=== PATIENT | female | born 1940 | race Caucasian/White ===

== ENCOUNTER 2017-07-10 22:35 | Observation (INO) | payer MEDICARE, OTHER, SELFPAY ==
[2017-07-10 22:36] VITALS: BP 135/59; PULSE 64; RESP 20; TEMP 36.6; O2SAT 95; BMI 23.3
--- NOTE | 2017-07-10 22:46 | CT_ITS ---
CT head/brain wo con HISTORY: Altered mental status, altered level of consciousness, memory loss ITS.REASON: altered mental status ORDERING PHYSICIAN: Michel Montgomery MD PATIENT AGE: 76 years COMPARISON: None TECHNIQUE: Axial images obtained without contrast. Brain and bone windows reviewed. FINDINGS: No midline shift, mass effect, intracranial hemorrhage, hydrocephalus, or extra-axial fluid collection is evident. Decreased density noted in the right parietal lobe consistent with encephalomalacia change from old infarction The calvarium has an unremarkable appearance. Mild opacification left mastoid air cells. No sinus air-fluid levels.. IMPRESSION: 1. 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 2. No acute intracranial findings. 3. Left mastoid effusion.
[2017-07-10 23:02] LABS: Basophils # 0.1 K/mm3 (0-0.2); Basophils % 0.9 % (0.1-2.0); Eosinophils # 0.6 K/mm3 (0.0-0.4); Eosinophils % 7.3 % (0.1-12.0); Hematocrit 37.9 % (37.0-47.0); Hemoglobin 12.3 g/dL (12.2-16.2); Lymphocytes # 3.3 K/mm3 (0.7-4.5); Lymphocytes % 39.5 K/mm3 (10-50); Mean Corpuscular HGB Conc 32.4 g/dL (31.8-35.4); Mean Corpuscular Volume 89.5 fl (81-99); Mean Platelet Volume 7.6 fl (7.4-10.4); Monocytes # 0.6 K/mm3 (0.1-1.0); Monocytes % 7.2 % (1.7-9.3); Neutrophils # 3.8 K/mm3 (1.8-7.8); Neutrophils % 45.1 % (37.0-80.0); Platelet Count 319 K/mm3 (142-424); Red Blood Count 4.23 M/mm3 (4.20-5.40); Red Cell Distribution Width 12.7 % (11.5-17.5); White Blood Count 8.4 K/mm3 (4.8-10.8)
[2017-07-10 23:03] LABS: Appearance,Urine CLEAR (Clear); Bilirubin,Urine Negative (Negative); Blood, Urine Negative (Negative); Color,Urine YELLOW (Yellow); Glucose,Urine (UA) Negative (Negative); Ketones,Urine TRACE (Negative); Leukocyte Esterase,Urine Negative (Negative); Microscopic, Urine URINE MICROSCOPIC (MICROSCOPIC); Nitrate,Urine Negative (Negative); PH,Urine 5.5 (5.0-8.5); Protein,Urine Negative (Negative); Specific Gravity, Urine >= 1.030 (1.005-1.030); Urobilinogen,Urine 0.2 EU/dl (0.2)
[2017-07-10 23:13] LABS: Bacteria,Urine 1+ /lpf; Mucus,Urine 1+ /lpf
[2017-07-10 23:26] LABS: Alanine Aminotransferase 26 U/L (12-78); Albumin Level 3.6 gm/dL (3.4-5.0); Albumin/Globulin Ratio 0.9 (1.1-1.8); Alkaline Phosphatase 117 U/L (46-116); Anion Gap 6.9 mEq/L (5-15); Aspartate Amino Transferase 22 U/L (15-37); Bilirubin,Total 0.2 mg/dL (0.2-1.0); Blood Urea Nitrogen 28 mg/dL (7-18); CKMB Relative Index 0.1 U/L (0-4.0); Calcium 8.9 mg/dL (8.5-10.1); Carbon Dioxide 30 mmol/L (21.0-32.0); Chloride 103 mmol/L (98-107); Creatine Kinase 498 U/L (26-192); Creatine Kinase MB 0.5 mg/ml (0.0-3.6); Creatinine Clearance Estimated 41 mL/min (0-300); Estimated Glomerular Filt Rate 44 ml/min (>60); GFR (African American) 53 ML/MIN (>60); Globulin 3.9 gm/dl (1.3-3.2); Glucose 112 mg/dL (74-106); Potassium 3.9 mmoL/L (3.5-5.1); Sodium 136 mmol/L (136-145); Total Protein,Serum 7.5 gm/dL (6.4-8.2); Troponin I < 0.02 ng/ml (0.00-0.06)
[2017-07-11 00:06] VITALS: BP 133/84; PULSE 74; RESP 17; O2SAT 96
--- NOTE | 2017-07-11 01:03 | HMH.EDNEU ---
ED Disposition Clinical Impression: History of CVA (cerebrovascular accident), Renal insufficiency TIA (transient ischemic attack) Qualifiers: Transient cerebral ischemia type: unspecified Qualified Code(s): G45.9 - Transient cerebral ischemic attack, unspecified Disposition: Admitted as Observation Condition on Discharge: Good Instructions: DI for Altered Mental Status Referrals: Michel Montgomery MD [Primary Care Provider] - - Critical Care Critical Care Time: No Attestation: On 07/10/17, the high probability of a clinically significant, sudden or life threatening deterioration of the following system(s) required my full and direct attention, intervention and personal management. The time I documented below is in addition to time spent performing reported procedures but includes the following listed in this critical care notation. Medical Decision Making - Medical Records Medical records reviewed: Yes: I reviewed the patient's medical records. - [place] Inquiry Pt receiving controlled substance: No Vital Signs: 07/10/17 22:36 07/11/17 00:06 Temperature 97.9 F Temperature Source Oral Pulse Rate [Right Brachial] 64 74 Respiratory Rate 20 17 Blood Pressure [Right Arm] 135/59 133/84 Blood Pressure Mean [Right Arm] 84 100 Blood Pressure Source [Right Arm] Automatic Cuff Manual Cuff/ Palpation Blood Pressure Position [Right Arm] Sitting 02 Sat by Pulse Oximetry 95 96 Oxygen Delivery Method Room Air Room Air - Lab Data Lab results reviewed: Yes: I reviewed the patient's lab results. Lab Results 07/10/17 22:58: WBC 8.4, RBC 4.23, Hgb 12.3, Hct 37.9, MCV 89.5, MCH 29.0, MCHC 32.4, RDW 12.7, Plt Count 319, MPV 7.6, Neut % (Auto) 45.1, Lymph % (Auto) 39.5, [place] % (Auto) 7.2, Eos % (Auto) 7.3, Baso % (Auto) 0.9, Neut # (Auto) 3.8, Lymph # (Auto) 3.3, [place] # (Auto) 0.6, Eos # (Auto) 0.6 H, Baso # (Auto) 0.1 07/10/17 22:58: Sodium 136, Potassium 3.9, Chloride 103, Carbon Dioxide 30, Anion Gap 6.9, BUN 28 H, Creatinine 1.20 H, Estimated Creat Clear 41, Estimated GFR 44 L, Est GFR ( Amer) 53 L, Glucose 112 H, Calcium 8.9, Total Bilirubin 0.2, AST 22, ALT 26, Alkaline Phosphatase 117 H, Total Creatine Kinase 498 H, CK-MB (CK-2) 0.5, CK-MB (CK-2) Rel Index 0.1, Troponin I < 0.02, Total Protein 7.5, Albumin 3.6, Globulin 3.9 H, Albumin/Globulin Ratio 0.9 L 07/10/17 23:00: Urine Color Yellow, Urine Appearance Clear, Urine pH 5.5, Ur Specific [place] >= 1.030, Urine Protein Negative, Urine Glucose (UA) Negative, Urine Ketones Trace, Urine Blood Negative, Urine Nitrate Negative, Urine Bilirubin Negative, Urine Urobilinogen 0.2, Ur Leukocyte Esterase Negative, Urine RBC 3-5, Urine WBC 3-5, Ur Squamous Epith Cells 3-5, Urine Bacteria 1+, Hyaline Casts 3-5, Urine Mucus 1+ Result diagrams: 07/10/17 22:58 07/10/17 22:58 Orders (Tests/Meds): ORDERS Category Date Time Status CT head/brain wo con Stat Cat Scan 07/10/17 22:46 Taken - CT Data CT Scan: Head Time Received: 22:[address] Reviewed: Yes: I have viewed the radiologist's interpretation Preliminary Findings: Abnormal (old cva ) - ECG Data Tracing #1 I reviewed this ECG and interpreted as documented below: Normal Sinus Rhythm: Yes Ischemic changes: non-specific ST-T wave changes - Physician Consults Physician Consulted: kanika Reason -: Admission Neuro HPI - General Chief Complaint: Altered Mental Status Stated Complaint: mental status changes Time Seen by Provider: 07/10/17 22:40 Mode of Arrival: Ambulatory Limitations: No Limitations Description of Symptoms (Recalled from ER Triage Doc. by RN): reports mental status changes, and numbness earlier. she reports right now, she just feels funny in her chest - History of Present Illness HPI Narrative: this wf who had cva about 1 yr ago and cardiac stent about 2 months ago - had not been feeling well over the last few days with rt sided noble and feeling fatigued- she saw pcp
--- NOTE | 2017-07-11 01:12 | PC.NURSE ---
dr boudreaux paged per dr bruno request
--- NOTE | 2017-07-11 01:14 | PC.NURSE ---
dr bruno speaking to dr boudreaux at this time regarding possible admission. dr boudreaux agreeable to admission
[2017-07-11 02:09] VITALS: BP 173/64; PULSE 52; RESP 16; TEMP 37; O2SAT 96
[2017-07-11 02:30] VITALS: BP 156/61; PULSE 51; RESP 18; TEMP 36.8; O2SAT 96; BMI 23.4
[2017-07-11 04:00] VITALS: BP 152/56; PULSE 57; PULSE 90; RESP 18; TEMP 36.6; O2SAT 95
--- NOTE | 2017-07-11 05:43 | PC.NURSE ---
CHARTED TELEMETRY STRIP ON THIS PATIENT BY MISTAKE. ASKED Ambrosio LERMA RN TO UN DOCUMENT THE ENTRY SINCE I DO NOT HAVE THE ACCESS TO THAT OPTION.
--- NOTE | 2017-07-11 07:15 | HMH.PHAVTE ---
[facility] Pharmacy VTE Monitoring - Patient Demographics Admission date: 07/10/17 Report Date: 07/11/17 Time: 07:15 Allergies/Adverse Reactions: Patient Allergies No Known Allergies Allergy (Verified 07/10/17 22:42) Height: 1.63 m Weight: 61.915 kg Patient Problems: Current Active Problems TIA (transient ischemic attack) (Acute) Renal insufficiency (Acute) History of CVA (cerebrovascular accident) (Acute) - VTE Risk Labs: VTE Related Lab Results Hgb 12.3 g/dL (12.2-16.2) 07/10/17 22:58 Hct 37.9 % (37.0-47.0) 07/10/17 22:58 Plt Count 319 K/mm3 (142-424) 07/10/17 22:58 BUN 28 mg/dL (7-18) H 07/10/17 22:58 Creatinine 1.20 mg/dL (0.55-1.02) H 07/10/17 22:58 Estimated Creat Clear 41 mL/min (0-300) 07/10/17 22:58 Was VTE Risk Assessment Performed: Yes VTE Risk Level: Very Low Risk Clinical Trial Participant: No - Prophylaxis VTE Prophylaxis Ordered?: Yes Types of VTE Prophylaxis: TEDS Knee High
[2017-07-11 07:45] VITALS: BP 144/49; PULSE 59; RESP 18; TEMP 36.8; O2SAT 97
[2017-07-11 08:10] LABS: Anion Gap 12.9 mEq/L (5-15); Blood Urea Nitrogen 27 mg/dL (7-18); Carbon Dioxide 27 mmol/L (21.0-32.0); Chloride 107 mmol/L (98-107); Creatinine Clearance Estimated 48 mL/min (0-300); Creatinine,Serum 0.98 mg/dL (0.55-1.02); Estimated Glomerular Filt Rate 55 ml/min (>60); GFR (African American) 67 ML/MIN (>60); Glucose 88 mg/dL (74-106); Potassium 3.9 mmoL/L (3.5-5.1); Sodium 143 mmol/L (136-145)
--- NOTE | 2017-07-11 08:17 | HMH.HP ---
*Admission Date: 07/10/17 <Shereen Randall 07/11/17 08:34> *Chief complaint: AMS <Shereen Randall 07/11/17 08:34> *History of present illness: Ms. Verdugo is a 76yo female who had a CVA in 2016 and cardiac stent placed about 2 months ago. She states she had not been feeling well over the last few days with a right sided headache. She also felt fatigued. She saw Dr. Montgomery on Sunday and was given fioricet and tizanidine. She had an episode of not feeling well with possible slurred speech last night and then took a tizanidine and felt more confused. There were no visual sx and no sensory or motor loss. She did feel like she could pass out but denies any dizziness. <Shereen Randall 07/11/17 08:34> [facility] History Medical History: Reports:: Anxiety, Carotid Stenosis, Cerebrovascular Accident, Depression, Hyperlipidemia, Hypertension Denies:: Cancer, Diabetes Mellitus Type 1, Diabetes Mellitus Type 2, MRSA <Shereen Randall 07/11/17 08:34> Other Medical History: Reports: Arthritis, Fibromyalgia <Shereen Randall 07/11/17 08:34> Other Surgeries: Yes: Coronary Stent, Hysterectomy-Total <Shereen Randall 07/11/17 08:34> Amputation: No <Shereen Randall 07/11/17 08:34> Fractures: No <Shereen Randall 07/11/17 08:34> Comment: Bladder tuck, lithotripsy <Shereen Randall 07/11/17 08:34> - *Social History Educational Level: Completed High School <Shereen Randall 07/11/17 08:34> Smoking Status: Never smoker <Shereen Randall 07/11/17 08:34> Alcohol Intake: never <Shereen Randall 07/11/17 08:34> Alcohol Intake Frequency:: other <Shereen Randall 07/11/17 08:34> Occupational Status: disabled <Shereen Randall 07/11/17 08:34> Housing: house <Shereen Randall 07/11/17 08:34> Household Members: spouse <Shereen Randall 07/11/17 08:34> - Psychiatric History Expresses thoughts of harming self/others: None <JamesShereen choe 07/11/17 08:34> Suicide Plan Description: No Plan <JamesShereen choe 07/11/17 08:34> *Family Hx:: Coronary Artery Disease, Diabetes, Stroke <ToniaShereen 07/11/17 08:34> Review of Systems - Constitutional Reports headache(s), Reports weakness, Denies chills, Denies fever(s) <Shereen Randall 07/11/17 08:34> - Eyes Denies blurry vision, Denies double vision <Shereen Randall 07/11/17 08:34> - ENT Denies nasal congestion, Denies sore throat <Shereen Randall 07/11/17 08:34> - *Cardiovascular Denies chest pain, Denies shortness of breath, Denies rapid, pounding, or irregular heartbeat <Shereen Randall 07/11/17 08:34> - *Respiratory Denies cough, Denies shortness of breath <ToniaShereen 07/11/17 08:34> - *Gastrointestinal Denies abdominal pain, Denies nausea, Denies vomiting <Shereen Randall 07/11/17 08:34> - *Genitourinary Denies difficulty urinating, Denies painful urination <ToniaShereen 07/11/17 08:34> - *Musculoskeletal Denies joint pain, Denies muscle weakness, Denies body aches <Shereen Randall 07/11/17 08:34> - *Neurologic Reports abnormal speech, Reports unsteadiness, Reports headache(s), Denies abnormal walking, Denies seizure-like activity, Denies other visual disturbances, Denies fainting, Denies dizziness <Shereen Randall 07/11/17 08:34> Meds Home Medications Medication Instructions Recorded Confirmed Type aspirin 81 mg tablet,delayed 81 mg PO DAILY 05/04/17 07/11/17 History release duloxetine 30 mg capsule,delayed 30 mg PO DAILY 05/04/17 07/11/17 History release Clopidogrel Bisulfate [Plavix 75mg 75 mg PO DAILY 07/10/17 07/11/17 History Tab] Bisoprolol Fumarate 10 mg PO DAILY 07/11/17 07/11/17 History Lisinopril/Hydrochlorothiazide 1 tab PO DAILY 07/11/17 07/11/17 History [Lisinopril-Hctz 10-12.5 mg Tab] dilTIAZem HCl [Cartia Xt] 120 mg PO DAILY 07/11/17 07/11/17 History <Michel Montgomery - 07/16/17 21:58> Allergies Allergy/AdvReac Type Severity Reaction Status Date / Time No Known Allergies Allergy Verified 07/10/17 22:42
--- NOTE | 2017-07-11 08:21 | P.HP_ITS ---
*Admission Date: 07/10/17 <Shereen Randall 07/11/17 08:34> *Chief complaint: AMS <Shereen Randall 07/11/17 08:34> *History of present illness: Ms. Verdugo is a 76yo female who had a CVA in 2016 and cardiac stent placed about 2 months ago. She states she had not been feeling well over the last few days with a right sided headache. She also felt fatigued. She saw Dr. Montgomery on Sunday and was given fioricet and tizanidine. She had an episode of not feeling well with possible slurred speech last night and then took a tizanidine and felt more confused. There were no visual sx and no sensory or motor loss. She did feel like she could pass out but denies any dizziness. <Shereen Randall 07/11/17 08:34> [facility] History Medical History: Reports:: Anxiety, Carotid Stenosis, Cerebrovascular Accident, Depression, Hyperlipidemia, Hypertension Denies:: Cancer, Diabetes Mellitus Type 1, Diabetes Mellitus Type 2, MRSA < Shereen Randall 07/11/17 08:34> Other Medical History: Reports: Arthritis, Fibromyalgia <Shereen Randall 07/11 08:34> Other Surgeries: Yes: Coronary Stent, Hysterectomy-Total <Shereen Randall 08:34> Amputation: No <Shereen Randall 07/11/17 08:34> Fractures: No <Shereen Randall 07/11/17 08:34> Comment: Bladder tuck, lithotripsy <Shereen Randall 07/11/17 08:34> - *Social History Educational Level: Completed High School <Shereen Randall 07/11/17 08:34> Smoking Status: Never smoker <Shereen Randall 07/11/17 08:34> Alcohol Intake: never <Shereen Randall 07/11/17 08:34> Alcohol Intake Frequency:: other <Shereen Randall 07/11/17 08:34> Occupational Status: disabled <Shereen Randall 07/11/17 08:34> Housing: house <Shereen Randall 07/11/17 08:34> Household Members: spouse <Shereen Randall 07/11/17 08:34> - Psychiatric History Expresses thoughts of harming self/others: None <JamesShereen choe 07/11/17 08: 34> Suicide Plan Description: No Plan <JamesShereen choe 07/11/17 08:34> *Family Hx:: Coronary Artery Disease, Diabetes, Stroke <ToniaShereen 08:34> Review of Systems - Constitutional Reports headache(s), Reports weakness, Denies chills, Denies fever(s) <Shereen Randall 07/11/17 08:34> - Eyes Denies blurry vision, Denies double vision <Shereen Randall 07/11/17 08:34> - ENT Denies nasal congestion, Denies sore throat <Shereen Randall 07/11/17 08:34> - *Cardiovascular Denies chest pain, Denies shortness of breath, Denies rapid, pounding, or irregular heartbeat <Shereen Randall 07/11/17 08:34> - *Respiratory Denies cough, Denies shortness of breath <ToniaShereen 07/11/17 08:34> - *Gastrointestinal Denies abdominal pain, Denies nausea, Denies vomiting <Shereen Randall 08:34> - *Genitourinary Denies difficulty urinating, Denies painful urination <ToniaShereen 08:34> - *Musculoskeletal Denies joint pain, Denies muscle weakness, Denies body aches <Shereen Randall 07/11/17 08:34> - *Neurologic Reports abnormal speech, Reports unsteadiness, Reports headache(s), Denies abnormal walking, Denies seizure-like activity, Denies other visual disturbances , Denies fainting, Denies dizziness <Shereen Randall 07/11/17 08:34> Meds Home Medications Medication Instructions Recorded Confirmed Type aspirin 81 mg tablet,delayed 81 mg PO DAILY 05/04/17 07/11/17 History release duloxetine 30 mg capsule,delayed 30 mg PO DAILY 05/04/17 07/11/17 History release Clopidogrel Bisulfate [Plavix 75mg 75 mg PO DAILY 07/10/17 07/11/17 History Tab] Bisoprolol Fu
[2017-07-11 08:23] LABS: Basophils # 0.1 K/mm3 (0-0.2); Basophils % 0.6 % (0.1-2.0); Eosinophils # 0.6 K/mm3 (0.0-0.4); Eosinophils % 7.7 % (0.1-12.0); Hematocrit 34.3 % (37.0-47.0); Hemoglobin 11.4 g/dL (12.2-16.2); Lymphocytes # 3.2 K/mm3 (0.7-4.5); Lymphocytes % 40.3 K/mm3 (10-50); Mean Corpuscular HGB Conc 33.3 g/dL (31.8-35.4); Mean Corpuscular Hemoglobin 28.9 pg (27.0-31.2); Mean Corpuscular Volume 86.9 fl (81-99); Mean Platelet Volume 7.7 fl (7.4-10.4); Monocytes # 0.5 K/mm3 (0.1-1.0); Monocytes % 6.7 % (1.7-9.3); Neutrophils # 3.5 K/mm3 (1.8-7.8); Neutrophils % 44.6 % (37.0-80.0); Platelet Count 277 K/mm3 (142-424); Red Blood Count 3.95 M/mm3 (4.20-5.40); Red Cell Distribution Width 12.6 % (11.5-17.5); White Blood Count 7.9 K/mm3 (4.8-10.8)
--- NOTE | 2017-07-11 08:31 | CI_ITS ---
Cerebrovascular Exam Indications: 433.10 Occlusion/stenosis of carotid artery without cerebral infarction. IMPRESSIONS 1. The bilateral vertebral arteries are patent with normal antegrade flow. 2. Study suggests less than 20% stenosis involving the right internal carotid artery. No change from the study of October 2015. 3. Study suggests 50-69% stenosis involving the left internal carotid artery. No change from the study of October 2015. History: Transient ischemic attack. Risk factors: Hypertension. Hyperlipidemia. Carotid duplex study. Complete study and Doppler flow study including spectral analysis, color and otero scale imaging. Height: Height: 162.6cm. Height: 64in. Weight: Weight: 63.1kg. Weight: 138.7lb. Body mass index: BMI: 23.9kg/m^2. Body surface area: BSA: 1.7m^2. Location: Bedside. Patient status: Inpatient. Tables: Arterial flow: + +--------+--------+ Location V sys V ed + +--------+--------+ Right CCA - proximal 133cm/s 19.6cm/s + +--------+--------+ Right CCA - distal 108cm/s 18.1cm/s + +--------+--------+ Right ECA 95.1cm/s -------- + +--------+--------+ Right ICA - proximal 91.1cm/s 20.4cm/s + +--------+--------+ Right ICA - mid 107cm/s 19.6cm/s + +--------+--------+ Right ICA - distal 122cm/s 27.5cm/s + +--------+--------+ Right vertebral 53.4cm/s -------- + +--------+--------+ Left CCA - proximal 105cm/s 18.9cm/s + +--------+--------+ Left CCA - distal 135cm/s 20.4cm/s + +--------+--------+ Left ECA 105cm/s -------- + +--------+--------+ Left ICA - proximal 121cm/s 31.4cm/s + +--------+--------+ Left ICA - mid 148cm/s 26.7cm/s + +--------+--------+ Left ICA - distal 242cm/s 44cm/s + +--------+--------+ Left vertebral 68.7cm/s -------- + +--------+--------+ Velocity ratios: + + + + + + Right, V sys Right, V ed Left, V sys Left, V ed + + + + + + Max ICA/dist CCA 1.13 1.52 1.79 2.16 + + + + + + (Report amended ) Electronically signed by: Arjun Barnes [id number]
--- NOTE | 2017-07-11 11:45 | HMH.DCSUM ---
General - General Admission date: 07/10/17 <Shereen Randall - 07/11/17 11:46> Discharge date: 07/11/17 <Shereen Randall - 07/11/17 11:46> HPI HPI: Ms. Verdugo is a 76yo female who had a CVA in 2016 and cardiac stent placed about 2 months ago. She states she had not been feeling well over the last few days with a right sided headache. She also felt fatigued. She saw Dr. Montgomery on Sunday and was given fioricet and tizanidine. She had an episode of not feeling well with possible slurred speech last night and then took a tizanidine and felt more confused. There were no visual sx and no sensory or motor loss. She did feel like she could pass out but denies any dizziness. <Shereen Randall - 07/11/17 11:46> Hospital Course Hospital Course: The patient had a head CT showing nothing acute and her carotid U/S was essentially the same as her previous U/S. Her symptoms resolved and she was stable to be discharged home. Will f/u with Dr. Montgomery in 1 week and keep her neurology appt. <Shereen Randall - 07/11/17 11:46> Objective Vital signs: Temp Pulse Resp BP Pulse Ox 98.2 F 59 L 18 144/49 97 07/11/17 07:45 07/11/17 07:45 07/11/17 07:45 07/11/17 07:45 07/11/17 07:45 <Michel Montgomery - 07/16/17 21:50> Temp Pulse Resp BP Pulse Ox 98.2 F 59 L 18 144/49 97 07/11/17 07:45 07/11/17 07:45 07/11/17 07:45 07/11/17 07:45 07/11/17 07:45 <Shereen Randall - 07/11/17 11:46> Narrative: - Constitutional no acute distress - *Routine HEENT Exam Head: Present: normocephalic, atraumatic Eye: Present: EOMI, PERRL ENT: Present: mucous membranes moist - *Routine Neck Exam Present: supple, full ROM - *Routine Respiratory Exam Present: CTA bilaterally - *Routine Cardiovascular Exam Present: RRR - *Routine Abdominal Exam Present: soft, normoactive bowel sounds. Absent: tenderness - *Routine Extremities Exam Absent: edema - *Routine Skin Exam Present: intact - *Routine Neurological Exam Present: alert, oriented X3, CN II-XII intact, normal speech. Absent: sensory deficit, motor deficit <Shereen Randall - 07/11/17 11:46> Results Labs on day of discharge: Labs from last 24 hours 07/11/17 07/11/17 06:35 06:35 WBC 7.9 RBC 3.95 L Hgb 11.4 L Hct 34.3 L MCV 86.9 MCH 28.9 MCHC 33.3 RDW 12.6 Plt Count 277 MPV 7.7 Neut % (Auto) 44.6 Lymph % (Auto) 40.3 [place] % (Auto) 6.7 Eos % (Auto) 7.7 Baso % (Auto) 0.6 Neut # (Auto) 3.5 Lymph # (Auto) 3.2 [place] # (Auto) 0.5 Eos # (Auto) 0.6 H Baso # (Auto) 0.1 Sodium 143 Potassium 3.9 Chloride 107 Carbon Dioxide 27 Anion Gap 12.9 BUN 27 H Creatinine 0.98 Estimated Creat Clear 48 Estimated GFR 55 L Est GFR ( Amer) 67 D Glucose 88 D <Shereen Randall - 07/11/17 11:46> DS: Diagnosis - Discharge Diagnosis (1) TIA (transient ischemic attack) Status: Acute (2) Headache Status: Acute (3) Renal insufficiency Status: Acute (4) History of CVA (cerebrovascular accident) Status: Chronic (5) CAD (coronary artery disease) Status: Chronic (6) HHD (hypertensive heart disease) Status: Chronic <Shereen Randall - 07/11/17 11:45> Discharge Plan - Patient Discharge Instructions ACTIVITY: Continue current activity <Shereen Randall - 07/11/17 11:46> DIET: continue same diet <Shereen Randall - 07/11/17 11:46> Patient Instructions: DI for Transient Ischemic Attack <Michel Montgomery - 07/16/17 21:50> Forms: <Michel Montgomery - 07/16/17 21:50> - Follow up Plan Follow up with: Michel oMntgomery MD [Primary Care Provider] - 1 week <Michel Montgomery - 07/16/17 21:50> Disposition: Home, Self-Care <Michel Montgomery - 07/16/17 21:50> Home Medications: Home Medications Medication Instructions Recorded Confirmed Type aspirin 81 mg tablet,delayed 81 mg PO DAILY 05/04/17 07/11/17 History
== END 2017-07-11 12:42 | disposition home or self-care (01) ==
LOC: ER 23:25 → 2ND 07-11 01:29
PROVIDERS: Admitting Provider Family Medicine; Emergency Provider Emergency Medicine; PCP Family Medicine; Visit Provider Family Medicine
DX: G45.9 Transient cerebral ischemic attack, unspecified (principal); N28.9 Disorder of kidney and ureter, unspecified; R51 Headache; M79.7 Fibromyalgia; I11.9 Hypertensive heart disease without heart failure; I25.10 Atherosclerotic heart disease of native coronary artery without angina pectoris; Z95.5 Presence of coronary angioplasty implant and graft; Z86.73 Personal history of transient ischemic attack (TIA), and cerebral infarction without residual deficits; Z90.710 Acquired absence of both cervix and uterus; Z79.02 Long term (current) use of antithrombotics/antiplatelets; Z79.899 Other long term (current) drug therapy
CPT/HCPCS: 36415; 70450; 80048; 80053; 81001; 82550; 82553; 84484; 85025; 93005; 93880; 99284; G0378

== ENCOUNTER → 2017-07-31 09:16 | Outpatient (CLI) | payer MEDICARE, OTHER, SELFPAY ==
[2017-07-31 10:26] LABS: Basophils # 0.1 K/mm3 (0-0.2); Basophils % 1.1 % (0.1-2.0); Eosinophils # 0.7 K/mm3 (0.0-0.4); Hematocrit 42.1 % (37.0-47.0); Hemoglobin 13.6 g/dL (12.2-16.2); Lymphocytes # 2.5 K/mm3 (0.7-4.5); Mean Corpuscular HGB Conc 32.2 g/dL (31.8-35.4); Mean Corpuscular Hemoglobin 29.4 pg (27.0-31.2); Mean Corpuscular Volume 91.2 fl (81-99); Mean Platelet Volume 7.5 fl (7.4-10.4); Monocytes # 0.5 K/mm3 (0.1-1.0); Monocytes % 6.4 % (1.7-9.3); Neutrophils # 3.2 K/mm3 (1.8-7.8); Neutrophils % 46.4 % (37.0-80.0); Platelet Count 318 K/mm3 (142-424); Red Blood Count 4.62 M/mm3 (4.20-5.40); Red Cell Distribution Width 12.7 % (11.5-17.5); White Blood Count 6.9 K/mm3 (4.8-10.8)
[2017-07-31 10:47] LABS: Alanine Aminotransferase 18 U/L (12-78); Albumin Level 3.7 gm/dL (3.4-5.0); Albumin/Globulin Ratio 0.9 (1.1-1.8); Alkaline Phosphatase 107 U/L (46-116); Anion Gap 9.6 mEq/L (5-15); Aspartate Amino Transferase 21 U/L (15-37); Bilirubin,Total 0.2 mg/dL (0.2-1.0); Blood Urea Nitrogen 28 mg/dL (7-18); Calcium 9.7 mg/dL (8.5-10.1); Carbon Dioxide 29 mmol/L (21.0-32.0); Chloride 107 mmol/L (98-107); Chol/HDL Ratio 3.3 (1-3.5); Cholesterol 225 mg/dL (140-200); Creatinine,Serum 1.13 mg/dL (0.55-1.02); Estimated Glomerular Filt Rate 47 ml/min (>60); GFR (African American) 57 ML/MIN (>60); Glucose 108 mg/dL (74-106); HDL Cholesterol 69 mg/dL (29-89); LDL Cholesterol 137 mg/dL (0-130); Potassium 4.6 mmoL/L (3.5-5.1); Sodium 141 mmol/L (136-145); Thyroid Stimulating Hormone 3.26 uIU/ml (0.358-3.740); Total Protein,Serum 7.7 gm/dL (6.4-8.2); Triglycerides 95 mg/dL (30-200); VLDL Cholesterol 19 mg/dL (0-40)
[2017-08-02 15:53] LABS: Vitamin D 25 Hydroxy 13.3 ng/mL (30.0-100.0)
== END ==
PROVIDERS: Visit Provider Family Medicine
DX: I25.10 Atherosclerotic heart disease of native coronary artery without angina pectoris (principal); I10 Essential (primary) hypertension; R53.83 Other fatigue
CPT/HCPCS: 36415; 80053; 80061; 82652; 84436; 84443; 85025

== ENCOUNTER → 2017-10-17 10:32 | Outpatient (CLI) | payer MEDICARE, OTHER, SELFPAY ==
--- NOTE | 2017-10-17 10:35 | XR_ITS ---
XR shoulder LT min 2V HISTORY: ITS.REASON: left shoulder pain ORDERING PHYSICIAN: Alonzo Mar MD PATIENT AGE: 76 years Comparison: 01/30/2011 FINDINGS: No fracture or dislocation. No lytic or blastic change. There is normal mineralization. There are minimal hypertrophic changes of the acromioclavicular joint but no significant subacromial stenosis and no significant change from the previous exam. IMPRESSION: Minimal acromioclavicular arthropathy otherwise negative
== END ==
PROVIDERS: PCP Family Medicine; Visit Provider Orthopaedic Surgery
DX: M25.512 Pain in left shoulder (principal)
CPT/HCPCS: 73030

== ENCOUNTER 2017-10-17 11:22 | Outpatient (RCR) | payer MEDICARE, OTHER, SELFPAY | END 2017-10-17 11:23 | disposition home or self-care (01) | LOC: OT 11:22 | PROVIDERS: Visit Provider Orthopaedic Surgery | DX: G56.02 Carpal tunnel syndrome, left upper limb (principal) | CPT/HCPCS: 97760 ==

== ENCOUNTER → 2017-12-17 09:58 | Outpatient (POV) | payer MEDICARE, OTHER, SELFPAY ==
[2017-12-17 10:10] VITALS: BP 148/40; PULSE 57; RESP 18; O2SAT 97
--- NOTE | 2017-12-17 13:17 | HMH.PMCON ---
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 Patient and I discussed the diagnostic nature of these. We will potentially move forward to her RFA at some point. Patient's tried and failed physical therapy, anti-inflammatory therapy for over 3 months. I will follow-up with her after her injection. This note was dictated using voice recognition software and may contain errors or omissions HPI - Data of Consult Consult date: 12/17/17 Requesting Physician: Alayna Guerrero APRN Primary Care Provider: Michel Montgomery MD Family Provider: Referral Provider, - Consult Narrative Reason for consult: Back pain History of present illness: Ms. Verdugo is a 77 year old female who presents today for consultation for back pain. Patient states the back pain stays in her back not radiating where patient states the pain is rotational movement. Patient does have a neuropathy according to her MRI. Patient at rest and Tylenol make it better while sleeping mopping places her pain. Has tried and failed chiropractic therapy along with physical therapy and anti-inflammatory therapy. She rates her pain today of 4/10. Patient is interested in injective therapy. CC: Alayna Guerrero APRN [facility] History I have reviewed the patient's past medical history: Yes Medical History: Reports:: Anxiety, Carotid Stenosis, Cerebrovascular Accident, Depression, Hyperlipidemia, Hypertension Denies:: Cancer, Diabetes Mellitus Type 1, Diabetes Mellitus Type 2, MRSA Other Medical History: Reports: Arthritis, Fibromyalgia Other Surgeries: Yes: Coronary Stent, Hysterectomy-Total Amputation: No Fractures: No - *Social History Smoking Status: Never smoker Alcohol Intake: never Alcohol Intake Frequency:: other Occupational Status: disabled Housing: house Household Members: spouse - Psychiatric History Expresses thoughts of harming self/others: None Suicide Plan Description: No Plan Pschychiatric History:: Reports:: Anxiety, Depression *Family Hx:: Coronary Artery Disease, Diabetes, Stroke Review of Systems - Review of Systems ROS General: no recent weight change, no fever, no sleep disturbances Respiratory: no cough, no shortness of air, no recurring pulmonary infections Cardiovascular/Peripheral Vascular: No chest pain, No palpitations, no edema, no shortness of breath. Gastrointestinal: no incontinence, normal bowel movements reported Genitourinary: no incontinence Musculoskeletal: Back pain Psychiatric: normal mood/ affect Neurological: [denies weakness in extremities], [denies balance issues] Meds Home Medications Medication Instructions Recorded Confirmed Type aspirin 81 mg tablet,delayed 81 mg PO DAILY 05/04/17 07/11/17 History release atorvastatin 40 mg tablet 40 mg PO DAILY tab 10/09/17 History Allergies Allergy/AdvReac Type Severity Reaction Status Date / Time No Known Allergies Allergy Verified 11/13/17 08:55 Objective Vital signs: Pulse Resp BP Pulse Ox 57 L 18 148/40 97 12/17/17 10:10 12/17/17 10:10 12/17/17 10:10 12/17/17 10:10 Narrative: Physical Exam General: Alert and oriented x3, no acute distress, pleasant and cooperative, [on room air] Lungs: Resps E/U, Symmetrical chest expansion, Eyes: PERRL Musculoskeletal: Flexion and extension of lumbar spine somewhat guarded secondary to pain, deep tendon reflexes normal, strength in upper and lower extremities [5/5], normal gait noted, positive facet loading lumbar spine bilaterally Neurological: speech clear, python architect equal, no gross sensory deficits Opioid Risk Tool - Opioid Risk Tool-Fema
--- NOTE | 2017-12-17 13:20 | P.CONS_ITS ---
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 Patient and I discussed the diagnostic nature of these. We will potentially move forward to her RFA at some point. Patient's tried and failed physical therapy, anti-inflammatory therapy for over 3 months. I will follow-up with her after her injection. This note was dictated using voice recognition software and may contain errors or omissions HPI - Data of Consult Consult date: 12/17/17 Requesting Physician: Alayna Guerrero APRN Primary Care Provider: Michel Montgomery MD Family Provider: Referral Provider, - Consult Narrative Reason for consult: Back pain History of present illness: Ms. Verdugo is a 77 year old female who presents today for consultation for back pain. Patient states the back pain stays in her back not radiating where patient states the pain is rotational movement. Patient does have a neuropathy according to her MRI. Patient at rest and Tylenol make it better while sleeping mopping places her pain. Has tried and failed chiropractic therapy along with physical therapy and anti-inflammatory therapy. She rates her pain today of 4/10. Patient is interested in injective therapy. CC: Alayna Guerrero APRN [facility] History I have reviewed the patient's past medical history: Yes Medical History: Reports:: Anxiety, Carotid Stenosis, Cerebrovascular Accident, Depression, Hyperlipidemia, Hypertension Denies:: Cancer, Diabetes Mellitus Type 1, Diabetes Mellitus Type 2, MRSA Other Medical History: Reports: Arthritis, Fibromyalgia Other Surgeries: Yes: Coronary Stent, Hysterectomy-Total Amputation: No Fractures: No - *Social History Smoking Status: Never smoker Alcohol Intake: never Alcohol Intake Frequency:: other Occupational Status: disabled Housing: house Household Members: spouse - Psychiatric History Expresses thoughts of harming self/others: None Suicide Plan Description: No Plan Pschychiatric History:: Reports:: Anxiety, Depression *Family Hx:: Coronary Artery Disease, Diabetes, Stroke Review of Systems - Review of Systems ROS General: no recent weight change, no fever, no sleep disturbances Respiratory: no cough, no shortness of air, no recurring pulmonary infections Cardiovascular/Peripheral Vascular: No chest pain, No palpitations, no edema, no shortness of breath. Gastrointestinal: no incontinence, normal bowel movements reported Genitourinary: no incontinence Musculoskeletal: Back pain Psychiatric: normal mood/ affect Neurological: [denies weakness in extremities], [denies balance issues] Meds Home Medications Medication Instructions Recorded Confirmed Type aspirin 81 mg tablet,delayed 81 mg PO DAILY 05/04/17 07/11/17 History release atorvastatin 40 mg tablet 40 mg PO DAILY tab 10/09/17 History Allergies Allergy/AdvReac Type Severity Reaction Status Date / Time No Known Allergies Allergy Verified 11/13/17 08:55 Objective Vital signs: Pulse Resp BP Pulse Ox
== END ==
PROVIDERS: PCP Family Medicine; Visit Provider Clinical Nurse Specialist Family Health
DX: M47.819 Spondylosis without myelopathy or radiculopathy, site unspecified (principal)
CPT/HCPCS: 99202

== ENCOUNTER → 2018-02-20 07:11 | Outpatient (CLI) | payer MEDICARE, OTHER, SELFPAY ==
--- NOTE | 2018-02-20 07:14 | NM_ITS ---
History and Indications: Coronary artery disease, hypertension, family history, chest pain, fatigue Procedure: Patient received a 0.4 mg of intravenous Lexiscan, resting heart rate was extreme 61 bpm resting blood pressure 162/71, with Lexiscan maximum heart rate achieved was 107 beats per minute, which is less than 85% of the maximum predicted heart rate and a blood pressure was 133/68. With Lexiscan patient complained of shortness of breath Electrocardiogram: Resting echocardiogram showed sinus rhythm, with Lexiscan there is less than 1.[address] segment depression noted from the baseline EKG. The EKG portion of the Lexiscan Myoview is nondiagnostic. Cardiac stress and resting SPECT images: Stress and rest SPECT images were obtained using technetium 99 Myoview 30.6 mCi stress and 10.3 mCi at rest. Gated SPECT further analysis of segmental wall motion and calculation of the ejection fraction also done. Cardiac stress and rest images show uniform myocardial activity without segmental perfusion abnormality, computer derived ejection fraction is over 65% with no regional wall motion abnormality, right ventricle is normal size and contractility. Conclusion: 1. The EKG portion of the Lexiscan Myoview is nondiagnostic. 2. No scintigraphic evidence of reversible ischemia seen, either derived ejection fraction is over 65% with no regional wall motion abnormality, right ventricle is normal size and contractility. 3. Normal Lexiscan Myoview study.
--- NOTE | 2018-02-20 08:08 | HMH.ITSHM ---
Current Home Medications as stated by this patient Macrela Verdugo or collections representative. []CARTIA DULOXETINE BISOPROLOL CLOPIDOGREL ASA ATORVASTATIN LISINOPRIL
[2018-02-20 16:06] LABS: Anion Gap 10.9 mEq/L (5-15); Blood Urea Nitrogen 24 mg/dL (7-18); Calcium 8.7 mg/dL (8.5-10.1); Carbon Dioxide 27 mmol/L (21.0-32.0); Chloride 104 mmol/L (98-107); Creatinine,Serum 1.32 mg/dL (0.55-1.02); Estimated Glomerular Filt Rate 39 ml/min (>60); GFR (African American) 47 ML/MIN (>60); Glucose 148 mg/dL (74-106); Potassium 3.9 mmoL/L (3.5-5.1); Sodium 138 mmol/L (136-145)
== END ==
PROVIDERS: Ophthalmology; PCP Family Medicine; Visit Provider Internal Medicine
DX: E78.2 Mixed hyperlipidemia (principal); I11.9 Hypertensive heart disease without heart failure; I20.9 Angina pectoris, unspecified; I25.10 Atherosclerotic heart disease of native coronary artery without angina pectoris; I48.0 Paroxysmal atrial fibrillation; I65.23 Occlusion and stenosis of bilateral carotid arteries; R00.1 Bradycardia, unspecified; R06.09 Other forms of dyspnea; Z01.818 Encounter for other preprocedural examination; Z86.73 Personal history of transient ischemic attack (TIA), and cerebral infarction without residual deficits
CPT/HCPCS: 36415; 78452; 80048; 93017; A9502; J2785

== ENCOUNTER → 2018-06-04 08:53 | Outpatient (CLI) | payer MEDICARE, OTHER, SELFPAY ==
--- NOTE | 2018-06-04 08:54 | CA_ITS ---
PROCEDURE: 2-D M-mode and color Doppler study INDICATIONS FOR THE TEST: Chest pain COPD Heart Murmur Tobacco Smoking Palpitations Fatigue+ Syncope Edema Hypertension+Diabetes Mellitus Rheumatic Fever SOB RATLIFF+Obesity Hyperlipidemia+ Family History HD Additional History cad, tachycardia, CVA, TARYN, stent, AFIB, loop recorder PATIENT INFORMATION HEIGHT: 65 WEIGHT: 138 GENDER: Female B/P: 123/74 2-D/M-MODE INTERPRETATION: 2-D MEASUREMENTS OBSERVED VALUES IN CMS Right Ventricular Dimension (RVDd) 2.8 Interventricular Septum (Thickness)(IVsd) 1.0 Left Ventricular Internal Dimensions(LVIDd) 3.3 Left Ventricular Posterior Wall (Thickness)(LVPWd) 1.0 Aortic Root 3.5 Aortic Cusp Separation 2.1 Left Atrial Dimensions (LAD) 3.0 2D 1. Left atrium is mildly enlarged, left ventricle is normal size, mild concentric left ventricular hypertrophy, visually estimated ejection fraction 55% with no regional wall motion abnormality. 2. The right atrium and right ventricle are mildly enlarged with normal contractility. 3. The aortic valve is minimally thickened and fibrosed. 4. The mitral and tricuspid valve leaflets are minimally thickened. 5. The pulmonic valve is poorly visualized. 6. No significant pericardial effusion noted. DOPPLER INTERROGATION: Doppler interrogation of the aortic, mitral and tricuspid valvular presence of mild aortic, mild mitral and tricuspid regurgitation, calculated right ventricular systolic pressure is 47 mm, consistent with moderate pulmonary hypertension, grade 1 diastolic dysfunction seen with tissue Doppler evidence of raised left atrial pressure. CONCLUSION: 1. Mild biatrial enlargement, normal left ventricular size, mild concentric left ventricular hypertrophy, visually estimated ejection fraction of 55% with no regional wall motion abnormality, grade 1 diastolic dysfunction seen with tissue Doppler evidence of raised left atrial pressure. 2. Mild aortic, mild mitral and tricuspid regurgitation. Calculated right ventricular systolic pressure is 47 mmHg consistent with moderate pulmonary hypertension. 3. No significant pericardial effusion noted.
--- NOTE | 2018-06-04 08:55 | CI_ITS ---
Cerebrovascular Exam Indications: 433.10 Occlusion/stenosis of carotid artery without cerebral infarction. IMPRESSIONS 1. The bilateral vertebral arteries are patent with normal antegrade flow. 2. Study suggests less than 20% stenosis involving the right internal carotid artery. No change from the study of 11-Jul-2017. 3. Study suggests 50-69% stenosis involving the left internal carotid artery. No change from the study of 11-Jul-2017. History: Coronary artery disease. Risk factors: Hyperlipidemia. Carotid duplex study. Complete study and Doppler flow study including spectral analysis, color and otero scale imaging. Height: Height: 162.6cm. Height: 64in. Weight: Weight: 63.5kg. Weight: 139.7lb. Body mass index: BMI: 24kg/m^2. Body surface area: BSA: 1.7m^2. Location: Vascular laboratory. Patient status: Outpatient. Tables: Arterial flow: + +--------+--------+ Location V sys V ed + +--------+--------+ Right CCA - proximal 126cm/s 33.8cm/s + +--------+--------+ Right CCA - distal 97.4cm/s 23.6cm/s + +--------+--------+ Right ECA 95.9cm/s -------- + +--------+--------+ Right ICA - proximal 83.8cm/s 23.7cm/s + +--------+--------+ Right ICA - mid 133cm/s 36.9cm/s + +--------+--------+ Right ICA - distal 106cm/s 29.9cm/s + +--------+--------+ Right vertebral 46.9cm/s -------- + +--------+--------+ Left CCA - proximal 114cm/s 23.9cm/s + +--------+--------+ Left CCA - distal 126cm/s 31.4cm/s + +--------+--------+ Left ECA 110cm/s -------- + +--------+--------+ Left ICA - proximal 120cm/s 35.4cm/s + +--------+--------+ Left ICA - mid 132cm/s 39.3cm/s + +--------+--------+ Left ICA - distal 172cm/s 46.2cm/s + +--------+--------+ Left vertebral 73.3cm/s -------- + +--------+--------+ Velocity ratios: + + + + + + Right, V sys Right, V ed Left, V sys Left, V ed + + + + + + Max ICA/dist CCA 1.37 1.56 1.37 1.47 + + + + + + (Report amended ) Electronically signed by: Hernandez Ruelas [id number]
--- NOTE | 2018-06-04 10:02 | NM_ITS ---
CARDIOLITE SPECT MYOCARDIAL PERFUSION SCAN, REST AND STRESS: EXERCISE STRESS [facility] [place] REVIEW QGS EF AND WALL MOTION EVALUATION: QPS - PERFUSION EVALUATION HISTORY: sob..fatique DOSE: 10.64 mCi technetium 99m mibi intravenously at rest followed by 32.0 mCi technetium 99m mibi following the intravenous ministration of 0.4 mg of Lexiscan. Resting blood pressure is 154/70. Stress blood pressure 152/73. FINDINGS: Ejection fraction is calculated to be 83%. Uniform myocardial activity with both stress and rest gated images calculated ejection fraction of 83% with hyperdynamic wall motion IMPRESSION: No scintigraphic evidence of Lexiscan-induced myocardial ischemia. Hyperdynamic wall motion hyperdynamic ejection fraction
--- NOTE | 2018-06-04 14:44 | HMH.ITSHM ---
Current Home Medications as stated by this patient Marcela Verdugo or patient intake representative. []lisinopril asa atorvastatin
== END ==
PROVIDERS: PCP Family Medicine; Visit Provider Nurse Practitioner Family
DX: E78.5 Hyperlipidemia, unspecified (principal); I11.9 Hypertensive heart disease without heart failure; I25.10 Atherosclerotic heart disease of native coronary artery without angina pectoris; R00.0 Tachycardia, unspecified; R06.00 Dyspnea, unspecified; R53.83 Other fatigue; Z86.73 Personal history of transient ischemic attack (TIA), and cerebral infarction without residual deficits
CPT/HCPCS: 78452; 93017; 93306; 93880; A9502; J2785

== ENCOUNTER → 2018-10-23 14:52 | Outpatient (CLI) | payer MEDICARE, OTHER, SELFPAY ==
--- NOTE | 2018-10-23 14:56 | XR_ITS ---
XR foot RT min 3V HISTORY: ITS.REASON: ANTERIOR TALOFIBULAR LIGAMENT SPRAIN ORDERING PHYSICIAN: Marisol Reardon MD PATIENT AGE: 78 years COMPARISON: None FINDINGS: No fracture or dislocation. No lytic or blastic change. There is normal mineralization.. The joint spaces are well-preserved. No significant degenerative/arthritic changes. No erosive changes evident. There is mild generalized vascular calcification IMPRESSION: No acute finding
== END ==
PROVIDERS: PCP Emergency Medicine; Visit Provider Emergency Medicine
DX: S93.491A Sprain of other ligament of right ankle, initial encounter (principal)
CPT/HCPCS: 73630

== ENCOUNTER → 2019-02-05 09:47 | Outpatient (CLI) | payer MEDICARE, OTHER, SELFPAY ==
--- NOTE | 2019-02-05 09:52 | MM_ITS ---
PROCEDURE: MM DIG SCREENING MAMM BI W/CAD Patient Age:78Y CLINICAL INDICATION: SCREENING Routine screening with no hormones. No new complaints. No family history of. The Loop recorder on left side. Patient was very tense and difficult position limiting our MLO views today the COMPARISON: DIGMAMMS MAMMOGRAM SCREEN-TRANSMISSION TESTER N/C from 09/28/2009 DIGMAMMDX MAMMOGRAM DX-TRANSMISSION TESTER N/C from 10/07/2009 DMSB DIGITAL MAMM-SCREEN BILATERAL from 11/01/2010 DMSB DIGITAL MAMM-SCREEN BILATERAL from 11/30/2011 DMSB DIG MAMM-SCREEN GRABIEL from 11/28/2012 DMSB DIG MAMM-SCREEN GRABIEL from 04/01/2014 DMSB DIG MAMM-SCREEN GRABEIL from 05/11/2015 TECHNIQUE: Standard CC and MLO images were obtained. R2 CAD reviewed. Additional bilateral axillary CC views performed all along with additional MLO views in attempt to image deeper portion of left breast FINDINGS: Moderate breast density tissue most evident retroareolar region towards anterior breast.. Stable architecture with no new mass lesion. Right breast: Scattered tiny faint loosely grouped scattered punctate tape calcifications seen at the retroareolar region, and extending medial, and inferior. These are best seen with enlargement of today's images. Of most likely these punctate calcifications Most likely reflect benign adenosis, but have becomes slightly more apparent than previous studies There are small similar calcifications seen elsewhere right breast which are stable. The cc and and a degree spot views recommended. Left breast: Stable with no new areas of concern but stable mild asymmetry. IMPRESSION: No new mass or nodule either breast. However at RIGHT breast, node additional tiny punctate calcifications retro region.; Subtle but have since prior study. Become slightly more evident since prior study.. These calcifications loosely grouped, slightly scattered. Overall appearance suggests most likely Benign Adenosis; however these would benefit from and warrant magnification spot views to further evaluate LEFT breast. Stable.. Follow-up 1 year on left BI-RAD Category: 0 Need Additional Imaging Evaluation FOLLOW-UP: IMM Immediate Follow-up Recommended (A letter has been sent to the patient regarding results of the study.) Dictated by: Hernandez Ruelas MD 02/05/2019 18:40 Electronically signed by Hernandez Ruelas MD in [place] 02/05/2019 18:40
== END ==
PROVIDERS: PCP Family Medicine; Visit Provider Family Medicine
DX: Z12.31 Encounter for screening mammogram for malignant neoplasm of breast (principal)
CPT/HCPCS: 77067

== ENCOUNTER → 2019-02-26 14:33 | Outpatient (CLI) | payer MEDICARE, OTHER, SELFPAY ==
--- NOTE | 2019-02-26 14:37 | MM_ITS ---
PROCEDURE: MM DIG MAMM DX UNILAT RT CAD CLINICAL INDICATION: ABNORMAL MAMM Follow-up abnormal mammogram COMPARISON: DMSB DIG MAMM-SCREEN GRABIEL from 04/01/2014 DMSB DIG MAMM-SCREEN GRABIEL from 05/11/2015 MM DIG SCREENING MAMM BI W/CAD from 02/05/2019 TECHNIQUE: Mag views of the right breast FINDINGS: There is a cluster of pleomorphic calcifications in the inferior aspect of the right breast in the subareolar region. These are suspicious and biopsy is suggested. Stereotactic biopsy may be attempted however, these calcifications may be too close to the skin surface but 1 would not know until positioning the patient. There are also faint calcifications in the upper aspect of the right breast.. A small focal density is present in this area and may be due to a michel like area of calcification. IMPRESSION: Suspicious calcifications in the 6 o'clock region of the right breast near the nipple. Stereotactic biopsy suggested BI-RAD Category: 4 Suspicious Abnormality - Biopsy Considered FOLLOW-UP: BIO Biopsy Recommended (A letter has been sent to the patient regarding results of the study.) The Dictated by: Arjun Barnes MD 03/03/2019 10:36 Electronically signed by Arjun Barnes MD in [place] 03/03/2019 10:36
== END ==
PROVIDERS: PCP Family Medicine; Visit Provider Nurse Practitioner Family
DX: R92.8 Other abnormal and inconclusive findings on diagnostic imaging of breast (principal)
CPT/HCPCS: 77065

== ENCOUNTER → 2019-03-26 12:23 | Outpatient (CLI) | payer MEDICARE, OTHER, SELFPAY ==
--- NOTE | 2019-03-26 12:27 | MM_ITS ---
PROCEDURE: MM STEREOTACTIC LOC RT CLINICAL INDICATION: RT BREAST NODULE Calcifications right breast, abnormal mammogram COMPARISON: MM DIG SCREENING MAMM BI W/CAD from 02/05/2019 MM DIG MAMM DX UNILAT RT CAD from 03/26/2019 TECHNIQUE: Following obtaining informed consent and time-out procedure after localizing the calcifications of interest with stereotactic technique under aseptic conditions and local anesthesia with 1 percent buffered lidocaine and deeper anesthesia with lidocaine mixed with epinephrine, a dermotomy was performed and mammotome needle was inserted. Multiple mammotome biopsies were obtained. Specimen radiograph did demonstrate calcifications of interest. A CLIP WAS NOT PLACED DUE TO THE SUPERFICIAL LOCATION OF THE CALCIFICATIONS.. The patient tolerated the procedure well without evidence of immediate complication and left the stereotactic suite in stable condition.. Post biopsy mammogram was then performed. FINDINGS: Surgical specimen: Microcalcifications of interest too demonstrated. Post biopsy mammogram: Microcalcifications in the inferior aspect of the right breast are less numerous with biopsy defect at this area. PATHOLOGY: Negative for malignancy. Rare microcalcifications identified. Dense stromal fibrosis. IMPRESSION: Stereotactic directed biopsy of the right breast shows benign findings. BI-RAD Category: 2 Benign Finding(s) FOLLOW-UP: 6M 6Month Follow-up per routine protocol post biopsy (A letter has been sent to the patient regarding results of the study.) Dictated by: Arjun Barnes MD 04/01/2019 11:40 Electronically signed by Arjun Barnes MD in [place] 04/01/2019 11:40
== END ==
PROVIDERS: PCP Family Medicine; Visit Provider Nurse Practitioner Family
DX: R92.8 Other abnormal and inconclusive findings on diagnostic imaging of breast (principal)
CPT/HCPCS: 19081; 76098; 77065; 88305

== ENCOUNTER → 2019-06-04 09:29 | Outpatient (CLI) | payer MEDICARE, OTHER, SELFPAY | PROVIDERS: PCP Family Medicine; Visit Provider Physician Assistant | DX: R00.0 Tachycardia, unspecified (principal) | CPT/HCPCS: 93225 ==

== ENCOUNTER → 2019-06-05 08:45 | Outpatient (CLI) | payer MEDICARE, OTHER, SELFPAY ==
[2019-06-05 09:07] LABS: Basophils # 0.1 K/mm3 (0-0.2); Basophils % 1.1 % (0.1-2.0); Eosinophils # 0.7 K/mm3 (0.0-0.4); Eosinophils % 9.9 % (0.1-12.0); Hematocrit 34.4 % (37.0-47.0); Hemoglobin 11.1 g/dL (12.2-16.2); Lymphocytes % 28.2 % (10-50); Mean Corpuscular HGB Conc 32.3 g/dL (31.8-35.4); Mean Corpuscular Hemoglobin 29.7 pg (27.0-31.2); Monocytes # 0.4 K/mm3 (0.1-1.0); Monocytes % 6.2 % (1.7-9.3); Neutrophils # 3.8 K/mm3 (1.8-7.8); Neutrophils % 54.6 % (37.0-80.0); Platelet Count 305 K/mm3 (142-424); Red Blood Count 3.74 M/mm3 (4.20-5.40); Red Cell Distribution Width 12.6 % (11.5-17.5)
[2019-06-05 10:38] LABS: Alanine Aminotransferase 41 U/L (9-52); Albumin Level 3.4 g/dL (3.4-5.0); Alkaline Phosphatase 131 U/L (46-116); Anion Gap 15.5 mEq/L (5-15); Aspartate Amino Transferase 34 U/L (15-37); Bilirubin,Total 0.4 mg/dL (0.2-1.0); Blood Urea Nitrogen 28 mg/dL (7-18); Calcium 8.7 mg/dL (8.5-10.1); Carbon Dioxide 25 mmol/L (21.0-32.0); Chloride 108 mmol/L (98-107); Chol/HDL Ratio 2.1 (1-3.5); Cholesterol 145 mg/dL (140-200); Creatinine,Serum 1.54 mg/dL (0.55-1.02); Estimated Glomerular Filt Rate 33 ml/min (>60); GFR (African American) 40 ML/MIN (>60); Globulin 3.3 gm/dl (1.3-3.2); Glucose 106 mg/dL (74-106); HDL Cholesterol 68 mg/dL (29-89); LDL Cholesterol 59 mg/dL (0-130); Potassium 4.5 mmoL/L (3.5-5.1); Sodium 144 mmol/L (137-145); Thyroid Stimulating Hormone 2.81 uIU/ml (0.358-3.740); Total Protein,Serum 6.7 g/dL (6.4-8.2); Triglycerides 89 mg/dL (30-200); VLDL Cholesterol 18 mg/dL (0-40)
[2019-06-06 10:51] LABS: Folate 6.7 ng/mL (>3.0); Vitamin B12 >2000 pg/mL (232-1245)
[2019-06-10 11:06] LABS: Iron 111 ug/dL (37-170)
== END ==
PROVIDERS: Visit Provider Family Medicine
DX: I10 Essential (primary) hypertension (principal); E78.5 Hyperlipidemia, unspecified; R53.83 Other fatigue; F32.9 Major depressive disorder, single episode, unspecified; E55.9 Vitamin D deficiency, unspecified; D64.9 Anemia, unspecified
CPT/HCPCS: 36415; 80053; 80061; 82607; 82652; 82746; 83540; 84443; 85025

== ENCOUNTER → 2019-06-23 13:20 | Outpatient (CLI) | payer MEDICARE, OTHER, SELFPAY | PROVIDERS: PCP Family Medicine; Visit Provider Nurse Practitioner Family | DX: G47.33 Obstructive sleep apnea (adult) (pediatric) (principal); R40.0 Somnolence; R00.2 Palpitations; R53.83 Other fatigue; I25.10 Atherosclerotic heart disease of native coronary artery without angina pectoris; I11.9 Hypertensive heart disease without heart failure | CPT/HCPCS: G0399 ==

== ENCOUNTER → 2019-12-02 07:51 | Outpatient (CLI) | payer MEDICARE, OTHER, SELFPAY ==
--- NOTE | 2019-12-02 07:52 | CA_ITS ---
APPROVED REPORT Chemic Mangler: CT Laterality: Bilateral Study Quality: Good Indications: jose, Afib, HTN, CAD, CVA Risk Factors Hypertension: Doppler Spectral Velocity Analysis ECA (R) 82.80/5.80 cm/s ECA (L) 93.70/3.20 cm/s dICA (R) 80.20/20.40 cm/s dICA (L) 179.40/47.40 cm/s Irvin (R) 93.70/23.10 cm/s Irvin (L) 166.80/24.60 cm/s pICA (R) 81.50/20.50 cm/s pICA (L) 143.30/31.00 cm/s dCCA (R) 93.00/13.90 cm/s dCCA (L) 140.50/23.10 cm/s pCCA (R) 127.00/13.30 cm/s pCCA (L) 125.10/19.70 cm/s Vert (R) 66.80/8.30 cm/s Vert (L) 72.00/14.60 cm/s ICA/CCA 1.00 ICA/CCA 1.30 Findings Duplex evaluation demonstrates stenosis of the right proximal internal carotid artery <20%. Duplex evaluation demonstrates stenosis of the left proximal internal carotid artery in the range of 50-69% . Duplex evaluation demonstrates antegrade flow of the bilateral Vertebral Arteries. Conclusion Duplex evaluation demonstrates stenosis of the right proximal internal carotid artery <20%. Duplex evaluation demonstrates stenosis of the left proximal internal carotid artery in the range of 50-69% . Duplex evaluation demonstrates antegrade flow of the bilateral Vertebral Arteries. Electronically signed by : Arjun Barnes MD 12/02/2019 15:38:20
== END ==
PROVIDERS: PCP Family Medicine; Visit Provider Urology
DX: E78.5 Hyperlipidemia, unspecified (principal); I11.9 Hypertensive heart disease without heart failure; I25.10 Atherosclerotic heart disease of native coronary artery without angina pectoris; Z86.73 Personal history of transient ischemic attack (TIA), and cerebral infarction without residual deficits; I65.23 Occlusion and stenosis of bilateral carotid arteries
CPT/HCPCS: 93880

== ENCOUNTER → 2019-12-31 13:42 | Outpatient (CLI) | payer MEDICARE, OTHER, SELFPAY ==
--- NOTE | 2019-12-31 13:51 | CT_ITS ---
PROCEDURE: CT ABDOMEN PELVIS WO CON CLINICAL INDICATION: right flank pain right flank pain x 6 months COMPARISON: CT ABDPELW/O CT ABD PELVIS W/O CONTRAST from 02/25/2015 TECHNIQUE: Axial images obtained with sagittal and coronal reformats. All CT scans at the facility use one or more dose reduction, viz: automated exposure control, ma/kV adjustment per patient size (including targeted exams where dose is matched to indication, i.e. head), or iterative reconstruction technique. FINDINGS: LOWER THORAX: MILD ATELECTATIC CHANGES IN THE LEFT LUNG BASE. CORONARY ARTERY CALCIFICATIONS ARE PRESENT. ABDOMEN & PELVIS: THE LIVER, SPLEEN, ADRENAL GLANDS, PANCREAS, AND GALLBLADDER HAVE AN UNREMARKABLE APPEARANCE. THERE IS SOME ATROPHY OF THE LOWER POLE OF THE RIGHT KIDNEY WITH RENAL SINUS LIPOMATOSIS. THERE ARE PARAPELVIC RENAL CYSTS ON THE LEFT WITH VASCULAR CALCIFICATIONS PRESENT. NONOBSTRUCTING 3 MM STONE IS PRESENT IN THE MID POLAR REGION OF THE RIGHT KIDNEY. A 2 MM CALCIFIC DENSITY IS PRESENT IN THE RIGHT PELVIC REGION IMAGE NUMBER 92 SERIES 3 AND IS IN THE PLANE OF THE RIGHT URETER. THIS COULD REPRESENT A SMALL STONE OF THE URETER OR A PHLEBOLITHS. THIS IS NOT READILY APPARENT ON 02/25/2015. NO INTESTINAL OBSTRUCTION OR FREE AIR. NO EVIDENCE OF APPENDICITIS. THERE IS A MODERATE AMOUNT OF RETAINED COLONIC FECES. THERE IS COLONIC DIVERTICULOSIS INVOLVING THE SIGMOID COLON. THERE IS A SMALL UMBILICAL HERNIA CONTAINING FAT. DEGENERATIVE CHANGES ARE PRESENT IN THE LUMBAR SPINE. THERE HAS BEEN A PRIOR HYSTERECTOMY. IMPRESSION: 1. RIGHT NEPHROLITHIASIS WITH POSSIBLE SMALL RIGHT DISTAL URETERAL STONE. NO HYDRONEPHROSIS.. 2. COLONIC DIVERTICULOSIS. NO EVIDENCE OF DIVERTICULITIS. Dictated by: Arjun Barnes MD 01/01/2020 11:03 Arjun Barnes MD in [place] 01/01/2020 11:03
== END ==
PROVIDERS: PCP Family Medicine; Visit Provider Urology
DX: R10.9 Unspecified abdominal pain (principal)
CPT/HCPCS: 74176

== ENCOUNTER 2020-07-20 07:52 | Day surgery (SDC) | payer MEDICARE, OTHER, SELFPAY ==
[2020-07-20 08:01] VITALS: BMI 22.8
[2020-07-20 08:23] VITALS: BP 183/82; PULSE 73; RESP 18; O2SAT 96
[2020-07-20 08:27] VITALS: PULSE 56
--- NOTE | 2020-07-20 08:51 | P.PCN_ITS ---
[facility] Procedure Note Procedure Note:: Patient was brought to the cardiac Multiskill Operator as an outpatient. After consent obtained, 1% lidocaine was used to anesthetize the area over the loop recorder. Scalpel was used to dissect down to the device and hemostats was used to remove the device without complications. Edges were approximated and Steri-Strips placed. Gauze was placed over the steri-strips with Tegaderm was used as a covering to hold it in place and protect the incision while it heals. Patient tolerated the procedure without complications. She will return to the office in 1 week for follow-up. Device was removed due to end-of-life and patient request.
[2020-07-20 08:55] VITALS: BP 141/60; PULSE 74; PULSE 79; RESP 20; TEMP 36.6; O2SAT 95
== END 2020-07-20 08:59 | disposition home or self-care (01) ==
LOC: RAD 07:53
PROVIDERS: Internal Medicine; PCP Family Medicine; Visit Provider Physician Assistant
DX: Z45.09 Encounter for adjustment and management of other cardiac device (principal); I48.0 Paroxysmal atrial fibrillation; I25.10 Atherosclerotic heart disease of native coronary artery without angina pectoris; E11.9 Type 2 diabetes mellitus without complications; Z86.73 Personal history of transient ischemic attack (TIA), and cerebral infarction without residual deficits
CPT/HCPCS: 33286

== ENCOUNTER → 2020-07-27 06:49 | Outpatient (CLI) | payer MEDICARE, OTHER, SELFPAY ==
--- NOTE | 2020-07-27 06:51 | CA_ITS ---
APPROVED REPORT Exam: Pharmacologic Technologist: Nemo Sevilla, Ht: 5 ft 4 in Wt: 133 lbs BSA: 1.64 m2 HR: 79 bpm BP: 173/58 mmHg Rhythm: NSR,NORMAL Indications: Shortness of Breath, Fatigue Medical History Medical History: HTN, Hyperlipidemia Medications: Metoprolol,,,,, Atorvastatin,,,,, Lisinopril/HCTZ,,,,, Buspirone,,,,, VoRtioxetine,,,,, Allergies: No known drug allergies Stress Test Details Test: LEXISCAN HR Resting HR: 85 bpm Max Heart Rate (APMHR): 142.512158 bpm Max HR Achieved: 128 bpm Target HR (85% APMHR): 120.214420 bpm % of APMHR: 90.14 Recovery HR: 109 bpm BP Resting BP: 173.0/58.0 mmHg Max BP: 173.0/58.0 mmHg Recovery BP: 130.0/61.0 mmHg ECG Resting ECG: NSR,NORMAL Clinical Exercise duration: 04:00 min Highest Stage Achieved: Stress ECG Conclusion DURING INFUSION PATIENT HAD SOA,MALAISE AND WEAKNESS. NO CHEST PAIN. RARE PAC. 1-1.5MM HORIZONTAL AND SLIGHTLY DOWNSLOPING ST DEPRESSION INFERIORLY. 1MM HORIZONTAL ST DEPRESSION LATERALLY. EKG CHANGES SUGGESTIVE OF ISCHEMIA. FreeAgentVIEW IMAGES REPORTED SEPARATELY, Electronically signed by : Blaise Mclaughlin, 07/30/2020 08:35:35
--- NOTE | 2020-07-27 06:51 | NM_ITS ---
APPROVED REPORT Exam: Nuclear Stress Test Indication: SOB, Palpitations, Fatigue, High cholesterol Patient Location: Outpatient Stress Tech: Nemorosibel Sevilla [place] Tech:Maday Maria, ARRT, RT (R)(N) Ht: 5 ft 5 in Wt: 135 lbs Bra Size: 36B HR: 79 bpm BP: 173/58 mmHg BSA: 1.67 m2 BMI: 22.4 History: SOB, Palpitations, Fatigue, High cholesterol Procedure: Patient received a 0.4 mg of intravenous Lexiscan, resting heart rate 79 bpm, resting blood pressure 173/58 mmHg, with Lexiscan maximum heart rate achived was 122 bpm which is % of the maximum predicted heart rate and blood pressure was 153/70 mmHg. With Lexiscan, patient denied any complaint of chest pain. Cardiac Stress and Resting SPECT Images: Cardiac Stress and Resting SPECT images were obtained using technetium 99m Myoview 31.6 mCi stress and 9.89 mCi at rest. Ejection Fraction normal at 73%. No wall motion abnormality. No Reversible or fixed defects. Conclusion: Normal Electronically signed by : Arjun Barnes MD 07/28/2020 14:54:29
--- NOTE | 2020-07-27 06:51 | CA_ITS ---
APPROVED REPORT Door Repairer Bus: blanco Jim Laterality: Bilateral Study Quality: Good Indications: TARYN, history of CVA Doppler Spectral Velocity Analysis ECA (R) 82.50/3.93 cm/s ECA (L) 89.30/7.17 cm/s dICA (R) 92.60/25.40 cm/s dICA (L) 114.00/29.30 cm/s Irvin (R) 78.30/21.00 cm/s Irvin (L) 126.00/30.00 cm/s pICA (R) 62.30/18.20 cm/s pICA (L) 112.00/34.20 cm/s dCCA (R) 75.40/16.50 cm/s dCCA (L) 87.70/17.60 cm/s pCCA (R) 141.00/19.60 cm/s pCCA (L) 98.70/16.00 cm/s Vert (R) 39.20/8.82 cm/s Vert (L) 53.10/15.40 cm/s ICA/CCA 1.24 ICA/CCA 1.44 Findings Duplex evaluation demonstrates antegrade flow of the bilateral Vertebral Arteries.Duplex evaluation demonstrates stenosis of the right proximal internal carotid artery in the range of 20-49% with PSV <140 cm/sec, EDV <100 cm/sec, and IC/CC Ratio <4.0.Duplex evaluation demonstrates stenosis of the left proximal internal carotid artery in the range of 20-49% with PSV =140 cm/sec, EDV <100 cm/sec, and IC/CC Ratio <4.0. Conclusion Duplex evaluation demonstrates antegrade flow of the bilateral Vertebral Arteries.Duplex evaluation demonstrates stenosis of the right proximal internal carotid artery in the range of 20-49% with PSV <140 cm/sec, EDV <100 cm/sec, and IC/CC Ratio <4.0.Duplex evaluation demonstrates stenosis of the left proximal internal carotid artery in the range of 20-49% with PSV =140 cm/sec, EDV <100 cm/sec, and IC/CC Ratio <4.0. Electronically signed by : Arjun Barnes MD 07/27/2020 16:37:37
--- NOTE | 2020-07-27 08:36 | HMH.ITSHM ---
Current Home Medications as stated by this patient Marcela Verdugo or admissions representative. []VORTIOXETINE METOPROLOL LISINOPRIL BUSPIRONE ATORVASTATIN
== END ==
PROVIDERS: PCP Family Medicine; Visit Provider Physician Assistant
DX: Z86.73 Personal history of transient ischemic attack (TIA), and cerebral infarction without residual deficits (principal); E78.5 Hyperlipidemia, unspecified; I11.9 Hypertensive heart disease without heart failure; I25.10 Atherosclerotic heart disease of native coronary artery without angina pectoris; I48.91 Unspecified atrial fibrillation; R00.2 Palpitations; R53.83 Other fatigue; G47.33 Obstructive sleep apnea (adult) (pediatric)
CPT/HCPCS: 78452; 93017; 93880; A9502; J0280; J2785

== ENCOUNTER → 2020-08-31 13:43 | Outpatient (CLI) | payer MEDICARE, OTHER, SELFPAY ==
--- NOTE | 2020-08-31 13:46 | MM_ITS ---
PROCEDURE: MM DIG SCREENING MAMM BI W/CAD Digital Breast Tomosynthesis Included CLINICAL INDICATION: SCREENING COMPARISON: MG MM DIG SCREENING MAMM BI W/CAD from 02/05/2019 MG MM DIG MAMM DX UNILAT RT CAD from 02/26/2019 MG MM SURGICAL SPECIMEN RT from 03/26/2019 MG MM STEREOTACTIC LOC RT from 03/26/2019 MG MM DIG MAMM DX UNILAT RT CAD from 03/26/2019 TECHNIQUE: Standard CC and MLO images and 3D Tomosynthesis was obtained. R2 CAD reviewed. FINDINGS: The breasts are composed of heterogeneously dense fibroglandular tissue. Benign-appearing calcifications are noted bilaterally. No dominant mass lesion, suspicious calcification or, architectural distortion is noted. IMPRESSION: No suspicious findings. BI-RAD Category: 2 Benign Finding(s) FOLLOW-UP: 1YR 1 Year Follow-up (A letter has been sent to the patient regarding results of the study.) Dictated by: Luana Mar 09/01/2020 09:45 Luana Mar in [place] 09/01/2020 09:45
== END ==
PROVIDERS: PCP Family Medicine; Visit Provider Family Medicine
DX: Z12.31 Encounter for screening mammogram for malignant neoplasm of breast (principal)
CPT/HCPCS: 77063; 77067

== ENCOUNTER → 2020-09-13 08:52 | Outpatient (CLI) | payer MEDICARE, OTHER, SELFPAY ==
[2020-09-13 09:17] LABS: Basophils # 0.1 K/mm3 (0-0.2); Basophils % 1.3 % (0.1-2.0); Eosinophils # 0.7 K/mm3 (0.0-0.4); Eosinophils % 9.5 % (0.1-12.0); Hematocrit 32.4 % (37.0-47.0); Hemoglobin 10.9 g/dL (12.2-16.2); Lymphocytes # 2.1 K/mm3 (0.7-4.5); Lymphocytes % 30.4 % (10-50); Mean Corpuscular HGB Conc 33.6 g/dL (31.8-35.4); Mean Corpuscular Hemoglobin 30.8 pg (27.0-31.2); Mean Corpuscular Volume 91.7 fl (81-99); Mean Platelet Volume 8.8 fl (7.4-10.4); Monocytes # 0.5 K/mm3 (0.1-1.0); Monocytes % 6.7 % (1.7-9.3); Neutrophils # 3.6 K/mm3 (1.8-7.8); Neutrophils % 52.1 % (37.0-80.0); Platelet Count 229 K/mm3 (142-424); Red Blood Count 3.53 M/mm3 (4.20-5.40); Red Cell Distribution Width 13.2 % (11.5-17.5); White Blood Count 6.9 K/mm3 (4.8-10.8)
[2020-09-13 09:38] LABS: Alanine Aminotransferase 55 U/L (12-78); Albumin Level 3.8 g/dl (3.5-5.0); Albumin/Globulin Ratio 1.3 (1.1-1.8); Alkaline Phosphatase 131 U/L (38-126); Aspartate Amino Transferase 64 U/L (14-36); Bilirubin,Total 0.6 mg/dl (0.2-1.3); Blood Urea Nitrogen 31 mg/dl (7-17); Carbon Dioxide 24 mmol/L (22.0-30.0); Chloride 111 mmol/L (98-107); Estimated Glomerular Filt Rate 24 ml/min (>60); GFR (African American) 29 ML/MIN (>60); Sodium 140 mmol/L (136-145); Total Protein,Serum 6.8 g/dl (6.3-8.2)
[2020-09-13 10:08] LABS: Thyroid Stimulating Hormone 1.72 uIU/mL (0.465-4.68)
[2020-09-13 18:11] LABS: Anion Gap 9.8 mEq/L (5-15); Potassium 4.8 mmoL/L (3.5-5.1)
[2020-09-13 18:14] LABS: Calcium 8.5 mg/dl (8.4-10.2); Glucose 95 mg/dl (74-100)
== END ==
PROVIDERS: Visit Provider Family Medicine
DX: I10 Essential (primary) hypertension (principal); R63.4 Abnormal weight loss; F41.9 Anxiety disorder, unspecified; E55.9 Vitamin D deficiency, unspecified
CPT/HCPCS: 36415; 80053; 82306; 84443; 85025

== ENCOUNTER → 2020-09-17 15:30 | Outpatient (CLI) | payer MEDICARE, OTHER, SELFPAY | PROVIDERS: PCP Family Medicine; Visit Provider Nurse Practitioner | DX: Z20.822 Contact with and (suspected) exposure to COVID-19 (principal) | CPT/HCPCS: U0003 ==

== ENCOUNTER → 2020-10-13 09:30 | Outpatient (CLI) | payer MEDICARE, OTHER, SELFPAY ==
--- NOTE | 2020-10-13 09:35 | MR_ITS ---
PROCEDURE INFORMATION: Exam: MR Lumbar Spine Without Contrast. Exam date and time: 10/13/2020 9:35 AM Age: 79 years old Clinical indication: Low back pain; Additional info: Lbp. PT C/O lbp with no known injury. PT has no HX of surgery to the lumbar spine. Prior MR l-spine done 01/17/2017 TECHNIQUE: Imaging protocol: Multiplanar magnetic resonance images of the lumbar spine without contrast. COMPARISON: SURVEILLANCE SUPERVISOR/O MRI-L-SPINE W/O 01/17/2017 2:23 PM FINDINGS: There is straightening of the normal lumbar lordosis. No spondylolisthesis or compression fractures. Degenerative disc disease with mixed, partially type 1, reactive endplate signal changes are present at L3-L4. Marrow signal is otherwise normal. The distal spinal cord appears normal. At L1-L2, there is minimal spinal canal narrowing and no significant neural foraminal narrowing. At L2-L3, there is mild circumferential disc bulge. Minimal spinal canal narrowing. No significant neural foraminal narrowing. Mild bilateral facet arthrosis. At L3-L4, circumferential disc bulge and discogenic osteophytes are present, eccentric in the left foraminal and extraforaminal zones. Mild spinal canal narrowing. Mild left neural foraminal narrowing. There is partial narrowing of the left lateral recess with mild posterior displacement of the traversing L4 nerve roots. At L4-L5, mild circumferential disc bulge and ligamentum flavum hypertrophy. Mild spinal canal narrowing. Minimal right neural foraminal narrowing. Mild bilateral facet arthrosis. At L5-S1, there is mild circumferential disc bulge and discogenic osteophytes, eccentric in the right foraminal zone. Minimal spinal canal narrowing. Mild right neural foraminal narrowing. There is mild displacement of the exiting right L5 nerve root in the extraforaminal zone secondary to discogenic marginal osteophytes. IMPRESSION: No moderate or severe lumbar spinal canal stenosis or neural foraminal narrowing. Overall mild multilevel degenerative findings as discussed.
== END ==
PROVIDERS: PCP Family Medicine; Visit Provider Orthopaedic Surgery
DX: M54.5 Low back pain (principal)
CPT/HCPCS: 72148; 76376

== ENCOUNTER → 2020-12-31 12:38 | Outpatient (CLI) | payer MEDICARE, OTHER, SELFPAY ==
--- NOTE | 2020-12-31 12:44 | CT_ITS ---
PROCEDURE INFORMATION: Exam: CT Chest Without Contrast; Diagnostic Exam date and time: 12/31/2020 12:44 PM Age: 80 years old Clinical indication: Other: Weight loss; Additional info: Weight loss, ckd stage 4 TECHNIQUE: Imaging protocol: Diagnostic computed tomography of the chest without contrast. Radiation optimization: All CT scans at this facility use at least one of these dose optimization techniques: automated exposure control; mA and/or kV adjustment per patient size (includes targeted exams where dose is matched to clinical indication); or iterative reconstruction. COMPARISON: DX CXR CHEST(2 VIEWS-NOT PORTABLE) 03/12/2017 12:20 PM FINDINGS: Lungs: Moderate interstitial scarring at both lung apices. Question 5 mm ovoid posterior left lower lobe nodule series 4, image 43 versus prominent vascular shadows. Calcified left lower lobe pulmonary granuloma. Subsegmental atelectasis or scarring at the left lung base with elevated left diaphragm and left lower pulmonary volume loss. Peribronchial thickening with slight left basilar bronchiectasis, coronal series 601, images 41-52. No focal consolidation. Pleural spaces: Bilateral apical pleural thickening/scarring. No layering pleural effusion. No pneumothorax. Heart: The heart is not enlarged. Multiple coronary artery calcifications. No significant pericardial effusion. Mediastinal space: A very small hiatal hernia. Aorta: There is no aortic aneurysm. Multiple calcified atherosclerotic plaques. Lymph nodes: Calcified hilar and mediastinal lymph nodes. No significantly enlarged lymph nodes by short axis criteria, in the chest. Liver: Calcified hepatic granulomas Spleen: Calcified splenic granulomas. Bones/joints: There are spinal degenerative changes, with multilevel disc narrrowing and spondylosis. Minimal anterior subluxations T1-T2 and T2-T3. No high-grade listhesis.There is no evidence of acute fracture. Soft tissues: There are no soft tissue masses or fluid collections. IMPRESSION: 1. Chronic granulomatous changes, interstitial scarring, slight bronchiectasis and peribronchial thickening greatest at the left lung base, and also moderate pulmonary-pleural scarring at the lung apices as detailed above. 2. Equivocal 5 mm posterior left lower lobe nodule as detailed above. For patients at low risk (minimal or absent history of smoking and of other known risk factors), no routine follow-up is indicated. For patients at high risk (history of smoking or of other known risk factors), consider optional CT Chest at 12 months. (Reference: Isaiah) 3. Coronary artery disease. 4. Additional nonemergency and chronic findings as above. REFERENCES: Isaiah Mota, et al. Guidelines for Management of Incidental Pulmonary Nodules Detected on CT Images: From the Fleischner Society 2017. Radiology. 2017;284(1):228-243.
--- NOTE | 2020-12-31 12:44 | CT_ITS ---
PROCEDURE INFORMATION: Exam: CT Abdomen And Pelvis Without Contrast Exam date and time: 12/31/2020 12:44 PM Age: 80 years old Clinical indication: Other: Weight loss, HX of kidney disease; Prior surgery; Surgery date: 6+ months; Surgery type: Hysterectomy; Additional info: Weight loss, ckd stage 4 TECHNIQUE: Imaging protocol: Computed tomography of the abdomen and pelvis without contrast. Radiation optimization: All CT scans at this facility use at least one of these dose optimization techniques: automated exposure control; mA and/or kV adjustment per patient size (includes targeted exams where dose is matched to clinical indication); or iterative reconstruction. COMPARISON: CT ABDOMEN PELVIS WO CON 12/31/2019 2:09 PM FINDINGS: Liver: A few tiny calcified hepatic granulomas. No hepatomegaly. Gallbladder and bile ducts: Calcified gallstone versus mural calcification at the gallbladder fundus series 5, image 32. No acute findings. No biliary dilatation. Pancreas: The pancreas is normal. Spleen: No splenomegaly. Multiple calcified granulomas. Adrenal glands: The adrenal glands are normal. Kidneys and ureters: Right renal cortical atrophy. Small non-obstructing left renal calculi. Likely simple left peripelvic renal cortical cystic lesions, not well evaluated without IV contrast, largest approximately 2 cm with HU density of 6, series 5, image 28. No hydronephrosis, hydroureter, or obstructing calcified ureteral stones. Stomach and bowel: Diverticulosis coli, greatest in the lower sigmoid colon. No CT findings of acute diverticulitis. No colon dilatation/obstruction or significant mucosal thickening. Very small hiatal hernia. No acute findings in the stomach.There is no evidence of intestinal perforation or obstruction. There are also some small intestinal diverticula in the distal small bowel, e.g. coronal series 604, images 39-40. Appendix: No findings of appendicitis. Intraperitoneal space: There is no significant free intraperitoneal fluid. There is no free intraperitoneal air. Vasculature: The vasculature demonstrates scattered mild atherosclerotic calcification. There is no aortic aneurysm. Lymph nodes: No significantly enlarged lymph nodes by short axis criteria. Urinary bladder: The urinary bladder is empty, not well evaluated. No calcified stones seen. Reproductive: Post hysterectomy. Unremarkable, as visualized. Bones/joints: There are spinal degenerative changes, with multilevel disc narrrowing and spondylosis. Sacroiliitis. Soft tissues: There is a tiny fatty umbilical hernia; no herniated bowel loops. There are no soft tissue masses or fluid collections. Calcified granulomas in the buttocks. Other findings: For chest findings, please see the chest CT report. IMPRESSION: 1. No acute findings or evidence of malignancy. 2. There is diverticulosis coli, and there are small intestinal diverticula, without evidence of acute diverticulitis. 3. Very small hiatal hernia. 4. Mild mural calcification versus curvilinear calcified gallstone at the gallbladder fundus. 5. Nonobstructing left renal calculi. Left renal peripelvic cystic lesions with simple appearance on this limited nonenhanced scan. No suspicious mass. 6. Atherosclerotic disease. 7. Additional nonemergency and chronic findings as above.
== END ==
PROVIDERS: PCP Family Medicine; Visit Provider Family Medicine
DX: R63.4 Abnormal weight loss (principal); N18.4 Chronic kidney disease, stage 4 (severe)
CPT/HCPCS: 71250; 74176

== ENCOUNTER 2021-08-10 20:52 | Emergency (ER) | payer MEDICARE, OTHER, SELFPAY ==
[2021-08-10 21:08] VITALS: BP 128/68; PULSE 87; RESP 18; TEMP 36.8; O2SAT 99; BMI 21.6
--- NOTE | 2021-08-10 21:24 | HMH.EDUTC ---
[facility] [place] Disposition Clinical Impression: Bronchitis Sinusitis Qualifiers: Sinusitis location: unspecified location Chronicity: unspecified Qualified Code(s): J32.9 - Chronic sinusitis, unspecified Disposition: Home, Self-Care Condition on Discharge: Good Instructions: Sinusitis, Acute Bronchitis, DI for Sinusitis Additional Instructions: ? Start antibiotic today. Be sure to complete entire prescription even if feeling better ? Monitor temp. Tylenol every 4 hours as needed and / or ibuprofen every 6 hours as needed ( As long as your primary care physician has told you that it ok to take both. For fever/aches/pains ER if no less than 101 despite Tylenol or Motrin ? Humidifier/vaporizer or hot steamy shower *Tessalon Perles will not cause drowsiness but use at bedtime to help stop cough so that you may get some rest. Follow up IMMEDIATELY for new or worsening of symptoms OR no noticeable improvement over the next 48-72 hours. 911 immediately for any life threatening symptoms such as chest pain or difficulty breathing Prescriptions: Benzonatate [Benzonatate 100mg cap] 100 mg PO Q8HP PRN #15 cap PRN Reason: Cough Transmission Status: Received by [email or web address] Azithromycin [Z-Shane 250mg Tab] 250 mg PO DIRECTED #6 tab Transmission Status: Received by [email or web address] Referrals: Michel Montgomery MD [Primary Care Provider] - As needed Time of Disposition: 21:35 Medical Decision Making - Mekhi Inquiry Pt receiving controlled substance: No Mekhi was queried for this patient: No Vital Signs: 08/10/21 21:08 Temperature 98.3 F Temperature Source Oral Pulse Rate [Right Brachial] 87 Respiratory Rate 18 Blood Pressure [Right Arm] 128/68 Blood Pressure Mean [Right Arm] 88 Blood Pressure Source [Right Arm] Automatic Cuff Blood Pressure Position [Right Arm] Sitting 02 Sat by Pulse Oximetry 99 - Lab Data Lab results reviewed: Yes: I reviewed the patient's lab results. Orders (Tests/Meds): ED MEDICATIONS Discontinued Medications Generic Name Dose Route Start Last Admin Trade Name Freq PRN Reason Stop Dose Admin Ceftriaxone Sodium 1 gm 08/10/21 21:30 08/10/21 21:43 Ceftriaxone 1gm Vial IM 08/10/21 21:31 1 gm ONCE ONE Administration Lidocaine HCl 0 ml 08/10/21 21:30 08/10/21 21:43 Lidocaine 1% 5ml Pf Vial IM 08/10/21 21:31 2 ml ONCE ONE Administration Methylprednisolone Sodium Succinate 125 mg 08/10/21 21:30 08/10/21 21:43 Methylprednisolone Sod Succ 125mg Vial IM 08/10/21 21:31 125 mg ONCE ONE Administration Medical Decision Narrative: Discussed with patient and recommended CXR patient states that she isnt coughing anything up and declined at this time states that it is late and she didnt want to wait, Due to patient age medication discussed with pharmacy [facility] HPI - General Stated complaint: congestion and sore throat Time Seen by Provider: 08/10/21 21:24 Source of Information: Patient Description of Symptoms (Recalled from Triage Doc. by RN): pt states she has had a barking cough with chest congestion and productive cough x's 2 days HEENT Symptoms (Recalled from RN notes): No Resp Symptoms (Recalled from RN notes): Yes Skin Symptoms (Recalled from RN notes): No MS Symptoms (Recalled from RN notes): No Functional Status (Recalled from RN notes): wnl - History of Present Illness Provider Complaint: Patient states that for the last couple of days she has been having sinus congestion and pressure along with sore scratchy throat and cough States that she feels like she has a sinus infection that is trying to move into her chest and lead to bronchitis States that she feels like she is loosing her voice and sometimes she will cough up mucous and sometimes not States that this evening she was still having a little barky cough so family wanted her to come in and get checked - Related Data Home Medications Medication
[2021-08-10 21:45] VITALS: BP 128/68; PULSE 87; RESP 18; TEMP 36.8; O2SAT 99
== END 2021-08-10 21:47 | disposition home or self-care (01) ==
PROVIDERS: Emergency Provider Emergency Medicine; PCP Family Medicine
DX: J20.9 Acute bronchitis, unspecified (principal); J32.9 Chronic sinusitis, unspecified; I48.91 Unspecified atrial fibrillation; I10 Essential (primary) hypertension; E78.5 Hyperlipidemia, unspecified; I25.10 Atherosclerotic heart disease of native coronary artery without angina pectoris; Z79.899 Other long term (current) drug therapy
CPT/HCPCS: 96372; 99212; G0463; J0696

== ENCOUNTER → 2021-09-05 09:41 | Outpatient (CLI) | payer MEDICARE, OTHER, SELFPAY ==
--- NOTE | 2021-09-05 09:46 | MM_ITS ---
PROCEDURE INFORMATION: Exam: MG Bilateral Screening 3D Mammography Exam date and time: 09/05/2021 9:50 AM Age: 80 years old Clinical indication: Screening mammogram TECHNIQUE: Imaging protocol: Bilateral Screening tomosynthesis and 2D mammography including computer-aided detection (CAD) when performed. COMPARISON: 1. MG MM DIG SCREENING MAMM BI W/CAD 08/31/2020 1:46 PM 2. MG MM DIG MAMM DX UNILAT RT CAD 03/26/2019 3:15 PM FINDINGS: MAMMOGRAPHY: Breast composition: The breast is heterogeneously dense, which may obscure small masses. Mass: None. Architectural distortion: No new or suspicious architectural distortion. Calcifications: No new or suspicious calcifications are present Asymmetric density: No new or suspicious asymmetric density is present Skin thickening: None. Axillary adenopathy: None. IMPRESSION: No mammographic evidence of malignancy. Recommend annual screening mammography unless otherwise clinically indicated. ASSESSMENT: BI-RADS category 1: Negative
== END ==
PROVIDERS: PCP Family Medicine; Visit Provider Family Medicine
DX: Z12.31 Encounter for screening mammogram for malignant neoplasm of breast (principal)
CPT/HCPCS: 77063; 77067

== ENCOUNTER 2022-01-05 14:57 | Emergency (ER) | payer MEDICARE, OTHER, SELFPAY ==
[2022-01-05 14:58] VITALS: BP 134/64; PULSE 74; RESP 18; TEMP 36.5; O2SAT 98
--- NOTE | 2022-01-05 15:06 | EXP.UTC ---
Discharge Plan Disposition Patient Disposition: Home, Self-Care Condition: Good Prescriptions Prescriptions: No Action celecoxib 200 mg capsule 200 mg PO DAILY PRN Label Comments: TAKE 1 CAPSULE BY MOUTH ONCE DAILY FOR 30 DAYS aspirin [Adult Low Dose Aspirin] 81 mg tablet,delayed release (DR/EC) 81 mg PO DAILY atorvastatin 40 mg tablet See Rx Instructions .ROUTE .COMPLEX Qty: 90 3RF Dose Instruction: TAKE 1 TABLET DAILY FOR CHOLESTEROL *KREMERS URBAN* Rx Instructions: TAKE 1 TABLET DAILY FOR CHOLESTEROL *KREMERS URBAN* metoprolol succinate 25 mg tablet extended release 24 hr See Rx Instructions .ROUTE .COMPLEX Qty: 45 3RF Dose Instruction: TAKE 1/2 TABLET(12.5MG) DAILY Rx Instructions: TAKE 1/2 TABLET(12.5MG) DAILY lisinopril-hydrochlorothiazide 10-12.5 mg tablet See Rx Instructions .ROUTE .COMPLEX Qty: 90 3RF Dose Instruction: TAKE 1 TABLET DAILY FOR HYPERTENSION Rx Instructions: TAKE 1 TABLET DAILY FOR HYPERTENSION fluoxetine [Prozac] 20 mg capsule 20 mg PO DAILY Qty: 90 0RF azithromycin 250 MG tablet 250 mg PO DIRECTED Qty: 6 0RF Rx Instructions: Take two (2) tablets on day #1, then one (1) tablet day #2 thru #5 benzonatate 100 MG capsule 100 mg PO Q8HP PRN (Reason: Cough) Qty: 15 0RF Referrals Follow up/Referrals: Michel Montgomery MD [Primary Care Provider] - See instructions Activity Restrictions/Add. Instructions Additional Instructions/Restrictions: Drink plenty of fluids. Take tylenol for pain or fever. Return if you begin to have difficulty breathing. Follow up with your regular doctor. GO TO THE ER FOR ANY WORSENING SYMPTOMS Quarantine until you know the results of your covid-19 test. Notify your school or workplace of your results and follow their instructions regarding return to work/school. Clinical Impressions Clinical Impression: COVID-19 Instructions Patient Instructions: Preventing the Spread of Coronavirus Discharge Instructions Discharge ED Provider: Bo Rodriguez [facility] [place] HPI General Stated complaint: Cough, Covid test Time Seen by Provider: 01/05/22 15:20 History of Present Illness Provider Complaint: She is here with c/o a cough for the past 2 days. She has tested positive for covid-19 on a home test. Related Data Home Medications Medication Instructions Recorded Confirmed celecoxib 200 mg capsule 200 mg PO DAILY PRN 08/03/20 03/08/21 aspirin 81 mg tablet,delayed 81 mg PO DAILY 09/21/20 03/08/21 release (Adult Low Dose Aspirin) Previous Rx's Medication Instructions Recorded atorvastatin 40 mg tablet See Rx Instructions .Route 02/07/21 .COMPLEX #90 tabs metoprolol succinate 25 mg See Rx Instructions .Route 07/04/21 tablet,extended release 24 hr .COMPLEX #45 tabs azithromycin 250 mg tablet 250 mg PO DIRECTED #6 tabs 08/10/21 benzonatate 100 mg capsule 100 mg PO Q8HP PRN Cough #15 caps 08/10/21 lisinopril 10 See Rx Instructions .Route 11/14/21 mg-hydrochlorothiazide 12.5 mg .COMPLEX #90 tabs tablet fluoxetine 20 mg capsule (Prozac) 20 mg PO DAILY #90 caps 12/02/21 Allergies Allergy/AdvReac Type Severity Reaction Status Date / Time No Known Allergies Allergy Verified 03/08/21 11:29 [facility] Medical History (Updated 01/05/22 @ 15:23 by Bo Rodriguez APRN) A-fib CAD (coronary artery disease) HHD (hypertensive heart disease) History of CVA (cerebrovascular accident) HLD (hyperlipidemia) Social History Smoking Status: Never smoker second hand exposure: No alcohol intake: never substance use type: denies use current occupational status: retired Travel in the last 8 weeks: None household members: family housing: house current occupational exposures/hazards: No caffeine: Yes ROS Obtained: Yes All systems reviewed & no additional complaints except as documented Constituti
[2022-01-05 15:26] VITALS: BP 134/64; PULSE 74; RESP 18; TEMP 36.5; O2SAT 98
== END 2022-01-05 15:27 | disposition home or self-care (01) ==
PROVIDERS: Emergency Provider Nurse Practitioner Family; PCP Family Medicine
DX: U07.1 COVID-19 (principal)
CPT/HCPCS: 99212; C9803; G0463; U0003; U0005

== ENCOUNTER 2022-01-22 10:36 | Emergency (ER) | payer MEDICARE, OTHER, SELFPAY ==
[2022-01-22 10:55] VITALS: BP 115/59; PULSE 59; RESP 20; TEMP 36.6; O2SAT 98
[2022-01-22 11:10] LABS: Apearance,Urine Clear (Clear); Bilirubin,Urine Negative (Negative); Blood, Urine Negative (Negative); Color,Urine Yellow (Yellow); Glucose,Urine (UA) Negative (Negative); Ketones,Urine Negative (Negative); Protein,Urine Negative (Negative); Specific Gravity, Urine 1.025 (1.005-1.030); UTC Leukocyte Esterase,Urine Trace (Negative); UTC Nitrate,Urine Negative (Negative); Urobilinogen,Urine 0.2 EU/dl (0.2)
--- NOTE | 2022-01-22 11:12 | EXP.UTC ---
Discharge Plan Disposition Patient Disposition: Home, Self-Care Condition: Good Prescriptions Prescriptions: New cephalexin 500 mg capsule 500 mg PO BID 5 Days Qty: 10 0RF No Action celecoxib 200 mg capsule 200 mg PO DAILY PRN Label Comments: TAKE 1 CAPSULE BY MOUTH ONCE DAILY FOR 30 DAYS aspirin [Adult Low Dose Aspirin] 81 mg tablet,delayed release (DR/EC) 81 mg PO DAILY atorvastatin 40 mg tablet See Rx Instructions .ROUTE .COMPLEX Qty: 90 3RF Dose Instruction: TAKE 1 TABLET DAILY FOR CHOLESTEROL *KREMERS [employer]RBAN* Rx Instructions: TAKE 1 TABLET DAILY FOR CHOLESTEROL *KREMERS [employer]* metoprolol succinate 25 mg tablet extended release 24 hr See Rx Instructions .ROUTE .COMPLEX Qty: 45 3RF Dose Instruction: TAKE 1/2 TABLET(12.5MG) DAILY Rx Instructions: TAKE 1/2 TABLET(12.5MG) DAILY lisinopril-hydrochlorothiazide 10-12.5 mg tablet See Rx Instructions .ROUTE .COMPLEX Qty: 90 3RF Dose Instruction: TAKE 1 TABLET DAILY FOR HYPERTENSION Rx Instructions: TAKE 1 TABLET DAILY FOR HYPERTENSION fluoxetine [Prozac] 20 mg capsule 20 mg PO DAILY Qty: 90 0RF azithromycin 250 MG tablet 250 mg PO DIRECTED Qty: 6 0RF Rx Instructions: Take two (2) tablets on day #1, then one (1) tablet day #2 thru #5 benzonatate 100 MG capsule 100 mg PO Q8HP PRN (Reason: Cough) Qty: 15 0RF Referrals Follow up/Referrals: Michel Montgomery MD [Primary Care Provider] - See instructions Activity Restrictions/Add. Instructions Additional Instructions/Restrictions: *Increase fluids. Water not Soda or Tea *Start antibiotic immediately and be sure to take as ordered for the FULL length of time although you should start to see improvement over the next 48 hours *Be SURE to follow up anytime for new or worsening symptoms with your family doctor. AND in 48 hours for urine culture results with your family doctor, if you do not have a doctor then you may call back to the [facility] for urine culture results and further treatment. We do recommend that you choose and establish care with a Primary Care Physician. ?AND follow up with them ?in 10-14 days to repeat UA to ensure infection is resolved and blood no longer present *Be sure to let your PCP know that we sent urine cultures from the [facility] so they can follow up to ensure that you area the on the correct antibiotic Call your doctor office and make appointment for 48 hours (2 days from today) ?to follow up and get the results of your urine culture and further treatment Clinical Impressions Clinical Impression: UTI (urinary tract infection) Qualifiers: Urinary tract infection type: site unspecified Discharge ED Provider: Theresa Villasenor [facility] [place] HPI General Stated complaint: back pain Time Seen by Provider: 01/22/22 11:12 History of Present Illness Provider Complaint: Patient states that she has been having pain in her right lower back area around her kidney area States that she denies she has done anything to hurt her back States that she was treated for UTI about a month ago and only took a couple of pills and she felt better so she didnt take anymore States that she is having some burning at times when she urinates again so today when she was still feeling achy on and off in her back she came in Denies loss of control of bowel or bladder Related Data Home Medications Medication Instructions Recorded Confirmed celecoxib 200 mg capsule 200 mg PO DAILY PRN 08/03/20 03/08/21 aspirin 81 mg tablet,delayed 81 mg PO DAILY 09/21/20 03/08/21 release (Adult Low Dose Aspirin) Previous Rx's Medication Instructions Recorded atorvastatin 40 mg tablet See Rx Instructions .Route 02/07/21 .COMPLEX #90 tabs metoprolol succinate 25 mg See Rx Instructions .Route 07/04/21 tablet,extended release 24 hr .COMPLEX #45 tabs azithromycin 250 mg tablet 250 mg PO DIRECTED #6 tabs 08/10/21 benzona
[2022-01-22 11:25] VITALS: BP 155/59; PULSE 59; RESP 20; TEMP 36.6; O2SAT 98
== END 2022-01-22 11:33 | disposition home or self-care (01) ==
PROVIDERS: Emergency Provider Nurse Practitioner; PCP Family Medicine
DX: N39.0 Urinary tract infection, site not specified (principal)
CPT/HCPCS: 81003; 87086; 99212; G0463

== ENCOUNTER → 2022-03-27 16:02 | Outpatient (CLI) | payer MEDICARE, OTHER, SELFPAY ==
[2022-03-27 16:43] LABS: Basophils # 0.1 K/mm3 (0-0.2); Eosinophils # 0.9 K/mm3 (0.0-0.4); Eosinophils % 8.7 % (0.1-12.0); Hematocrit 35.3 % (37.0-47.0); Hemoglobin 11.2 g/dL (12.2-16.2); Lymphocytes # 2.7 K/mm3 (0.7-4.5); Lymphocytes % 26.4 % (10-50); Mean Corpuscular HGB Conc 31.8 g/dL (31.8-35.4); Mean Corpuscular Hemoglobin 30.4 pg (27.0-31.2); Mean Corpuscular Volume 95.6 fl (81-99); Mean Platelet Volume 8.3 fl (7.4-10.4); Monocytes # 0.6 K/mm3 (0.1-1.0); Monocytes % 5.4 % (1.7-9.3); Neutrophils % 58.5 % (37.0-80.0); Platelet Count 328 K/mm3 (142-424); Red Blood Count 3.69 M/mm3 (4.20-5.40); Red Cell Distribution Width 12.9 % (11.5-17.5); White Blood Count 10.3 K/mm3 (4.8-10.8)
[2022-03-27 17:18] LABS: Chloride 106 mmol/L (98-107); Potassium 4.4 mmoL/L (3.5-5.1); Sodium 138 mmol/L (136-145)
[2022-03-27 17:21] LABS: Alanine Aminotransferase 32 U/L (12-78); Albumin/Globulin Ratio 1.4 (1.1-1.8); Alkaline Phosphatase 131 U/L (38-126); Anion Gap 8.4 mEq/L (5-15); Aspartate Amino Transferase 49 U/L (14-36); Bilirubin,Total 0.2 mg/dl (0.2-1.3); Blood Urea Nitrogen 37 mg/dl (7-17); Calcium 9.3 mg/dl (8.4-10.2); Carbon Dioxide 28 mmol/L (22.0-30.0); Cholesterol 148 mg/dl (140-200); Estimated Glomerular Filt Rate 20 ml/min (>60); GFR (African American) 25 ML/MIN (>60); Globulin 2.8 g/dL (1.3-3.2); Glucose 82 mg/dl (74-100); Iron 84 ug/dL (37-170); Total Protein,Serum 6.8 g/dl (6.3-8.2); Triglycerides 126 mg/dl (30-150); VLDL Cholesterol 25 mg/dL (0-40)
[2022-03-27 17:22] LABS: Chol/HDL Ratio 2.7 (1-3.5); HDL Cholesterol 54 mg/dl (40-60); Magnesium 1.6 mg/dl (1.6-2.3)
[2022-03-27 17:40] LABS: 25-OH Vitamin D, Total 42.1 ng/mL (30-100); Direct LDL Cholesterol 46.55 mg/dL (100-129)
[2022-03-27 17:59] LABS: Thyroid Stimulating Hormone 2.08 uIU/mL (0.465-4.68)
== END ==
PROVIDERS: PCP Family Medicine; Visit Provider Family Medicine
DX: I10 Essential (primary) hypertension (principal); R63.4 Abnormal weight loss; R53.83 Other fatigue; E55.9 Vitamin D deficiency, unspecified; N28.9 Disorder of kidney and ureter, unspecified
CPT/HCPCS: 36415; 80053; 80061; 82306; 83540; 83735; 84443; 85025

== ENCOUNTER → 2022-06-30 15:35 | Outpatient (CLI) | payer MEDICARE, OTHER, SELFPAY ==
--- NOTE | 2022-06-30 16:12 | XR_ITS ---
PROCEDURE INFORMATION: Exam: XR Left Knee Exam date and time: 06/30/2022 4:15 PM Age: 81 years old Clinical indication: Pain; Knee; Left; Additional info: Acute pain from fall TECHNIQUE: Imaging protocol: Radiologic exam of the left knee. Views: 3 views. COMPARISON: CR (FOOT AP, FOOT, FOOT AP) 10/23/2018 3:12 PM FINDINGS: Bones/joints: Osteopenia. Soft tissues: Soft tissue swelling superficial to the medial knee compartment. IMPRESSION: 1. No evidence of acute osseous injury. 2. Soft tissue swelling superficial to the medial knee compartment. Clinically correlate regarding ligamentous injury.
[2022-06-30 17:33] LABS: Basophils # 0.1 K/mm3 (0-0.2); Eosinophils # 0.5 K/mm3 (0.0-0.4); Eosinophils % 5.2 % (0.1-12.0); Hematocrit 33.9 % (37.0-47.0); Hemoglobin 11.2 g/dL (12.2-16.2); Lymphocytes % 32.1 % (10-50); Mean Corpuscular Hemoglobin 30.7 pg (27.0-31.2); Mean Corpuscular Volume 93.1 fl (81-99); Mean Platelet Volume 8.1 fl (7.4-10.4); Monocytes # 0.6 K/mm3 (0.1-1.0); Monocytes % 6.9 % (1.7-9.3); Neutrophils # 5.1 K/mm3 (1.8-7.8); Neutrophils % 54.9 % (37.0-80.0); Platelet Count 292 K/mm3 (142-424); Red Blood Count 3.64 M/mm3 (4.20-5.40); White Blood Count 9.2 K/mm3 (4.8-10.8)
[2022-06-30 17:57] LABS: Chloride 105 mmol/L (98-107); Potassium 4.6 mmoL/L (3.5-5.1); Sodium 140 mmol/L (136-145)
[2022-06-30 17:59] LABS: Blood Urea Nitrogen 35 mg/dl (7-17); Estimated Glomerular Filt Rate 25 ml/min (>60); GFR (African American) 31 ML/MIN (>60)
[2022-06-30 18:00] LABS: Alanine Aminotransferase 22 U/L (12-78); Albumin Level 4.1 g/dl (3.5-5.0); Albumin/Globulin Ratio 1.4 (1.1-1.8); Alkaline Phosphatase 95 U/L (38-126); Anion Gap 13.6 mEq/L (5-15); Aspartate Amino Transferase 34 U/L (14-36); Bilirubin,Total 0.5 mg/dl (0.2-1.3); Calcium 8.6 mg/dl (8.4-10.2); Carbon Dioxide 26 mmol/L (22.0-30.0); Glucose 92 mg/dl (74-100); Iron 115 ug/dL (37-170); Total Protein,Serum 7.1 g/dl (6.3-8.2)
[2022-06-30 18:30] LABS: Thyroid Stimulating Hormone 2.07 uIU/mL (0.465-4.68)
[2022-06-30 18:49] LABS: Vitamin B12 409 pg/mL (239-931)
[2022-06-30 19:18] LABS: 25-OH Vitamin D, Total 39.4 ng/mL (30-100)
[2022-06-30 20:52] LABS: Folate 8.71 ng/mL
== END ==
PROVIDERS: PCP Family Medicine; Visit Provider Physician Assistant
DX: R53.83 Other fatigue (principal); D64.9 Anemia, unspecified; M25.562 Pain in left knee
CPT/HCPCS: 36415; 73562; 80053; 82306; 82607; 82746; 83540; 84443; 85025

== ENCOUNTER → 2022-07-10 14:06 | Outpatient (CLI) | payer MEDICARE, OTHER, SELFPAY ==
--- NOTE | 2022-07-10 14:12 | US_ITS ---
FINAL REPORT CLINICAL HISTORY: CKD STAGE 4 FINDINGS: The right kidney measures 7.5 cm in length. It is normal in echogenicity. There is no hydronephrosis. The left kidney measures 9.6 cm in length. It is normal in echogenicity. There is mild left hydronephrosis. There are small echogenic foci in both kidneys, probably related to bilateral stones. The spleen is unremarkable. IMPRESSION: Mild left hydronephrosis. Probable bilateral renal stones but CT could better evaluate. Reviewed, Interpreted and Dictated by Jefry Collado MD Transcribed by Tasha Weber Authenticated and [facility]
== END ==
PROVIDERS: PCP Family Medicine; Visit Provider Physician Assistant
DX: N18.4 Chronic kidney disease, stage 4 (severe) (principal)
CPT/HCPCS: 76770

== ENCOUNTER → 2022-07-13 10:05 | Outpatient (CLI) | payer MEDICARE, OTHER, SELFPAY ==
--- NOTE | 2022-07-13 10:12 | XR_ITS ---
FINAL REPORT CLINICAL HISTORY: ANKLE PAIN FINDINGS: RIGHT ANKLE 3 views of the right ankle were obtained. Bones are osteopenic. There is no acute fracture or dislocation. The mortise is intact. Visualized joint spaces are normally aligned. There is a small plantar spur. Soft tissues are unremarkable. IMPRESSION: No acute bony abnormality. Reviewed, Interpreted and Dictated by Jefry Collado MD Transcribed by Adeola Bell Authenticated and [facility]
== END ==
PROVIDERS: PCP Family Medicine; Visit Provider Physician Assistant
DX: M25.571 Pain in right ankle and joints of right foot (principal)
CPT/HCPCS: 73610

== ENCOUNTER → 2022-08-01 14:01 | Outpatient (POV) | payer MEDICARE, OTHER, SELFPAY | PROVIDERS: Visit Provider Dermatology | DX: Z00.00 Encounter for general adult medical examination without abnormal findings (principal) ==

== ENCOUNTER → 2022-08-17 10:35 | Outpatient (CLI) | payer MEDICARE, OTHER, SELFPAY ==
--- NOTE | 2022-08-17 10:38 | CA_ITS ---
FINAL REPORT TECHNIQUE: Multiple transverse and longitudinal images were performed of right the femoral-popliteal deep venous system with augmentation and compression maneuvers. CLINICAL HISTORY: right lower ext edema COMPARISON: none FINDINGS: Right lower extremity duplex ultrasound demonstrates normal flow in the deep venous system. There is no abnormal echogenicity to suggest thrombus. There is normal compression and augmentation. IMPRESSION: No evidence of right DVT. Reviewed, Interpreted and Dictated by Ciaran Shearer III, MD Transcribed by Maci Mendoza Authenticated and [facility]
[2022-08-17 11:39] LABS: Basophils # 0.1 K/mm3 (0-0.2); Basophils % 0.7 % (0.1-2.0); Eosinophils # 0.4 K/mm3 (0.0-0.4); Eosinophils % 4.4 % (0.1-12.0); Hematocrit 31.2 % (37.0-47.0); Hemoglobin 10.4 g/dL (12.2-16.2); Lymphocytes # 2.4 K/mm3 (0.7-4.5); Lymphocytes % 24.6 % (10-50); Mean Corpuscular HGB Conc 33.4 g/dL (31.8-35.4); Mean Corpuscular Hemoglobin 30.6 pg (27.0-31.2); Mean Corpuscular Volume 91.6 fl (81-99); Mean Platelet Volume 7.9 fl (7.4-10.4); Monocytes # 0.7 K/mm3 (0.1-1.0); Monocytes % 7.1 % (1.7-9.3); Neutrophils # 6.1 K/mm3 (1.8-7.8); Neutrophils % 63.3 % (37.0-80.0); Platelet Count 296 K/mm3 (142-424); Red Cell Distribution Width 13.9 % (11.5-17.5); White Blood Count 9.6 K/mm3 (4.8-10.8)
[2022-08-17 12:43] LABS: Alanine Aminotransferase 18 U/L (12-78); Albumin Level 3.4 g/dl (3.5-5.0); Alkaline Phosphatase 96 U/L (38-126); Anion Gap 8.9 mEq/L (5-15); Aspartate Amino Transferase 32 U/L (14-36); Bilirubin,Indirect 0.5 mg/dL (0.0-0.9); Bilirubin,Total 0.5 mg/dl (0.2-1.3); Bilirubin,Unconjugated 0.6 mg/dL (0.0-1.1); Blood Urea Nitrogen 17 mg/dl (7-17); Calcium 8.4 mg/dl (8.4-10.2); Carbon Dioxide 30 mmol/L (22.0-30.0); Chloride 107 mmol/L (98-107); Chol/HDL Ratio 1.9 (1-3.5); Cholesterol 124 mg/dl (140-200); Estimated Glomerular Filt Rate 43 ml/min (>60); GFR (African American) 52 ML/MIN (>60); Glucose 83 mg/dl (74-100); HDL Cholesterol 65 mg/dl (40-60); Magnesium 1.7 mg/dl (1.6-2.3); Potassium 3.9 mmoL/L (3.5-5.1); Sodium 142 mmol/L (136-145); Total Protein,Serum 6.1 g/dl (6.3-8.2); Triglycerides 90 mg/dl (30-150); VLDL Cholesterol 18 mg/dL (0-40)
[2022-08-17 12:58] LABS: Free T4 (Free Thyroxine) 1.31 ng/dl (0.78-2.19)
[2022-08-17 13:13] LABS: Thyroid Stimulating Hormone 1.68 uIU/mL (0.465-4.68)
[2022-08-17 13:14] LABS: Direct LDL Cholesterol 38.31 mg/dL (100-129)
== END ==
PROVIDERS: PCP Family Medicine; Visit Provider Nurse Practitioner
DX: E78.2 Mixed hyperlipidemia (principal); I11.9 Hypertensive heart disease without heart failure; I25.10 Atherosclerotic heart disease of native coronary artery without angina pectoris; I48.0 Paroxysmal atrial fibrillation; R00.1 Bradycardia, unspecified; R00.2 Palpitations; R06.09 Other forms of dyspnea; R07.9 Chest pain, unspecified; R60.0 Localized edema; Z86.73 Personal history of transient ischemic attack (TIA), and cerebral infarction without residual deficits; I65.23 Occlusion and stenosis of bilateral carotid arteries
CPT/HCPCS: 36415; 80048; 80061; 80076; 83735; 84439; 84443; 85025; 93971

== ENCOUNTER 2022-08-18 21:52 | Emergency (ER) | payer MEDICARE, SELFPAY ==
[2022-08-18 21:53] VITALS: BP 176/72; PULSE 83; RESP 19; TEMP 36.7; O2SAT 97; BMI 21.1
--- NOTE | 2022-08-18 22:01 | PC.NURSE ---
Dr. Cobian at [facility]
--- NOTE | 2022-08-18 22:12 | XR_ITS ---
PROCEDURE INFORMATION: Exam: XR Chest Exam date and time: 08/18/2022 10:12 PM Age: 81 years old Clinical indication: Shortness of breath; Additional info: SOB TECHNIQUE: Imaging protocol: Radiologic exam of the chest. Views: 2 views. COMPARISON: CT CHEST WO CON 12/31/2020 1:26 PM FINDINGS: Lungs: There has been interval development of mild diffuse pulmonary vascular prominence. Pleural spaces: Unremarkable. No pleural effusion. No pneumothorax. Heart/Mediastinum: Unremarkable. No cardiomegaly. Bones/joints: Mild degenerative changes noted in the thoracic spine. IMPRESSION: Mild pulmonary vascular congestion
--- NOTE | 2022-08-18 22:22 | HMH.EDGENADL ---
Discharge Plan Disposition Patient Disposition: Home, Self-Care Condition: Good Prescriptions Prescriptions: New furosemide [Lasix] 20 mg tablet 20 mg PO DAILY Qty: 7 0RF No Action atorvastatin 40 mg tablet 40 mg PO DAILY Rx Instructions: TAKE 1 TABLET DAILY FOR CHOLESTEROL *MYLAN* metoprolol succinate 25 mg tablet extended release 24 hr 12.5 mg PO DAILY Rx Instructions: TAKE 1/2 TABLET(12.5MG) DAILY trazodone 50 mg tablet 50 mg PO HSP PRN (Reason: Insomnia) Label Comments: TAKE 1 TABLET BY MOUTH AT BEDTIME fluoxetine 10 mg capsule 10 mg PO DAILY Label Comments: TAKE 1 CAPSULE BY MOUTH ONCE DAILY hydroxyzine pamoate 25 mg capsule 25 mg PO QIDP PRN (Reason: Anxiety) Label Comments: TAKE 1 CAPSULE BY MOUTH 4 TIMES DAILY NEEDED Referrals Follow up/Referrals: Michel Montgomery MD [Primary Care Provider] - See instructions Activity Restrictions/Add. Instructions Additional Instructions/Restrictions: Lasix once daily. Follow-up PCP on Sunday. Return to ER for shortness of breath, worsening swelling, chest pain Clinical Impressions Clinical Impression: CHF (congestive heart failure) Discharge ED Provider: Michael Cobian General Adult HPI General Chief complaint: Extremity Problem,Nontraumatic Stated complaint: legs swollen, rash on feet Time Seen by Provider: 08/18/22 21:55 Mode of Arrival: Ambulatory Source of Information: Patient Limitations: No Limitations Description of Symptoms (Recalled from ER Triage Doc. by RN): 81 F presents from home with multiple chronic complaint issues. This evening she is mostly concerned with the swelling to her bilateral feet and ankles. She denies chest pain, shortness of breath, cough, fever. She has not had any changes to her diet or medications that she can think of that could cause this issue. History of Present Illness HPI narrative: 81yo F presents to the ER secondary to bilateral lower extremity swelling with erythema and scabbing. Reports this is a new symptom that started after she was started on a new medication. Patient also notes she has gained 7 pounds in the last week. She reports her blood pressure has been elevated, but typically has very low blood pressures. Denies any chest pain. Denies shortness of breath at rest. Related Data Home Medications Medication Instructions Recorded Confirmed atorvastatin 40 mg tablet 40 mg PO DAILY Cholesterol 07/26/22 08/18/22 metoprolol succinate 25 mg 12.5 mg PO DAILY High blood 07/26/22 08/18/22 tablet,extended release 24 hr pressure fluoxetine 10 mg capsule 10 mg PO DAILY Mood 08/18/22 08/18/22 hydroxyzine pamoate 25 mg capsule 25 mg PO QIDP PRN Anxiety 08/18/22 08/18/22 trazodone 50 mg tablet 50 mg PO HSP PRN Insomnia 08/18/22 08/18/22 Previous Rx's Medication Instructions Recorded furosemide 20 mg tablet (Lasix) 20 mg PO DAILY #7 tabs 08/18/22 Allergies Allergy/AdvReac Type Severity Reaction Status Date / Time No Known Allergies Allergy Verified 07/13/22 10:06 [facility] Disclaimer: The information contained in this section may have been updated after the patient was seen, as this information can be updated by other users. Medical History A-fib CAD (coronary artery disease) Chest pain Edema of both lower extremities HHD (hypertensive heart disease) History of CVA (cerebrovascular accident) HLD (hyperlipidemia) Major depressive disorder Surgical History History of hysterectomy Family History Other Family history of diabetes mellitus type II Social History Smoking Status: Never smoker second hand exposure: No alcohol intake: never substance use type: denies use current occupational status: retired
--- NOTE | 2022-08-18 22:34 | ECG_ITS ---
APPROVED REPORT Exam: Resting ECG HR:68 bpm ECG Measurements Heart Rate 68 AXES NV 145 P 64 QRSd 76 QRS 41 QT 429 T 50 QTc 446 Conclusion SINUS RHYTHM NORMAL ECG UNCONFIRMED REPORT Electronically signed by : Lee Delgado MD 08/19/2022 15:30:11
[2022-08-18 22:38] LABS: NT Pro Brain Natriuretic Pep. 3700 pg/mL (0-450)
[2022-08-18 23:01] VITALS: BP 146/53; PULSE 80; RESP 20; TEMP 36.8; O2SAT 98
== END 2022-08-18 23:08 | disposition home or self-care (01) ==
PROVIDERS: Emergency Provider Family Medicine; PCP Family Medicine
DX: I50.9 Heart failure, unspecified (principal); R22.41 Localized swelling, mass and lump, right lower limb; R22.42 Localized swelling, mass and lump, left lower limb; I11.0 Hypertensive heart disease with heart failure; I48.91 Unspecified atrial fibrillation; I25.10 Atherosclerotic heart disease of native coronary artery without angina pectoris; E78.5 Hyperlipidemia, unspecified
CPT/HCPCS: 71046; 83880; 93005; 99284

== ENCOUNTER → 2022-08-22 07:53 | Outpatient (CLI) | payer MEDICARE, OTHER, SELFPAY | PROVIDERS: PCP Family Medicine; Visit Provider Nurse Practitioner | DX: R06.00 Dyspnea, unspecified (principal); R07.9 Chest pain, unspecified; R60.0 Localized edema ==

== ENCOUNTER → 2022-08-25 12:16 | Outpatient (CLI) | payer MEDICARE, OTHER, SELFPAY ==
--- NOTE | 2022-08-25 | CA_ITS ---
APPROVED REPORT Exam: Pharmacologic Technologist: Pam Sheppard, Ht: 5 ft 5 in Wt: 127 lbs BSA: 1.63 m2 HR: 69 bpm BP: 131/68 mmHg Rhythm: NSR Medical History Medications: Atorvastatin,,,,, Metoprolol Succinate,,,,, DiOVAN,,,,, Prozac,,,,, Cardiac Risk Factors: HTN Stress Test Details Test: LEXISCAN HR Resting HR: 75 bpm Max Heart Rate (APMHR): 140.690430 bpm Max HR Achieved: 106 bpm Target HR (85% APMHR): 119.288455 bpm % of APMHR: 75.71 Recovery HR: 96 bpm BP Resting BP: 131/68 mmHg Max BP: 166/72 mmHg Recovery BP: 163.0/64.0 mmHg ECG Resting ECG: NSR Clinical Exercise duration: 04:01 min Highest Stage Achieved: Stress ECG Conclusion During lexiscan pt experinced leg and arm weakness. No arrhythmias noted. <1mm ST depression. No ischemic changes. Test Summary REST . . . . . . . Resting REST 01:48 . . 75 . 131/ 68 . . Stage 1 01:00 . . 98 . . . . Stage 2 01:00 . . 103 . 166/ 72 . . Stage 3 01:00 . . 101 . 165/ 66 . . Stage 4 01:00 . . 99 . 154/ 66 . . Stage 4 01:01 . . 99 . 154/ 66 . Stop exercise at 04:01 RECOVERY 01:00 . . 93 . . . . RECOVERY 02:00 . . 93 . 163/ 64 . . RECOVERY 03:00 . . 92 . 148/ 70 . . RECOVERY 03:50 . . 92 . 146/ 62 . . Electronically signed by : Blaise Mclaughlin MD 08/30/2022 08:15:36
--- NOTE | 2022-08-25 12:16 | NM_ITS ---
APPROVED REPORT Exam: Nuclear Stress Test Indication: C.P., DYSPNEA, FATIGUE, CAD, A-FIB, HTN, HYPERLIPIDEMIA, EDEMA Patient Location: Outpatient Stress Tech: Judit Mendosa AR Tech:Pratibha SolanoLISS RT(R)(N) Ht: 5 ft 6 in Wt: 114 lbs Bra Size: B HR: 75 bpm BP: 131/68 mmHg BSA: 1.57 m2 TID: 1.02 BMI: 18.3 History: C.P., DYSPNEA, FATIGUE, CAD, A-FIB, HTN, HYPERLIPIDEMIA, EDEMA Procedure: Patient received 0.4 mg of intravenous Lexiscan, resting heart rate 75 bpm, resting blood pressure 131/68 mmHg, with Lexiscan maximum heart rate achieved was 106 bpm which is % of the maximum predicted heart rate and blood pressure was 166/72 mmHg. With Lexiscan, patient denied any complaint of chest pain. Cardiac Stress and Resting SPECT Images: Cardiac Stress and Resting SPECT images were obtained using technetium 99m Myoview 32.8 mCi stress and 10.76 mCi at rest. Stress images reveal severely decreased myocardial activity in anterior wall while rest images revealed improved anterior wall myocardial activity. Gated images calculated ejection fraction 59% with normal wall motion Conclusion: Reversible ischemia anterior wall comfortably normal ejection fraction normal wall motion Electronically signed by : Blaise Mclaughlin MD 08/29/2022 14:05:16
== END ==
PROVIDERS: PCP Family Medicine; Visit Provider Nurse Practitioner
DX: E78.2 Mixed hyperlipidemia (principal); I11.9 Hypertensive heart disease without heart failure; I25.10 Atherosclerotic heart disease of native coronary artery without angina pectoris; I48.0 Paroxysmal atrial fibrillation; R00.1 Bradycardia, unspecified; R00.2 Palpitations; R06.09 Other forms of dyspnea; R07.9 Chest pain, unspecified; R60.0 Localized edema; Z86.73 Personal history of transient ischemic attack (TIA), and cerebral infarction without residual deficits
CPT/HCPCS: 78452; 93017; A9502; J2785

== ENCOUNTER → 2022-08-28 14:42 | Outpatient (POV) | payer MEDICARE, OTHER, SELFPAY | PROVIDERS: Visit Provider Internal Medicine Nephrology | DX: Z00.00 Encounter for general adult medical examination without abnormal findings (principal) ==

== ENCOUNTER → 2022-08-28 15:54 | Outpatient (CLI) | payer MEDICARE, OTHER, SELFPAY ==
[2022-08-28 16:02] LABS: Microscopic, Urine URINE MICROSCOPIC (MICROSCOPIC)
[2022-08-28 16:50] LABS: Appearance,Urine CLEAR (Clear); Bilirubin,Urine Negative (Negative); Blood, Urine TRACE-I (Negative); Color,Urine YELLOW (Yellow); Glucose,Urine (UA) Negative (Negative); Hematocrit 31.6 % (37.0-47.0); Ketones,Urine Negative (Negative); Leukocyte Esterase,Urine Negative (Negative); Mean Corpuscular HGB Conc 31.7 g/dL (31.8-35.4); Mean Corpuscular Hemoglobin 30.3 pg (27.0-31.2); Mean Corpuscular Volume 95.5 fl (81-99); Nitrate,Urine Negative (Negative); Platelet Count 279 K/mm3 (142-424); Protein,Urine 1+ (Negative); Red Blood Count 3.31 M/mm3 (4.20-5.40); Red Cell Distribution Width 13.9 % (11.5-17.5); Specific Gravity, Urine >= 1.030 (1.005-1.030); Urobilinogen,Urine 0.2 EU/dl (0.2); White Blood Count 8.1 K/mm3 (4.8-10.8)
[2022-08-28 17:05] LABS: Creatinine,Urine Random 193 mg/dL (Not Estab.)
[2022-08-28 17:18] LABS: Albumin Level 3.8 g/dl (3.5-5.0); Anion Gap 15.7 mEq/L (5-15); Blood Urea Nitrogen 23 mg/dl (7-17); Calcium 8.6 mg/dl (8.4-10.2); Carbon Dioxide 32 mmol/L (22.0-30.0); Chloride 98 mmol/L (98-107); Estimated Glomerular Filt Rate 36 ml/min (>60); GFR (African American) 44 ML/MIN (>60); Glucose 89 mg/dl (74-100); Phosphorous 3.1 mg/dl (2.5-4.5); Potassium 3.7 mmoL/L (3.5-5.1); Sodium 142 mmol/L (136-145)
[2022-08-28 17:30] LABS: Intact Parathyroid Hormone 208.2 pg/mL (7.5-53.5)
[2022-08-28 17:36] LABS: 25-OH Vitamin D, Total 36.7 ng/mL (30-100)
[2022-08-28 17:52] LABS: RBC,Urine Occasional #/hpf (0-3); Squamous Epithelial Cell,Urine Occasional #/hpf (0-5); WBC,Urine Occasional #/hpf (0-3)
== END ==
PROVIDERS: PCP Family Medicine; Visit Provider Internal Medicine Nephrology
DX: N18.32 Chronic kidney disease, stage 3b (principal)
CPT/HCPCS: 36415; 80069; 81001; 82306; 82570; 83970; 84155; 85014; 85018; 85048; 85049

== ENCOUNTER → 2022-09-05 12:02 | Outpatient (CLI) | payer MEDICARE, OTHER, SELFPAY ==
[2022-09-05 12:13] LABS: Microscopic, Urine URINE MICROSCOPIC (MICROSCOPIC)
[2022-09-05 12:39] LABS: Hematocrit 30.8 % (37.0-47.0); Mean Corpuscular HGB Conc 32.6 g/dL (31.8-35.4); Mean Corpuscular Hemoglobin 30.7 pg (27.0-31.2); Mean Corpuscular Volume 94.4 fl (81-99); Platelet Count 271 K/mm3 (142-424); Red Blood Count 3.26 M/mm3 (4.20-5.40); Red Cell Distribution Width 13.9 % (11.5-17.5); White Blood Count 7.7 K/mm3 (4.8-10.8)
[2022-09-05 12:53] LABS: Appearance,Urine CLEAR (Clear); Bilirubin,Urine Negative (Negative); Blood, Urine Negative (Negative); Color,Urine YELLOW (Yellow); Glucose,Urine (UA) Negative (Negative); Ketones,Urine Negative (Negative); Leukocyte Esterase,Urine 1+ (Negative); Nitrate,Urine Negative (Negative); Protein,Urine Negative (Negative); Specific Gravity, Urine 1.015 (1.005-1.030); Urobilinogen,Urine 0.2 EU/dl (0.2)
[2022-09-05 13:26] LABS: Bacteria,Urine 3+ /lpf; Renal Epithelial Cells,Urine Occasional #/lpf (0)
[2022-09-05 13:40] LABS: Albumin Level 3.4 g/dl (3.5-5.0); Anion Gap 15.6 mEq/L (5-15); Blood Urea Nitrogen 30 mg/dl (7-17); Calcium 8.4 mg/dl (8.4-10.2); Carbon Dioxide 29 mmol/L (22.0-30.0); Chloride 98 mmol/L (98-107); Estimated Glomerular Filt Rate 36 ml/min (>60); GFR (African American) 44 ML/MIN (>60); Glucose 107 mg/dl (74-100); Phosphorous 3.4 mg/dl (2.5-4.5); Potassium 4.6 mmoL/L (3.5-5.1); Sodium 138 mmol/L (136-145)
[2022-09-05 14:06] LABS: Creatinine,Urine Random 110 mg/dL (Not Estab.)
== END ==
PROVIDERS: PCP Internal Medicine Nephrology; Visit Provider Nurse Practitioner
DX: N18.32 Chronic kidney disease, stage 3b (principal); R82.90 Unspecified abnormal findings in urine
CPT/HCPCS: 36415; 80048; 80069; 81001; 82570; 84155; 85014; 85018; 85048; 85049; 87086

== ENCOUNTER 2022-09-07 07:52 | Day surgery (SDC) | payer MEDICARE, OTHER, SELFPAY ==
[2022-09-07] VITALS (15 sets, daily range): BP systolic 117–183; BP diastolic 53–81; PULSE 58–73; RESP 16–19; TEMP 36.3–36.6; O2SAT 92–97; BMI 21.4
--- NOTE | 2022-09-07 07:16 | IR_ITS ---
APPROVED REPORT Patient Location: Outpatient Information Technology Teacher: LISS Cerna RT (R) PROCEDURES Left heart catheterization Left ventriculogram Selective coronary angiogram Drug-eluting stent deployment to the proximal LAD INDICATION Coronary artery disease, Anterior ischemia on Myoview, Abnormal stress test, Angina pectoris, Informed consent was obtained prior to the procedure. COMPLICATIONS None Estimated Blood Loss: Less than 10 mls TECHNIQUE One percent lidocaine used to anesthetize the right anterior aspect of the wrist. The right radial artery was accessed via the Seldinger technique. A 6 Kiswahili sheath was placed in the right radial artery. 150 mg magnesium sulfate, 800 mcg of nitroglycerin, 1mg Lidocaine and 5000 U Heparin were given through the arterial sheath. The papa catheter was also used to perform selective coronary angiography. At the end the diagnostic angiogram therapeutic heparin was administered giving a therapeutic ACT and the guide catheter was left in the mid left main artery followed by a Choice PT extra-support wire being placed on the LAD. A 3 mm x 12 mm resolute frontier stent was deployed at 22 niya reducing the proximal critical stenosis to 0%. FARTUN-3 flow was present before and after the procedure at the end the procedure the apparatus was removed the sheath was removed and hemostasis was achieved using TR banding patient was transferred to the postop putting in stable condition ANGIOGRAPHIC RESULTS The left main artery Normal The left anterior descending artery Has a proximal 90% complex stenosis immediately proximal to a widely patent stent which has excellent distal transitioning The circumflex artery Is nondominant and has a 60 to 70% stenosis in the terminal 2.75 mm obtuse marginal artery The right coronary artery Is a dominant vessel and has diffuse 10 to 20% stenoses with 1 focal 30% stenosis The SWANSON ventriculogram reveals Not performed The left ventricular end-diastolic pressure Not measured IMPRESSION Critical proximal LAD disease which correlated to the high risk anterior defect on Myoview Successful stent to the proximal LAD critical disease reduced to 0% with 1 drug-eluting stent Moderate to severe stenosis in a terminal obtuse marginal artery which is large enough to be revascularized however best managed medically at this time PLAN 1. Dual antiplatelet therapy 2. Risk factor modification 3. Cardiac rehabilitation 4. Medical management for the obtuse marginal artery disease providing patient remains angina free on guideline mediated drug therapy 5. LDL less than 55 to be achieved with high intensity statin 6. Avoidance of tobacco Electronically signed by : Blaise Mclaughlin MD 09/07/2022 10:30:14
--- NOTE | 2022-09-07 11:00 | SUR.PHASEII ---
pt going to post op for remainder of stay, report called to Elizabeth Moore RN
--- NOTE | 2022-09-07 11:07 | SUR.PHASEII ---
family updated on POC.
[2022-09-07 12:38] LABS: CATHL Activated Clotting Time 292 SEC (74-125)
--- NOTE | 2022-09-07 12:48 | SUR.PHASEII ---
1220- 2mls air removed- ordered meal 1235- removed 2mls air no bleeding noted
--- NOTE | 2022-09-07 12:59 | SUR.PHASEII ---
1250- pt eating with sister at [facility]
--- NOTE | 2022-09-07 13:21 | P.CONPHA_ITS ---
[facility] Senior Cost Analyst Discharge Med Etcher Photoengraving: Marcela Verdugo has received discharge medication counseling on the following medications: ASPIRIN 81 MG DAILY ATORVASTATIN 40 MG DAILY METOPROLOL SUCCINATE 12.5 MG DAILY BRILINTA 90 MG BID VALSARTAN/HCTZ 80 MG/12.5 MG DAILY FILLED 08/17/22
--- NOTE | 2022-09-07 13:34 | PC.NURSE ---
[facility] spoke with Jeanette in Cardiology and pt is to cont. her valsartan-hydrochlorothiazide.
--- NOTE | 2022-09-07 15:55 | PC.NURSE ---
2mls of air taken out at 1220 1250 1305 1320 1335 1350 1400=0ml left no bleeding noted. no issues noted.
== END 2022-09-07 15:20 | disposition home or self-care (01) ==
PROVIDERS: PCP Family Medicine; Visit Provider Internal Medicine
DX: I70.213 Atherosclerosis of native arteries of extremities with intermittent claudication, bilateral legs (principal); I25.118 Atherosclerotic heart disease of native coronary artery with other forms of angina pectoris; Z79.899 Other long term (current) drug therapy; I11.0 Hypertensive heart disease with heart failure; E78.5 Hyperlipidemia, unspecified; I50.9 Heart failure, unspecified; I48.20 Chronic atrial fibrillation, unspecified; I65.23 Occlusion and stenosis of bilateral carotid arteries
CPT/HCPCS: 85347; 92928; 93458; 99152; C1725; C1769; C1876; C9600; J1644; Q9967

== ENCOUNTER → 2022-09-12 10:44 | Outpatient (POV) | payer MEDICARE, OTHER, SELFPAY | PROVIDERS: Visit Provider Dermatology | DX: Z00.00 Encounter for general adult medical examination without abnormal findings (principal) ==

== ENCOUNTER → 2022-09-13 09:24 | Outpatient (CLI) | payer MEDICARE, OTHER, SELFPAY ==
--- NOTE | 2022-09-13 09:31 | US_ITS ---
FINAL REPORT CLINICAL HISTORY: claudication, CAD, hyperlipidemia. Patient had a skin cancer removed from right distal calf 09/12/22. Bandage in place so no ankle cuff was placed. DP pressure/ratio on RT leg was obtained at the calf level. FINDINGS: COMPLETE ANKLE/BRACHIAL INDICES BILATERAL Complete ankle brachial indices were obtained. The right GUERDA is 1.2. The left GUERDA is 1.3. IMPRESSION: ABIs are within normal limits bilaterally. Reviewed, Interpreted and Dictated by Ciaran Shearer III, MD Transcribed by Tasha Weber Authenticated and [facility]
--- NOTE | 2022-09-13 10:45 | MM_ITS ---
PROCEDURE INFORMATION: Exam: MG Bilateral Screening 3D Mammography Exam date and time: 09/13/2022 10:51 AM Age: 81 years old Clinical indication: Screening examination TECHNIQUE: Imaging protocol: Bilateral Screening tomosynthesis and 2D mammography including computer-aided detection (CAD) when performed. COMPARISON: 1. MG MM DIG SCREENING MAMM BI W/CAD 09/05/2021 9:50 AM 2. MG MM DIG SCREENING MAMM BI W/CAD 08/31/2020 1:46 PM 3. MG MM DIG MAMM DX UNILAT RT CAD 03/26/2019 3:15 PM FINDINGS: MAMMOGRAPHY: Breast composition: The breasts are heterogeneously dense, which may obscure small masses. Mass: No suspicious masses. Architectural distortion: No suspicious distortion. Calcifications: No suspicious calcifications. Asymmetric density: None. Skin thickening: None. Axillary adenopathy: None. IMPRESSION: No mammographic evidence of malignancy. Annual screening is recommended unless otherwise clinically indicated. ASSESSMENT: BI-RADS Category 1: Negative
== END ==
PROVIDERS: PCP Internal Medicine Nephrology; Visit Provider Nurse Practitioner
DX: I50.9 Heart failure, unspecified (principal); N28.9 Disorder of kidney and ureter, unspecified; R06.09 Other forms of dyspnea; R07.9 Chest pain, unspecified; R60.0 Localized edema; R94.30 Abnormal result of cardiovascular function study, unspecified; I73.9 Peripheral vascular disease, unspecified; R00.1 Bradycardia, unspecified; R93.89 Abnormal findings on diagnostic imaging of other specified body structures; Z12.31 Encounter for screening mammogram for malignant neoplasm of breast
CPT/HCPCS: 77063; 77067; 93306; 93923

== ENCOUNTER → 2022-09-23 09:55 | Outpatient (CLI) | payer MEDICARE, OTHER, SELFPAY ==
[2022-09-23 10:00] LABS: Microscopic, Urine URINE MICROSCOPIC (MICROSCOPIC)
[2022-09-23 10:13] LABS: Appearance,Urine CLEAR (Clear); Bilirubin,Urine Negative (Negative); Blood, Urine Negative (Negative); Color,Urine YELLOW (Yellow); Glucose,Urine (UA) Negative (Negative); Ketones,Urine Negative (Negative); Leukocyte Esterase,Urine Negative (Negative); Nitrate,Urine Negative (Negative); Protein,Urine Negative (Negative); Urobilinogen,Urine 0.2 EU/dl (0.2)
[2022-09-23 10:38] LABS: Bacteria,Urine Trace /lpf; Squamous Epithelial Cell,Urine Occasional #/hpf (0-5); WBC,Urine Occasional #/hpf (0-3)
[2022-09-23 11:14] LABS: Anion Gap 14.9 mEq/L (5-15); Blood Urea Nitrogen 32 mg/dl (7-17); Calcium 8.8 mg/dl (8.4-10.2); Carbon Dioxide 26 mmol/L (22.0-30.0); Chloride 104 mmol/L (98-107); Estimated Glomerular Filt Rate 36 ml/min (>60); GFR (African American) 44 ML/MIN (>60); Glucose 89 mg/dl (74-100); Potassium 4.9 mmoL/L (3.5-5.1); Sodium 140 mmol/L (136-145)
== END ==
PROVIDERS: PCP Family Medicine; Visit Provider Nurse Practitioner Family
DX: I50.9 Heart failure, unspecified (principal); R30.0 Dysuria; R60.0 Localized edema; E78.2 Mixed hyperlipidemia; I25.10 Atherosclerotic heart disease of native coronary artery without angina pectoris; I48.0 Paroxysmal atrial fibrillation; I65.23 Occlusion and stenosis of bilateral carotid arteries; N28.9 Disorder of kidney and ureter, unspecified; R00.1 Bradycardia, unspecified; R06.09 Other forms of dyspnea; R07.9 Chest pain, unspecified; Z86.73 Personal history of transient ischemic attack (TIA), and cerebral infarction without residual deficits
CPT/HCPCS: 36415; 80048; 81001

== ENCOUNTER → 2022-10-11 08:37 | Outpatient (CLI) | payer MEDICARE, OTHER, SELFPAY ==
--- NOTE | 2022-10-11 08:46 | XR_ITS ---
FINAL REPORT TECHNIQUE: Bone densitometry calculations of the lumbar spine and left hip were obtained. CLINICAL HISTORY: POST MENOPAUSAL FINDINGS: Using L1-4, the bone mineral density of the spine is 1.057 g/cm2, corresponding to T-score of 0.1 but this may be falsely elevated secondary to hypertrophic change. Using the left hip, the bone mineral density of the femoral neck is 0.636 g/cm2, corresponding to a T-score of -1.9. Using the right hip, the bone mineral density of the femoral neck is 0.589 g/cm2, corresponding to a T-score of -2.3. NOTE: T-score: Standard deviation compared with peak bone mass of young adult mean. *Following the recommendations of the International Society of Bone densitometry, classification of hip BMD is based on the lower of two T-scores; total hip or femoral neck. IMPRESSION: Diminished bone mineral density of the hips consistent with osteopenia. Normal bone mineral density of the lumbar spine but this may be falsely elevated secondary to hypertrophic changes. FRAX data reports 14% major osteoporotic fracture and 4.9% hip fracture. Reviewed, Interpreted and Dictated by Jefry Collado MD Transcribed by Tasha Weber Authenticated and [facility] [place] [place]
== END ==
PROVIDERS: PCP Family Medicine; Visit Provider Family Medicine
DX: M85.89 Other specified disorders of bone density and structure, multiple sites (principal)
CPT/HCPCS: 77080

== ENCOUNTER → 2022-10-31 13:23 | Outpatient (CLI) | payer MEDICARE, OTHER, SELFPAY ==
--- NOTE | 2022-10-31 13:26 | MR_ITS ---
FINAL REPORT CLINICAL HISTORY: LEFT KNEE PAIN. patient fell 3 months ago and feels grinding in knee. FINDINGS: Multiplanar MR imaging of the right knee was performed without contrast. The medial and lateral menisci are intact without evidence of meniscal tear. The anterior and posterior cruciate ligaments are intact. There is fluid adjacent to the medial collateral ligament that may represent a sprain. The lateral collateral ligament is intact The patellar and quadriceps tendons are intact. There is no evidence of fracture. 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 A small joint effusion is seen. The musculature is intact. There is a large popliteal cyst. IMPRESSION: Possible MCL sprain. Severe patellar chondromalacia. Small joint effusion with a large popliteal cyst. Reviewed, Interpreted and Dictated by Ciaran Shearer III, MD Transcribed by Orion Davies Authenticated and [facility]
== END ==
PROVIDERS: PCP Family Medicine; Visit Provider Physician Assistant
DX: M25.562 Pain in left knee (principal)
CPT/HCPCS: 73721

== ENCOUNTER → 2022-11-28 12:27 | Outpatient (CLI) | payer MEDICARE, OTHER, SELFPAY ==
[2022-11-28 13:19] LABS: Anion Gap 11.9 mEq/L (5-15); Blood Urea Nitrogen 28 mg/dl (7-17); Calcium 9.3 mg/dl (8.4-10.2); Carbon Dioxide 31 mmol/L (22.0-30.0); Chloride 105 mmol/L (98-107); Estimated Glomerular Filt Rate 33 ml/min (>60); GFR (African American) 40 ML/MIN (>60); Glucose 123 mg/dl (74-100); Potassium 3.9 mmoL/L (3.5-5.1); Sodium 144 mmol/L (136-145)
== END ==
PROVIDERS: PCP Family Medicine; Visit Provider Nurse Practitioner Family
DX: I25.10 Atherosclerotic heart disease of native coronary artery without angina pectoris (principal); I11.9 Hypertensive heart disease without heart failure; E78.5 Hyperlipidemia, unspecified; F32.9 Major depressive disorder, single episode, unspecified; I48.91 Unspecified atrial fibrillation; I50.9 Heart failure, unspecified; I65.29 Occlusion and stenosis of unspecified carotid artery; R60.0 Localized edema; Z86.73 Personal history of transient ischemic attack (TIA), and cerebral infarction without residual deficits
CPT/HCPCS: 36415; 80048

== ENCOUNTER 2023-02-05 20:55 | Emergency (ER) | payer MEDICARE, OTHER, SELFPAY ==
[2023-02-05 20:55] VITALS: BP 174/85; PULSE 94; RESP 16; TEMP 37; O2SAT 99; BMI 25.8
--- NOTE | 2023-02-05 21:49 | ECG_ITS ---
APPROVED REPORT Exam: Resting ECG HR:78 bpm ECG Measurements Heart Rate 78 AXES DC 141 P 17 QRSd 71 QRS 39 QT 391 T 45 QTc 424 Conclusion SINUS RHYTHM NORMAL ECG UNCONFIRMED REPORT Electronically signed by : Lee Delgado MD 02/06/2023 19:24:31
--- NOTE | 2023-02-05 21:54 | HMH.EDGENADL ---
Discharge Plan Disposition Patient Disposition: Home, Self-Care Chief Complaint: Weakness Prescriptions Prescriptions: No Action diltiazem HCl [Cardizem LA] 120 mg tablet extended release 24 hr 120 mg PO DAILY Qty: 30 2RF clopidogrel [Plavix] 75 mg tablet 75 mg PO DAILY Qty: 30 11RF fluoxetine [Prozac] 20 mg capsule 20 mg PO DAILY Qty: 90 0RF atorvastatin 40 mg tablet See Rx Instructions .ROUTE .COMPLEX Qty: 90 3RF Dose Instruction: TAKE 1 TABLET DAILY FOR CHOLESTEROL (MYLAN MFR) Rx Instructions: TAKE 1 TABLET DAILY FOR CHOLESTEROL (MYLAN MFR) aspirin 81 mg Capsule 81 mg PO DAILY Qty: 30 6RF Referrals Follow up/Referrals: Michel Montgomery MD [Primary Care Provider] - See instructions Activity Restrictions/Add. Instructions Additional Instructions/Restrictions: Discussed possibility of medication such as Coreg (carvedilol) for hypertension and heart rate management. Start low-dose, increase slowly, per his direction. He will be the expert at blood pressure control and be able to manage and monitor you. Take your blood pressure as often as you are able in the morning and at night, knowing it will be higher in the morning and generally lower prior to bed. When taking blood pressure, be sure to take it without stimulant use while sitting quietly with arms and legs uncrossed. Call your family doctor to establish care for this visit to the emergency department and schedule follow-up within 48 hours to ensure improvement. If you have any worsening of your condition or any other concerning signs or symptoms, return to the emergency department or your primary care doctor for further evaluation. Clinical Impressions Clinical Impression: Asymptomatic hypertension Discharge ED Provider: Richar Garcia General Adult HPI General Chief complaint: Weakness Stated complaint: elevated bp Time Seen by Provider: 02/05/23 21:09 Mode of Arrival: Ambulatory Source of Information: Patient Limitations: No Limitations Description of Symptoms (Recalled from ER Triage Doc. by RN): pt c/o high blood pressure , hx of stroke History of Present Illness HPI narrative: 82-year-old female presenting with hypertension. She is asymptomatic at this time. States that she has had chest discomfort a couple of times over the past couple of weeks. Took her blood pressure today, was concerned because she had a stroke in the past with similar blood pressure, so wanted to make sure she was okay. Related Data Previous Rx's Medication Instructions Recorded aspirin 81 mg capsule 81 mg PO DAILY #30 caps 09/07/22 clopidogrel 75 mg tablet (Plavix) 75 mg PO DAILY #30 tabs 10/25/22 fluoxetine 20 mg capsule (Prozac) 20 mg PO DAILY Allergy symptoms 11/10/22 #90 caps atorvastatin 40 mg tablet See Rx Instructions .Route 01/09/23 .COMPLEX #90 tabs diltiazem HCl 120 mg 120 mg PO DAILY #30 tabs 01/29/23 tablet,extended release 24 hr (Cardizem LA) Allergies Allergy/AdvReac Type Severity Reaction Status Date / Time No Known Allergies Allergy Verified 01/29/23 08:50 [facility] Disclaimer: The information contained in this section may have been updated after the patient was seen, as this information can be updated by other users. Medical History A-fib Abnormal chest xray Abnormal result of cardiovascular function study CAD (coronary artery disease) Chest pain Claudication Edema of both lower extremities HHD (hypertensive heart disease) History of CVA (cerebrovascular accident) HLD (hyperlipidemia) Major depressive disorder Surgical History H/O heart artery stent History of hysterectomy Hx of cardiac cath Family History Other Family history of diabetes mellitus type II Social History (Reviewed 01/29/23 @ 08:50 by Sonia Reyes
[2023-02-05 22:03] VITALS: BP 145/65; PULSE 95; RESP 18; TEMP 36.8; O2SAT 98
== END 2023-02-05 22:05 | disposition home or self-care (01) ==
PROVIDERS: Emergency Provider Emergency Medicine; PCP Family Medicine
DX: I11.9 Hypertensive heart disease without heart failure (principal); I25.10 Atherosclerotic heart disease of native coronary artery without angina pectoris; E78.5 Hyperlipidemia, unspecified; F33.9 Major depressive disorder, recurrent, unspecified; Z86.73 Personal history of transient ischemic attack (TIA), and cerebral infarction without residual deficits
CPT/HCPCS: 93005; 99283

== ENCOUNTER → 2023-02-06 08:38 | Outpatient (CLI) | payer MEDICARE, OTHER, SELFPAY ==
--- NOTE | 2023-02-06 08:43 | XR_ITS ---
FINAL REPORT CLINICAL HISTORY: shoulder pain FINDINGS: Right shoulder Four views were obtained. There is no acute fracture or dislocation. There is mild AC joint degenerative change. No soft tissue abnormality is identified. IMPRESSION: Mild degenerative changes. Reviewed, Interpreted and Dictated by Ciaran Shearer III, MD Transcribed by Tasha Weber Authenticated and [facility]
--- NOTE | 2023-02-06 08:43 | XR_ITS ---
FINAL REPORT CLINICAL HISTORY: shoulder pain FINDINGS: Left shoulder Four views were obtained. There is no acute fracture or dislocation. There is mild AC joint degenerative change. No soft tissue abnormality is identified. IMPRESSION: Mild degenerative changes. Reviewed, Interpreted and Dictated by Ciaran Shearer III, MD Transcribed by Tasha Weber Authenticated and [facility]
== END ==
PROVIDERS: PCP Family Medicine; Visit Provider Orthopaedic Surgery
DX: M25.511 Pain in right shoulder (principal); M25.512 Pain in left shoulder
CPT/HCPCS: 73030

== ENCOUNTER 2023-02-09 11:01 | Emergency (ER) | payer MEDICARE, OTHER, SELFPAY ==
[2023-02-09 11:02] VITALS: BP 187/74; PULSE 71; RESP 19; TEMP 36.8; O2SAT 97; BMI 20.5
--- NOTE | 2023-02-09 11:23 | ECG_ITS ---
APPROVED REPORT Exam: Resting ECG HR:58 bpm ECG Measurements Heart Rate 58 AXES PA 129 P 62 QRSd 73 QRS 19 QT 422 T 56 QTc 418 Conclusion SINUS BRADYCARDIA POSSIBLE LEFT ATRIAL ENLARGEMENT Short PA Late R wave progression ABNORMAL ECG UNCONFIRMED REPORT Electronically signed by : Lee Delgado MD 02/10/2023 10:39:43
--- NOTE | 2023-02-09 11:29 | EXP.UTC ---
Discharge Plan Disposition Patient Disposition: Home, Self-Care Condition: Good Prescriptions Prescriptions: No Action diltiazem HCl [Cardizem LA] 120 mg tablet extended release 24 hr 120 mg PO DAILY Qty: 30 2RF clopidogrel [Plavix] 75 mg tablet 75 mg PO DAILY Qty: 30 11RF fluoxetine [Prozac] 20 mg capsule 20 mg PO DAILY Qty: 90 0RF atorvastatin 40 mg tablet See Rx Instructions .ROUTE .COMPLEX Qty: 90 3RF Dose Instruction: TAKE 1 TABLET DAILY FOR CHOLESTEROL (MYLAN MFR) Rx Instructions: TAKE 1 TABLET DAILY FOR CHOLESTEROL (MYLAN MFR) carvedilol [Coreg] 6.25 mg tablet 6.25 mg PO BID Qty: 60 2RF Rx Instructions: must administer with a meal/food aspirin 81 mg Capsule 81 mg PO DAILY Qty: 30 6RF Referrals Follow up/Referrals: Provider,Referral, MD [Primary Care Provider] - See instructions Activity Restrictions/Add. Instructions Additional Instructions/Restrictions: Take tylenol for pain or fever. Follow up with your regular doctor. GO TO THE ER FOR ANY WORSENING SYMPTOMS Clinical Impressions Clinical Impression: Fatigue, Weakness Instructions Patient Instructions: DI for Fatigue, DI for Muscle Weakness Discharge ED Provider: Bo Rodriguez [facility] General Stated complaint: weakness, high blood pressure Mode of Arrival: Ambulatory Source of Information: Patient Limitations: No Limitations Time Seen by Provider: 02/09/23 11:29 Description of Symptoms (Recalled from Triage Doc. by RN): Pt wanted to get bp checked she feels weak and doesn't know why. HEENT Symptoms (Recalled from RN notes): Yes Resp Symptoms (Recalled from RN notes): No Skin Symptoms (Recalled from RN notes): No MS Symptoms (Recalled from RN notes): No Functional Status (Recalled from RN notes): n/a History of Present Illness Provider Complaint: She states that for the past 3 days she has had worsening fatigue and generalized weakness. Related Data Previous Rx's Medication Instructions Recorded aspirin 81 mg capsule 81 mg PO DAILY #30 caps 09/07/22 clopidogrel 75 mg tablet (Plavix) 75 mg PO DAILY #30 tabs 10/25/22 fluoxetine 20 mg capsule (Prozac) 20 mg PO DAILY Allergy symptoms 11/10/22 #90 caps atorvastatin 40 mg tablet See Rx Instructions .Route 01/09/23 .COMPLEX #90 tabs diltiazem HCl 120 mg 120 mg PO DAILY #30 tabs 01/29/23 tablet,extended release 24 hr (Cardizem LA) carvedilol 6.25 mg tablet (Coreg) 6.25 mg PO BID #60 tabs 02/08/23 Allergies Allergy/AdvReac Type Severity Reaction Status Date / Time No Known Allergies Allergy Verified 02/06/23 09:17 Worker's Comp Is this a Worker's Comp case?: No PFS PFS Disclaimer: The information contained in this section may have been updated after the patient was seen, as this information can be updated by other users. Medical History A-fib Abnormal chest xray Abnormal result of cardiovascular function study CAD (coronary artery disease) Chest pain Claudication Edema of both lower extremities HHD (hypertensive heart disease) History of CVA (cerebrovascular accident) HLD (hyperlipidemia) Major depressive disorder Surgical History H/O heart artery stent History of hysterectomy Hx of cardiac cath Family History Other Family history of diabetes mellitus type II Social History Smoking Status: Never smoker second hand exposure: No alcohol intake: never substance use type: denies use current occupational status: retired Travel in the last 8 weeks: None household members: none housing: house lives independently: Yes marital status: education level: college current occupational exposures/hazards: No caffeine: Yes special lonnie needs: No agree to tra
[2023-02-09 12:02] LABS: Adenovirus,PCR Not Detected (NotDetected); Coronavirus 19, PCR Not Detected (NotDetected); Coronavirus 229E Not Detected (NotDetected); Coronavirus NL63 Not Detected (NotDetected); Coronavirus OC43 Not Detected (NotDetected); Coronovirus HKU1,PCR Not Detected (NotDetected); Human Metapneumovirus Not Detected (NotDetected); Influenza A, PCR Not Detected (NotDetected); Influenza AH1, 2009 Not Detected (NotDetected); Influenza AH1, PCR Not Detected (NotDetected); Influenza AH3,PCR Not Detected (NotDetected); Influenza B, PCR Not Detected (NotDetected); Parainfluenza 1, PCR Not Detected (NotDetected); Parainfluenza 2, PCR Not Detected (NotDetected); Parainfluenza 3, PCR Not Detected (NotDetected); Parainfluenza 4, PCR Not Detected (NotDetected); Respiratory Syncytial Virus Not Detected (NotDetected); Rhinovirus/Enterovirus Not Detected (NotDetected)
[2023-02-09 12:04] LABS: Apearance,Urine Clear (Clear); Color,Urine Dark Yellow (Yellow); Glucose,Urine (UA) Negative (Negative); Ketones,Urine Negative (Negative); Protein,Urine Trace (Negative); Specific Gravity, Urine 1.025 (1.005-1.030)
[2023-02-09 12:05] LABS: Bilirubin,Urine Negative (Negative); Blood, Urine Trace (Negative); UTC Leukocyte Esterase,Urine Negative (Negative); UTC Nitrate,Urine Negative (Negative); Urobilinogen,Urine 0.2 EU/dl (0.2)
[2023-02-09 12:09] LABS: Basophils # 0.1 K/mm3 (0-0.2); Basophils % 0.4 % (0.1-2.0); Eosinophils # 0.1 K/mm3 (0.0-0.4); Eosinophils % 1.2 % (0.1-12.0); Hematocrit 38.7 % (37.0-47.0); Hemoglobin 13.1 g/dL (12.2-16.2); Lymphocytes # 2.2 K/mm3 (0.7-4.5); Lymphocytes % 20.3 % (10-50); Mean Corpuscular HGB Conc 33.9 g/dL (31.8-35.4); Mean Corpuscular Volume 94.2 fl (81-99); Mean Platelet Volume 7.9 fl (7.4-10.4); Monocytes # 0.7 K/mm3 (0.1-1.0); Monocytes % 6.1 % (1.7-9.3); Neutrophils # 7.8 K/mm3 (1.8-7.8); Neutrophils % 72.1 % (37.0-80.0); Platelet Count 343 K/mm3 (142-424); Red Blood Count 4.11 M/mm3 (4.20-5.40); White Blood Count 10.8 K/mm3 (4.8-10.8)
[2023-02-09 12:13] LABS: Anion Gap 14.2 mEq/L (5-15); Blood Urea Nitrogen 26 mg/dl (7-17); Calcium 9.5 mg/dl (8.4-10.2); Carbon Dioxide 27 mmol/L (22.0-30.0); Chloride 103 mmol/L (98-107); Creatinine Clearance Estimated 30 mL/min (50-200); Estimated Glomerular Filt Rate 39 ml/min (>60); GFR (African American) 48 ML/MIN (>60); Glucose 106 mg/dl (74-100); Potassium 4.2 mmoL/L (3.5-5.1); Sodium 140 mmol/L (136-145)
[2023-02-09 12:44] LABS: Thyroid Stimulating Hormone 1.93 uIU/mL (0.465-4.68)
[2023-02-09 12:55] VITALS: BP 187/74; PULSE 71; RESP 18; TEMP 36.8; O2SAT 97
== END 2023-02-09 12:55 | disposition home or self-care (01) ==
PROVIDERS: Emergency Provider Nurse Practitioner Family
DX: R53.1 Weakness; R00.1 Bradycardia, unspecified; I25.10 Atherosclerotic heart disease of native coronary artery without angina pectoris; I11.9 Hypertensive heart disease without heart failure; E78.5 Hyperlipidemia, unspecified; F33.9 Major depressive disorder, recurrent, unspecified; Z86.73 Personal history of transient ischemic attack (TIA), and cerebral infarction without residual deficits
CPT/HCPCS: 36415; 80048; 81003; 84443; 85025; 87086; 87632; 87635; 93005; 99212; 99214; G0463

== ENCOUNTER → 2023-03-14 10:29 | Outpatient (CLI) | payer MEDICARE, OTHER, SELFPAY ==
--- NOTE | 2023-03-14 10:33 | CA_ITS ---
APPROVED REPORT EXAM: Limited 2D Echocardiogram Cycle Consultant: Maryjo Moise RVT Ht: 5 ft 5 in Wt: 120lbs BSA: 1.59 BP: 144/63 mmHg Indications: DYSPENA,EF CHECK,CAD,A-FIB,CHF 2D Dimensions LVOT 1.96 cm (M/F) 1.5-2.5 M-Mode Dimensions RVDd 2.60 cm (0.9-2.6) LA Diam 3.52 cm (1.9-4.0) LVDd 4.01 cm (3.5-5.7) Ao Diam 2.57 cm (2.0-3.7) LVDs 2.51 cm (3.5-5.7) IVSd 0.97 cm (0.6-1.1) PWd 0.47 cm (0.6-1.1) EF (Teich) 68.00% FS 37.40% EDV (Teich) 70.40 mL ESV (Teich) 22.50 mL Other Information Study Quality: Fair Conclusion This is a limited TTE to evaluate for LVEF. Limited windows were obtained. The left ventricle appears normal in size. There is normal LV systolic function. LVEF is 55%. The right ventricle appears mildly dilated. There is normal RV systolic function. Electronically signed by : Brandy Oliva MD 03/18/2023 21:03:40
--- NOTE | 2023-03-14 11:03 | XR_ITS ---
FINAL REPORT CLINICAL HISTORY: Shortness of breath COMPARISON: 08/18/2022 FINDINGS: Two views of the chest were obtained. The heart size and pulmonary vascularity are within normal limits. The mediastinum is normal. There is mild left base atelectasis or scarring. There is no pneumothorax. The bony thorax is intact. IMPRESSION: Mild left base atelectasis or scarring. Reviewed, Interpreted and Dictated by Ciaran Shearer III, MD Transcribed by Maci Mendoza Authenticated and [facility] [place]
== END ==
PROVIDERS: PCP Internal Medicine; Visit Provider Physician Assistant
DX: E78.5 Hyperlipidemia, unspecified (principal); I11.9 Hypertensive heart disease without heart failure; I25.10 Atherosclerotic heart disease of native coronary artery without angina pectoris; I48.91 Unspecified atrial fibrillation; I65.29 Occlusion and stenosis of unspecified carotid artery; R06.00 Dyspnea, unspecified; R53.1 Weakness; R53.83 Other fatigue; Z86.73 Personal history of transient ischemic attack (TIA), and cerebral infarction without residual deficits
CPT/HCPCS: 71046; 93308

== ENCOUNTER → 2023-04-02 10:44 | Outpatient (CLI) | payer MEDICARE, OTHER, SELFPAY ==
--- NOTE | 2023-04-02 10:44 | CT_ITS ---
FINAL REPORT TECHNIQUE: The patient was injected with IV contrast. Axial images were obtained through the chest in a PE protocol. 3-D reconstruction images were also performed. Individualized dose reduction techniques using automated exposure control or adjustment of the MA and/or KV according to patient's size were employed. CLINICAL HISTORY: Shortness of breath, right atrial enlargement, rule out PE COMPARISON: 12/31/2020 FINDINGS: Mediastinal vasculature is adequately opacified. No pulmonary artery filling defects are identified to suggest PE. There is no aortic dissection. There is no axillary adenopathy. There is no hilar or mediastinal adenopathy. The heart size is normal. There is no pericardial or pleural effusion. Peribronchial thickening and scarring at the left base may be due to sequela from prior pneumonia or aspiration. Asymmetric density in the inferior left breast measuring about 2.5 cm in diameter is best seen on image 61 of series 3. IMPRESSION: No pulmonary embolus or dissection. Asymmetric density left breast. Correlate with physical exam and mammography. Reviewed, Interpreted and Dictated by Jefry Collado MD Transcribed by Maci Mendoza Authenticated and . [facility]
[2023-04-02 11:30] LABS: Blood Urea Nitrogen 18 mg/dl (7-17); Estimated Glomerular Filt Rate 39 ml/min (>60); GFR (African American) 48 ML/MIN (>60)
== END ==
LOC: RAD 10:44
PROVIDERS: PCP Internal Medicine; Visit Provider Physician Assistant
DX: I51.7 Cardiomegaly (principal); R06.09 Other forms of dyspnea
CPT/HCPCS: 36415; 71275; 82565; 84520; Q9967

== ENCOUNTER → 2023-04-11 13:00 | Outpatient (CLI) | payer MEDICARE, OTHER, SELFPAY ==
--- NOTE | 2023-04-11 13:09 | MM_ITS ---
PROCEDURE INFORMATION: Exam: US Right Breast, Complete US Left Breast, Complete MG Bilateral Diagnostic Breast Tomosynthesis Exam date and time: 04/11/2023 1:56 PM Age: 82 years old Clinical indication: Bilateral breast pain TECHNIQUE: Imaging protocol: Complete ultrasound of all four quadrants of the right breast and the retroareolar regions, including ultrasound of the axilla when performed. Complete ultrasound of all four quadrants of the left breast and the retroareolar regions, including ultrasound of the axilla when performed. Bilateral Diagnostic tomosynthesis and 2D mammography including computer-aided detection (CAD) when performed. Unilateral or bilateral exam. COMPARISON: 1. MG MM DIG SCREENING MAMM BI W/CAD 09/13/2022 10:51 AM 2. MG MM DIG SCREENING MAMM BI W/CAD 09/05/2021 9:50 AM FINDINGS: MAMMOGRAPHY: The breasts are heterogeneously dense, which may obscure small masses. A skin marker was placed over an area of pain in the right upper outer quadrant. No focal suspicious findings are noted on routine or spot compression views. There is no stellate mass, architectural distortion or suspicious microcalcifications in either breast to suggest malignancy. No skin thickening or axillary adenopathy. ULTRASOUND: Sonographic images of both breasts including the retroareolar regions, all 4 quadrants and the axilla do not demonstrate any solid or cystic masses. No architectural distortion or acoustical shadowing. No skin thickening or axillary adenopathy. IMPRESSION: No mammographic or sonographic evidence of malignancy. Annual bilateral mammographic screening is recommended unless otherwise clinically indicated. ASSESSMENT: BI-RADS Category 1: Negative
== END ==
PROVIDERS: PCP Nurse Practitioner Family; Visit Provider Nurse Practitioner Family
DX: N63.23 Unspecified lump in the left breast, lower outer quadrant (principal); N64.4 Mastodynia
CPT/HCPCS: 76641; 77062; 77066; G0279

== ENCOUNTER 2023-05-09 07:43 | Outpatient (CLI) | payer MEDICARE, OTHER, SELFPAY ==
--- NOTE | 2023-05-09 07:55 | CA_ITS ---
FINAL REPORT TECHNIQUE: Grayscale, color Doppler and duplex Doppler ultrasound of the kidneys, aorta and renal arteries was performed. Multiple velocities were measured. CLINICAL HISTORY: hypertension COMPARISON: None FINDINGS: Aorta velocity: 75 cm/sec Right kidney: 9.1 cm. No evidence of hydronephrosis or mass. Right intrarenal RI: 0.78-0.84 Right renal artery velocity: 114 cm/sec. Right RAR (Renal artery-Aortic Ratio): 1.52 Left Kidney: 9.6 cm. No evidence of hydronephrosis or mass. Left intrarenal RI: 0.84-0.88 Left renal artery velocity: 167 cm/sec. Left RAR (Renal Artery-Aortic Ratio): 2.22 IMPRESSION: No evidence of significant renal artery stenosis. CT angiogram or postcontrast MR angiogram would be more sensitive for evaluation of possible renal artery stenosis. Reviewed, Interpreted and Dictated by Ciaran Shearer III, MD Transcribed by Maci Mendoza Authenticated and [facility]
--- NOTE | 2023-05-09 08:34 | US_ITS ---
FINAL REPORT CLINICAL HISTORY: R53.83 - Other fatigue COMPARISON: 07/10/2022 FINDINGS: RENAL ULTRASOUND: The right kidney measures 7.5 cm in length, and the left kidney measures 9 cm in length. There is bilateral thinning of the cortex consistent with the patient's history of chronic renal failure. There is a left renal parapelvic cyst measuring up to 1.9 cm in diameter. There may be a small left renal stone present. IMPRESSION: Bilateral thinning of the cortex consistent with the patient's history of chronic renal disease. Questionable small left renal stone. Reviewed, Interpreted and Dictated by Ciaran Shearer III, MD Transcribed by Deidre Dotson Authenticated and [facility]
== END 2023-05-09 23:59 ==
LOC: RT 07:44
PROVIDERS: PCP Internal Medicine Adolescent Medicine; Visit Provider Physician Assistant
DX: E78.5 Hyperlipidemia, unspecified (principal); F32.9 Major depressive disorder, single episode, unspecified; I10 Essential (primary) hypertension; I25.10 Atherosclerotic heart disease of native coronary artery without angina pectoris; I48.91 Unspecified atrial fibrillation; I65.29 Occlusion and stenosis of unspecified carotid artery; R06.00 Dyspnea, unspecified; R53.1 Weakness; R53.83 Other fatigue; Z86.73 Personal history of transient ischemic attack (TIA), and cerebral infarction without residual deficits
CPT/HCPCS: 76770; 93976

== ENCOUNTER 2023-08-30 13:31 | Outpatient (CLI) | payer MEDICARE, OTHER, SELFPAY ==
--- NOTE | 2023-08-30 13:37 | XR_ITS ---
FINAL REPORT CLINICAL HISTORY: left hip pain COMPARISON: None FINDINGS: 3 images of the left hip were obtained. There is no evidence of fracture or dislocation. There is mild degenerative change of the hips bilaterally. There is a chronic calcification anterior to the proximal femur. IMPRESSION: No acute bony abnormality. Reviewed, Interpreted and Dictated by Ciaran Shearer III, MD Transcribed by Deidre Dotson Authenticated and . [facility]
--- NOTE | 2023-08-30 13:37 | XR_ITS ---
FINAL REPORT CLINICAL HISTORY: right hip pain COMPARISON: None FINDINGS: Two images of the right hip were obtained. There is no evidence of fracture or dislocation. Mild degenerative change is present in the right hip. Mild vascular calcifications are present. IMPRESSION: No acute bony abnormality. Reviewed, Interpreted and Dictated by Ciaran Shearer III, MD Transcribed by Deidre Dotson Authenticated and [facility]
--- NOTE | 2023-08-30 13:43 | XR_ITS ---
FINAL REPORT CLINICAL HISTORY: right shoulder pain COMPARISON: None FINDINGS: RIGHT SHOULDER Two views demonstrate no acute fracture or dislocation. There is mild degenerative change of the acromioclavicular and glenohumeral joints. The visualized bony structures are well aligned. No soft tissue abnormality is seen. IMPRESSION: Mild acromioclavicular and glenohumeral degenerative change. Reviewed, Interpreted and Dictated by Ciaran Shearer III, MD Transcribed by Deidre Dotson Authenticated and [facility]
== END 2023-08-30 23:59 | disposition home or self-care (01) ==
LOC: RAD 13:34
PROVIDERS: PCP Internal Medicine Adolescent Medicine; Visit Provider Orthopaedic Surgery
DX: M25.552 Pain in left hip (principal); M25.551 Pain in right hip; M25.511 Pain in right shoulder
CPT/HCPCS: 73030; 73502

== ENCOUNTER 2023-09-11 12:23 | Outpatient (CLI) | payer MEDICARE, OTHER, SELFPAY ==
[2023-09-11 14:25] VITALS: PULSE 73; PULSE 78
[2023-09-11] MEDS: ALBUTEROL 0.083% 2.5 MG/3 ML NEB IH (14:35)
== END 2023-09-11 23:59 | disposition home or self-care (01) ==
LOC: RT 12:23
PROVIDERS: PCP Internal Medicine Adolescent Medicine; Visit Provider Internal Medicine Pulmonary Disease
DX: R06.09 Other forms of dyspnea (principal)
CPT/HCPCS: 94060; 94618; 94640; 94726; 94729

== ENCOUNTER → 2023-09-26 19:12 | Outpatient (CLI) | payer MEDICARE, OTHER, SELFPAY | LOC: SL 19:15 | PROVIDERS: PCP Nurse Practitioner Family; Visit Provider Internal Medicine Adolescent Medicine | DX: R06.83 Snoring (principal); R09.02 Hypoxemia; G47.61 Periodic limb movement disorder; I10 Essential (primary) hypertension; I48.91 Unspecified atrial fibrillation; Z86.73 Personal history of transient ischemic attack (TIA), and cerebral infarction without residual deficits | CPT/HCPCS: 95810 ==

== ENCOUNTER 2023-10-03 14:41 | Outpatient (CLI) | payer MEDICARE, OTHER, SELFPAY ==
--- NOTE | 2023-10-03 14:50 | XR_ITS ---
FINAL REPORT CLINICAL HISTORY: Left knee pain COMPARISON: None FINDINGS: Three views of the left knee reveal no evidence of fracture or dislocation. The bony alignment is normal. There is mild degenerative change. There is no evidence of joint effusion. No localized soft tissue abnormality is seen. IMPRESSION: Mild degenerative change without acute abnormality identified. Reviewed, Interpreted and Dictated by Ciaran Shearer III, MD Transcribed by Maci Mendoza Authenticated and [facility]
--- NOTE | 2023-10-03 14:50 | XR_ITS ---
FINAL REPORT CLINICAL HISTORY: Right Knee Pain COMPARISON: No FINDINGS: Three views of the right knee reveal no evidence of fracture or dislocation. The bony alignment is normal. There is mild degenerative change. There is no evidence of joint effusion. No localized soft tissue abnormality is identified. IMPRESSION: Mild degenerative change without acute abnormality identified. Reviewed, Interpreted and Dictated by Ciaran Shearer III, MD Transcribed by Maci Mendoza Authenticated and [facility]
== END 2023-10-03 23:59 | disposition home or self-care (01) ==
LOC: RAD 14:42
PROVIDERS: PCP Internal Medicine Adolescent Medicine; Visit Provider Physician Assistant
DX: M25.562 Pain in left knee (principal); M25.561 Pain in right knee
CPT/HCPCS: 73562

== ENCOUNTER 2023-10-23 16:11 | Outpatient (POV) | payer MEDICARE, OTHER, SELFPAY | END 2023-10-23 23:59 | disposition home or self-care (01) | LOC: SC 16:11 | PROVIDERS: PCP Internal Medicine Adolescent Medicine; Visit Provider Dermatology | DX: Z00.00 Encounter for general adult medical examination without abnormal findings (principal) ==

== ENCOUNTER 2023-12-05 09:38 | Outpatient (RCR) | payer MEDICARE, OTHER, SELFPAY ==
--- NOTE | 2023-12-05 18:03 | HMH.PTOPEV ---
PT Outpatient Evaluation Rehab PT Outpatient Evaluation Start: 12/05/23 15:47 Freq: Status: Active Protocol: Document 12/05/23 15:47 SERGIO (Rec: 12/05/23 17:58 SERGIO [id number]) E-signed By Negrito Car, PT Outpatient Therapy Subjective History Subjective History Patient is an 83 year old female presenting to outpatient PT with reports of chronic LBP with RLE radicular symptoms, as well as RUE/ shoulder pain. Symptoms of insidious onset starting approximately 1 year ago. Main concern at this time is LS/RLE pain. Other comorbidities include hx of HTN, HL and hx of CVA Chief Complaint Pain Symptom Type Ache,Dull Symptoms Relieved By Rest/Positioning,Prescription Meds Symptoms Aggravated By Supine,Sitting Lumbopelvic Eval Posture Thoracic Spine Posture Standing Position Increased Kyphosis Lumbar Spine Posture Standing Position Increased Lordosis Palapation tenderness right thoracic spinal tenderness Yes lumbar spinal tenderness Yes paraspinal tenderness Yes buttock tenderness Yes tenderness over symphysis pubis Yes Accessory Movement T10 bilateral T11 bilateral Range of Motion Lumbar Spine Active Flexion Range of 64 Motion (degrees) Lumbar Spine Active Extension Range of 14 Motion (degrees) Left Lumbar Spine Lateral Flexion Active 25 Range of Motion (degrees) Right Lumbar Spine Lateral Flexion 21 Active Range of Motion (degrees) Lumbar Spine ROM Limitations Soft Tissue Tightness, Contracture Manual Muscle Test Left Knee Extension Strength Grade 5 Normal Knee Flexion Strength Grade 5 Normal Hip Flexion Strength Grade 5 Normal Extensor Hallucis Longus Strength Grade 5 Normal Ankle Dorsiflexion Strength Grade 5 Normal Gastronemius/Soleus Strength Grade 5 Normal Special Tests Hip Piriformis Test Positive Left,Positive Right Hip Bowstring (Cram) Test Negative Left,Negative Right Daniel Test Positive Sacroiliac Joint Compression Test Negative Left,Negative Right Oswestry Index Section 1 Pain Intensity The pain is moderate and does not vary much Section 2 Personal Care (Washing,Dresing) increase the pain, but I manage not to change my way of doing it Section 3 Lifting lifting heavy weights off the floor, but I can manage if they are Section 4 Walking I cannot walk more than 1/2 mile without increasing pain Section 5 Sitting Pain prevents me from sitting for more than one hour Section 6 Standing I cannot stand more than 1 hour without increasing pain Section 7 Sleeping Because of my pain, my normal night's sleep is less than 6 hours sleep Section 8 Social Life Pain has no significant effect on my social life apart from limiting Section 9 Traveling I get extra pain while traveling which compels me to seek alternate fo Section 10 Changing Degreee of Pain My pain is neither getting better or worse Score and Risk Level Oswestry Sc 25 Oswestry Risk Level Severe Disability QuickDASH Activities Please rate your ability to do the following activities in the last week by selecting the number below the appropriate response. 1. Open a tight or new jar. Moderate difficulty 2. Do heavy custom ski maker (e.g., wash Moderate difficulty friedman, floors). 3. Carry a shopping bag or briefcase. Moderate difficulty 4. Wash your back. Moderate difficulty 5. Use a knife to cut food. Mild difficulty 6. Recreational activities in which you Moderate difficulty take some force or impact through your arm, shoulder, or hand (e.g., golf, hammering, tennis, etc.). 7. During the past week, to what extent Quite a bit has your arm, shoulder or hand problem interfered with your normal social activities with family, friends, neighbors or groups? 8. During the past week, were you Moderately limited limited in your work or other regular daily activites as a result of your arm, shoulder or hand problem? 9. Arm, shoulder or hand pain. Moderate 10. Tingling (pins and needles) in your Mild arm, shoulder or hand. 11. During the past week, how much Moderate difficulty difficulty have you had sleeping because of the pain in your arm, shoulder or hand? Quick DASH 32 Outpatient Therapy Assessment Impairments Problems/Impairmments Palpation Tenderness,Impaired Range of Motion,Impaired Strength,Impaired Walking, Impaired Standing,Impaired Lifting,Impaired Household Care,Impaired Stair Climbing, Impaired Incline Stepping, Impaired Recreational Activities,Subjective C/O Pain Prognosis Rehab Potential Good Clinical Impression Consistent with Diagnosis Yes Short Term Goals Number of Weeks 2 Decrease Subjective C/O Pain Yes: 5/10 at worst Patient to be Ind w/ HEP Yes Geospatial Developer Goals Number of Weeks 4-6 Decreased Palpation Tenderness Yes: 1/4 Increase Range of Motion Yes: WNL LS Increase Strength Yes: RUE/RLE 5/5 Increase Ability to Walk Yes: 30 min without difficulty Improve Ability For Household Care Yes Improve Oswestry Score Yes: mild disability Decrease Subjective C/O Pain Yes: 2/10 at worst Outpatient Therapy Plan of Care Treatment Plan May Include Therapeutic Exercise Including Home Yes Exercise Program Manual Therapy Techniques Yes Neuromuscular Re-education Yes Therapeutic Activities to Return to Yes Previous Functional/Work Level Gait Training Yes ADL/Self Care Education Yes Mechanical Traction Yes Dry Needling Yes Thermal Modalities Yes Electrical Stimulation Yes Ultrasound/Phonophoresis Yes Iontophoresis Yes Orthotics/Bracing/Splinting Yes Vasopneumatic Compression Pump Yes Massage Yes Eval/Re-Eval Yes Frequency Times per week 2 Duration Number of Weeks 4-6 Addendums This patient is a candidate for social No or vocational rehab? Patient/Guardian verbally acknowledges Yes understanding of treatment program and consents to further treatment? Patient/Guardian verbally acknowledges Yes understanding of diagnosis, prognosis and goals for treatment? Eval Complexity PT Charges 05921 - Moderate Complexity Shoulder/Elbow Eval Shoulder Objective Measurements Elbow Objective Measurements PHYSICIAN CERTIFICATION: I certify the specified therapy services for Marcela Verdugo are required, authorized, and reviewed every 30 days.
== END 2023-12-05 09:40 | disposition home or self-care (01) ==
LOC: PT 09:38
PROVIDERS: Visit Provider Physician Assistant
DX: M79.18 Myalgia, other site (principal); M54.31 Sciatica, right side
CPT/HCPCS: 97110; 97163

== ENCOUNTER 2023-12-17 09:41 | Emergency (ER) | payer MEDICARE, OTHER, SELFPAY ==
[2023-12-17 09:43] VITALS: BP 121/53; PULSE 66; RESP 18; TEMP 36.8; O2SAT 97; BMI 21.6
--- NOTE | 2023-12-17 10:54 | PC.NURSE ---
DR OLIVER AT BEDSIDE
--- NOTE | 2023-12-17 11:09 | HMH.EDGENADL ---
Discharge Plan Disposition Patient Disposition: Home, Self-Care Prescriptions Prescriptions: New lidocaine 5 % adhesive patch,medicated 1 patch topical DAILY Qty: 30 0RF Rx Instructions: leave on most painful area for up to 12 hrs methocarbamol 500 mg tablet 1,000 mg PO Q8H PRN (Reason: back spasm) Qty: 48 0RF No Action Dulera 100-5 mcg/actuation HFA aerosol inhaler 2 puff inhalation BID 90 Days Qty: 13 2RF escitalopram oxalate 20 mg tablet 20 mg PO DAILY Patient Comments: TAKE 1 TABLET BY MOUTH ONCE DAILY atorvastatin 40 mg tablet 40 mg PO DAILY triamterene-hydrochlorothiazid 37.5-25 mg tablet 0.5 tab PO DAILY PRN (Reason: swelling) Qty: 30 2RF propranolol 80 mg capsule,extended release 24 hr 80 mg PO DAILY Qty: 30 2RF clopidogrel [Plavix] 75 mg tablet 75 mg PO DAILY Qty: 30 11RF albuterol sulfate [Ventolin HFA] 90 mcg/actuation HFA aerosol inhaler 2 inh inhalation Q6H PRN (Reason: shortness of breath or wheezing) 90 Days Qty: 18 3RF trazodone 50 mg tablet 25 mg PO HS Qty: 45 0RF Referrals Follow up/Referrals: Reji Merchant MD [Staff Physician] - See instructions Lee Delgado MD [Primary Care Provider] - See instructions Activity Restrictions/Add. Instructions Additional Instructions/Restrictions: At this time it was felt you are safe to be discharged home. If new or worsening symptoms please do not hesitate to return the emergency department. Please take your medication as prescribed. As discussed it would likely benefit you to go to physical therapy for multiple days even if it is uncomfortable. Please keep moving as your back pain will get worse if you stay still all the time. If none of this works then I would call and schedule an appointment with Dr. Merchant for continued evaluation. Clinical Impressions Clinical Impression: Sciatica Instructions Patient Instructions: DI for Low Back Pain Print Language Print Language: Korean Discharge ED Provider: Sunny Jackson General Adult HPI General Chief complaint: Back Pain/Injury Stated complaint: pain from toes to back on both sides Time Seen by Provider: 12/17/23 10:00 Mode of Arrival: Ambulatory Limitations: No Limitations Description of Symptoms (Recalled from ER Triage Doc. by RN): PT REPORTS LOWER BACK PAIN, RADIATES INTO BILATERAL HIPS THAT IS WORSE WITH WALKING. REPORTS PAIN IN LEGS AND TO FEET. REPORTS PAIN X 1 WEEK. DENIES INJURY. NO LOSS OF BOWEL OR BLADDER. History of Present Illness HPI narrative: Patient is a 83-year-old female with past medical history of low back pain who presents emergency department for evaluation of back pain. She has pain that starts in her right paraspinal area radiating down to her foot that is sharp, intermittent. This has happened on the left side as well, no midline pain, no incontinence, she is still able to ambulate although with difficulty. No other acute complaints at this time, no trauma. Related Data Home Medications ?Medication ?Instructions ?Recorded ?Confirmed atorvastatin 40 mg tablet 40 mg PO DAILY 10/02/23 12/12/23 escitalopram oxalate 20 mg tablet 20 mg PO DAILY 10/02/23 12/12/23 Previous Rx's ?Medication ?Instructions ?Recorded clopidogrel 75 mg tablet (Plavix) 75 mg PO DAILY #30 tabs 06/04/23 albuterol sulfate 90 mcg/actuation 2 inh inhalation Q6H PRN shortness 06/18/23 aerosol inhaler (Ventolin HFA) of breath or wheezing 90 days #18 grams mometasone-formoterol HFA 100 2 puff inhalation BID 90 days #13 09/26/23 mcg-5 mcg/actuation aerosol grams inhaler (Dulera) triamterene 37.5 0.5 tab PO DAILY PRN swelling #30 10/02/23 mg-hydrochlorothiazide 25 mg tablet tabs trazodone 50 mg tablet 25 mg (1/2 x 50 mg) PO HS #45 tabs 11/02/23 propranolol 80 mg capsule,24 80 mg PO DAILY #30 caps 11/12/23 hr,extended release lidocaine 5 % topical patch 1 patch topical DAILY back pain 12/17/23 #30 ea methocarbamol 500 mg tablet 1,000 mg
[2023-12-17 11:13] VITALS: BP 120/55; PULSE 65; RESP 20; TEMP 36.8; O2SAT 96
== END 2023-12-17 11:15 | disposition home or self-care (01) ==
PROVIDERS: Emergency Provider Emergency Medicine; PCP Internal Medicine Adolescent Medicine
DX: M54.41 Lumbago with sciatica, right side (principal); M54.42 Lumbago with sciatica, left side; I48.91 Unspecified atrial fibrillation; I25.10 Atherosclerotic heart disease of native coronary artery without angina pectoris; I11.9 Hypertensive heart disease without heart failure; E78.5 Hyperlipidemia, unspecified; G47.33 Obstructive sleep apnea (adult) (pediatric); J45.909 Unspecified asthma, uncomplicated
CPT/HCPCS: 99283

== ENCOUNTER 2024-01-14 15:30 | Emergency (ER) | payer MEDICARE, OTHER, SELFPAY ==
--- NOTE | 2024-01-14 15:45 | XR_ITS ---
FINAL REPORT CLINICAL HISTORY: Shortness of breath COMPARISON: 03/14/2023 FINDINGS: No acute pulmonary density is evident. There is no evidence of effusion or other pleural disease. The mediastinum has a normal appearance. The cardiac silhouette is unremarkable. IMPRESSION: Unremarkable chest exam. Reviewed, Interpreted and Dictated by Meagan Hinkle MD Transcribed by Maci Mendoza Authenticated and [facility]
[2024-01-14 15:47] VITALS: BP 140/82; PULSE 106; RESP 18; O2SAT 96; BMI 22.6
--- NOTE | 2024-01-14 15:47 | CT_ITS ---
FINAL REPORT TECHNIQUE: Axial CT images of the brain were obtained without contrast. This study was performed with techniques to keep radiation doses as low as reasonably achievable, (ALARA). Individualized dose reduction techniques using automated exposure control or adjustment of mA and/or kV according to the patient''s size were employed. 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 There is no edema. A tiny chronic lacunar infarct is seen in the left basal ganglia. Ventricles are normal. There is no hemorrhage. No mass effect is seen. Bone windows show no evidence of fracture. IMPRESSION: No acute intracranial abnormality. Reviewed, Interpreted and Dictated by Meagan Hinkle MD Transcribed by Alma Delia Goodson Authenticated and [facility]
--- NOTE | 2024-01-14 15:48 | ED_ITS ---
<Statement entered by Diane Landon DO - 01/14/24 23:08> I was consulted by the HIREN, and we discussed the complexity of the problems being addressed. I approved the treatment and management plan for this patient's care in the emergency department, thus performing a substantive portion of the medical decision making. Diane Landon DO Discharge Plan Disposition Patient Disposition: Home, Self-Care Condition: Good Chief Complaint: Weakness Prescriptions Prescriptions: No Action Dulera 100-5 mcg/actuation HFA aerosol inhaler 2 puff inhalation BID 90 Days Qty: 13 2RF escitalopram oxalate 20 mg tablet 20 mg PO DAILY Patient Comments: TAKE 1 TABLET BY MOUTH ONCE DAILY atorvastatin 40 mg tablet 40 mg PO DAILY triamterene-hydrochlorothiazid 37.5-25 mg tablet 0.5 tab PO DAILY PRN (Reason: swelling) Qty: 30 2RF albuterol sulfate [Ventolin HFA] 90 mcg/actuation HFA aerosol inhaler 2 inh inhalation Q6H PRN (Reason: shortness of breath or wheezing) 90 Days Qty: 18 3RF trazodone 50 mg tablet 25 mg PO HS Qty: 45 0RF propranolol 80 mg capsule,extended release 24 hr 80 mg PO DAILY Qty: 30 2RF clopidogrel [Plavix] 75 mg tablet 75 mg PO DAILY Qty: 30 11RF lidocaine 5 % adhesive patch,medicated 1 patch topical DAILY Qty: 30 0RF Rx Instructions: leave on most painful area for up to 12 hrs methocarbamol 500 mg tablet 1,000 mg PO Q8H PRN (Reason: back spasm) Qty: 48 0RF Referrals Follow up/Referrals: Lee Delgado MD [Primary Care Provider] - See instructions Activity Restrictions/Add. Instructions Additional Instructions/Restrictions: Follow-up with your family physician, return to the emergency department with any worsening or new symptoms. Courage good hydration and symptomatic control with at home medications. Clinical Impressions Clinical Impression: Generalized weakness Instructions Patient Instructions: DI for Muscle Weakness Print Language Print Language: Albanian Discharge ED Provider: Diane Landon General Adult HPI <BETH Giordano - Last Filed: 01/14/24 19:23> General Chief complaint: Weakness Stated complaint: weak, nervous Time Seen by Provider: 01/14/24 15:35 Mode of Arrival: Ambulatory Source of Information: Patient and Relative Limitations: No Limitations History of Present Illness HPI narrative: 83-year-old female presents to the emergency department companied by her daughter, for a 1 week history of generalized fatigue, nervousness , weakness, recent illness with cough, congestion, subjective fever and chills, admits to shortness of air. She was tested for upper respiratory disease to include COVID, flu, all were negative at her PCPs office last week, she was seen again by her PCP, given what sounds like a steroid injection IM, with some relief of her symptomatology, was all started on doxycycline p.o. for prophylaxis, she has been taking the medicine as prescribed for approximately 3 days. She denies any chest pain, abdominal pain, nausea, vomiting, constipation, diarrhea, no urinary type symptomatology, no hematemesis, no hematochezia, no melena, denies any headache or dizziness. The past medical history consistent with prior data deficient TIA/CVA, lumbar spondylosis, osteoarthritis, TED, hypertension, CHF, CKD, carotid artery stenosis, MDD, hyperlipidemia, coronary artery disease, data deficient history of atrial fibrillation, not on any active anticoagulation therapy. Patient is a non-smoker, denies any alcohol or drug use, initial triage vitals notable for tachycardia, SpO2 at 96. On room air, otherwise they are grossly unremarkable, of note, patient tells me that this feels similar to when she had her prior stroke . Onset (ago): week(s) Related Data Home Medications ?Medication ?Instructions ?Recorded ?Confirmed atorvastatin 40 mg tablet 40 mg PO DAILY 10/02/23 12/12/23 escitalopram oxalate 20 mg tablet 20 mg PO DAILY 10/02/23 12/12/23 Previous Rx's ?Medication ?Instructions ?Recorded albuterol sulfate 90 mcg/actuation 2 inh inhalation Q6H PRN shortness 06/18/23 aerosol inhaler (Ventolin HFA) of breath or wheezing 90 days #18 grams mometasone-formoterol HFA 100 2 puff inhalation BID 90 days #13 09/26/23 mcg-5 mcg/actuation aerosol grams inhaler (Dulera) triamterene 37.5 0.5 tab PO DAILY PRN swelling #30 10/02/23 mg-hydrochlorothiazide 25 mg tablet tabs trazodone 50 mg tablet 25 mg (1/2 x 50 mg) PO HS #45 tabs 11/02/23 lidocaine 5 % topical patch 1 patch topical DAILY back pain 12/17/23 #30 ea methocarbamol 500 mg tablet 1,000 mg (2 x 500 mg) PO Q8H PRN 12/17/23 back spasm #48 tabs clopidogrel 75 mg tablet (Plavix) 75 mg PO DAILY #30 tabs 12/18/23 propranolol 80 mg capsule,24 80 mg PO DAILY #30 caps 12/18/23 hr,extended release Allergies Allergy/AdvReac Type Severity Reaction Status Date / Time No Known Allergies Allergy Verified 12/12/23 10:50 PFSH <BETH Giordano - Last Filed: 01/14/24 19:23> PFS Disclaimer: The information contained in this section may have been updated after the patient was seen, as this information can be updated by other users. Medical History Asthma Dyspnea on exertion TED (obstructive sleep apnea) Claudication Abnormal chest xray Abnormal result of cardiovascular function study Edema of both lower extremities Chest pain Major depressive disorder History of CVA (cerebrovascular accident) HLD (hyperlipidemia) HHD (hypertensive heart disease) CAD (coronary artery disease) A-fib Surgical History H/O heart artery stent Hx of cardiac cath History of hysterectomy Family History Other Family history of diabetes mellitus type II Social History Smoking Status: Never smoker second hand exposure: No alcohol intake: never substance use type: denies use current occupational status: retired Travel in the last 8 weeks: None household members: none housing: house lives independently: Yes marital status: education level: college current occupational exposures/hazards: No caffeine: Yes special lonnie needs: No agree to transfusion: No do you feel safe at home: Yes victim of physical abuse: No victim of emotional abuse: No victim of sexual abuse: No would you like helpful sources: No <BETH Giordano - Last Filed: 01/14/24 19:23> ROS Obtained: Yes All systems reviewed & no additional complaints except as documented Physical Exam <BETH Giordano - Last Filed: 01/14/24 19:23> General General appearance: alert, in no apparent distress and anxious Head Head exam: atraumatic and normocephalic Eye Eye exam: Present PERRL and EOMI ENT ENT exam: Present mucous membranes moist Neck Neck exam: Present normal inspection Chest Chest inspection: Present normal inspection and symmetric chest wall rise Respiratory Respiratory exam: Present normal lung sounds bilaterally; Absent respiratory distress Cardiovascular Cardiovascular exam: Present regular rate and normal rhythm Abdominal Exam Abdominal exam: Present soft; Absent tenderness, guarding, rebound or rigidity Extremities Exam Extremities exam: Present normal inspection Neurological Exam Neurological exam: Present alert and oriented X3 Psychiatric Psychiatric exam: Present normal affect Skin Skin exam: Present warm and dry Medical Decision Making <BETH Giordano - Last Filed: 01/14/24 19:23> Medical Records Medical records reviewed: Yes I reviewed the patient's medical records. Screening: Per USPSTF and CDC recommendations, given the prevalence of disease in our region, it is our hospital?s policy to screen for HIV and viral Hepatitis for all patients aged 18 and over and those with ongoing risk factors. [place] Inquiry Pt receiving controlled substance: No Vital Signs: 01/14/24 15:47 01/14/24 16:00 01/14/24 16:31 Pulse Rate 92 H 77 Pulse Rate [Right Brachial] 106 H Respiratory Rate 18 Blood Pressure 132/75 154/62 H Blood Pressure [Right Arm] 140/82 Blood Pressure Mean 94 92 Blood Pressure Mean [Right Arm] 101 02 Sat by Pulse Oximetry 96 97 96 Oxygen Delivery Method Room Air Room Air Room Air 01/14/24 17:54 01/14/24 18:30 Pulse Rate 87 83 Pulse Rate [Right Brachial] Respiratory Rate Blood Pressure 175/75 H 181/62 H Blood Pressure [Right Arm] Blood Pressure Mean 108 105 Blood Pressure Mean [Right Arm] 02 Sat by Pulse Oximetry 97 97 Oxygen Delivery Method Room Air Room Air Lab Data Lab Results 01/14/24 17:15: WBC 10.2, RBC 4.05 L, Hgb 12.5, Hct 39.8, MCV 98.3, MCH 30.9, M CHC 31.4 L, RDW 14.0, Plt Count 271, MPV 8.3, Neut % (Auto) 59.2, Lymph % (Auto) 30.3, [place] % (Auto) 5.8, Eos % (Auto) 3.8, Baso % (Auto) 0.9, Neut # (Auto) 6.0, Lymph # (Auto) 3.1, [place] # (Auto) 0.6, Eos # (Auto) 0.4, Baso # (Auto) 0.1, Sodium 137, Potassium 4.7, Chloride 109 H, Carbon Dioxide 24, Anion Gap 8.7, BUN 27 H, Creatinine 1.40 H, Estimated Creat Clear 30, Estimated GFR 36 L, Est GFR ( Amer) 44 L, Glucose 82, Calcium 9.0, Total Bilirubin 0.8, AST 37 H, ALT 19, Alkaline Phosphatase 87, Total Protein 7.5, Albumin 4.1, Globulin 3.4 H, Albumin/Globulin Ratio 1.2, SARS-CoV-2 (PCR) Not detected, Influenza A Untype (PCR) Not detected, Influenza Type B (PCR) Not detected 01/14/24 18:00: Urine Color Yellow, Urine Appearance Clear, Urine pH 6.0, Ur Specific [place] 1.020, Urine Protein Negative, Urine Glucose (UA) Negative, Urine Ketones Negative, Urine Blood Negative, Urine Nitrate Negative, Urine Bilirubin Negative, Urine Urobilinogen 0.2, Ur Leukocyte Esterase Negative, Urine RBC None, Urine WBC None 01/14/24 17:15 01/14/24 17:15 Orders (Tests/Meds): ED MEDICATIONS Discontinued Medications Generic Name Dose Route Start Last Admin Trade Name Freq PRN Reason Stop Dose Admin Lactated Ringer's 1,000 mls @ 999 mls/hr 01/14/24 15:48 01/14/24 16:55 Lactated Ringer's 1000 Ml Bag IV 01/14/24 16:48 999 mls/hr .Q1H1M ONE Administration ORDERS Category Date Time Status CT head/brain wo con Stat Cat Scan 01/14/24 15:47 Completed CXR 2 view (NOT portable) [XR chest 2V] Stat Exams 01/14/24 15:45 Completed Complete Blood Count Auto Diff Stat Lab 01/14/24 17:15 Completed Comprehensive Metabolic Panel Stat Lab 01/14/24 17:15 Completed HIV (1&2) Antibody Rapid Stat Lab 01/14/24 17:15 Received Hep C Ab with Reflex to RNA Stat Lab 01/14/24 15:59 Ordered Magnesium Stat Lab 01/14/24 17:15 Received NT Pro Brain Natriuretic Pep. Stat Lab 01/14/24 17:15 Received Rapid PCR Covid and Flu A/B Stat Lab 01/14/24 17:15 Completed Urinalysis and Microscopic Stat Lab 01/14/24 18:00 Completed Medical Decision Narrative: 83-year-old female presents emergency department by her daughter, for generalized weakness, recent illness, cough, congestion, fatigue and nervousness, differential diagnose include but not limited to URI, COVID-19, pneumonia, anxiety type reaction, panic attack, cardiac arrhythmia, electrolyte disturbance, SAUNDRA, acute dehydration, pneumonia, acute UTI. I discussed this patient case with attending physician Dr. Landon Will obtain CBC CMP magnesium level, proBNP, rapid PCR COVID and flu, urinalysis, CXR, CT head without contrast, and EKG will give 1 L LR IV Reviewed the patient's EKG along with the attending physician, 74 bpm, HI, within normals, QT interval within normal is, there is no STEMI. 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 CBC is unremarkable CMP is notable for hyperchloremia at 109, BUN is elevated 27, creatinine is elevated at 1.4 reflecting acute kidney injury, however I do think this is chronic in the setting of the patient's GFR which is 36 COVID-19 negative, influenza A, influenza B negative. Urinalysis grossly unremarkable. Discussed these findings with the patient and family the bedside, patient is feeling better, patient will be discharged home to self-care, patient is most likely recovering from viral illness, she has mild SAUNDRA, could be some acute dehydration, electrolytes and other laboratory studies grossly unremarkable, imaging studies grossly unremarkable. Recommend good hydration, follow-up with family physician as directed, strict ED return precaution given to the patient family the bedside patient famine agreement current treatment plan/discharge plan <Diane Landon, DO - Last Filed: 01/14/24 16:15> Vital Signs: 01/14/24 15:47 01/14/24 16:00 01/14/24 16:31 Pulse Rate 92 H 77 Pulse Rate [Right Brachial] 106 H Respiratory Rate 18 Blood Pressure 132/75 154/62 H Blood Pressure [Right Arm] 140/82 Blood Pressure Mean 94 92 Blood Pressure Mean [Right Arm] 101 02 Sat by Pulse Oximetry 96 97 96 Oxygen Delivery Method Room Air Room Air Room Air 01/14/24 17:54 01/14/24 18:30 Pulse Rate 87 83 Pulse Rate [Right Brachial] Respiratory Rate Blood Pressure 175/75 H 181/62 H Blood Pressure [Right Arm] Blood Pressure Mean 108 105 Blood Pressure Mean [Right Arm] 02 Sat by Pulse Oximetry 97 97 Oxygen Delivery Method Room Air Room Air Lab Data Lab Results 01/14/24 17:15: WBC 10.2, RBC 4.05 L, Hgb 12.5, Hct 39.8, MCV 98.3, MCH 30.9, M CHC 31.4 L, RDW 14.0, Plt Count 271, MPV 8.3, Neut % (Auto) 59.2, Lymph % (Auto) 30.3, [place] % (Auto) 5.8, Eos % (Auto) 3.8, Baso % (Auto) 0.9, Neut # (Auto) 6.0, Lymph # (Auto) 3.1, [place] # (Auto) 0.6, Eos # (Auto) 0.4, Baso # (Auto) 0.1, Sodium 137, Potassium 4.7, Chloride 109 H, Carbon Dioxide 24, Anion Gap 8.7, BUN 27 H, Creatinine 1.40 H, Estimated Creat Clear 30, Estimated GFR 36 L, Est GFR ( Amer) 44 L, Glucose 82, Calcium 9.0, Total Bilirubin 0.8, AST 37 H, ALT 19, Alkaline Phosphatase 87, Total Protein 7.5, Albumin 4.1, Globulin 3.4 H, Albumin/Globulin Ratio 1.2, SARS-CoV-2 (PCR) Not detected, Influenza A Untype (PCR) Not detected, Influenza Type B (PCR) Not detected 01/14/24 18:00: Urine Color Yellow, Urine Appearance Clear, Urine pH 6.0, Ur Specific [place] 1.020, Urine Protein Negative, Urine Glucose (UA) Negative, Urine Ketones Negative, Urine Blood Negative, Urine Nitrate Negative, Urine Bilirubin Negative, Urine Urobilinogen 0.2, Ur Leukocyte Esterase Negative, Urine RBC None, Urine WBC None Orders (Tests/Meds): ED MEDICATIONS Discontinued Medications Generic Name Dose Route Start Last Admin Trade Name Justo PRN Reason Stop Dose Admin Lactated Ringer's 1,000 mls @ 999 mls/hr 01/14/24 15:48 01/14/24 16:55 Lactated Ringer's 1000 Ml Bag IV 01/14/24 16:48 999 mls/hr .Q1H1M ONE Administration ORDERS Category Date Time Status CT head/brain wo con Stat Cat Scan 01/14/24 15:47 Completed CXR 2 view (NOT portable) [XR chest 2V] Stat Exams 01/14/24 15:45 Completed Complete Blood Count Auto Diff Stat Lab 01/14/24 17:15 Completed Comprehensive Metabolic Panel Stat Lab 01/14/24 17:15 Completed HIV (1&2) Antibody Rapid Stat Lab 01/14/24 17:15 Received Hep C Ab with Reflex to RNA Stat Lab 01/14/24 15:59 Ordered Magnesium Stat Lab 01/14/24 17:15 Received NT Pro Brain Natriuretic Pep. Stat Lab 01/14/24 17:15 Received Rapid PCR Covid and Flu A/B Stat Lab 01/14/24 17:15 Completed Urinalysis and Microscopic Stat Lab 01/14/24 18:00 Completed ECG Data Tracing #1: I reviewed this ECG and interpreted as documented below: Normal sinus rhythm with a ventricular rate of [address] changes concerning for ischemia. Normal axis and intervals. ECG initial impression date: 01/14/24 ECG initial impression time: 16:14 Critical Care <BETH Giordano - Last Filed: 01/14/24 19:23> Critical Care Time Critical Care Time: No
[2024-01-14 16:00] VITALS: BP 132/75; PULSE 92; O2SAT 97
--- NOTE | 2024-01-14 16:12 | ECG_ITS ---
APPROVED REPORT Exam: Resting ECG HR:74 bpm ECG Measurements Heart Rate 74 AXES [place] 293 P 16 QRSd 77 QRS 51 QT 416 T 64 QTc 444 Conclusion ELECTRONIC ATRIAL PACEMAKER ABNORMAL RHYTHM ECG Electronically signed by : JIM POPE, 01/14/2024 23:39:12
[2024-01-14 16:31] VITALS: BP 154/62; PULSE 77; O2SAT 96
[2024-01-14] MEDS: LACTATED RINGERS 1000ML 1,000 ML 999 ML IV (16:55)
[2024-01-14 17:22] LABS: Coronavirus 19, PCR Not Detected (NotDetected); Influenza A, PCR Not Detected (NotDetected); Influenza B, PCR Not Detected (NotDetected)
[2024-01-14 17:30] LABS: Basophils # 0.1 K/mm3 (0-0.2); Basophils % 0.9 % (0.1-2.0); Eosinophils # 0.4 K/mm3 (0.0-0.4); Eosinophils % 3.8 % (0.1-12.0); Hematocrit 39.8 % (37.0-47.0); Hemoglobin 12.5 g/dL (12.2-16.2); Lymphocytes # 3.1 K/mm3 (0.7-4.5); Lymphocytes % 30.3 % (10-50); Mean Corpuscular HGB Conc 31.4 g/dL (31.8-35.4); Mean Corpuscular Hemoglobin 30.9 pg (27.0-31.2); Mean Corpuscular Volume 98.3 fl (81-99); Mean Platelet Volume 8.3 fl (7.4-10.4); Monocytes # 0.6 K/mm3 (0.1-1.0); Monocytes % 5.8 % (1.7-9.3); Neutrophils % 59.2 % (37.0-80.0); Platelet Count 271 K/mm3 (142-424); Red Blood Count 4.05 M/mm3 (4.20-5.40); White Blood Count 10.2 K/mm3 (4.8-10.8)
[2024-01-14 17:38] LABS: Chloride 109 mmol/L (98-107)
[2024-01-14 17:39] LABS: Albumin Level 4.1 g/dl (3.5-5.0); Potassium 4.7 mmoL/L (3.5-5.1); Sodium 137 mmol/L (136-145)
[2024-01-14 17:41] LABS: Alanine Aminotransferase 19 U/L (12-78); Anion Gap 8.7 mEq/L (5-15); Aspartate Amino Transferase 37 U/L (14-36); Blood Urea Nitrogen 27 mg/dl (7-17); Carbon Dioxide 24 mmol/L (22.0-30.0); Creatinine Clearance Estimated 30 mL/min (50-200); Estimated Glomerular Filt Rate 36 ml/min (>60); GFR (African American) 44 ML/MIN (>60)
[2024-01-14 17:42] LABS: Albumin/Globulin Ratio 1.2 (1.1-1.8); Alkaline Phosphatase 87 U/L (38-126); Bilirubin,Total 0.8 mg/dl (0.2-1.3); Globulin 3.4 g/dL (1.3-3.2); Glucose 82 mg/dl (74-100); Total Protein,Serum 7.5 g/dl (6.3-8.2)
[2024-01-14 17:54] VITALS: BP 175/75; PULSE 87; O2SAT 97
[2024-01-14 18:08] LABS: Microscopic, Urine URINE MICROSCOPIC (MICROSCOPIC)
--- NOTE | 2024-01-14 18:28 | PC.NURSE ---
Dr. Landon spent 15 min s/w pt, her , and her father who have been at bedside for almost all of her visit. Pt does not want to seek care at an inpatient facility. She reports she wants and will follow up closely with support, therapy, and medication management. When father & stepped out staff spoke with them as well and they feel comfortable taking her home and assisting with close follow up. They are given contact information and support numbers for inpt & behavioral health.
[2024-01-14 18:30] VITALS: BP 181/62; PULSE 83; O2SAT 97
[2024-01-14 19:08] LABS: Appearance,Urine CLEAR (Clear); Bilirubin,Urine Negative (Negative); Blood, Urine Negative (Negative); Color,Urine YELLOW (Yellow); Glucose,Urine (UA) Negative (Negative); Ketones,Urine Negative (Negative); Leukocyte Esterase,Urine Negative (Negative); Nitrate,Urine Negative (Negative); Protein,Urine Negative (Negative); Urobilinogen,Urine 0.2 EU/dl (0.2)
[2024-01-14 19:36] VITALS: BP 109/72; PULSE 79; RESP 19; TEMP 35.5; O2SAT 98
[2024-01-14 20:05] LABS: HIV (1&2) Antibody Rapid NONREACTIVE (NONREACTIVE)
[2024-01-14 20:28] LABS: Magnesium 1.9 mg/dl (1.6-2.3)
[2024-01-14 20:37] LABS: NT Pro Brain Natriuretic Pep. 819 pg/mL (0-450)
== END 2024-01-14 19:37 | disposition home or self-care (01) ==
PROVIDERS: Physician Assistant; Emergency Provider Emergency Medicine; PCP Internal Medicine Adolescent Medicine
DX: R53.1 Weakness (principal); N17.8 Other acute kidney failure; I48.0 Paroxysmal atrial fibrillation; I10 Essential (primary) hypertension; E78.5 Hyperlipidemia, unspecified; Z86.79 Personal history of other diseases of the circulatory system; Z86.73 Personal history of transient ischemic attack (TIA), and cerebral infarction without residual deficits
CPT/HCPCS: 70450; 71046; 80053; 81001; 83735; 83880; 85025; 87389; 87636; 93005; 96360; 99285; J7120

== ENCOUNTER 2024-02-20 09:05 | Outpatient (POV) | payer MEDICARE, OTHER, SELFPAY ==
--- NOTE | 2024-02-20 09:40 | EXP.PAIN.OV ---
HPI Data of Consult Patient: new to practice Consult date: 02/20/24 Requesting Physician: Diane Meyer APRN Primary Care Provider: Lee Delgado MD Consult Narrative Reason for consult: Low back pain, left knee pain History of present illness: Ms. Verdugo is a 83 year old female who presents today as a new patient. She is a referral from Dr. Delgado's office. Today she rates her pain a 8 out of 10. She states she has chronic pain throughout her low back more so on the right side and denies any radiating symptoms into her legs. She also states she has pain in her left knee. Patient denies any prior knee replacement. She does state these pains are an aching sensation that make activities of daily living such as cooking and cleaning difficult and interfere with her ability to perform such activities. Patient does state that she has significant disability trying to get up from a seated position and certain movements such as bending and twisting she just cannot do because of the worsening pain. Patient has tried Tylenol and ibuprofen along with heat and ice and topicals with minimal relief. Patient has completed physical therapy with no improvements. Patient does state that she did also go to the chiropractor for about a month and that it did help but it was more so temporary and only while she was at those visits. Patient does state that she was a previous patient with our office several years ago. Patient is interested in any help we may be able to provide. Her Mekhi has been reviewed and is appropriate. CC: Daine Meyer APRN [facility] Disclaimer: The information contained in this section may have been updated after the patient was seen, as this information can be updated by other users. Medical History (Updated 02/20/24 @ 10:09 by Diane Meyer APRN) Frequent headaches Falls frequently Hallucinations Asthma Dyspnea on exertion TED (obstructive sleep apnea) Claudication Abnormal chest xray Abnormal result of cardiovascular function study Edema of both lower extremities Chest pain Major depressive disorder History of CVA (cerebrovascular accident) HLD (hyperlipidemia) HHD (hypertensive heart disease) CAD (coronary artery disease) A-fib Surgical History H/O heart artery stent Hx of cardiac cath History of hysterectomy Family History Other Family history of diabetes mellitus type II Social History Smoking Status: Never smoker second hand exposure: No alcohol intake: never substance use type: denies use current occupational status: retired Travel in the last 8 weeks: None household members: none housing: house lives independently: Yes marital status: education level: college current occupational exposures/hazards: No caffeine: Yes special lonnie needs: No agree to transfusion: No do you feel safe at home: Yes victim of physical abuse: No victim of emotional abuse: No victim of sexual abuse: No would you like helpful sources: No Review of Systems Review of Systems Review of systems:: pertinent systems reviewed and negative unless documented below Review of systems (narrative): Review of Systems: General: No recent weight changes, no fever, no sleep disturbances Respiratory: No cough, no shortness of air, no recurring pulmonary infections Cardiovascular/peripheral vascular: No chest pain, no palpitations, no edema, no shortness of breath Gastrointestinal: No new onset incontinence, normal bowel movements reported Genitourinary: No new onset incontinence Musculoskeletal: Low back pain, left knee pain Psychiatric: [Normal mood/affect] Neurological: [Denies weakness in extremities], [denies balance issues] Meds Home Medications and Allergies Home Medications ?Medication ?Instructions ?Recorded ?Confirmed ?Type albuterol sulfate 90 mcg/actuation 2 inh inhalation Q6H PRN shortness 06/18/23 02/20/24 Rx aerosol inhaler (Ventolin HFA) of breath or wheezing 90 days #18 grams mometasone-formoterol HFA 100 2 puff inhalation BID 90 days #13 09/26/23 02/20/24 Rx mcg-5 mcg/actuation aerosol grams inhaler (Dulera) atorvastatin 40 mg tablet 40 mg PO DAILY 10/02/23 02/20/24 History triamterene 37.5 0.5 tab PO DAILY PRN swelling #30 10/02/23 02/20/24 Rx mg-hydrochlorothiazide 25 mg tablet tabs lidocaine 5 % topical patch 1 patch topical DAILY back pain 12/17/23 02/20/24 Rx #30 ea methocarbamol 500 mg tablet 1,000 mg (2 x 500 mg) PO Q8H PRN 12/17/23 02/20/24 Rx back spasm #48 tabs clopidogrel 75 mg tablet (Plavix) 75 mg PO DAILY #30 tabs 12/18/23 02/20/24 Rx propranolol 80 mg capsule,24 80 mg PO DAILY #30 caps 12/18/23 02/20/24 Rx hr,extended release sodium sul 1.479 gram-potas ch See Rx Instructions PO PER PKG DIR 02/04/24 02/20/24 Rx 0.188 gram-magnes sul 0.225 gram colonscopy #12 tabs tablet (Sutab) trazodone 50 mg tablet 25 mg (1/2 x 50 mg) PO HS #45 tabs 02/04/24 02/20/24 Rx bupropion HCl 150 mg 24 hr tablet, 150 mg PO ONCE 02/19/24 02/20/24 History extended release carvedilol 6.25 mg tablet 6.25 mg PO BID 02/19/24 02/20/24 History escitalopram oxalate 10 mg tablet 10 mg PO DAILY 02/19/24 02/20/24 History pantoprazole 40 mg tablet,delayed 40 mg PO DAILY #30 tabs 02/19/24 02/20/24 Rx release New Prescriptions to Start Prescriptions: Allergies Allergy/AdvReac Type Severity Reaction Status Date / Time No Known Allergies Allergy Verified 02/19/24 11:07 Objective Narrative: Physical Exam: General: Alert and oriented x3, no acute distress, pleasant and cooperative Lungs: Respirations even and unlabored, symmetrical chest expansion Eyes: PERRL Musculoskeletal: Flexion and extension of left knee somewhat guarded secondary to pain, [antalgic gait noted] Neurological: Speech clear, no gross sensory deficit Additional findings Additional findings: FINDINGS: There is straightening of the normal lumbar lordosis. No spondylolisthesis or compression fractures. Degenerative disc disease with mixed, partially type 1, reactive endplate signal changes are present at L3-L4. Marrow signal is otherwise normal. The distal spinal cord appears normal. At L1-L2, there is minimal spinal canal narrowing and no significant neural foraminal narrowing. At L2-L3, there is mild circumferential disc bulge. Minimal spinal canal narrowing. No significant neural foraminal narrowing. Mild bilateral facet arthrosis. At L3-L4, circumferential disc bulge and discogenic osteophytes are present, eccentric in the left foraminal and extraforaminal zones. Mild spinal canal narrowing. Mild left neural foraminal narrowing. There is partial narrowing of the left lateral recess with mild posterior displacement of the traversing L4 nerve roots. At L4-L5, mild circumferential disc bulge and ligamentum flavum hypertrophy. Mild spinal canal narrowing. Minimal right neural foraminal narrowing. Mild bilateral facet arthrosis. At L5-S1, there is mild circumferential disc bulge and discogenic osteophytes, eccentric in the right foraminal zone. Minimal spinal canal narrowing. Mild right neural foraminal narrowing. There is mild displacement of the exiting right L5 nerve root in the extraforaminal zone secondary to discogenic marginal osteophytes. IMPRESSION: No moderate or severe lumbar spinal canal stenosis or neural foraminal narrowing. Overall mild multilevel degenerative findings as discussed. Assessment and Plan *Assessment and plan (1) Osteoarthritis of left knee: Status: Acute Category: Medical Code(s): M17.12 - Unilateral primary osteoarthritis, left knee (2) Degenerative disc disease, lumbar: Status: Acute Category: Medical Code(s): M51.369 - Other intervertebral disc degeneration, lumbar region without mention of lumbar back pain or lower extremity pain Plan Patient is experiencing significant pain in her left knee with limited range of motion. I did discuss with the patient that she may benefit from left knee intra-articular injection. Risk and benefits were discussed with the patient and she would like to proceed forward with this plan of care. Patient has tried and failed conservative therapy including physical therapy, chiropractor therapy and continued at home stretching exercise for longer than 12 weeks. Patient was also counseled in future I do believe she may benefit from lumbar medial branch block. We will follow-up with this at future visits. She will be submitted for a left knee intra-articular injection. Patient will be also ordered compounded cream. Patient has been instructed to contact the clinic with any concerns before the next appointment. Dr. Merchant has reviewed this note and agrees with this plan of care. This note was dictated using voice recognition software and make contain errors or omissions. All injections are used with Lidocaine or Bupivacaine and Depo Medrol.
[2024-02-20 09:49] VITALS: BP 149/61; PULSE 60; RESP 18; O2SAT 96; BMI 22.8
== END 2024-02-20 23:59 | disposition home or self-care (01) ==
PROVIDERS: PCP Internal Medicine Adolescent Medicine; Visit Provider Nurse Practitioner Family
DX: M17.12 Unilateral primary osteoarthritis, left knee (principal); M51.369 Other intervertebral disc degeneration, lumbar region without mention of lumbar back pain or lower extremity pain; Z73.89 Other problems related to life management difficulty; Z95.5 Presence of coronary angioplasty implant and graft; Z79.02 Long term (current) use of antithrombotics/antiplatelets
CPT/HCPCS: 99202; G0463

== ENCOUNTER 2024-02-28 08:46 | Day surgery (SDC) | payer MEDICARE, OTHER, SELFPAY ==
--- NOTE | 2024-02-28 09:11 | EXP.ANES.CKL ---
[facility] Disclaimer: The information contained in this section may have been updated after the patient was seen, as this information can be updated by other users. Medical History Frequent headaches Falls frequently Hallucinations Asthma Dyspnea on exertion TED (obstructive sleep apnea) Claudication Abnormal chest xray Abnormal result of cardiovascular function study Edema of both lower extremities Chest pain Major depressive disorder History of CVA (cerebrovascular accident) HLD (hyperlipidemia) HHD (hypertensive heart disease) CAD (coronary artery disease) A-fib Surgical History H/O heart artery stent Hx of cardiac cath History of hysterectomy Family History Other Family history of diabetes mellitus type II Social History Smoking Status: Never smoker second hand exposure: No alcohol intake: never substance use type: denies use current occupational status: retired Travel in the last 8 weeks: None household members: none housing: house lives independently: Yes marital status: education level: college current occupational exposures/hazards: No caffeine: Yes special lonnie needs: No agree to transfusion: No do you feel safe at home: Yes victim of physical abuse: No victim of emotional abuse: No victim of sexual abuse: No would you like helpful sources: No [facility] Anesthesia Checklist Patient Identification Patient Identification: Arm Band and Verbal (Name & ) Structural Data Admitted From: Home Planned Operative Procedure/s: EGD/Colonoscopy Consent for Planned Operative Procedure(s) Verified: Yes Verified Documents: Surgical Consent and History and Physical NPO Status Verified Time NPO: 00:00 Additional verifications Anesthesia Reactions: No Airway Assessment C-Spine Mobility Assessed: Yes TMJ Mobility Assessed: Yes Neurological Assessment Level of Consciousness: Awake Hx Seizures: No Numbness or tingling in extremities: No Anesthesia Plan Anesthesia Risk discussed: Yes Anesthesia Plan: Verified ASA Class: III Anesthesia Type: MAC
[2024-02-28 09:19] VITALS: BP 189/90; PULSE 87; RESP 18; O2SAT 95
[2024-02-28] MEDS: 0.9 % SODIUM CHLORIDE 1000ML 1,000 ML 25 ML IV (09:40)
--- NOTE | 2024-02-28 09:41 | SUR.PREOP ---
0930: Barrett Connor NETWORK INFRASTRUCTURE ARCHITECT in [place] assessing pt. Pt is continually hypertension at 236/82 automatic and 190/76 manual. ER contacted for possible pt transfer for evaluation. This RN will follow up.
[2024-02-28 09:55] VITALS: BP 198/72; PULSE 87; RESP 18; TEMP 36.6; O2SAT 98
--- NOTE | 2024-02-28 10:05 | SUR.PREOP ---
0955: Per Dr. Juarez cancel procedure for uncontrolled bp. Per Barrett Connor DAIRY SCIENTIST transport to ER for evaluation. 1000: Report given to Pratibha Arita RN.
--- NOTE | 2024-02-28 10:07 | P.PCN_ITS ---
[facility] Procedure Note Date: 02/28/24 Time: 10:07 Procedure Note:: Upon assessment patient appears severely hypertensive. Blood pressures as follows: 236/81 211/64 210/75 212/77 190/76 After discussion with Ash Thurman CRNA, Dr. Juarez, patient and patient's daughter, decision was made to send patient to the emergency room to be treated.
== END 2024-02-28 09:55 | disposition home or self-care (01) ==
LOC: OUTP 08:47
PROVIDERS: PCP Internal Medicine Adolescent Medicine; Visit Provider Internal Medicine Gastroenterology
PROC: 0DJ08ZZ Inspection of Upper Intestinal Tract, Via Natural or Artificial Opening Endoscopic (ICD-10-PCS; CPT 43235; principal; 2024-02-28 10:30)
DX: Z12.11 Encounter for screening for malignant neoplasm of colon (principal)
CPT/HCPCS: J7030

== ENCOUNTER 2024-02-28 10:04 | Emergency (ER) | payer MEDICARE, OTHER, SELFPAY ==
[2024-02-28 10:05] VITALS: BP 204/78; PULSE 68; RESP 18; TEMP 36.9; O2SAT 96; BMI 21.6
--- NOTE | 2024-02-28 10:06 | PC.NURSE ---
The manual blood pressure is 204/76 at this time.
[2024-02-28 10:12] VITALS: BP 168/73; PULSE 69; O2SAT 95
--- NOTE | 2024-02-28 10:16 | HMH.EDGENADL ---
Discharge Plan Disposition Patient Disposition: Home, Self-Care Condition: Good Prescriptions Prescriptions: No Action Dulera 100-5 mcg/actuation HFA aerosol inhaler 2 puff inhalation BID 90 Days Qty: 13 2RF atorvastatin 40 mg tablet 40 mg PO DAILY triamterene-hydrochlorothiazid 37.5-25 mg tablet 0.5 tab PO DAILY PRN (Reason: swelling) Qty: 30 2RF carvedilol 6.25 mg tablet 6.25 mg PO BID Patient Comments: TAKE 1 TABLET BY MOUTH TWICE DAILY WITH A MEAL/FOOD escitalopram oxalate 10 mg tablet 10 mg PO DAILY Patient Comments: TAKE 1 TABLET BY MOUTH ONCE DAILY bupropion HCl 150 mg tablet extended release 24 hr 150 mg PO ONCE Patient Comments: TAKE 1 TABLET BY MOUTH EVERY 24 HOURS FOR 30 DAYS pantoprazole 40 mg tablet,delayed release (DR/EC) 40 mg PO DAILY Qty: 30 2RF albuterol sulfate [Ventolin HFA] 90 mcg/actuation HFA aerosol inhaler 2 inh inhalation Q6H PRN (Reason: shortness of breath or wheezing) 90 Days Qty: 18 3RF propranolol 80 mg capsule,extended release 24 hr 80 mg PO DAILY Qty: 30 2RF clopidogrel [Plavix] 75 mg tablet 75 mg PO DAILY Qty: 30 11RF trazodone 50 mg tablet 25 mg PO HS Qty: 45 0RF methocarbamol 500 mg tablet 1,000 mg PO Q8H PRN (Reason: back spasm) Qty: 48 0RF Referrals Follow up/Referrals: Provider,Referral, MD [Referring] - See instructions Activity Restrictions/Add. Instructions Additional Instructions/Restrictions: You were evaluated in the emergency department today. Please make sure you stay hydrated at home, as your kidney function is slightly off from your baseline. Make sure you take your blood pressure medication as prescribed. Follow-up closely with your hr payroll coordinator as well as your primary care provider over the next 48 hours. Return to the emergency department for new or worsening symptoms. Clinical Impressions Clinical Impression: High blood pressure, SAUNDRA (acute kidney injury) Instructions Patient Instructions: DI for High Blood Pressure Print Language Print Language: [place] Discharge ED Provider: Diane Landon General Adult HPI General Chief complaint: Recheck/Abnormal Lab/Rx Stated complaint: high BP Time Seen by Provider: 02/28/24 10:07 Mode of Arrival: Wheelchair Source of Information: Patient Limitations: No Limitations Description of Symptoms (Recalled from ER Triage Doc. by RN): pt is here today for upper and lower scope with dr perez was in pre op with high bp and anesthesia sent her down here to be evaluated. pt is alox4 with no complaints at this time and manual bp is 204/76 upon triage. pt has not taken any meds in 2 days History of Present Illness HPI narrative: This patient is an 83-year-old female with a history of hypertension, hyperlipidemia, hypertensive heart disease, atrial fibrillation, CAD, and TED presenting to the emergency department for evaluation from preop with concern for high blood pressure. Anesthesia sent the patient down to be evaluated. She denies any concerns or complaints or symptoms. She notes that she has not taken her medication in 2 days because she has been prepping for this colonoscopy. Aside from the colonoscopy prep, she has been in her usual state of health. Related Data Home Medications ?Medication ?Instructions ?Recorded ?Confirmed atorvastatin 40 mg tablet 40 mg PO DAILY 10/02/23 02/28/24 bupropion HCl 150 mg 24 hr tablet, 150 mg PO ONCE 02/19/24 02/28/24 extended release carvedilol 6.25 mg tablet 6.25 mg PO BID 02/19/24 02/28/24 escitalopram oxalate 10 mg tablet 10 mg PO DAILY 02/19/24 02/28/24 Previous Rx's ?Medication ?Instructions ?Recorded albuterol sulfate 90 mcg/actuation 2 inh inhalation Q6H PRN shortness 06/18/23 aerosol inhaler (Ventolin HFA) of breath or wheezing 90 days #18 grams mometasone-formoterol HFA 100 2 puff inhalation BID 90 days #13 09/26/23 mcg-5 mcg/actuation aerosol grams inhaler (Dulera) triamterene 37.5 0.5 tab PO DAILY PRN swelling #30 10/02/23 mg-hydrochlorothiazide 25 mg tablet tabs methocarbamol 500 mg tablet 1,000 mg (2 x 500 mg) PO Q8H PRN 12/17/23 back spasm #48 tabs clopidogrel 75 mg tablet (Plavix) 75 mg PO DAILY #30 tabs 12/18/23 propranolol 80 mg capsule,24 80 mg PO DAILY #30 caps 12/18/23 hr,extended release trazodone 50 mg tablet 25 mg (1/2 x 50 mg) PO HS #45 tabs 02/04/24 pantoprazole 40 mg tablet,delayed 40 mg PO DAILY #30 tabs 02/19/24 release Allergies Allergy/AdvReac Type Severity Reaction Status Date / Time No Known Allergies Allergy Verified 02/28/24 09:12 [facility] Disclaimer: The information contained in this section may have been updated after the patient was seen, as this information can be updated by other users. Medical History Frequent headaches Falls frequently Hallucinations Asthma Dyspnea on exertion TED (obstructive sleep apnea) Claudication Abnormal chest xray Abnormal result of cardiovascular function study Edema of both lower extremities Chest pain Major depressive disorder History of CVA (cerebrovascular accident) HLD (hyperlipidemia) HHD (hypertensive heart disease) CAD (coronary artery disease) A-fib Surgical History H/O heart artery stent Hx of cardiac cath History of hysterectomy Family History Other Family history of diabetes mellitus type II Social History Smoking Status: Never smoker second hand exposure: No alcohol intake: never substance use type: denies use current occupational status: retired Travel in the last 8 weeks: None household members: none housing: house lives independently: Yes marital status: education level: college current occupational exposures/hazards: No caffeine: No special lonnie needs: No agree to transfusion: No do you feel safe at home: Yes victim of physical abuse: No victim of emotional abuse: No victim of sexual abuse: No would you like helpful sources: No Other Medical History Have you received the Flu Vaccine for this season: No Have you received the Pneumonia Vaccine: Yes ROS Obtained: Yes All systems reviewed & no additional complaints except as documented Physical Exam General General appearance: alert and in no apparent distress Head Head exam: atraumatic and normocephalic Eye Eye exam: Present normal appearance, PERRL and EOMI ENT ENT exam: Present normal exam, normal oropharynx, mucous membranes moist and normal external ear exam Neck Neck exam: Present normal inspection, full ROM and trachea midline; Absent tenderness Chest Chest inspection: Present normal inspection and symmetric chest wall rise; Absent tenderness Respiratory Respiratory exam: Present normal lung sounds bilaterally; Absent respiratory distress, wheezes, stridor or accessory muscle use Cardiovascular Cardiovascular exam: Present regular rate and normal rhythm Abdominal Exam Abdominal exam: Present soft; Absent distention, tenderness or guarding Extremities Exam Extremities exam: Present normal inspection, full ROM and normal capillary refill; Absent tenderness or edema Back Exam Back exam: Present normal inspection and full ROM; Absent tenderness Neurological Exam Neurological exam: Present alert, oriented X3, CN II-XII intact and normal gait; Absent motor sensory deficit Psychiatric Psychiatric exam: Present normal affect and normal mood Skin Skin exam: Present warm and dry Medical Decision Making Medical Records Medical records reviewed: Yes I reviewed the patient's medical records. Screening: Per USPSTF and CDC recommendations, given the prevalence of disease in our region, it is our hospital?s policy to screen for HIV and viral Hepatitis for all patients aged 18 and over and those with ongoing risk factors. Mekhi Inquiry Pt receiving controlled substance: No Vital Signs: 02/28/24 10:05 02/28/24 10:12 02/28/24 10:31 Temperature 98.5 F Temperature Source Oral Pulse Rate 69 60 Pulse Rate [Right Radial] 68 Respiratory Rate 18 Blood Pressure 168/73 H 175/55 H Blood Pressure [Right Arm] 204/78 H Blood Pressure Mean 77 Blood Pressure Mean [Right Arm] 120 02 Sat by Pulse Oximetry 96 95 96 Oxygen Delivery Method Room Air 02/28/24 11:00 02/28/24 11:30 02/28/24 12:06 Temperature 98.2 F Temperature Source Pulse Rate 64 58 L 55 L Pulse Rate [Right Radial] Respiratory Rate 20 Blood Pressure 175/59 H 168/63 H 168/63 H Blood Pressure [Right Arm] Blood Pressure Mean 70 80 Blood Pressure Mean [Right Arm] 02 Sat by Pulse Oximetry 96 97 Oxygen Delivery Method Room Air Room Air Room Air Lab Data Lab results reviewed: Yes I reviewed the patient's lab results. Lab Results 02/28/24 10:10: WBC 8.1, RBC 3.96 L, Hgb 12.5, Hct 36.6 L, MCV 92.3, MCH 31.6 H, MCHC 34.3, RDW 13.2, Plt Count 251, MPV 7.6, Neut % (Auto) 57.1, Lymph % (Auto) 32.9, [place] % (Auto) 5.5, Eos % (Auto) 3.6, Baso % (Auto) 0.9, Neut # (Auto) 4.6, Lymph # (Auto) 2.7, [place] # (Auto) 0.4, Eos # (Auto) 0.3, Baso # (Auto) 0.1, Sodium 143, Potassium 4.4, Chloride 109 H, Carbon Dioxide 26, Anion Gap 12.4, BUN 24 H, Creatinine 1.70 H, Estimated Creat Clear 24, Estimated GFR 29 L, Est GFR ( Amer) 35 L, Glucose 107 H, Calcium 9.3, Total Bilirubin 0.8, AST 36, ALT 16, Alkaline Phosphatase 75, Total Protein 7.6, Albumin 4.4, Globulin 3.2, Albumin/Globulin Ratio 1.4 02/28/24 10:10 02/28/24 10:10 Orders (Tests/Meds): ED MEDICATIONS Discontinued Medications Generic Name Dose Route Start Last Admin Trade Name Freq PRN Reason Stop Dose Admin Carvedilol 6.25 mg 02/28/24 10:12 02/28/24 10:28 Carvedilol 6.25mg Tablet PO 02/28/24 10:13 6.25 mg ONCE ONE Administration Sodium Chloride 1,000 mls @ 999 mls/hr 02/28/24 10:46 02/28/24 11:01 Sod Chlor 0.9% 1000ml Bag IV 02/28/24 11:46 999 mls/hr .Q1H1M ONE Administration ORDERS Category Date Time Status Complete Blood Count Auto Diff Stat Lab 02/28/24 10:10 Completed Comprehensive Metabolic Panel Stat Lab 02/28/24 10:10 Completed ECG Data Tracing #1: I reviewed this ECG and interpreted as documented below: Normal sinus rhythm with a ventricular rate of [address] changes concerning for ischemia. Normal axis and intervals. ECG initial impression date: 02/28/24 ECG initial impression time: 10:30 Medical Decision Narrative: In summary, this patient is a 83-year-old female presenting to the Emergency Department for evaluation of high blood pressure reading in preop where she was supposed to be getting an EGD and colonoscopy for screening purposes. Differential diagnoses considered include but are not limited to hypertension, hypertensive urgency, hypertensive emergency, medication noncompliance, ACS. Ruling out the most morbid conditions drove assessment. It should be noted patient's history includes hypertension, hyperlipidemia, CAD which may or may not be at goal therapy. This complicates all aspects of care by increasing patient's risk for morbidity. I reviewed patient's past medical records and noted previous cardiology evaluation 02/19/2024 for follow-up and preprocedure clearance. On exam, the patient is sitting upright in no acute distress with no concerns or complaints at this time. Initial blood pressure was 200s over 70s, but repeat is 160s over 70s. Ultimately, I feel this is a result of her not taking her medications in 2 days secondary to the colonoscopy prep. Low concern for acute life-threatening pathology. No headache or neurologic symptoms. Workup included CBC, CMP, EKG. I did order her home carvedilol. I had an interactive discussion with preop who advised that anesthesia will not let her have the procedure today and that she needs to follow-up with cardiology before she has a procedure to get her medications straightened out, but I did advise to them that she has not been taking her medications, which is likely the reason for the HTN. On multiple subsequent reassessments, blood pressure remains with systolics in the 160s. She remains asymptomatic with no concerns. She has a mild SAUNDRA, which I feel is likely to her prep especially since she had nausea and vomiting. She is given fluids here and is able to tolerate oral intake of fluids. Ultimately, I feel that she is appropriate for discharge home with instructions to continue taking her medications as prescribed as well as instructions for hydration and recheck of her kidney function on an outpatient basis. She is given strict return precautions and was discharged after all questions were answered. Critical Care Critical Care Time Critical Care Time: No
[2024-02-28 10:22] LABS: Basophils # 0.1 K/mm3 (0-0.2); Basophils % 0.9 % (0.1-2.0); Eosinophils # 0.3 K/mm3 (0.0-0.4); Eosinophils % 3.6 % (0.1-12.0); Hematocrit 36.6 % (37.0-47.0); Hemoglobin 12.5 g/dL (12.2-16.2); Lymphocytes # 2.7 K/mm3 (0.7-4.5); Lymphocytes % 32.9 % (10-50); Mean Corpuscular HGB Conc 34.3 g/dL (31.8-35.4); Mean Corpuscular Hemoglobin 31.6 pg (27.0-31.2); Mean Corpuscular Volume 92.3 fl (81-99); Mean Platelet Volume 7.6 fl (7.4-10.4); Monocytes # 0.4 K/mm3 (0.1-1.0); Monocytes % 5.5 % (1.7-9.3); Neutrophils # 4.6 K/mm3 (1.8-7.8); Neutrophils % 57.1 % (37.0-80.0); Platelet Count 251 K/mm3 (142-424); Red Blood Count 3.96 M/mm3 (4.20-5.40); Red Cell Distribution Width 13.2 % (11.5-17.5); White Blood Count 8.1 K/mm3 (4.8-10.8)
[2024-02-28] MEDS: CARVEDILOL 6.25MG TABLET 6.25 MG PO (10:28)
--- NOTE | 2024-02-28 10:28 | ECG_ITS ---
APPROVED REPORT Exam: Resting ECG HR:60 bpm ECG Measurements Heart Rate 60 AXES OR 140 P 62 QRSd 80 QRS 34 QT 444 T 52 QTc 445 Conclusion SINUS RHYTHM NORMAL ECG Electronically signed by : JIM POPE, 02/28/2024 16:19:33
[2024-02-28 10:31] VITALS: BP 175/55; PULSE 60; O2SAT 96
[2024-02-28 10:32] LABS: Chloride 109 mmol/L (98-107)
[2024-02-28 10:33] LABS: Albumin Level 4.4 g/dl (3.5-5.0); Potassium 4.4 mmoL/L (3.5-5.1); Sodium 143 mmol/L (136-145)
[2024-02-28 10:35] LABS: Blood Urea Nitrogen 24 mg/dl (7-17); Creatinine Clearance Estimated 24 mL/min (50-200); Estimated Glomerular Filt Rate 29 ml/min (>60); GFR (African American) 35 ML/MIN (>60)
[2024-02-28 10:36] LABS: Alanine Aminotransferase 16 U/L (12-78); Albumin/Globulin Ratio 1.4 (1.1-1.8); Alkaline Phosphatase 75 U/L (38-126); Anion Gap 12.4 mEq/L (5-15); Aspartate Amino Transferase 36 U/L (14-36); Bilirubin,Total 0.8 mg/dl (0.2-1.3); Calcium 9.3 mg/dl (8.4-10.2); Carbon Dioxide 26 mmol/L (22.0-30.0); Globulin 3.2 g/dL (1.3-3.2); Glucose 107 mg/dl (74-100); Total Protein,Serum 7.6 g/dl (6.3-8.2)
[2024-02-28 11:00] VITALS: BP 175/59; PULSE 64; O2SAT 96
[2024-02-28] MEDS: 0.9 % SODIUM CHLORIDE 1000ML 1,000 ML 999 ML IV (11:01)
[2024-02-28 11:30] VITALS: BP 168/63; PULSE 58; O2SAT 97
--- NOTE | 2024-02-28 11:54 | PC.NURSE ---
DR POPE AT BEDSIDE TO UPDATE PT AND FAMILY
[2024-02-28 12:06] VITALS: BP 168/63; PULSE 55; RESP 20; TEMP 36.8; O2SAT 96
== END 2024-02-28 12:07 | disposition home or self-care (01) ==
PROVIDERS: Emergency Provider Emergency Medicine; PCP Internal Medicine Adolescent Medicine
DX: N18.9 Chronic kidney disease, unspecified (principal); I10 Essential (primary) hypertension
CPT/HCPCS: 80053; 85025; 93005; 96360; 99284; J7030

== ENCOUNTER 2024-03-04 11:05 | Day surgery (SDC) | payer MEDICARE, OTHER, SELFPAY ==
[2024-03-04 11:31] VITALS: BP 199/63; PULSE 53; RESP 16; TEMP 36.7; O2SAT 97; BMI 21.6
[2024-03-04] MEDS: LIDOCAINE 1% 5ML PF VIAL 5 ML (11:55)
[2024-03-04] MEDS: methylPREDNISolone ACETATE 80MG/ML VIAL 80 MG (11:55)
[2024-03-04] MEDS: BUPIVACAINE 0.25% 10ML INJ 25 MG IJ (11:55)
--- NOTE | 2024-03-04 12:01 | EXP.PAIN.PRO ---
Procedure Date: 03/04/24 Time: 11:50 Anesthesiologist:: Fortino Polanco CRNA Complications:: None Pre-procedure Diagnosis:: DJD left knee. Chronic left knee pain. Post-procedure Diagnosis:: Same. Indications for Procedure:: Patient is a pleasant 83-year-old female who comes our clinic today for a left intra-articular knee injection of cortisone and local anesthetic. Patient describes left knee pain is constant, dull, aching with ambulation. Pain intensifies with stairs. Minimal pain while sitting. She rates her pain 6/10. Procedure Details:: Details of the procedure explained to the patient. The patient taken procedure room placed in the sitting position. The over the left knee was cleaned using chlorhexidine as a cleansing solution. Using a 22-gauge inch and half needle the left knee joint was accessed from the anterior lateral position. After negative aspiration 4 cc of 1% lidocaine +4 cc of 0.25% Marcaine and 40 mg of Depo-Medrol was injected. Patient tolerated procedure without difficulty. There are no complications. Plan and Disposition:: Patient was discharged without incident.
[2024-03-04 12:10] VITALS: BP 164/88; PULSE 68; RESP 16; O2SAT 97
== END 2024-03-04 12:10 | disposition home or self-care (01) ==
PROVIDERS: PCP Internal Medicine Adolescent Medicine; Visit Provider Nurse Anesthetist, Certified Registered
DX: M17.12 Unilateral primary osteoarthritis, left knee (principal); M25.562 Pain in left knee; G89.29 Other chronic pain
CPT/HCPCS: 20610; J1010

== ENCOUNTER 2024-03-10 07:55 | Outpatient (CLI) | payer MEDICARE, OTHER, SELFPAY ==
--- NOTE | 2024-03-10 08:02 | CT_ITS ---
FINAL REPORT TECHNIQUE: Axial CT images were performed through the head. Coronal and sagittal reformatted images were submitted. This study was performed with techniques to keep radiation doses as low as reasonably achievable (ALARA). Individualized dose reduction techniques using automated exposure control or adjustment of mA and/or kV according to the patient's size were employed. CLINICAL HISTORY: .HALLUCINATIONS, AMS. COMPARISON: 01/14/2024 FINDINGS: The ventricles are normal in size. There are persistent changes of encephalomalacia in the right posterior parietal region, unchanged since the prior exam of December. No acute intracranial abnormalities are identified. There is no mass effect or midline shift. No extra-axial fluid collections are noted. There is mild mucoperiosteal thickening of the right maxillary sinus. There are mild changes consistent with left mastoiditis. IMPRESSION: No acute intracranial process. Right posterior parietal encephalomalacia, stable since December. Reviewed, Interpreted and Dictated by Jefry Collado MD Transcribed by Deidre Dotson Authenticated and . [facility]
[2024-03-10 08:32] LABS: Blood Urea Nitrogen 25 mg/dl (7-17); Estimated Glomerular Filt Rate 31 ml/min (>60); GFR (African American) 37 ML/MIN (>60)
== END 2024-03-10 23:59 | disposition home or self-care (01) ==
LOC: RAD 07:56
PROVIDERS: PCP Internal Medicine Adolescent Medicine; Visit Provider Physician Assistant
DX: R44.3 Hallucinations, unspecified (principal); R51.9 Headache, unspecified; I10 Essential (primary) hypertension
CPT/HCPCS: 36415; 70450; 82565; 84520

== ENCOUNTER 2024-03-27 06:52 | Day surgery (SDC) | payer MEDICARE, OTHER, SELFPAY ==
[2024-03-19 15:38] VITALS: BMI 22.8
[2024-03-27 07:18] VITALS: BP 175/76; PULSE 65; RESP 17; TEMP 36.3; O2SAT 96
[2024-03-27] MEDS: LACTATED RINGERS 1000ML 1,000 ML 25 ML IV (07:23)
[2024-03-27 07:39] VITALS: O2SAT 96
--- NOTE | 2024-03-27 07:39 | P.HP_ITS ---
History of Present Illness *Admission Date: 03/27/24 *Reason for visit:: Choking/dysphagia and early satiety *History of present illness: Mrs. Verdugo is an 83-year-old female who is here for choking and dysphagia. She has some early satiety. The examination is deemed medically necessary for EGD. The patient has been seen, interviewed and examined prior to the procedure by both myself and the anesthesia provider. [facility] Disclaimer: The information contained in this section may have been updated after the patient was seen, as this information can be updated by other users. Medical History Frequent headaches Falls frequently Hallucinations Asthma Dyspnea on exertion TED (obstructive sleep apnea) Claudication Abnormal chest xray Abnormal result of cardiovascular function study Edema of both lower extremities Chest pain Major depressive disorder History of CVA (cerebrovascular accident) HLD (hyperlipidemia) HHD (hypertensive heart disease) CAD (coronary artery disease) A-fib Surgical History H/O heart artery stent Hx of cardiac cath History of hysterectomy Family History Other Family history of diabetes mellitus type II Social History Smoking Status: Never smoker second hand exposure: No alcohol intake: never substance use type: denies use current occupational status: retired Travel in the last 8 weeks: None household members: none housing: house lives independently: Yes marital status: education level: college current occupational exposures/hazards: No caffeine: No special lonnie needs: No agree to transfusion: No do you feel safe at home: Yes victim of physical abuse: No victim of emotional abuse: No victim of sexual abuse: No would you like helpful sources: No Other Medical History Have you received the Flu Vaccine for this season: No Have you received the Pneumonia Vaccine: No Review of Systems Review of Systems Review of systems (narrative): Negative *Cardiovascular Comments: Negative *Gastrointestinal Comments: Negative *Genitourinary Comments: Negative *Musculoskeletal Comments: Negative *Neurologic Comments: Negative Meds Home Medications and Allergies Home Medications ?Medication ?Instructions ?Recorded ?Confirmed ?Type atorvastatin 40 mg tablet 40 mg PO DAILY 10/02/23 03/27/24 History triamterene 37.5 0.5 tab PO DAILY PRN swelling #30 10/02/23 03/27/24 Rx mg-hydrochlorothiazide 25 mg tablet tabs methocarbamol 500 mg tablet 1,000 mg (2 x 500 mg) PO Q8H PRN 12/17/23 03/27/24 Rx back spasm #48 tabs clopidogrel 75 mg tablet (Plavix) 75 mg PO DAILY #30 tabs 12/18/23 03/27/24 Rx propranolol 80 mg capsule,24 80 mg PO DAILY #30 caps 12/18/23 03/27/24 Rx hr,extended release bupropion HCl 150 mg 24 hr tablet, 150 mg PO DAILY 02/19/24 03/27/24 History extended release escitalopram oxalate 10 mg tablet 10 mg PO DAILY 02/19/24 03/27/24 History trazodone 50 mg tablet 25 mg PO DAILY 03/27/24 03/27/24 History New Prescriptions to Start Prescriptions: Allergies Allergy/AdvReac Type Severity Reaction Status Date / Time No Known Allergies Allergy Verified 03/27/24 07:12 Exam Data for Last 24 hours Vital signs and Labs for Last 24 Hours: Temp Pulse Resp BP Pulse Ox O2 Del Method 97.4 F L 65 17 175/76 H 96 Room Air 03/27/24 07:18 03/27/24 07:18 03/27/24 07:18 03/27/24 07:18 03/27/24 07:18 03/27/24 07:18 *Routine HEENT Exam Head: Present normocephalic Eye: Present EOMI and PERRL ENT: Present mucous membranes moist *Routine Neck Exam Neck: Present supple *Routine Respiratory Exam Respiratory: Present CTA bilaterally *Routine Cardiovascular Exam Cardiovascular: Present RRR *Routine Abdominal Exam Abdominal: Present soft and normoactive bowel sounds; Absent tenderness *Routine Rectal Exam Rectal:: deferred *Routine Genitalia Exam Genitalia:: deferred *Routine Extremities Exam Extremities: Absent cyanosis, clubbing or edema *Routine Skin Exam Skin: Present warm; Absent rash *Routine Neurological Exam Neurological: Present alert and oriented X3 Assessment and Plan *Assessment and plan (1) Dysphagia: Status: Acute Category: Medical Code(s): R13.10 - Dysphagia, unspecified (2) Choking: Status: Acute Category: Medical Code(s): T17.308A - Unspecified foreign body in larynx causing other injury, initial encounter (3) Early satiety: Status: Acute Category: Medical Code(s): R68.81 - Early satiety Plan A/P: 1. Choking/dysphagia and early satiety is the preprocedural diagnosis. The patient will be anesthetized/sedated using MAC sedation. The patient has been seen and examined. Cardiac and lung assessment prior to the examination is stable. Proceed with planned EGD
--- NOTE | 2024-03-27 07:40 | HMH.PROCNOTE ---
[facility] Procedure Note Date: 03/27/24 Time: 07:48 Procedure Note:: Upper Endoscopy Procedure Report: Esophagogastroduodenoscopy with cold biopsies and TTS balloon dilation Endoscopost: Kolby Juarez II, MD Referring Physician: Lee Delgado M.D. Date of Procedure: March 27, 2024 Equipment: Olympus GIF 190 standard upper endoscope Sedation: MAC sedation Indications: Mrs. Verdugo is an 83-year-old female who is here for diagnostic/therapeutic upper endoscopy secondary to dysphagia and choking. She has had this for quite a while and this occurs primarily with solid foods and not liquids. She reports no abdominal pain, gassiness, bloating or belching. She has no nausea but does report some early satiety. She reports no weight loss. She has very infrequent heartburn and reflux. She does have chronic diarrhea but does not take any treatment. She had an upper endoscopy with dilation with me in October 2018. Procedure: Prior to the procedure, a history and physical exam was performed, and patient's medications and allergies were reviewed. The risks, benefits and alternatives of the sedation and procedure were discussed with the patient. All questions were answered and informed consent was obtained. The patient was brought to the procedure room. Patient identification and proposed procedure were verified by the physician and the nurse. The patient was placed in a left lateral decubitus position and the scope was passed under direct vision. Throughout the procedure, the patient's blood pressure, pulse, and oxygen saturations were monitored continuously. The upper GI endoscopy was accomplished without difficulty. The patient tolerated the procedure well. Findings: The scope was passed directly into the upper esophagus and advanced to the third portion of the duodenum. The post bulbar duodenum and duodenal bulb were normal with normal mucosa and conniventes. The scope was withdrawn through a normal duodenal bulb and pylorus into the stomach. There was minimal reactive gastropathy of the antrum. The body and fundus of the stomach were grossly normal. Upon retroflexion there was a 2 to 3 cm hiatal hernia. Biopsies were taken from the antrum to rule out H. pylori. The scope was then withdrawn into the esophagus. There was a distal esophageal ring/Schatzki's ring that was originally 6 to 7 mm and smaller than the diameter of the scope. The scope originally dilated but then I did use a TTS hydrostatic balloon to dilate this up to 60 Bangladeshi/20 mm. There was no evidence of reflux esophagitis or Hayes's. There were some tertiary contractions and mild cricopharyngeal spasm. The entire esophagus was dilated. The remainder of the esophageal mucosa was normal. Impression: 1. Schatzki's ring status post dilation to 20 mm (from original diameter of 6 to 7 mm) 2. Nonerosive GERD with 2 to 3 cm hiatal hernia and mild esophageal dysmotility Plan: The patient should have clinical improvement with dilation. I am going to recommend omeprazole for 3 months. These do have a predilection to recur after a couple of years and this may need to be redilated at some point in the future. There are studies to suggest that acid suppression with acid reflux medications can sometimes reduce recurrence of the ring.
[2024-03-27 07:50] VITALS: BP 127/60; PULSE 65; RESP 16; TEMP 36.4; O2SAT 97
--- NOTE | 2024-03-27 07:52 | P.PNANES_ITS ---
[facility] Disclaimer: The information contained in this section may have been updated after the patient was seen, as this information can be updated by other users. Medical History Frequent headaches Falls frequently Hallucinations Asthma Dyspnea on exertion TED (obstructive sleep apnea) Claudication Abnormal chest xray Abnormal result of cardiovascular function study Edema of both lower extremities Chest pain Major depressive disorder History of CVA (cerebrovascular accident) HLD (hyperlipidemia) HHD (hypertensive heart disease) CAD (coronary artery disease) A-fib Surgical History H/O heart artery stent Hx of cardiac cath History of hysterectomy Family History Other Family history of diabetes mellitus type II Social History Smoking Status: Never smoker second hand exposure: No alcohol intake: never substance use type: denies use current occupational status: retired Travel in the last 8 weeks: None household members: none housing: house lives independently: Yes marital status: education level: college current occupational exposures/hazards: No caffeine: No special lonnie needs: No agree to transfusion: No do you feel safe at home: Yes victim of physical abuse: No victim of emotional abuse: No victim of sexual abuse: No would you like helpful sources: No [facility] Anesthesia Checklist Patient Identification Patient Identification: Arm Band Structural Data Admitted From: Home Planned Operative Procedure/s: EGD Consent for Planned Operative Procedure(s) Verified: Yes Verified Documents: Surgical Consent and History and Physical NPO Status Verified Time NPO: 00:00 Additional verifications Anesthesia Reactions: No Airway Assessment Mallampati Score:: Class II C-Spine Mobility Assessed: Yes TMJ Mobility Assessed: Yes Dentition: Good Dentition Neurological Assessment Level of Consciousness: Awake, Alert and Appropriate Anesthesia Plan Anesthesia Risk discussed: Yes Anesthesia Plan: Verified ASA Class: III Anesthesia Type: MAC
[2024-03-27 08:00] VITALS: BP 105/55; PULSE 65; RESP 18; O2SAT 96
[2024-03-27 08:10] VITALS: BP 114/61; PULSE 64; RESP 16; O2SAT 95
[2024-03-27 08:20] VITALS: BP 140/70; PULSE 66; RESP 16; O2SAT 96
== END 2024-03-27 08:25 | disposition home or self-care (01) ==
PROVIDERS: PCP Internal Medicine Adolescent Medicine; Visit Provider Internal Medicine Gastroenterology
PROC: 0DJ08ZZ Inspection of Upper Intestinal Tract, Via Natural or Artificial Opening Endoscopic (ICD-10-PCS; CPT 43235; principal; 2024-03-27 08:00)
DX: R13.10 Dysphagia, unspecified (principal); T17.308A Unspecified foreign body in larynx causing other injury, initial encounter; R68.81 Early satiety; K21.9 Gastro-esophageal reflux disease without esophagitis; K22.2 Esophageal obstruction; K31.9 Disease of stomach and duodenum, unspecified; K44.9 Diaphragmatic hernia without obstruction or gangrene; K22.4 Dyskinesia of esophagus
CPT/HCPCS: 43239; 43249; 88305; C1726; J7120

== ENCOUNTER 2024-04-25 10:10 | Outpatient (CLI) | payer MEDICARE, OTHER, SELFPAY ==
--- NOTE | 2024-04-25 10:15 | MM_ITS ---
PROCEDURE INFORMATION: Exam: MG Bilateral Screening 3D Mammography Exam date and time: 04/25/2024 10:02 AM Age: 83 years old Clinical indication: Screening examination TECHNIQUE: Imaging protocol: Bilateral Screening tomosynthesis and 2D mammography including computer-aided detection (CAD) when performed. Per the technologist the best possible images were obtained as the patient had difficulty with positioning. The exam is degraded by lack of posteroinferior tissue and ptotic positioning on both MLO views. COMPARISON: 1. MG MM DIG MAMM BI DX W/CAD 04/11/2023 1:56 PM 2. MG MM DIG SCREENING MAMM BI W/CAD 09/13/2022 10:51 AM FINDINGS: MAMMOGRAPHY: Breast composition: The breasts are heterogeneously dense, which may obscure small masses. Mass: No suspicious masses. Architectural distortion: None. Calcifications: No suspicious calcifications. Asymmetric density: None. Skin thickening: None. Axillary adenopathy: None. IMPRESSION: No mammographic evidence of malignancy. Annual screening is recommended unless otherwise clinically indicated. ASSESSMENT: BI-RADS Category 1: Negative.
== END 2024-04-25 23:59 | disposition home or self-care (01) ==
LOC: RAD 10:12
PROVIDERS: PCP Nurse Practitioner Family; Visit Provider Nurse Practitioner Family
DX: Z12.31 Encounter for screening mammogram for malignant neoplasm of breast (principal)
CPT/HCPCS: 77063; 77067

== ENCOUNTER 2024-05-12 10:34 | Outpatient (POV) | payer MEDICARE, OTHER, SELFPAY ==
--- NOTE | 2024-05-12 10:46 | EXP.PAIN.SOA ---
[facility] Disclaimer: The information contained in this section may have been updated after the patient was seen, as this information can be updated by other users. Medical History Frequent headaches Falls frequently Hallucinations Asthma Dyspnea on exertion TED (obstructive sleep apnea) Claudication Abnormal chest xray Abnormal result of cardiovascular function study Edema of both lower extremities Chest pain Major depressive disorder History of CVA (cerebrovascular accident) HLD (hyperlipidemia) HHD (hypertensive heart disease) CAD (coronary artery disease) A-fib Surgical History H/O heart artery stent Hx of cardiac cath History of hysterectomy Family History Other Family history of diabetes mellitus type II Social History Smoking Status: Never smoker second hand exposure: No alcohol intake: never substance use type: denies use current occupational status: retired Travel in the last 8 weeks: None household members: none housing: house lives independently: Yes marital status: education level: college current occupational exposures/hazards: No caffeine: No special lonnie needs: No agree to transfusion: No do you feel safe at home: Yes victim of physical abuse: No victim of emotional abuse: No victim of sexual abuse: No would you like helpful sources: No PM Subjective & Objective Subjective Subjective:: Patient is a pleasant 83-year-old female who presents today for follow-up. Today she rates her pain a 10 out of 10. She denies any new falls or injuries. Patient has chronic low back pain and bilateral knee pain. She also states she has been having some worsening right shoulder pain. Patient states all of her pain is worse with increased activity. She does state that it does seem like mornings are always worse trying to get up from a seated position to standing. Patient states the pain is just constant and really hurts. She states the pain is interfering with her ability perform activities of daily living such as cooking and cleaning. Patient was prescribed compounded cream from our office and states it does help however she just recently moved and is not really sure where they cream is. She is requesting refills if possible today. Patient does state overall she would have to say her low back pain is worse than anything else. Patient states she has been diagnosed with fibromyalgia over the years. Patient has continued conservative therapy including Tylenol, ibuprofen, heat and ice, topicals, physical therapy and chiropractor with continued at home stretching exercise for longer than 12 weeks. Review of Systems: General: No recent weight changes, no fever, no sleep disturbances Respiratory: No cough, no shortness of air, no recurring pulmonary infections Cardiovascular/peripheral vascular: No chest pain, no palpitations, no edema, no shortness of breath Gastrointestinal: No new onset incontinence, normal bowel movements reported Genitourinary: No new onset incontinence Musculoskeletal: Low back pain Psychiatric: [Normal mood/affect] Neurological: [Denies weakness in extremities], [denies balance issues] Pain at rest (0-10 scale): 10 Objective Objective:: Physical Exam: General: Alert and oriented x3, no acute distress, pleasant and cooperative Lungs: Respirations even and unlabored, symmetrical chest expansion Eyes: PERRL Musculoskeletal: Flexion and extension of lumbar [spine] somewhat guarded secondary to pain, [antalgic gait noted] point tenderness along bilateral SIs with positive bilateral Michaela's, Zaheer's, Gaenslen's, compression and distraction exam, positive Kemps test Neurological: Speech clear, no gross sensory deficit Has patient had previous pain injection?: No Conservative treatment options previously tried: Home exercise plan Length of treatment: Longer than 12 weeks Meds Home Medications and Allergies Home Medications ?Medication ?Instructions ?Recorded ?Confirmed ?Type atorvastatin 40 mg tablet 40 mg PO DAILY 10/02/23 03/27/24 History triamterene 37.5 0.5 tab PO DAILY PRN swelling #30 10/02/23 03/27/24 Rx mg-hydrochlorothiazide 25 mg tablet tabs methocarbamol 500 mg tablet 1,000 mg (2 x 500 mg) PO Q8H PRN 12/17/23 03/27/24 Rx back spasm #48 tabs clopidogrel 75 mg tablet (Plavix) 75 mg PO DAILY #30 tabs 12/18/23 03/27/24 Rx propranolol 80 mg capsule,24 80 mg PO DAILY #30 caps 12/18/23 03/27/24 Rx hr,extended release bupropion HCl 150 mg 24 hr tablet, 150 mg PO DAILY 02/19/24 03/27/24 History extended release escitalopram oxalate 10 mg tablet 10 mg PO DAILY 02/19/24 03/27/24 History pantoprazole 40 mg tablet,delayed 40 mg PO DAILY #30 tabs 03/27/24 Rx release trazodone 50 mg tablet 25 mg PO DAILY 03/27/24 03/27/24 History New Prescriptions to Start Prescriptions: Allergies Allergy/AdvReac Type Severity Reaction Status Date / Time No Known Allergies Allergy Verified 03/27/24 07:12 Assessment and Plan *Assessment and plan (1) Sciatica of right side without back pain: Status: Acute Category: Medical Code(s): M54.31 - Sciatica, right side (2) Unilateral primary osteoarthritis, left knee: Status: Acute Category: Medical Code(s): M17.12 - Unilateral primary osteoarthritis, left knee (3) Bilateral sacroiliitis: Status: Acute Category: Medical Code(s): M46.1 - Sacroiliitis, not elsewhere classified (4) Lumbar facet arthropathy: Status: Acute Category: Medical Code(s): M47.816 - Spondylosis without myelopathy or radiculopathy, lumbar region (5) Lumbar spondylosis: Status: Acute Category: Medical Code(s): M47.816 - Spondylosis without myelopathy or radiculopathy, lumbar region Plan Patient is experiencing worsening pain with limited range of motion of her lumbar spine. Patient did have point tenderness along her bilateral SIs with a positive bilateral Michaela's, Zaheer's, Gaenslen's, compression and distraction exam. Patient did also have a positive Kemps test during today's visit. I did discuss with the patient due to her having more pain in and around her SI joints that I would recommend we proceed forward with these injections initially. Risk and benefits were explained with the patient and she would like to proceed forward with this plan of care. Patient has tried and failed conservative therapy including continued at home stretching exercise for longer than 12 weeks that was physician guided. I will refill her compounded cream. Patient will be scheduled for bilateral SI injections under fluoroscopy. Patient has been instructed to contact the clinic with any concerns before the next appointment. Dr. Merchant has reviewed this note and agrees with this plan of care. This note was dictated using voice recognition software and make contain errors or omissions. All injections are used with Lidocaine, Bupivacaine and Depo Medrol. Occasionally urine drug screen is needed to verify patient's compliance with our office pain contract. This is ordered based off specific treatments related to chronic pain with the potential to abuse certain medications.
[2024-05-12 11:16] VITALS: BP 174/51; PULSE 68; RESP 18; O2SAT 95; BMI 22.8
== END 2024-05-12 23:59 | disposition home or self-care (01) ==
LOC: SC.PAIN 10:37
PROVIDERS: PCP Internal Medicine Adolescent Medicine; Visit Provider Nurse Practitioner Family
DX: M54.31 Sciatica, right side (principal); M17.12 Unilateral primary osteoarthritis, left knee; M46.1 Sacroiliitis, not elsewhere classified; M47.816 Spondylosis without myelopathy or radiculopathy, lumbar region; Z73.89 Other problems related to life management difficulty; Z79.02 Long term (current) use of antithrombotics/antiplatelets
CPT/HCPCS: 99212; G0463

== ENCOUNTER 2024-05-18 00:56 | Observation (INO) | payer MEDICARE, OTHER, SELFPAY ==
[2024-05-18] VITALS (7 sets, daily range): BP systolic 124–169; BP diastolic 57–71; PULSE 60–78; RESP 16–18; TEMP 36.4–36.9; O2SAT 95–98; BMI 21.8; BMI 23.2
--- NOTE | 2024-05-18 01:22 | XR_ITS ---
PROCEDURE INFORMATION: Exam: XR Chest Exam date and time: 05/18/2024 1:18 AM Age: 83 years old Clinical indication: Pain; Chest pressure; Additional info: Cp TECHNIQUE: Imaging protocol: Radiologic exam of the chest. Views: 2 views. COMPARISON: CR XR CHEST 2V 01/14/2024 4:13 PM FINDINGS: Lungs: Unremarkable. No consolidation. Pleural spaces: Unremarkable. No pleural effusion. No pneumothorax. Heart/Mediastinum: Unremarkable. No cardiomegaly. Bones/joints: Unremarkable. IMPRESSION: No acute findings.
--- NOTE | 2024-05-18 01:30 | ECG_ITS ---
APPROVED REPORT Exam: Resting ECG HR:64 bpm ECG Measurements Heart Rate 64 AXES SD 118 P -10 QRSd 85 QRS 36 QT 417 T 59 QTc 427 Conclusion Normal sinus rhythm Normal ECG No STEMI Electronically signed by : DEVAN DARLING, 05/18/2024 06:44:06
[2024-05-18 01:32] LABS: Basophils # 0.1 K/mm3 (0-0.2); Basophils % 0.8 % (0.1-2.0); Eosinophils # 0.7 K/mm3 (0.0-0.4); Eosinophils % 6.4 % (0.1-12.0); Hematocrit 40.9 % (37.0-47.0); Hemoglobin 13.3 g/dL (12.2-16.2); Lymphocytes # 4.1 K/mm3 (0.7-4.5); Lymphocytes % 37.8 % (10-50); Mean Corpuscular HGB Conc 32.5 g/dL (31.8-35.4); Mean Corpuscular Hemoglobin 30.3 pg (27.0-31.2); Mean Corpuscular Volume 93.2 fl (81-99); Mean Platelet Volume 10.6 fl (7.4-10.4); Monocytes # 1.2 K/mm3 (0.1-1.0); Monocytes % 10.8 % (1.7-9.3); Neutrophils # 4.8 K/mm3 (1.8-7.8); Neutrophils % 43.9 % (37.0-80.0); Platelet Count 297 K/mm3 (142-424); Red Blood Count 4.39 M/mm3 (4.20-5.40); Red Cell Distribution Width 12.4 % (11.5-17.5)
[2024-05-18 01:34] LABS: Albumin Level 4.6 g/dl (3.5-5.0); Chloride 103 mmol/L (98-107); Potassium 4.5 mmoL/L (3.5-5.1); Sodium 141 mmol/L (136-145)
[2024-05-18 01:37] LABS: Alanine Aminotransferase 21 U/L (12-78); Albumin/Globulin Ratio 1.4 (1.1-1.8); Alkaline Phosphatase 110 U/L (38-126); Anion Gap 16.5 mEq/L (5-15); Aspartate Amino Transferase 37 U/L (14-36); Bilirubin,Total 0.6 mg/dl (0.2-1.3); Blood Urea Nitrogen 38 mg/dl (7-17); Carbon Dioxide 26 mmol/L (22.0-30.0); Creatinine Clearance Estimated 19 mL/min (50-200); Estimated Glomerular Filt Rate 23 ml/min (>60); GFR (African American) 27 ML/MIN (>60); Globulin 3.2 g/dL (1.3-3.2); Glucose 88 mg/dl (74-100); Total Protein,Serum 7.8 g/dl (6.3-8.2)
[2024-05-18 01:39] LABS: INR 0.85 (0.9-1.1); Prothrombin Time 9.5 seconds (9.2-12.1)
[2024-05-18 01:44] LABS: D-Dimer 0.78 ug/mL (0.0-0.5)
[2024-05-18 01:47] LABS: NT Pro Brain Natriuretic Pep. 592 pg/mL (0-450)
[2024-05-18 01:51] LABS: Troponin I < 0.01 ng/ml (0.00-0.034)
--- NOTE | 2024-05-18 02:34 | ED_ITS ---
Discharge Plan Disposition Patient Disposition: Admitted Condition: Good Clinical Impressions Clinical Impression: Unstable angina Discharge ED Provider: Yeimi Jacob General Chief Complaint: Chest Pain Stated Complaint: Chest Pain Time Seen by Provider: 05/18/24 01:00 Mode of Arrival: EMS Source of Information: Patient Limitations: No Limitations Description of Symptoms (Recalled from ER Triage Doc. by RN): PT ARRIVED VIA EMS FROM HOME W/ CO L SIDED CHEST PAIN STARTING TODAY AROUND 2230 THIS EVENING. 324 ASA/1 NITRO GIVEN EN ROUTE, PAIN IMPROVED PER PT. History of Present Illness HPI narrative: 83-year-old female with history of GERD, dysphagia, hypertension, TED, CVA, CHF presents to the ER for concerns of chest pain. Patient called EMS for left- sided chest pain that started approximately 2.5 hours prior to arrival. Patient reports she was just sitting in her chair when the pain started. It was sharp under her left breast, nonradiating, no headache, dizziness, numbness, tingling, weakness, nausea, vomiting, or other associated symptoms. Patient reports the pain continued to be persistent so she called EMS. EMS arrived and reported hypertension but otherwise stable vitals. They administered 324 mg of aspirin and 1 spray of nitro in route. Patient and EMS reports that her pain improved after the administration of these medications and she is now pain-free. She states she has never had symptoms like this before, no previous OR. No recent illness. Related Data Home Medications ?Medication ?Instructions ?Recorded ?Confirmed atorvastatin 40 mg tablet 40 mg PO DAILY 10/02/23 05/12/24 bupropion HCl 150 mg 24 hr tablet, 150 mg PO DAILY 02/19/24 05/12/24 extended release escitalopram oxalate 10 mg tablet 10 mg PO DAILY 02/19/24 05/12/24 trazodone 50 mg tablet 25 mg PO DAILY 03/27/24 05/12/24 Previous Rx's ?Medication ?Instructions ?Recorded triamterene 37.5 0.5 tab PO DAILY PRN swelling #30 10/02/23 mg-hydrochlorothiazide 25 mg tablet tabs methocarbamol 500 mg tablet 1,000 mg (2 x 500 mg) PO Q8H PRN 12/17/23 back spasm #48 tabs clopidogrel 75 mg tablet (Plavix) 75 mg PO DAILY #30 tabs 12/18/23 propranolol 80 mg capsule,24 80 mg PO DAILY #30 caps 12/18/23 hr,extended release pantoprazole 40 mg tablet,delayed 40 mg PO DAILY #30 tabs 03/27/24 release Allergies Allergy/AdvReac Type Severity Reaction Status Date / Time No Known Allergies Allergy Verified 03/27/24 07:12 [facility] Disclaimer: The information contained in this section may have been updated after the patient was seen, as this information can be updated by other users. Medical History Frequent headaches Falls frequently Hallucinations Asthma Dyspnea on exertion TED (obstructive sleep apnea) Claudication Abnormal chest xray Abnormal result of cardiovascular function study Edema of both lower extremities Chest pain Major depressive disorder History of CVA (cerebrovascular accident) HLD (hyperlipidemia) HHD (hypertensive heart disease) CAD (coronary artery disease) A-fib Surgical History H/O heart artery stent Hx of cardiac cath History of hysterectomy Family History Other Family history of diabetes mellitus type II Social History Smoking Status: Never smoker second hand exposure: No alcohol intake: never substance use type: denies use current occupational status: retired Travel in the last 8 weeks: None household members: none housing: house lives independently: Yes marital status: education level: college current occupational exposures/hazards: No caffeine: No special lonnie needs: No agree to transfusion: No do you feel safe at home: Yes victim of physical abuse: No victim of emotional abuse: No victim of sexual abuse: No would you like helpful sources: No Have you lived/traveled outside US in past 30 days?: No Contact w/someone who lives/traveled outside US past 30 days?: No Exposure to someone with infectious disease in past 14 days?: No Do you have a fever (greater than 100.4 F or 38 C)?: No Have you tested positive for COVID-19: No Exposed to someone with COVID-19 in past 14 days?: No Do you have a sore throat?: No Do you have a cough?: No Do you have any weakness?: No Do you have any diarrhea?: No Are you experiencing any unusual bleeding?: No Do you have any muscle aches/pain?: No Do you have any abdominal pain?: No Are you experiencing loss of taste or smell?: No Other Medical History Have you received the Flu Vaccine for this season: Yes Have you received the Pneumonia Vaccine: Yes ROS Obtained: Yes Systems reviewed as appropriate & no additional complaints except as documented Per HPI Physical Exam General General appearance: alert and in no apparent distress Head Head exam: atraumatic and normocephalic Eye Eye exam: Present PERRL and EOMI ENT ENT exam: Present mucous membranes moist Neck Neck exam: Present normal inspection and full ROM Chest Chest inspection: Present symmetric chest wall rise; Absent tenderness Respiratory Respiratory exam: Present normal lung sounds bilaterally; Absent respiratory distress, wheezes or stridor Cardiovascular Cardiovascular exam: Present regular rate and normal rhythm Abdominal Exam Abdominal exam: Present soft; Absent distention, tenderness, guarding or rebound Extremities Exam Extremities exam: Present full ROM; Absent edema Neurological Exam Neurological exam: Present alert, oriented X3 and CN II-XII intact; Absent motor sensory deficit Psychiatric Psychiatric exam: Present normal affect and normal mood Skin Skin exam: Present warm and dry HEART Score HEART Score HEART Score assessment performed?: Yes History (anamnesis): Slightly suspicious ECG: Normal Age: >65 years Risk factors: Atherosclerosis history Troponin: </= normal limit HEART Score: 4 Critical Care Critical Care Time Critical Care Time: No Medical Decision Making Medical Records Medical records reviewed: Yes I reviewed the patient's medical records. MR Comment: patient's most recent cardiology note from February 2024 was reviewed. Patient was there for 1 month follow-up and was not having any symptoms at the time. Note does reveal patient has drug-eluting stent from 2022 and 2016. She had an echo in 2022 with an EF of 60 to 65% with mild diastolic dysfunction plan was for return to clinic in 6 months [place] Inquiry Pt receiving controlled substance: No Vital Signs Vital Signs: 05/18/24 00:56 05/18/24 02:42 05/18/24 02:42 Temperature 98.4 F Temperature Source Oral Pulse Rate 62 62 Respiratory Rate 18 18 Blood Pressure 144/58 H Blood Pressure [Right Arm] 169/71 H Blood Pressure Mean [Right Arm] 103 02 Sat by Pulse Oximetry 96 95 Oxygen Delivery Method Room Air Room Air Lab Data Labs: Lab Results 05/18/24 00:58: WBC 11.0 H, RBC 4.39, Hgb 13.3, Hct 40.9, MCV 93.2, MCH 30.3, MCHC 32.5, RDW 12.4, Plt Count 297, MPV 10.6 H, Neut % (Auto) 43.9, Lymph % (Auto) 37.8, [place] % (Auto) 10.8 H, Eos % (Auto) 6.4, Baso % (Auto) 0.8, Neut # (Auto) 4.8, Lymph # (Auto) 4.1, [place] # (Auto) 1.2 H, Eos # (Auto) 0.7 H, Baso # (Auto) 0.1, PT 9.5, INR 0.85 L, D-Dimer 0.78 H, Sodium 141, Potassium 4.5, Chloride 103, Carbon Dioxide 26, Anion Gap 16.5 H, BUN 38 H, Creatinine 2.10 H, Estimated Creat Clear 19, Estimated GFR 23 L, Est GFR ( Amer) 27 L, Glucose 88, Calcium 9.0, Total Bilirubin 0.6, AST 37 H, ALT 21, Alkaline Phosphatase 110, Troponin I < 0.01, NT-Pro-B Natriuret Pep 592 H, Total Protein 7.8, Albumin 4.6, Globulin 3.2, Albumin/Globulin Ratio 1.4 05/18/24 00:58 05/18/24 00:58 Response Orders (Tests/Meds): ED MEDICATIONS Generic Name Dose Route Start Last Admin Trade Name Freq PRN Reason Stop Dose Admin Morphine Sulfate 2 mg 05/18/24 02:19 Morphine 2mg/Ml Syringe IV 06/17/24 02:18 [id number] PRN Chest Pain uncontrolled by max tolerated NTG Nitroglycerin 0.4 mg 05/18/24 02:19 Nitroglycerin 0.4mg Sl Tablet SL 06/17/24 02:18 Q5M PRN Chest Pain Sodium Chloride 10 ml 05/18/24 02:18 Sodium Chloride 0.9% 10ml Flush Syringe IV 06/17/24 02:17 NEEDED PRN Maintain IV Site ORDERS Category Date Time Status XR chest 2V Stat Exams 05/18/24 01:22 Completed Complete Blood Count Auto Diff Stat Lab 05/18/24 00:58 Completed Comprehensive Metabolic Panel Stat Lab 05/18/24 00:58 Completed D-Dimer Stat Lab 05/18/24 00:58 Completed NT Pro Brain Natriuretic Pep. Stat Lab 05/18/24 00:58 Completed Prothrombin Time INR Stat Lab 05/18/24 00:58 Completed Troponin I Q3H Lab 05/18/24 04:30 Ordered Troponin I Q3H Lab 05/18/24 07:30 Ordered Troponin I Stat Lab 05/18/24 00:58 Completed MDM Narrative Medical Decision Narrative: In summary, this 83-year-old female with comorbidities described in the HPI presents to the emergency department today with left-sided chest pain improved since receiving aspirin and nitro from EMS. On initial evaluation patient is hemodynamically stable, afebrile, asymptomatic with reassuring exam, GCS 15, no neurodeficits, cardiopulmonary exam benign with no peripheral edema. Differential diagnosis includes but is not limited to ACS, PE, esophageal spasm, electrolyte abnormality, arrhythmia, muscle spasm, among others. Based on these concerns, I ordered serum labs, cardiac workup, D-dimer. ECG personally interpreted demonstrates sinus rhythm, rate 64, normal axis, normal [place] and QTc, no STEMI Patient did not require any treatment in the ER since she was asymptomatic and already received aspirin and nitro from EMS. Labs personally reviewed demonstrate Slight leukocytosis, no anemia, normal platelets, PT/INR nonactionable, D-dimer elevated at 0.78 but per years criteria PE is ruled out, CTA PE not indicated. Patient does have evidence of SAUNDRA with creatinine newly 2.1 up from 1.6. Troponin undetectably low less than 0.01, BNP elevated at 592 the patient does not demonstrate clinical or imaging findings of fluid overload. XR personally interpreted demonstrates no acute intrathoracic abnormality, see radiology read for final interpretation. On reassessment patient continues to be stable with no chest pain. Resting comfortably. Due to her multiple comorbidities and history of CAD with unprovoked chest pain, I believe she requires admission for continued cardiac workup and monitoring. Patient agreeable to this plan. I discussed this case with the hospitalist including patient's reassuring initial workup but concerning unstable angina with atherosclerosis history. Patient was accepted for admission. She was admitted in stable condition.
--- NOTE | 2024-05-18 03:28 | PC.NURSE ---
pt arrived from ed by wheelchair to floor at 0326.
[2024-05-18 04:57] LABS: Basophils # 0.1 K/mm3 (0-0.2); Basophils % 0.8 % (0.1-2.0); Eosinophils # 0.6 K/mm3 (0.0-0.4); Eosinophils % 5.9 % (0.1-12.0); Hemoglobin 12.1 g/dL (12.2-16.2); Lymphocytes # 3.6 K/mm3 (0.7-4.5); Lymphocytes % 37.7 % (10-50); Mean Corpuscular HGB Conc 32.7 g/dL (31.8-35.4); Mean Corpuscular Hemoglobin 30.9 pg (27.0-31.2); Mean Corpuscular Volume 94.4 fl (81-99); Mean Platelet Volume 10.2 fl (7.4-10.4); Monocytes # 0.9 K/mm3 (0.1-1.0); Monocytes % 9.2 % (1.7-9.3); Neutrophils # 4.4 K/mm3 (1.8-7.8); Neutrophils % 46.1 % (37.0-80.0); Platelet Count 244 K/mm3 (142-424); Red Blood Count 3.92 M/mm3 (4.20-5.40); Red Cell Distribution Width 12.4 % (11.5-17.5); White Blood Count 9.5 K/mm3 (4.8-10.8)
--- NOTE | 2024-05-18 05:05 | P.HP_ITS ---
History of Present Illness *Admission Date: 05/18/24 *Reason for visit:: Chest pain *History of present illness: An 83-year-old female with a history of GERD, dysphagia with Schatzki's ring status post dilation to 20 mm in March 2024, hypertension, obstructive sleep apnea noncompliant with CPAP, cerebrovascular accident, congestive heart failure, coronary artery disease with prior drug-eluting stents (2016, 2022), atrial fibrillation and hyperlipidemia presents to the emergency department for evaluation of chest pain. She reports that approximately 2.5 hours prior to arrival, while sitting in her chair at home, she experienced a sharp, left-sided chest pain located under her left breast. The pain was persistent and nonradiating, and she denies any associated symptoms such as headache, dizziness, numbness, tingling, weakness, nausea, vomiting, shortness of breath, or syncope. She states this is her first episode of chest pain, denies any previous myocardial infarction, and reports no other known cardiac history. However, her history of coronary artery disease with prior stenting is noted. The patient called EMS after the pain persisted. Upon EMS arrival, her blood pressure was noted to be elevated, but she was otherwise hemodynamically stable. EMS administered 324 mg of aspirin and one spray of nitroglycerin, which resulted in significant improvement in her symptoms. By the time of arrival at the emergency department, the patient was completely pain-free. On initial evaluation in the emergency department, she was hemodynamically stable, afebrile, and asymptomatic. An EKG showed sinus rhythm with a heart rate of 64 beats per minute, normal axis, and no ischemic changes. Laboratory studies revealed slight leukocytosis (WBC 11.0), elevated BNP (592 pg/mL), and evidence of acute kidney injury (creatinine 2.1, up from a prior baseline of 1.6, with an estimated GFR of 23). Troponin levels were undetectable (<0.01), and her D-dimer was mildly elevated at 0.78, but no clinical or imaging findings suggested pulmonary embolism. A chest X-ray revealed no acute intrathoracic abnormalities. The patient denies recent illnesses, significant physical activity, or other potential precipitating factors. Given her history of coronary artery disease, unprovoked chest pain, and concerning comorbidities, she was admitted for further cardiac monitoring and workup. The patient agreed with the plan for admission and evaluation. [facility] Disclaimer: The information contained in this section may have been updated after the patient was seen, as this information can be updated by other users. Medical History Frequent headaches Falls frequently Hallucinations Asthma Dyspnea on exertion TED (obstructive sleep apnea) Claudication Abnormal chest xray Abnormal result of cardiovascular function study Edema of both lower extremities Chest pain Major depressive disorder History of CVA (cerebrovascular accident) HLD (hyperlipidemia) HHD (hypertensive heart disease) CAD (coronary artery disease) A-fib Surgical History H/O heart artery stent Hx of cardiac cath History of hysterectomy Family History Other Family history of diabetes mellitus type II Social History Smoking Status: Never smoker second hand exposure: No alcohol intake: never substance use type: denies use current occupational status: retired Travel in the last 8 weeks: None household members: none housing: house lives independently: Yes marital status: education level: college current occupational exposures/hazards: No caffeine: No special lonnie needs: No agree to transfusion: No do you feel safe at home: Yes victim of physical abuse: No victim of emotional abuse: No victim of sexual abuse: No would you like helpful sources: No Have you lived/traveled outside US in past 30 days?: No Contact w/someone who lives/traveled outside US past 30 days?: No Exposure to someone with infectious disease in past 14 days?: No Do you have a fever (greater than 100.4 F or 38 C)?: No Have you tested positive for COVID-19: No Exposed to someone with COVID-19 in past 14 days?: No Do you have a sore throat?: No Do you have a cough?: No Do you have any weakness?: No Are you experiencing any nausea/vomitting?: No Do you have any diarrhea?: No Are you experiencing any unusual bleeding?: No Do you have any muscle aches/pain?: No Do you have any abdominal pain?: No Are you experiencing loss of taste or smell?: No Other Medical History Have you received the Flu Vaccine for this season: Yes Have you received the Pneumonia Vaccine: Yes Review of Systems Review of Systems Review of systems (narrative): 14 point review of systems negative outside HPI Meds Home Medications and Allergies Home Medications ?Medication ?Instructions ?Recorded ?Confirmed ?Type atorvastatin 40 mg tablet 40 mg PO DAILY 10/02/23 05/18/24 History clopidogrel 75 mg tablet (Plavix) 75 mg PO DAILY #30 tabs 12/18/23 05/18/24 Rx propranolol 80 mg capsule,24 80 mg PO DAILY #30 caps 12/18/23 05/18/24 Rx hr,extended release bupropion HCl 150 mg 24 hr tablet, 150 mg PO DAILY 02/19/24 05/18/24 History extended release pantoprazole 40 mg tablet,delayed 40 mg PO DAILY #30 tabs 03/27/24 05/18/24 Rx release trazodone 50 mg tablet 50 mg PO HS 03/27/24 05/18/24 History acetaminophen 325 mg tablet 650 mg (2 x 325 mg) PO Q4HP PRN 05/18/24 Rx Fever Or Mild Pain (1-3) #0 tabs mirtazapine 7.5 mg tablet 7.5 mg PO HS 05/18/24 05/18/24 History New Prescriptions to Start Prescriptions: Allergies Allergy/AdvReac Type Severity Reaction Status Date / Time No Known Allergies Allergy Verified 03/27/24 07:12 Exam Data for Last 24 hours Vital signs and Labs for Last 24 Hours: Temp Pulse Resp BP Pulse Ox O2 Del Method 97.6 F 60 18 134/69 97 Room Air 05/18/24 03:30 05/18/24 03:30 05/18/24 03:30 05/18/24 03:30 05/18/24 03:30 05/18/24 03:30 Laboratory Results - last 24 hr 05/18/24 00:58: WBC 11.0 H, RBC 4.39, Hgb 13.3, Hct 40.9, MCV 93.2, MCH 30.3, MCHC 32.5, RDW 12.4, Plt Count 297, MPV 10.6 H, Neut % (Auto) 43.9, Lymph % (Auto) 37.8, [place] % (Auto) 10.8 H, Eos % (Auto) 6.4, Baso % (Auto) 0.8, Neut # (Auto) 4.8, Lymph # (Auto) 4.1, [place] # (Auto) 1.2 H, Eos # (Auto) 0.7 H, Baso # (Auto) 0.1, PT 9.5, INR 0.85 L, D-Dimer 0.78 H, Sodium 141, Potassium 4.5, Chloride 103, Carbon Dioxide 26, Anion Gap 16.5 H, BUN 38 H, Creatinine 2.10 H, Estimated Creat Clear 19, Estimated GFR 23 L, Est GFR ( Amer) 27 L, Glucose 88, Calcium 9.0, Total Bilirubin 0.6, AST 37 H, ALT 21, Alkaline Phosphatase 110, Troponin I < 0.01, NT-Pro-B Natriuret Pep 592 H, Total Protein 7.8, Albumin 4.6, Globulin 3.2, Albumin/Globulin Ratio 1.4 05/18/24 04:51: WBC 9.5, RBC 3.92 L, Hgb 12.1 L, Hct 37.0, MCV 94.4, MCH 30.9, MCHC 32.7, RDW 12.4, Plt Count 244, MPV 10.2, Neut % (Auto) 46.1, Lymph % (Auto) 37.7, [place] % (Auto) 9.2, Eos % (Auto) 5.9, Baso % (Auto) 0.8, Neut # (Auto) 4.4, Lymph # (Auto) 3.6, [place] # (Auto) 0.9, Eos # (Auto) 0.6 H, Baso # (Auto) 0.1 I & O for Last 24 hours: Intake & Output 05/15/24 05/16/24 05/17/24 05/18/24 23:59 23:59 23:59 23:59 Weight 63.185 kg *Routine HEENT Exam Head: Present normocephalic Eye: Present EOMI and PERRL ENT: Present mucous membranes moist *Routine Neck Exam Neck: Present supple *Routine Respiratory Exam Respiratory: Present CTA bilaterally *Routine Cardiovascular Exam Cardiovascular: Present RRR *Routine Abdominal Exam Abdominal: Present soft and normoactive bowel sounds; Absent tenderness *Routine Rectal Exam Rectal:: deferred *Routine Genitalia Exam Genitalia:: deferred *Routine Extremities Exam Extremities: Absent cyanosis, clubbing or edema *Routine Skin Exam Skin: Present warm; Absent rash *Routine Neurological Exam Neurological: Present alert and oriented X3 Assessment and Plan *Assessment and plan (1) Schatzki's ring: Status: Acute Category: Medical Code(s): K22.2 - Esophageal obstruction (2) GERD (gastroesophageal reflux disease): Status: Acute Category: Medical Code(s): K21.9 - Gastro-esophageal reflux disease without esophagitis (3) Dysphagia: Status: Acute Category: Medical Code(s): R13.10 - Dysphagia, unspecified (4) High blood pressure: Status: Acute Category: Medical Code(s): I10 - Essential (primary) hypertension (5) TED (obstructive sleep apnea): Status: Acute Category: Medical Code(s): G47.33 - Obstructive sleep apnea (adult) (pediatric) (6) History of CVA (cerebrovascular accident): Status: Chronic Category: Medical Code(s): Z86.73 - Personal history of transient ischemic attack (TIA), and cerebral infarction without residual deficits (7) CAD (coronary artery disease): Status: Chronic Qualifiers: Associated angina: without angina Coronary Disease-Associated Ar vitaliy/Lesion type: [place] artery [place] vs. transplanted heart: [place] heart Qualified Code(s): I25.10 - Atherosclerotic heart disease of [place] coronary artery without angina pectoris Category: Medical Code(s): I25.10 - Atherosclerotic heart disease of [place] coronary artery without angina pectoris (8) A-fib: Status: Chronic Qualifiers: Atrial fibrillation type: paroxysmal Qualified Code(s): I48.0 - Paroxysmal atrial fibrillation Category: Medical Code(s): I48.91 - Unspecified atrial fibrillation (9) SAUNDRA (acute kidney injury): Status: Acute Category: Medical Code(s): N17.9 - Acute kidney failure, unspecified Plan Medical Decision Making: This 83-year-old female with a history of GERD, dysphagia with Schatzki's ring status post dilation in March 2024, hypertension, obstructive sleep apnea, cerebrovascular accident, congestive heart failure, hyperlipidemia, and coronary artery disease with prior drug-eluting stents (2016, 2022) presents with unprovoked, sharp, left-sided chest pain. The pain improved following EMS admin istration of aspirin and nitroglycerin, and the patient was pain-free on arrival. Initial evaluation revealed no acute EKG changes, undetectable troponin levels, and normal cardiopulmonary exam findings. However, the patient has elevated BNP (592 pg/mL) and evidence of acute kidney injury (creatinine 2.1, GFR 23, up from a baseline of 1.6). While D-dimer is mildly elevated, there is no clinical suspicion for pulmonary embolism. Her presentation is concerning for unstable angina given her significant cardiac history, including coronary artery disease with prior stenting. Admission is warranted for further cardiac monitoring, serial troponins, and additional evaluation. 1. Unstable Angina (ICD-10: I20.0): * Admit to telemetry for continuous cardiac monitoring to evaluate for arrhythmias or ischemic changes. * Serial troponin levels every 3 hours to monitor for myocardial injury. * Administer low-dose aspirin 81 mg daily as part of antiplatelet therapy. * Initiate atorvastatin 40 mg if not already administered to optimize lipid control. * Consult cardiology for evaluation and consideration of further diagnostic testing, including stress testing or coronary angiography, if clinically indicated. * Educate the patient on the importance of recognizing warning signs of acute coronary syndrome, including chest pain recurrence or shortness of breath, and report them immediately. 2. Acute Kidney Injury (ICD-10: N17.9): * Likely prerenal etiology secondary to dehydration or recent hemodynamic changes. * Patient has HCTZ and med rec, hold HCTZ * Maintain adequate hydration with cautious IV fluid administration, monitoring for fluid overload given her history of CHF. * Monitor daily renal function with repeat BMP to assess improvement. * Avoid nephrotoxic agents. 3. Congestive Heart Failure (ICD-10: I50.9): * BNP is elevated, but no clinical or imaging evidence of acute decompensation. * Monitor for signs of volume overload, including edema, JVD, or worsening dyspnea. * Adjust fluid management based on CHF status and renal function. * Ensure optimization of existing CHF medications, including HENRI inhibitors, beta-blockers, and diuretics, as tolerated. 4. Schatzki's Ring (ICD-10: K22.2): * Patient status post dilation in March 2024, no acute concerns related to this condition at present. * Encourage routine follow-up with gastroenterology for ongoing monitoring of GERD and dysphagia. 5. Hypertension (ICD-10: I10): * Blood pressure improved with nitroglycerin en route to the emergency department. * Continue antihypertensive medications during hospitalization. * Evaluate home regimen for appropriateness and adherence, particularly in the setting of CAD and CHF. 6. Dysphagia and GERD (ICD-10: K21.9): * Continue proton pump inhibitor therapy for GERD management. * Advise follow-up with gastroenterology for further evaluation if dysphagia worsens. 7. Coronary Artery Disease with Prior Stenting (ICD-10: I25.10): * Continue antiplatelet therapy (aspirin and clopidogrel) to prevent in-stent restenosis. * Optimize secondary prevention measures, including lipid control, blood pressure management, and lifestyle modifications. * Continue statin Additional Notes: * Social work consultation to assist with discharge planning and ensure continuity of care, including follow-up with cardiology * Provide education on medication adherence, lifestyle modifications, and the importance of routine follow-up care. * * Rounded on patient after nurse practitioner. Personally examined and interviewed patient. Agree with exam findings and care plan as documented. Pain reproducible on exam. Troponins normal during admission. Recommend follow-up as an outpatient. Suspect musculoskeletal in etiology.
--- NOTE | 2024-05-18 05:17 | PC.NURSE ---
Report given to Zoe Thrasher RN
[2024-05-18 05:30] LABS: Chloride 107 mmol/L (98-107); Potassium 4.3 mmoL/L (3.5-5.1); Sodium 141 mmol/L (136-145)
[2024-05-18 05:32] LABS: Blood Urea Nitrogen 36 mg/dl (7-17); Creatinine Clearance Estimated 22 mL/min (50-200); Estimated Glomerular Filt Rate 24 ml/min (>60); GFR (African American) 29 ML/MIN (>60)
[2024-05-18 05:33] LABS: Anion Gap 16.3 mEq/L (5-15); Calcium 8.6 mg/dl (8.4-10.2); Carbon Dioxide 22 mmol/L (22.0-30.0); Chol/HDL Ratio 3.1 (1-3.5); Cholesterol 124 mg/dl (140-200); Glucose 88 mg/dl (74-100); HDL Cholesterol 40 mg/dl (40-60); Magnesium 1.8 mg/dl (1.6-2.3); Triglycerides 74 mg/dl (30-150); VLDL Cholesterol 15 mg/dL (0-40)
[2024-05-18 05:46] LABS: Direct LDL Cholesterol 43.07 mg/dL (100-129)
[2024-05-18 05:49] LABS: Troponin I < 0.01 ng/ml (0.00-0.034)
[2024-05-18 06:06] LABS: Thyroid Stimulating Hormone 3.21 uIU/mL (0.465-4.68)
--- NOTE | 2024-05-18 06:45 | PC.NURSE ---
0515: assumed care of patient from Pratibha FISH. Pt. was admitted overnight for unstable Angina. Pt. was seen in the ED for chest pain.upon arrival to floor chest was almost gone. Pt. on room air.
--- NOTE | 2024-05-18 06:48 | PC.NURSE ---
Pt. was offered a GI cocktail but refused. she stated the chest pain was gone and did not need to drink the GI cocktail. Pt. resting in bed. VSS , personal items and call calderon in reach.
[2024-05-18 08:52] LABS: Troponin I < 0.01 ng/ml (0.00-0.034)
[2024-05-18] MEDS: PROPRANOLOL 20MG TAB 20 MG PO (08:52)
[2024-05-18] MEDS: CLOPIDOGREL 75MG TAB 75 MG PO (08:52)
--- NOTE | 2024-05-18 11:08 | EXP.DC.SUM ---
General Admission date:: 05/18/24 Discharge date: 05/18/24 HPI HPI HPI: An 83-year-old female with a history of GERD, dysphagia with Schatzki's ring status post dilation to 20 mm in March 2024, hypertension, obstructive sleep apnea noncompliant with CPAP, cerebrovascular accident, congestive heart failure, coronary artery disease with prior drug-eluting stents (2016, 2022), atrial fibrillation and hyperlipidemia presents to the emergency department for evaluation of chest pain. She reports that approximately 2.5 hours prior to arrival, while sitting in her chair at home, she experienced a sharp, left-sided chest pain located under her left breast. The pain was persistent and nonradiating, and she denies any associated symptoms such as headache, dizziness, numbness, tingling, weakness, nausea, vomiting, shortness of breath, or syncope. She states this is her first episode of chest pain, denies any previous myocardial infarction, and reports no other known cardiac history. However, her history of coronary artery disease with prior stenting is noted. The patient called EMS after the pain persisted. Upon EMS arrival, her blood pressure was noted to be elevated, but she was otherwise hemodynamically stable. EMS administered 324 mg of aspirin and one spray of nitroglycerin, which resulted in significant improvement in her symptoms. By the time of arrival at the emergency department, the patient was completely pain-free. On initial evaluation in the emergency department, she was hemodynamically stable, afebrile, and asymptomatic. An EKG showed sinus rhythm with a heart rate of 64 beats per minute, normal axis, and no ischemic changes. Laboratory studies revealed slight leukocytosis (WBC 11.0), elevated BNP (592 pg/mL), and evidence of acute kidney injury (creatinine 2.1, up from a prior baseline of 1.6, with an estimated GFR of 23). Troponin levels were undetectable (<0.01), and her D-dimer was mildly elevated at 0.78, but no clinical or imaging findings suggested pulmonary embolism. A chest X-ray revealed no acute intrathoracic abnormalities. The patient denies recent illnesses, significant physical activity, or other potential precipitating factors. Given her history of coronary artery disease, unprovoked chest pain, and concerning comorbidities, she was admitted for further cardiac monitoring and workup. The patient agreed with the plan for admission and evaluation. Hospital Course Hospital Course Hospital Course: This 83-year-old female with a history of GERD, dysphagia with Schatzki's ring status post dilation in March 2024, hypertension, obstructive sleep apnea, cerebrovascular accident, congestive heart failure, hyperlipidemia, and coronary artery disease with prior drug-eluting stents (2016, 2022) presents with unprovoked, sharp, left-sided chest pain. The pain improved following EMS administration of aspirin and nitroglycerin, and the patient was pain-free on arrival. Initial evaluation revealed no acute EKG changes, undetectable troponin levels, and normal cardiopulmonary exam findings. However, the patient has elevated BNP (592 pg/mL) and evidence of acute kidney injury versus CKD. (creatinine 2.1, GFR 23). While D-dimer is mildly elevated, there is no clinical suspicion for pulmonary embolism. Her presentation is concerning for unstable angina given her significant cardiac history, including coronary artery disease with prior stenting. However, pain reproducible on exam. Negative cardiac workup during admission. Has follow-up with her facility worker later this week. Stable to discharge home with close monitoring as an outpatient. Problems addressed as follows: Chest pain CAD with prior stenting -Admitted overnight. Monitored on telemetry. No acute events. Serial troponins less than 0.01. No changes on telemetry, or EKG. Blood pressure well-controlled. Recommend resuming home regimen including Lipitor 40 mg daily, Plavix 75 mg ems daily, pantoprazole 80 mg extended release daily. Further management by cardiology whom she sees later this week. While BNP is slightly elevated, echo from February 2023 showed normal EF 55% and normal RV function. She has no oxygen requirement. No peripheral edema. Does not appear to be in significant exacerbation of CHF. -Chest pain most likely musculoskeletal given presence of pain that is reproducible on exam. Recommend Tylenol or ibuprofen as needed for pain. SAUNDRA versus CKD. BUN 36, creatinine 2.0. Making good urine during admission. Would benefit from repeat labs in a week to monitor for improvement Prolonged grief: Patient continues to be quite sad and depressed from the loss of her a year ago. Continue Wellbutrin 150 mg daily, mirtazapine 7.5 mg nightly and trazodone 50 mg nightly to help with sleep. Patient encouraged to discuss her emotional state with her PCP. Did not want me to inform her daughter of her feelings. She says her daughter minimizes her feelings which makes her feel even worse. She has had a lot of change with loss of her home and having to move in with family. History of Schatzki's ring GERD - Post dilation in March. Continue pantoprazole 40 mg daily for GERD. Could be an additional etiology for her chest/epigastric discomfort. Follow-up with GI per regular regimen Stable to discharge home with further management as an outpatient. Exam Data for Last 24 hours Vital signs and Labs for Last 24 Hours: Temp Pulse Resp BP Pulse Ox O2 Del Method 97.8 F 62 16 124/57 L 97 Room Air 05/18/24 08:00 05/18/24 08:00 05/18/24 08:00 05/18/24 08:00 05/18/24 08:00 05/18/24 09:00 Laboratory Results - last 24 hr 05/18/24 00:58: WBC 11.0 H, RBC 4.39, Hgb 13.3, Hct 40.9, MCV 93.2, MCH 30.3, MCHC 32.5, RDW 12.4, Plt Count 297, MPV 10.6 H, Neut % (Auto) 43.9, Lymph % (Auto) 37.8, [place] % (Auto) 10.8 H, Eos % (Auto) 6.4, Baso % (Auto) 0.8, Neut # (Auto) 4.8, Lymph # (Auto) 4.1, [place] # (Auto) 1.2 H, Eos # (Auto) 0.7 H, Baso # (Auto) 0.1, PT 9.5, INR 0.85 L, D-Dimer 0.78 H, Sodium 141, Potassium 4.5, Chloride 103, Carbon Dioxide 26, Anion Gap 16.5 H, BUN 38 H, Creatinine 2.10 H, Estimated Creat Clear 19, Estimated GFR 23 L, Est GFR ( Amer) 27 L, Glucose 88, Calcium 9.0, Total Bilirubin 0.6, AST 37 H, ALT 21, Alkaline Phosphatase 110, Troponin I < 0.01, NT-Pro-B Natriuret Pep 592 H, Total Protein 7.8, Albumin 4.6, Globulin 3.2, Albumin/Globulin Ratio 1.4 05/18/24 04:15: Free T4 1.50 05/18/24 04:51: WBC 9.5, RBC 3.92 L, Hgb 12.1 L, Hct 37.0, MCV 94.4, MCH 30.9, MCHC 32.7, RDW 12.4, Plt Count 244, MPV 10.2, Neut % (Auto) 46.1, Lymph % (Auto) 37.7, [place] % (Auto) 9.2, Eos % (Auto) 5.9, Baso % (Auto) 0.8, Neut # (Auto) 4.4, Lymph # (Auto) 3.6, [place] # (Auto) 0.9, Eos # (Auto) 0.6 H, Baso # (Auto) 0.1, Sodium 141, Potassium 4.3, Chloride 107, Carbon Dioxide 22, Anion Gap 16.3 H, BUN 36 H, Creatinine 2.00 H, Estimated Creat Clear 22, Estimated GFR 24 L, Est GFR ( Amer) 29 L, Glucose 88, Calcium 8.6, Magnesium 1.8, Troponin I < 0.01, Triglycerides 74, Cholesterol 124 L, LDL Cholesterol Direct 43.07 L, VLDL Cholesterol 15, HDL Cholesterol 40, Cholesterol/HDL Ratio 3.1, TSH 3.21 05/18/24 07:29: Troponin I < 0.01 I & O for Last 24 hours: Intake & Output 05/15/24 05/16/24 05/17/24 05/18/24 23:59 23:59 23:59 23:59 Intake Total 120 / 120 Output Total 0 / 0 Balance 120 / 120 Weight 63.185 kg Constitutional Constitutional: no acute distress, average body habitus, chronically ill appearing and cooperative *Routine HEENT Exam Head: Present normocephalic Eye: Present EOMI and PERRL ENT: Present mucous membranes moist *Routine Neck Exam Neck: Present supple; Absent lymphadenopathy Routine Chest/Breast/Axilla Exam Chest wall: Present tenderness (Left lower chest below left breast. This is her pain that she complains of) *Routine Respiratory Exam Respiratory: Present CTA bilaterally; Absent rhonchi, wheezes or crackles *Routine Cardiovascular Exam Cardiovascular: Present RRR *Routine Abdominal Exam Abdominal: Present soft and normoactive bowel sounds; Absent tenderness *Routine Rectal Exam Patient deferred: visual exam *Routine Exam Patient deferred: external exam *Routine Extremities Exam Extremities: Absent cyanosis, clubbing or edema *Routine Skin Exam Skin: Present intact and warm; Absent rash *Routine Neurological Exam Neurological: Present alert, oriented X3 and moving all extremities; Absent altered mental status Comments: Patient is somewhat forgetful but does know who she is, where she is, and why she is here. Routine Psychiatric Exam Psychiatric: Present depressed Comments: 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 Results Data Completed and Pending Labs on day of discharge: Labs from last 24 hours 05/18/24 05/18/24 05/18/24 07:29 04:51 04:15 WBC 9.5 RBC 3.92 L Hgb 12.1 L Hct 37.0 MCV 94.4 MCH 30.9 MCHC 32.7 RDW 12.4 Plt Count 244 MPV 10.2 Neut % (Auto) 46.1 Lymph % (Auto) 37.7 [place] % (Auto) 9.2 Eos % (Auto) 5.9 Baso % (Auto) 0.8 Neut # (Auto) 4.4 Lymph # (Auto) 3.6 [place] # (Auto) 0.9 Eos # (Auto) 0.6 H Baso # (Auto) 0.1 PT INR D-Dimer Sodium 141 Potassium 4.3 Chloride 107 Carbon Dioxide 22 Anion Gap 16.3 H BUN 36 H Creatinine 2.00 H Estimated Creat Clear 22 Estimated GFR 24 L Est GFR ( Amer) 29 L Glucose 88 Calcium 8.6 Magnesium 1.8 Total Bilirubin AST ALT Alkaline Phosphatase Troponin I < 0.01 < 0.01 NT-Pro-B Natriuret Pep Total Protein Albumin Globulin Albumin/Globulin Ratio Triglycerides 74 Cholesterol 124 L LDL Cholesterol Direct 43.07 L VLDL Cholesterol 15 HDL Cholesterol 40 Cholesterol/HDL Ratio 3.1 TSH 3.21 Free T4 1.50 05/18/24 00:58 WBC 11.0 H RBC 4.39 Hgb 13.3 Hct 40.9 MCV 93.2 MCH 30.3 MCHC 32.5 RDW 12.4 Plt Count 297 MPV 10.6 H Neut % (Auto) 43.9 Lymph % (Auto) 37.8 [place] % (Auto) 10.8 H Eos % (Auto) 6.4 Baso % (Auto) 0.8 Neut # (Auto) 4.8 Lymph # (Auto) 4.1 [place] # (Auto) 1.2 H Eos # (Auto) 0.7 H Baso # (Auto) 0.1 PT 9.5 INR 0.85 L D-Dimer 0.78 H Sodium 141 Potassium 4.5 Chloride 103 Carbon Dioxide 26 Anion Gap 16.5 H BUN 38 H Creatinine 2.10 H Estimated Creat Clear 19 Estimated GFR 23 L Est GFR ( Amer) 27 L Glucose 88 Calcium 9.0 Magnesium Total Bilirubin 0.6 AST 37 H ALT 21 Alkaline Phosphatase 110 Troponin I < 0.01 NT-Pro-B Natriuret Pep 592 H Total Protein 7.8 Albumin 4.6 Globulin 3.2 Albumin/Globulin Ratio 1.4 Triglycerides Cholesterol LDL Cholesterol Direct VLDL Cholesterol HDL Cholesterol Cholesterol/HDL Ratio TSH Free T4 DS: Diagnosis Discharge Diagnosis (1) Schatzki's ring: Status: Acute Code(s): K22.2 - Esophageal obstruction (2) GERD (gastroesophageal reflux disease): Status: Acute Code(s): K21.9 - Gastro-esophageal reflux disease without esophagitis (3) Dysphagia: Status: Acute Code(s): R13.10 - Dysphagia, unspecified (4) High blood pressure: Status: Acute Code(s): I10 - Essential (primary) hypertension (5) TED (obstructive sleep apnea): Status: Acute Code(s): G47.33 - Obstructive sleep apnea (adult) (pediatric) (6) History of CVA (cerebrovascular accident): Status: Chronic Code(s): Z86.73 - Personal history of transient ischemic attack (TIA), and cerebral infarction without residual deficits (7) CAD (coronary artery disease): Status: Chronic Code(s): I25.10 - Atherosclerotic heart disease of [place] coronary artery without angina pectoris Qualifiers: Associated angina: without angina Coronary Disease-Associated Artery/Lesion type: [place] artery [place] vs. transplanted heart: [place] heart Qualified Code(s): I25.10 - Atherosclerotic heart disease of [place] coronary artery without angina pectoris (8) A-fib: Status: Chronic Code(s): I48.91 - Unspecified atrial fibrillation Qualifiers: Atrial fibrillation type: paroxysmal Qualified Code(s): I48.0 - Paroxysmal atrial fibrillation (9) SAUNDRA (acute kidney injury): Status: Acute Code(s): N17.9 - Acute kidney failure, unspecified Meds Home Medications and Allergies Home Medications ?Medication ?Instructions ?Recorded ?Confirmed ?Type atorvastatin 40 mg tablet 40 mg PO DAILY 10/02/23 05/18/24 History clopidogrel 75 mg tablet (Plavix) 75 mg PO DAILY #30 tabs 12/18/23 05/18/24 Rx propranolol 80 mg capsule,24 80 mg PO DAILY #30 caps 12/18/23 05/18/24 Rx hr,extended release bupropion HCl 150 mg 24 hr tablet, 150 mg PO DAILY 02/19/24 05/18/24 History extended release pantoprazole 40 mg tablet,delayed 40 mg PO DAILY #30 tabs 03/27/24 05/18/24 Rx release trazodone 50 mg tablet 50 mg PO HS 03/27/24 05/18/24 History acetaminophen 325 mg tablet 650 mg (2 x 325 mg) PO Q4HP PRN 05/18/24 Rx Fever Or Mild Pain (1-3) #0 tabs mirtazapine 7.5 mg tablet 7.5 mg PO HS 05/18/24 05/18/24 History New Prescriptions to Start Prescriptions: Allergies Allergy/AdvReac Type Severity Reaction Status Date / Time No Known Allergies Allergy Verified 03/27/24 07:12 Discharge Plan Disposition Patient Disposition: Home, Self-Care Condition: Fair Follow up Plan Follow up with: Alfredo Obrien PA [Physician Block Engraver] - 1 week Lee Delgado MD [Primary Care Provider] - Enter time for follow up Prescriptions/Medication Reconciliation: New acetaminophen 325 mg Tablet 650 mg PO Q4HP PRN (Reason: Fever Or Mild Pain (1-3)) Qty: 0 0RF Continued atorvastatin 40 mg tablet 40 mg PO DAILY bupropion HCl 150 mg tablet extended release 24 hr 150 mg PO DAILY Patient Comments: TAKE 1 TABLET BY MOUTH EVERY 24 HOURS FOR 30 DAYS propranolol 80 mg capsule,extended release 24 hr 80 mg PO DAILY Qty: 30 2RF clopidogrel [Plavix] 75 mg tablet 75 mg PO DAILY Qty: 30 11RF mirtazapine 7.5 mg tablet 7.5 mg PO HS Patient Comments: TAKE 1 TABLET BY MOUTH EVERY DAY AT BEDTIME trazodone 50 mg tablet 50 mg PO HS Rx Instructions: TAKE 1/2 (ONE-HALF) TABLET BY MOUTH AT BEDTIME NIGHTLY pantoprazole 40 mg tablet,delayed release (DR/EC) 40 mg PO DAILY Qty: 30 2RF Rx Instructions: Please take 1 p.o. daily Problem Reconciliation Problems Reviewed?: Yes Patient Discharge Instructions ACTIVITY: Continue current activity DIET: continue same diet Patient Instructions: DI for Chronic Pain -- Adult Print Language: Hebrew Providers Primary Care Provider: Lee Delgado Admit Provider: Bo Gutierrez Attending Provider: Bo Gutierrez
--- NOTE | 2024-05-19 10:47 | SW/DCPLANNER ---
Spoke with patient on the phone. Patient stated that she is very sleepy. Patient stated that she is waiting for Dr Mclaughlin's office to call and schedule an appointment with her. 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 Patient stated that she has no concerns or questions at this time. Darrian Wilder
== END 2024-05-18 12:58 | disposition home or self-care (01) ==
LOC: ER 02:01 → 2ND 02:04
PROVIDERS: Nurse Practitioner Family; Admitting Provider Internal Medicine Adolescent Medicine; Emergency Provider Emergency Medicine; PCP Internal Medicine Adolescent Medicine; Visit Provider Internal Medicine Adolescent Medicine
DX: I25.110 Atherosclerotic heart disease of native coronary artery with unstable angina pectoris (principal); I11.0 Hypertensive heart disease with heart failure; K22.2 Esophageal obstruction; K21.9 Gastro-esophageal reflux disease without esophagitis; R13.10 Dysphagia, unspecified; G47.33 Obstructive sleep apnea (adult) (pediatric); F43.81 Prolonged grief disorder; F33.9 Major depressive disorder, recurrent, unspecified; I48.0 Paroxysmal atrial fibrillation; N17.9 Acute kidney failure, unspecified; I50.9 Heart failure, unspecified; E78.5 Hyperlipidemia, unspecified; Z79.01 Long term (current) use of anticoagulants; Z86.73 Personal history of transient ischemic attack (TIA), and cerebral infarction without residual deficits; Z79.899 Other long term (current) drug therapy; Z79.02 Long term (current) use of antithrombotics/antiplatelets; Z95.828 Presence of other vascular implants and grafts; Z91.81 History of falling
CPT/HCPCS: 36415; 71046; 80048; 80053; 80061; 83735; 83880; 84439; 84443; 84484; 85025; 85378; 85610; 93005; 99285; G0378

== ENCOUNTER 2024-05-27 08:20 | Day surgery (SDC) | payer MEDICARE, OTHER, SELFPAY ==
[2024-05-27 08:49] VITALS: BP 171/49; PULSE 65; RESP 16; TEMP 36.8; O2SAT 98; BMI 21.6
[2024-05-27 09:41] VITALS: BP 156/76; PULSE 58; RESP 16; O2SAT 99
--- NOTE | 2024-05-27 09:41 | P.PCN_ITS ---
Procedure Date: 05/27/24 Time: 09:00 Anesthesiologist:: Fortino Polanco CRNA Complications:: None Pre-procedure Diagnosis:: Bilateral sacroiliitis Post-procedure Diagnosis:: Same Indications for Procedure:: Patient is a very pleasant 83-year-old female who comes our clinic today for bilateral sacroiliac joint injections cortisone and local anesthetic. Patient describes low lumbar back pain off the midline bilaterally. Difficulty transitioning from sitting to standing. Bilateral posterior hip pain. She rates her pain 8/10. Procedure Details:: Procedure: Bilateral sacroiliac joint injections under fluoroscopy Informed consent was obtained and the risks and benefits of the procedure were explained to the patient.~ The patient was taken to the procedure room and noninvasive monitors were placed including a noninvasive blood pressure cuff and pulse oximeter.~ The patient was placed prone on the procedure table. Both hips were cleansed using Betadine as a cleansing solution. C-arm fluoroscopy was used to view the right sacroiliac joint.~ The skin and subcutaneous tissues were anesthetized using lidocaine 1.5% and a 25-gauge needle.~ After this, a 22-gauge spinal needle was inserted under fluoroscopic guidance into the inferior aspect of the right sacroiliac joint.~ Omnipaque dye was injected and good spread was seen throughout the joint.~ After this, approximately 5 mL of bupivacaine, 0.25% and Depo-Medrol, 40 mg was incrementally injected into the right sacroiliac joint. We then moved to the left sacroiliac joint.~ The skin and subcutaneous tissues were anesthetized using lidocaine 1.5% and a 25-gauge needle.~ After this, a 22- gauge spinal needle was inserted under fluoroscopic guidance into the inferior aspect of the left sacroiliac joint.~ Omnipaque dye was injected and good spread was seen throughout the joint. After this, approximately 5 mL of bupivacaine, 0.25% and Depo-Medrol, 40 mg was incrementally injected into the left sacroiliac joint.~ The patient tolerated the procedure well with no complications. The patient was observed in the Pain Clinic and then was discharged home neurologically intact. Plan and Disposition:: Patient was discharged without incident.
[2024-05-27] MEDS: methylPREDNISolone ACETATE 80MG/ML VIAL 80 MG (09:44)
[2024-05-27] MEDS: LIDOCAINE 1% 5ML PF VIAL 5 ML (09:45)
[2024-05-27] MEDS: BUPIVACAINE 0.25% 10ML INJ 25 MG IJ (09:45)
== END 2024-05-27 09:41 | disposition home or self-care (01) ==
PROVIDERS: PCP Internal Medicine Adolescent Medicine; Visit Provider Nurse Anesthetist, Certified Registered
DX: M46.1 Sacroiliitis, not elsewhere classified (principal)
CPT/HCPCS: 27096; G0260; J1010

== ENCOUNTER 2024-06-12 06:46 | Outpatient (CLI) | payer MEDICARE, OTHER, SELFPAY ==
--- NOTE | 2024-06-12 | CA_ITS ---
APPROVED REPORT Exam: Pharmacologic Technologist: Judit Morataya Ht: 5 ft 5 in Wt: 136 lbs BSA: 1.68 m2 Stress Test Details Test: Lexiscan HR Resting HR: 57 bpm Max Heart Rate (APMHR): 138 bpm Max HR Achieved: 91 bpm Target HR (85% APMHR): 117 bpm % of APMHR: 66 Recovery HR: 82 bpm BP Resting BP: 191.0/60.0 mmHg Max BP: 191.0/60.0 mmHg Recovery BP: 139.0/78.0 mmHg ECG Resting ECG: SR. No isch/ectopy Stress ECG Conclusion Symptoms: mild SOA. Arrhythmias/Ectopy: None. ST-T Changes: Lexiscan. Electronically signed by : Brandy Oliva MD 06/12/2024 12:52:20
--- NOTE | 2024-06-12 06:53 | NM_ITS ---
APPROVED REPORT Exam: Nuclear Stress Test Indication: soa..fatigue Patient Location: Outpatient Stress Tech: Judit Mendosa [place] Tech:Pratibha SolanoLISS RT(R)(N) Ht: 5 ft 5 in Wt: 129 lbs Bra Size: 34b HR: 67 bpm BP: 191/60 mmHg BSA: 1.64 m2 TID: 1.00 BMI: 21.4 History: soa..fatigue Procedure: Patient received 0.4 mg of intravenous Lexiscan, resting heart rate 67 bpm, resting blood pressure 191/60 mmHg, with Lexiscan maximum heart rate achieved was 91 bpm which is 85 % of the maximum predicted heart rate and blood pressure was 162/66 mmHg. With Lexiscan, patient denied any complaint of chest pain. Cardiac Stress and Resting SPECT Images: Cardiac Stress and Resting SPECT images were obtained using technetium 99m Myoview 31.3 mCi stress and 10.49 mCi at rest. Resting and stress imaging in supine and prone positions demonstrate no evidence of fixed or reversible perfusion defects. Gated imaging demonstrates normal global and regional LV systolic function. LVEF is calculated at 65%. Conclusion: No evidence of fixed or reversible perfusion defects. Gated imaging demonstrates normal global and regional LV systolic function. LVEF is calculated at 65%. Electronically signed by : Brandy Oliva MD 06/12/2024 12:50:01
[2024-06-12] MEDS: REGADENOSON 0.4MG/5ML SYRINGE 0.4 MG IV (08:58)
[2024-06-12] MEDS: ISOTOPE MYOVIEW (PER STUDY) 1 DOSE IV (09:11)
[2024-06-12] MEDS: SODIUM CHLORIDE 0.9% 10ML SYR (RAD ONLY) 10 ML IV ×2 (09:11)
== END 2024-06-12 23:59 | disposition home or self-care (01) ==
LOC: RAD 06:49
PROVIDERS: PCP Internal Medicine Adolescent Medicine; Visit Provider Physician Assistant
DX: R06.09 Other forms of dyspnea (principal)
CPT/HCPCS: 78452; 93017; 93018; 93306; A9502; J2785

== ENCOUNTER 2024-07-10 15:03 | Outpatient (POV) | payer MEDICARE, OTHER, SELFPAY ==
[2024-07-10 15:26] VITALS: BP 139/76; PULSE 63; RESP 14; O2SAT 96; BMI 22.4
--- NOTE | 2024-07-10 15:46 | A.OFFVIS_ITS ---
[facility] Disclaimer: The information contained in this section may have been updated after the patient was seen, as this information can be updated by other users. Medical History History of CVA (cerebrovascular accident) TIA (transient ischemic attack) Frequent headaches Falls frequently Hallucinations Asthma Dyspnea on exertion TED (obstructive sleep apnea) Claudication Abnormal chest xray Abnormal result of cardiovascular function study Edema of both lower extremities Chest pain Major depressive disorder History of CVA (cerebrovascular accident) HLD (hyperlipidemia) HHD (hypertensive heart disease) CAD (coronary artery disease) A-fib Surgical History H/O heart artery stent Hx of cardiac cath History of hysterectomy Family History Other Family history of diabetes mellitus type II Social History Smoking Status: Never smoker second hand exposure: No alcohol intake: never substance use type: denies use current occupational status: other Travel in the last 8 weeks: None household members: none housing: house lives independently: Yes marital status: education level: college current occupational exposures/hazards: No caffeine: No special lonnie needs: No agree to transfusion: No do you feel safe at home: Yes victim of physical abuse: No victim of emotional abuse: No victim of sexual abuse: No would you like helpful sources: No PM Subjective & Objective Subjective Subjective:: Patient is a pleasant 83-year-old female who presents today for follow-up of bilateral SI injections on 05/27/2024. Today she rates her pain a 5 out of 10. She denies any new injury or fall. Patient does state that she got approximately 85% improvement following this injection and that it was working really well. She states that it has seemed to already worn off however. Patient does state that she has tried multiple injections in the past and they do provide very good relief however it frequently is temporary. Patient does state that about a month ago she did have an episode where she fell out of bed. She states that it was more related to her Was crowding her and she was trying to get to the other side of the bed and fell. Patient states she did land on her left shoulder and her head. Patient states that she is still having some shoulder pain and that she did trial roll-on cream however was very tender with this. Patient does have a longstanding history of fibromyalgia. Her Mekhi has been reviewed and is appropriate. Review of Systems: General: No recent weight changes, no fever, no sleep disturbances Respiratory: No cough, no shortness of air, no recurring pulmonary infections Cardiovascular/peripheral vascular: No chest pain, no palpitations, no edema, no shortness of breath Gastrointestinal: No new onset incontinence, normal bowel movements reported Genitourinary: No new onset incontinence Musculoskeletal: Back pain, left shoulder pain, neck pain Psychiatric: [Normal mood/affect] Neurological: [Denies weakness in extremities], [denies balance issues] Pain at rest (0-10 scale): 5 Objective Objective:: Physical Exam: General: Alert and oriented x3, no acute distress, pleasant and cooperative Lungs: Respirations even and unlabored, symmetrical chest expansion Eyes: PERRL Musculoskeletal: Flexion and extension of left shoulder somewhat guarded secondary to pain, [antalgic gait noted] Neurological: Speech clear, no gross sensory deficit Has patient had previous pain injection?: Yes Percent improvement in pain since last injection: 85% Conservative treatment options previously tried: Home exercise plan Length of treatment: Longer than 12 weeks Meds Home Medications and Allergies Home Medications ?Medication ?Instructions ?Recorded ?Confirmed ?Type atorvastatin 40 mg tablet 40 mg PO DAILY 10/02/23 07/10/24 History clopidogrel 75 mg tablet (Plavix) 75 mg PO DAILY #30 tabs 12/18/23 07/10/24 Rx pantoprazole 40 mg tablet,delayed 40 mg PO DAILY #30 tabs 03/27/24 07/10/24 Rx release propranolol 80 mg capsule,24 80 mg PO DAILY #90 caps 05/19/24 07/10/24 Rx hr,extended release diphenhydramine 25 1 tab PO HS PRN Sleep 05/28/24 07/10/24 History mg-acetaminophen 500 mg tablet (Tylenol PM Extra Strength) trazodone 50 mg tablet 25 mg PO HS 06/23/24 07/10/24 History pregabalin 25 mg capsule 25 mg PO HS #14 caps 07/10/24 Rx New Prescriptions to Start Prescriptions: pregabalin Diane Meyer Allergies Allergy/AdvReac Type Severity Reaction Status Date / Time mirtazapine (From Remeron) AdvReac Mild hallucinati Verified 06/23/24 13:06 ons Assessment and Plan *Assessment and plan (1) Left shoulder pain: Status: Acute Category: Medical Code(s): M25.512 - Pain in left shoulder (2) Bilateral sacroiliitis: Status: Acute Category: Medical Code(s): M46.1 - Sacroiliitis, not elsewhere classified Plan I did discuss with the patient due to her chronic pain and history of fibromyalgia that it may be beneficial for us to try pregabalin. Risk and benefits were discussed with her and she would like to proceed forward with this. I will send and low-dose 25 mg at bedtime and provide a 2-week supply of this medication. Patient will return to clinic in 2 weeks. I did discuss with the patient to try the compounded cream on her left shoulder, neck and other a reas of pain. Patient was also counseled that we can always do an x-ray of her shoulder if the pain consistently worsens and she does have concerns that there may be something more going on. It did appear more muscular in nature during today's visit. We will follow-up regarding this at her next visit. Patient has been instructed to contact the clinic with any concerns before the next appointment. Dr. Merchant has reviewed this note and agrees with this plan of care. This note was dictated using voice recognition software and make contain errors or omissions. All injections are used with Lidocaine, Bupivacaine and Depo Medrol. Occasionally urine drug screen is needed to verify patient's compliance with our office pain contract. This is ordered based off specific treatments related to chronic pain with the potential to abuse certain medications.
== END 2024-07-10 23:59 | disposition home or self-care (01) ==
PROVIDERS: PCP Internal Medicine Adolescent Medicine; Visit Provider Nurse Practitioner Family
DX: M25.512 Pain in left shoulder (principal); M46.1 Sacroiliitis, not elsewhere classified
CPT/HCPCS: 99212; G0463

== ENCOUNTER 2024-07-21 10:00 | Outpatient (RCR) | payer MEDICARE, OTHER, SELFPAY ==
--- NOTE | 2024-07-07 14:11 | HMH.PTOPEV ---
PT Outpatient Evaluation Rehab PT Outpatient Evaluation Start: 07/07/24 08:52 Freq: Status: Active Protocol: Document 07/07/24 08:53 IVETH (Rec: 07/07/24 10:00 IVETH [id number]) E-signed By León Chan, PT Outpatient Therapy Subjective History Subjective History Pt is an 83 yof who is referred to [facility] outpatient with LBP and general weakness. She reports I just don't feel like I used to. She reports that her back pain has gone on for as long as she can remember. She reports that she does not use an AD. She reports one fall approximately a month ago when getting out of bed. Reports that she recently sold her house and moved in with her daughter who takes care of the majority of the cooking/cleaning in the house. Occupation: Retired PMH: History of CVA ( cerebrovascular accident) TIA (transient ischemic attack ) Frequent headaches Falls frequently Hallucinations Asthma Dyspnea on exertion TED (obstructive sleep apnea) Claudication Abnormal chest xray Abnormal result of cardiovascular function study Edema of both lower extremities Chest pain Major depressive disorder History of CVA ( cerebrovascular accident) HLD (hyperlipidemia) HHD (hypertensive heart disease) CAD (coronary artery disease) A-fib New diagnosis of cancer in past 12 No months? Chief Complaint Pain,Weakness Symptom Type Ache Symptoms Relieved By Nothing Symptoms Aggravated By Sitting,Standing,Bending/ Stooping Prior Functional Limitations None Current Functional Limitations Lifting,Housework,Sleeping, Standing,Sitting,Squatting, Walking,Stairs,Balance Symptom Description Constant and Continuous Level of pain today (0-10) 8 Pain scale - at its best (0-10) 8 Pain scale - at its worst (0-10) 8 Lumbopelvic Eval Posture Thoracic Spine Posture Standing Position Neutral Lumbar Spine Posture Standing Position Neutral Assistive device Assistive Devices None / NA Gait Observation General Gait Pattern Observation Shuffling Step Palapation tenderness bilateral lumbar spinal tenderness Yes: 3/4 TTP to L4-S1 Accessory Movement L4 bilateral L5 bilateral S1 bilateral Range of Motion Lumbar Spine Active Flexion Range of 25% Motion (degrees) Lumbar Spine Active Extension Range of 25% Motion (degrees) Left Lumbar Spine Lateral Flexion Active 25% Range of Motion (degrees) Right Lumbar Spine Lateral Flexion 25% Active Range of Motion (degrees) Lumbar Spine ROM Limitations Pain Manual Muscle Test Bilateral Knee Extension Strength Grade 3+ Fair+ Knee Flexion Strength Grade 3+ Fair+ Hip Flexion Strength Grade 3 Fair Hip Abduction Strength Grade 3 Fair Hip Adduction Strength Grade 3 Fair Ankle Dorsiflexion Strength Grade 5 Normal Gastronemius/Soleus Strength Grade 4 Good Oswestry Index Section 1 Pain Intensity The pain comes and goes and is moderate Section 2 Personal Care (Washing,Dresing) my way of washing or dressing even though it causes some pain Section 3 Lifting I can only lift very light weights at most Section 4 Walking I have some pain when walking but it does not increase with distance Section 5 Sitting I can sit in any chair for as long as I like Section 6 Standing I have some pain on standing, but it does not increase with time Section 7 Sleeping Because of my pain, my normal night's sleep is less than 6 hours sleep Section 8 Social Life My social life is normal and gives me no extra pain Section 9 Traveling I get some pain when traveling , but none of my usual forms of travel m Section 10 Changing Degreee of Pain My pain is neither getting better or worse Score and Risk Level Oswestry Sc 16 Oswestry Risk Level Moderate Disability Miscellaneous Dx PT Eval Objective Objective FT EO: 30s FT EC: 30s Tandem B: Fail SL Stance: Fail 5xSTS: 27s Outpatient Therapy Assessment Impairments Problems/Impairmments Palpation Tenderness,Impaired Range of Motion,Impaired Strength,Impaired Endurance, Impaired Transfers,Impaired Gait Pattern,Impaired Walking, Impaired Standing,Impaired Household Care,Impaired Balance,Subjective C/O Pain Prognosis Rehab Potential Fair Comment w HEP compliance Clinical Impression Consistent with Diagnosis Yes Consistent with General Weakness Short Term Goals Number of Weeks 4 Decreased Palpation Tenderness Yes: 1-2/4 to TTP assessment Above Increase Range of Motion Yes: 50-75% WNL Lumbar ROM Increase Strength Yes: 3+/5 to B hips/knees Improve Transfers Yes: 5xSTS: 22s Improve Balance Yes: 30s Tandem Stance Bilaterally Improve Oswestry Score Yes: to 11 Decrease Subjective C/O Pain Yes: 10 with above assessment Patient to be Ind w/ HEP Yes Manager Critical Care Unit Goals Number of Weeks 8 Decreased Palpation Tenderness Yes: 0-1/4 to TTP assessment above Increase Range of Motion Yes: 75-100% WNL AROM Lumbar spine Increase Strength Yes: 4/5 To B hips/knees Improve Transfers Yes: 5xSTS 16s Improve Gait Pattern without Assistive Yes: Increased step length Device bilaterally Improve Balance Yes: tandem stance on unstable surface for 30s B Improve Oswestry Score Yes: to 7 Decrease Subjective C/O Pain Yes: 2-3/10 with above assessment Patient to be Ind w/ Advanced HEP Yes Outpatient Therapy Plan of Care Treatment Plan May Include Therapeutic Exercise Including Home Yes Exercise Program Manual Therapy Techniques Yes Neuromuscular Re-education Yes Therapeutic Activities to Return to Yes Previous Functional/Work Level Gait Training Yes ADL/Self Care Education Yes Thermal Modalities Yes Electrical Stimulation Yes Manual Lymphatic Drainage Yes Eval/Re-Eval Yes Frequency Times per week 2 Duration Number of Weeks 8 Addendums This patient is a candidate for social No or vocational rehab? Patient/Guardian verbally acknowledges Yes understanding of treatment program and consents to further treatment? Patient/Guardian verbally acknowledges Yes understanding of diagnosis, prognosis and goals for treatment? Eval Complexity PT Charges 54396 - Moderate Complexity Shoulder/Elbow Eval Shoulder Objective Measurements Elbow Objective Measurements PHYSICIAN CERTIFICATION: I certify the specified therapy services for Marcela Verdugo are required, authorized, and reviewed every 30 days.
== END 2024-07-21 23:59 | disposition home or self-care (01) ==
LOC: PT 10:00
PROVIDERS: PCP Internal Medicine Adolescent Medicine; Visit Provider Physician Assistant
DX: R53.1 Weakness (principal); M47.816 Spondylosis without myelopathy or radiculopathy, lumbar region; M51.369 Other intervertebral disc degeneration, lumbar region without mention of lumbar back pain or lower extremity pain
CPT/HCPCS: 97014; 97110; 97163; 97530; G0283

== ENCOUNTER 2024-07-25 15:00 | Outpatient (POV) | payer MEDICARE, OTHER, SELFPAY ==
[2024-07-25 15:11] VITALS: BP 147/88; PULSE 72; RESP 16; O2SAT 94; BMI 21.9
--- NOTE | 2024-07-25 15:25 | EXP.PAIN.SOA ---
[facility] Disclaimer: The information contained in this section may have been updated after the patient was seen, as this information can be updated by other users. Medical History History of CVA (cerebrovascular accident) TIA (transient ischemic attack) Frequent headaches Falls frequently Hallucinations Asthma Dyspnea on exertion TED (obstructive sleep apnea) Claudication Abnormal chest xray Abnormal result of cardiovascular function study Edema of both lower extremities Chest pain Major depressive disorder History of CVA (cerebrovascular accident) HLD (hyperlipidemia) HHD (hypertensive heart disease) CAD (coronary artery disease) A-fib Surgical History H/O heart artery stent Hx of cardiac cath History of hysterectomy Family History Other Family history of diabetes mellitus type II Social History Smoking Status: Never smoker second hand exposure: No alcohol intake: never substance use type: denies use current occupational status: other Travel in the last 8 weeks: None household members: none housing: house lives independently: Yes marital status: education level: college current occupational exposures/hazards: No caffeine: No special lonnie needs: No agree to transfusion: No do you feel safe at home: Yes victim of physical abuse: No victim of emotional abuse: No victim of sexual abuse: No would you like helpful sources: No PM Subjective & Objective Subjective Subjective:: Patient is a pleasant 83-year-old female who presents today for follow-up. Today she rates her pain a 5 out of 10. She denies any new trauma or injury. She does state that the last medicine we sent a pregabalin 25 mg at bedtime did not cause any side effects but did not necessarily noticed any huge improvements. Patient states that she does still have that arthritis all over and will have various locations that are causing pain on a day-to-day basis. Patient states that from her last visit her shoulder that she was complaining about last visit has seemed to ease down and is doing better. Patient is still using her roll-on cream. Patient does not have a heart history. Her Mekhi has been reviewed and is appropriate. Review of Systems: General: No recent weight changes, no fever, no sleep disturbances Respiratory: No cough, no shortness of air, no recurring pulmonary infections Cardiovascular/peripheral vascular: No chest pain, no palpitations, no edema, no shortness of breath Gastrointestinal: No new onset incontinence, normal bowel movements reported Genitourinary: No new onset incontinence Musculoskeletal: Low back pain Psychiatric: [Normal mood/affect] Neurological: [Denies weakness in extremities], [denies balance issues] Pain at rest (0-10 scale): 5 Objective Objective:: LumbarPhysical Exam: General: Alert and oriented x3, no acute distress, pleasant and cooperative Lungs: Respirations even and unlabored, symmetrical chest expansion Eyes: PERRL Musculoskeletal: Flexion and extension of lumbar [spine] somewhat guarded secondary to pain, [antalgic gait noted] Neurological: Speech clear, no gross sensory deficit Has patient had previous pain injection?: No Conservative treatment options previously tried: Home exercise plan Length of treatment: Longer than 12-week Meds Home Medications and Allergies Home Medications ?Medication ?Instructions ?Recorded ?Confirmed ?Type atorvastatin 40 mg tablet 40 mg PO DAILY 10/02/23 07/25/24 History clopidogrel 75 mg tablet (Plavix) 75 mg PO DAILY #30 tabs 12/18/23 07/25/24 Rx pantoprazole 40 mg tablet,delayed 40 mg PO DAILY #30 tabs 03/27/24 07/25/24 Rx release propranolol 80 mg capsule,24 80 mg PO DAILY #90 caps 05/19/24 07/25/24 Rx hr,extended release diphenhydramine 25 1 tab PO HS PRN Sleep 05/28/24 07/25/24 History mg-acetaminophen 500 mg tablet (Tylenol PM Extra Strength) trazodone 50 mg tablet 25 mg PO HS 06/23/24 07/25/24 History pregabalin 25 mg capsule 25 mg PO HS #14 caps 07/10/24 07/25/24 Rx New Prescriptions to Start Prescriptions: Allergies Allergy/AdvReac Type Severity Reaction Status Date / Time mirtazapine (From Remeron) AdvReac Mild hallucinati Verified 06/23/24 13:06 ons Assessment and Plan *Assessment and plan (1) Lumbar spondylosis: Status: Acute Category: Medical Code(s): M47.816 - Spondylosis without myelopathy or radiculopathy, lumbar region (2) Lumbar facet arthropathy: Status: Acute Category: Medical Code(s): M47.816 - Spondylosis without myelopathy or radiculopathy, lumbar region (3) Lumbar back pain with radiculopathy affecting right lower extremity: Status: Acute Category: Medical Code(s): M54.16 - Radiculopathy, lumbar region (4) Osteoarthritis of knees, bilateral: Status: Acute Category: Medical Code(s): M17.0 - Bilateral primary osteoarthritis of knee Plan I did discuss with her at length regarding the pregabalin that we will increase the dosage to 50 mg and change it to twice a day. Patient was counseled to try adding the pregabalin in the morning as well as taking it at night. Patient was counseled to watch for any increased fatigue or other side effects. I will send in a 1 month prescription at this dosage. Patient will return to clinic in 1 month for reevaluation of symptoms and plan of care. Patient has been instructed to contact the clinic with any concerns before the next appointment. Dr. Merchant has reviewed this note and agrees with this plan of care. This note was dictated using voice recognition software and make contain errors or omissions. All injections are used with Lidocaine, Bupivacaine and Depo Medrol. Occasionally urine drug screen is needed to verify patient's compliance with our office pain contract. This is ordered based off specific treatments related to chronic pain with the potential to abuse certain medications.
== END 2024-07-25 23:59 | disposition home or self-care (01) ==
PROVIDERS: PCP Internal Medicine Adolescent Medicine; Visit Provider Nurse Practitioner Family
DX: M17.0 Bilateral primary osteoarthritis of knee (principal); M47.26 Other spondylosis with radiculopathy, lumbar region
CPT/HCPCS: 99212; G0463

== ENCOUNTER 2024-07-28 12:12 | Outpatient (CLI) | payer MEDICARE, OTHER, SELFPAY ==
--- NOTE | 2024-07-28 12:16 | XR_ITS ---
FINAL REPORT CLINICAL HISTORY: PERSISTENT COUGH COMPARISON: 01/14/2024 FINDINGS: 2 views of the chest were obtained. The heart size is normal. The mediastinum is unremarkable. There are mild chronic changes in the lung bases. The lungs are otherwise clear. There are no pleural effusions. There is no pneumothorax. There is no acute osseous abnormality. IMPRESSION: Chronic changes with no acute cardiopulmonary process. Reviewed, Interpreted and Dictated by Jefry Collado MD Transcribed by Alma Delia Goodson Authenticated and [facility]
== END 2024-07-28 23:59 | disposition home or self-care (01) ==
LOC: RAD 12:13
PROVIDERS: PCP Internal Medicine Adolescent Medicine; Visit Provider Nurse Practitioner Family
DX: R05.3 Chronic cough (principal)
CPT/HCPCS: 71046

== ENCOUNTER 2024-08-04 10:00 | Outpatient (RCR) | payer MEDICARE, OTHER, SELFPAY | END 2024-08-04 23:59 | disposition home or self-care (01) | LOC: PT 10:00 | PROVIDERS: PCP Internal Medicine Adolescent Medicine; Visit Provider Physician Assistant | DX: R53.1 Weakness (principal); M47.816 Spondylosis without myelopathy or radiculopathy, lumbar region; M51.369 Other intervertebral disc degeneration, lumbar region without mention of lumbar back pain or lower extremity pain | CPT/HCPCS: 97014; 97110; 97530; G0283 ==

== ENCOUNTER 2024-08-05 02:03 | Emergency (ER) | payer MEDICARE, OTHER, SELFPAY ==
[2024-08-05 01:52] VITALS: BP 195/72; PULSE 76; RESP 16; TEMP 36.6; O2SAT 95; BMI 22.8
--- NOTE | 2024-08-05 01:57 | ECG_ITS ---
APPROVED REPORT Exam: Resting ECG HR:63 bpm ECG Measurements Heart Rate 63 AXES IN 173 P 76 QRSd 82 QRS 64 QT 420 T 79 QTc 427 Conclusion SINUS RHYTHM NORMAL ECG Electronically signed by : DEVAN DARLING, 08/05/2024 06:47:52
--- NOTE | 2024-08-05 02:09 | XR_ITS ---
PROCEDURE INFORMATION: Exam: XR Chest Exam date and time: 08/05/2024 2:10 AM Age: 83 years old Clinical indication: Pain; Chest pressure; Additional info: Cp radiating bilaterally, now resolved, wheezing TECHNIQUE: Imaging protocol: Radiologic exam of the chest. Views: 2 views. COMPARISON: CR XR CHEST 2V 07/28/2024 12:19 PM FINDINGS: Lungs: Unremarkable. No consolidation. Pleural spaces: Unremarkable. No pleural effusion. No pneumothorax. Heart/Mediastinum: Unremarkable. No cardiomegaly. Bones/joints: Unremarkable. IMPRESSION: No acute findings.
--- NOTE | 2024-08-05 02:13 | [facility].EDCP ---
Discharge Plan Disposition Patient Disposition: Home, Self-Care Condition: Good Prescriptions Prescriptions: No Action atorvastatin 40 mg tablet 40 mg PO DAILY diphenhydramine-acetaminophen [Tylenol PM Extra Strength] 25-500 mg tablet 1 tab PO HS PRN (Reason: Sleep) trazodone 50 mg tablet 25 mg PO HS Patient Comments: TAKE 1/2 (ONE-HALF) TABLET BY MOUTH AT BEDTIME NIGHTLY clopidogrel [Plavix] 75 mg tablet 75 mg PO DAILY Qty: 30 11RF propranolol 80 mg capsule,extended release 24 hr 80 mg PO DAILY Qty: 90 1RF pregabalin 50 mg capsule 50 mg PO BID Qty: 60 0RF pantoprazole 40 mg tablet,delayed release (DR/EC) 40 mg PO DAILY Qty: 30 2RF Rx Instructions: Please take 1 p.o. daily pregabalin 25 mg capsule 25 mg PO HS Qty: 14 0RF Referrals Follow up/Referrals: Alfredo Obrien PA [Physician Adjunct Philosophy Faculty] - See instructions (Seen in ER for chest pain, reassuring workup but has coronary calcifications. Please see for follow up as soon as possible) Provider,Referral, MD [Primary Care Provider] - See instructions Activity Restrictions/Add. Instructions Additional Instructions/Restrictions: You were evaluated in the ER and are appropriate for discharge at this time. Continue taking all home medications as previously prescribed. As discussed, I recommend avoiding products with diphenhydramine (Benadryl). If you need an allergy pill, I recommend Claritin or Zyrtec. Call cardiology for immediate follow-up. Also follow-up closely with your primary care doctor. Return to the ER with new, worsening, or otherwise concerning symptoms. Clinical Impressions Clinical Impression: Kidney dysfunction Chest pain Qualifiers: Chest pain type: other chest pain Qualified Code(s): R07.89 - Other chest pain Print Language Print Language: Icelandic Discharge ED Provider: Yeimi Jacob General Chief Complaint: Chest Pain Stated Complaint: chest pain Time Seen by Provider: 08/05/24 02:08 Mode of Arrival: EMS Source of Information: EMS Description of Symptoms (Recalled from ER Triage Doc. by RN): Patient has had a few episodes of chest pain that family believes is anxiety. They state her daughter is gone out of state who is usually with her, which is making her anxious. States that she has a touch of dementia. Was given 324 asa and a spray of nitro under the tongue and per ems states that took her pain away. History of Present Illness HPI narrative: 83-year-old female with history of TED, hypertension, hyperlipidemia, stroke, GERD, Schatzki's ring, obstructive lung disease who reports she is supposed to wear oxygen at home but does not use it presents to the ER with chest pain. Patient reports around 10 PM, approximately 4 hours prior to arrival, she was sleeping when her chest pain woke her up. She states the pain started in the left side of the chest to the right side of the chest and back to the left. She reports she got up after having this pain and it continued to happen despite her being in an upright position. She reports she had to have a bowel movement and after she did her pain went away. EMS reports they administered aspirin and nitro. They reported the patient was still having pain when they picked her up, but patient states she had been pain-free when they arrived. Patient does report having mild dementia. She told me she has no history of lung problems but review of records demonstrates she has followed with pulmonology and their note demonstrates that she has evidence of obstructive lung disease and mild persistent asthma. She is oriented on arrival and resting comfortably stating that she is pain-free. She states she feels well and is wanting to go back home to her cat named Madeline Kearney. She denies any fevers, chills, headache, difficulty breathing, cough, congestion, vomiting, diarrhea, numbness, tingling, weakness, or other associated symptoms at this time. Related Data Home Medications ?Medication ?Instructions ?Recorded ?Confirmed atorvastatin 40 mg tablet 40 mg PO DAILY 10/02/23 07/25/24 diphenhydramine 25 1 tab PO HS PRN Sleep 05/28/24 07/25/24 mg-acetaminophen 500 mg tablet (Tylenol PM Extra Strength) trazodone 50 mg tablet 25 mg PO HS 06/23/24 07/25/24 Previous Rx's ?Medication ?Instructions ?Recorded clopidogrel 75 mg tablet (Plavix) 75 mg PO DAILY #30 tabs 12/18/23 pantoprazole 40 mg tablet,delayed 40 mg PO DAILY #30 tabs 03/27/24 release propranolol 80 mg capsule,24 80 mg PO DAILY #90 caps 05/19/24 hr,extended release pregabalin 25 mg capsule 25 mg PO HS #14 caps 07/10/24 pregabalin 50 mg capsule 50 mg PO BID #60 caps 07/25/24 Allergies Allergy/AdvReac Type Severity Reaction Status Date / Time mirtazapine (From Remeron) AdvReac Mild hallucinati Verified 06/23/24 13:06 [facility] Disclaimer: The information contained in this section may have been updated after the patient was seen, as this information can be updated by other users. Medical History History of CVA (cerebrovascular accident) TIA (transient ischemic attack) Frequent headaches Falls frequently Hallucinations Asthma Dyspnea on exertion TED (obstructive sleep apnea) Claudication Abnormal chest xray Abnormal result of cardiovascular function study Edema of both lower extremities Chest pain Major depressive disorder History of CVA (cerebrovascular accident) HLD (hyperlipidemia) HHD (hypertensive heart disease) CAD (coronary artery disease) A-fib Surgical History H/O heart artery stent Hx of cardiac cath History of hysterectomy Family History Other Family history of diabetes mellitus type II Social History Smoking Status: Never smoker second hand exposure: No alcohol intake: never substance use type: denies use current occupational status: other Travel in the last 8 weeks: None household members: none housing: house lives independently: Yes marital status: education level: college current occupational exposures/hazards: No caffeine: No special lonnie needs: No agree to transfusion: No do you feel safe at home: Yes victim of physical abuse: No victim of emotional abuse: No victim of sexual abuse: No would you like helpful sources: No Other Medical History Have you received the Flu Vaccine for this season: Yes Have you received the Pneumonia Vaccine: Yes ROS Obtained: Yes Systems reviewed as appropriate & no additional complaints except as documented Per HPI Physical Exam General General appearance: alert and in no apparent distress Head Head exam: atraumatic and normocephalic Eye Eye exam: Present PERRL and EOMI ENT ENT exam: Present mucous membranes moist Neck Neck exam: Present normal inspection and full ROM Chest Chest inspection: Present symmetric chest wall rise Respiratory Respiratory exam: Present wheezes (Mild end expiratory) and other (Saturating 96% on room air); Absent respiratory distress, stridor, accessory muscle use or prolonged expiratory phase Cardiovascular Cardiovascular exam: Present regular rate and normal rhythm Abdominal Exam Abdominal exam: Present soft; Absent distention or tenderness Extremities Exam Extremities exam: Present full ROM and edema (+1 BLE pitting edema) Neurological Exam Neurological exam: Present alert, oriented X3 and other (occasionally mildly confused but remains oriented); Absent motor sensory deficit Psychiatric Psychiatric exam: Present normal affect and normal mood Skin Skin exam: Present warm and dry HEART Score HEART Score HEART Score assessment performed?: Yes History (anamnesis): Slightly suspicious ECG: Normal Age: >65 years Risk factors: Atherosclerosis history Troponin: </= normal limit HEART Score: 4 Critical Care Critical Care Time Critical Care Time: No Medical Decision Making Medical Records Medical records reviewed: Yes I reviewed the patient's medical records. MR Comment: See HPI. Patient was seen by cardiology in June 23, 2024. Patient was referred to PT for deconditioning. CAD was thought to be stable and patient remains on Plavix. Plan for 6-month follow-up. [place] Inquiry Pt receiving controlled substance: No Vital Signs Vital Signs: 08/05/24 01:52 08/05/24 02:55 08/05/24 02:55 Temperature 97.9 F Temperature Source Oral Pulse Rate 65 72 Pulse Rate [Right Radial] 76 Respiratory Rate 16 Blood Pressure Blood Pressure [Right Arm] 195/72 H Blood Pressure Mean [Right Arm] 113 Blood Pressure Source Blood Pressure Source [Right Arm] Automatic Cuff Blood Pressure Position 02 Sat by Pulse Oximetry 95 Oxygen Delivery Method Room Air 08/05/24 03:00 08/05/24 04:59 Temperature 98.0 F Temperature Source Oral Pulse Rate 63 65 Pulse Rate [Right Radial] Respiratory Rate 17 Blood Pressure 138/103 H 133/52 L Blood Pressure [Right Arm] Blood Pressure Mean [Right Arm] Blood Pressure Source Automatic Cuff Blood Pressure Source [Right Arm] Blood Pressure Position Supine 02 Sat by Pulse Oximetry 98 Oxygen Delivery Method Room Air Lab Data Labs: Lab Results 08/05/24 01:50: WBC 9.4, RBC 3.52 L, Hgb 10.7 L, Hct 33.2 L, MCV 94.3, MCH 30.4, MCHC 32.2, RDW 12.7, Plt Count 286, MPV 10.2, Neut % (Auto) 44.3, Lymph % (Auto) 35.2, [place] % (Auto) 10.0 H, Eos % (Auto) 9.5, Baso % (Auto) 0.7, Neut # (Auto) 4.2, Lymph # (Auto) 3.3, [place] # (Auto) 0.9, Eos # (Auto) 0.9 H, Baso # (Auto) 0.1, PT 9.9 L, INR 0.87 L, D-Dimer 1.03 H, Sodium 142, Potassium 3.7, Chloride 109 H, Carbon Dioxide 25, Anion Gap 11.7, BUN 25 H, Creatinine 1.40 H, Estimated Creat Clear 30, Estimated GFR 36 L, Est GFR ( Amer) 44 L, Glucose 97, Calcium 8.7, Total Bilirubin 0.5, AST 29, ALT 15, Alkaline Phosphatase 95, Troponin I < 0.01, NT-Pro-B Natriuret Pep 917 H, Total Protein 6.9, Albumin 3.7, Globulin 3.2, Albumin/Globulin Ratio 1.2 08/05/24 02:16: VBG pH 7.30 L, VBG pCO2 51.0, VBG pO2 55.3 H, VBG HCO3 24.8, VBG Total CO2 26.3, VBG O2 Saturation 84.8 H, VBG Base Excess -1.6, VBG Lactic Acid 1.6 08/05/24 04:28: Troponin I < 0.01 08/05/24 01:50 08/05/24 01:50 Response Orders (Tests/Meds): ED MEDICATIONS Discontinued Medications Generic Name Dose Route Start Last Admin Trade Name Freq PRN Reason Stop Dose Admin Albuterol/Ipratropium 3 ml 08/05/24 02:11 08/05/24 02:50 Ipratropium/Albuterol 3 Ml Neb IH 08/05/24 02:12 3 ml ONCE ONE Administration Lactated Ringer's 500 mls @ 999 mls/hr 08/05/24 03:38 08/05/24 03:53 Lactated Ringer's 500ml IV 08/05/24 04:08 999 mls/hr .Q31M ONE Administration Iopamidol 70 ml 08/05/24 03:50 08/05/24 03:51 Iopamidol-370 (76%);100ml Bottle IV 08/05/24 03:51 70 ml ONCE ONE Administration Sodium Chloride 50 ml 08/05/24 03:50 08/05/24 03:51 0.9 % Sodium Chloride 50 Ml Vial IV 08/05/24 03:51 50 ml ONCE ONE Administration Sodium Chloride 10 ml 08/05/24 03:50 08/05/24 03:51 Sodium Chloride 0.9% 10ml Syr (Rad Only) IV 08/05/24 03:51 10 ml ONCE ONE Administration ORDERS Category Date Time Status CT angio chest PE protocol Stat Cat Scan 08/05/24 02:51 Completed XR chest 2V Stat Exams 08/05/24 02:09 Completed Complete Blood Count Auto Diff Stat Lab 08/05/24 01:50 Completed Comprehensive Metabolic Panel Stat Lab 08/05/24 01:50 Completed D-Dimer Stat Lab 08/05/24 01:50 Completed NT Pro Brain Natriuretic Pep. Stat Lab 08/05/24 01:50 Completed Prothrombin Time INR Stat Lab 08/05/24 01:50 Completed Troponin I Q3H Lab 08/05/24 04:28 Completed Troponin I Q3H Lab 08/05/24 08:15 Ordered Troponin I Stat Lab 08/05/24 01:50 Completed Venous Blood Gas Stat RT 08/05/24 02:16 Completed MDM Narrative Medical Decision Narrative: In summary, this 83-year-old female with comorbidities described in the HPI which may not be at goal therapy presents to the emergency department today with chest pain that was resolved by the time patient arrived in the ER. On initial evaluation patient is hemodynamically stable, afebrile, physical exam notable for mild +1 bilateral lower extremity pitting edema, mild end expiratory wheezing with good air movement throughout the lungs, patient has occasional brief moments of confusion but is oriented. Differential diagnosis includes but is not limited to ACS, PE, arrhythmia, with patient's history of GERD I considered the possibility of flareup of this as well as esophageal spasm, electrolyte abnormality, asthma exacerbation, among others. Based on these concerns, I ordered serum labs, chest x-ray, cardiac workup, D-dimer, VBG. ECG personally interpreted demonstrates sinus rhythm, rate 63, normal axis, normal TX and QTc, no STEMI. Patient received DuoNeb for treatment of pulmonary wheezing. Aspirin and nitro had been administered NURSING CONSULTANT. Labs personally reviewed demonstrate no leukocytosis, anemia with hemoglobin 10.7 which is down a little over 1 point from patient's last set of labs in April, platelets normal, VBG with mild acidosis pH 7.3, pCO2 51, VBG lactic normal at 1.6. CMP demonstrates kidney function improved from prior, no actionable electrolyte abnormalities, D-dimer slightly elevated at 1.03, by years criteria PE cannot be excluded so CTA PE was ordered, initial troponin undetectably low less than 0.01. BNP normal at 6.9. XR personally interpreted demonstrates no acute intrathoracic abnormality, see radiology read for final interpretation. CTAPE personally interpreted demonstrates no PE, no lobar infiltrate. See radiology read for final interpretation. Radiology read does comment on coronary calcifications. I am reassured that the patient had a myocardial perfusion nuclear medicine scan on 06/12/2024 and it did not demonstrate any fixed or reversible perfusion defects. Normal global and regional LV systolic function. LVEF 65%. This is very reassuring that despite patient's coronary calcifications she has recently demonstrated good flow. Patient was placed in the ED observation at 0330 for serial troponins to rule out evolving SC and preclude unnecessary admission. While in observation patient remained on the card processing clerk and was frequently reassessed. She remained asymptomatic and resting comfortably. Vitals remained stable with no concerning changes on the monitor. Repeat troponin also undetectable at less than 0.01. Since patient remained asymptomatic and has reassuring workup including no changes in troponin I believe she is appropriate for discharge at this time with close outpatient follow-up. She was recommended to follow-up closely with cardiology and pulmonology as well as her primary care doctor. Family at bedside were also given these instructions. Patient was given instructions on symptomatic management, follow up instructions, and return precautions for the emergency department. Patient and family at bedside indicated understanding and was discharged in stable condition. Total time in ED observation: 1 hour 30 minutes
[2024-08-05 02:17] LABS: Lactate Venous 1.6 mmol/L (0.4-2.0); VBG Base Excess -1.6 mmol/L (-2.4-2.3); VBG HCO3 24.8 mmol/L (23-30); VBG Oxygen Saturation 84.8 % (50-70); VBG PO2 55.3 mmol/L (28-40); VBG Total CO2 26.3 mmol/L (23-27)
[2024-08-05 02:23] LABS: Alanine Aminotransferase 15 U/L (12-78); Albumin Level 3.7 g/dl (3.5-5.0); Albumin/Globulin Ratio 1.2 (1.1-1.8); Alkaline Phosphatase 95 U/L (38-126); Anion Gap 11.7 mEq/L (5-15); Aspartate Amino Transferase 29 U/L (14-36); Bilirubin,Total 0.5 mg/dl (0.2-1.3); Blood Urea Nitrogen 25 mg/dl (7-17); Calcium 8.7 mg/dl (8.4-10.2); Carbon Dioxide 25 mmol/L (22.0-30.0); Chloride 109 mmol/L (98-107); Creatinine Clearance Estimated 30 mL/min (50-200); Estimated Glomerular Filt Rate 36 ml/min (>60); GFR (African American) 44 ML/MIN (>60); Globulin 3.2 g/dL (1.3-3.2); Glucose 97 mg/dl (74-100); Potassium 3.7 mmoL/L (3.5-5.1); Sodium 142 mmol/L (136-145); Total Protein,Serum 6.9 g/dl (6.3-8.2)
[2024-08-05 02:30] LABS: Basophils # 0.1 K/mm3 (0-0.2); Basophils % 0.7 % (0.1-2.0); Eosinophils # 0.9 K/mm3 (0.0-0.4); Eosinophils % 9.5 % (0.1-12.0); Hematocrit 33.2 % (37.0-47.0); Hemoglobin 10.7 g/dL (12.2-16.2); Lymphocytes # 3.3 K/mm3 (0.7-4.5); Lymphocytes % 35.2 % (10-50); Mean Corpuscular HGB Conc 32.2 g/dL (31.8-35.4); Mean Corpuscular Hemoglobin 30.4 pg (27.0-31.2); Mean Corpuscular Volume 94.3 fl (81-99); Mean Platelet Volume 10.2 fl (7.4-10.4); Monocytes # 0.9 K/mm3 (0.1-1.0); Neutrophils # 4.2 K/mm3 (1.8-7.8); Neutrophils % 44.3 % (37.0-80.0); Nucleated Red Blood Cells # 0 10^3/uL; Nucleated Red Blood Cells % 0 %; Platelet Count 286 K/mm3 (142-424); Red Blood Count 3.52 M/mm3 (4.20-5.40); Red Cell Distribution Width 12.7 % (11.5-17.5); Red Cell Distribution Width-SD 43.6 fL; White Blood Count 9.4 K/mm3 (4.8-10.8)
[2024-08-05 02:34] LABS: NT Pro Brain Natriuretic Pep. 917 pg/mL (0-450)
[2024-08-05 02:35] LABS: Troponin I < 0.01 ng/ml (0.00-0.034)
[2024-08-05 02:37] LABS: INR 0.87 (0.9-1.1); Prothrombin Time 9.9 seconds (10.1-12.5)
[2024-08-05 02:48] LABS: D-Dimer 1.03 ug/mL (0.0-0.5)
[2024-08-05] MEDS: IPRATROPIUM/ALBUTEROL 3 ML NEB IH (02:50)
--- NOTE | 2024-08-05 02:51 | CT_ITS ---
PROCEDURE INFORMATION: Exam: CTA Chest With Contrast Exam date and time: 08/05/2024 3:10 AM Age: 83 years old Clinical indication: Pain; Chest pressure; Additional info: Dimer elevated TECHNIQUE: Imaging protocol: Computed tomographic angiography of the chest with contrast. Exam focused on the arteries. 3D rendering (Not supervised by radiologist): MIP and/or 3D reconstructed images were created by the technologist. Radiation optimization: All CT scans at this facility use at least one of these dose optimization techniques: automated exposure control; mA and/or kV adjustment per patient size (includes targeted exams where dose is matched to clinical indication); or iterative reconstruction. Contrast material: ISOVUE; Contrast volume: 70 ml; Contrast route: INTRAVENOUS (IV); COMPARISON: CT ANGIO CHEST PE PROTOCOL 04/02/2023 12:21 PM FINDINGS: Pulmonary arteries: Normal. No pulmonary emboli. Aorta: Unremarkable. No aortic aneurysm. No aortic dissection. Lungs: Basilar atelectasis most prominent on the left. Pleural spaces: Unremarkable. No pneumothorax. No pleural effusion. Heart: Unremarkable. No cardiomegaly. No pericardial effusion. Coronary arteries: Coronary atherosclerosis, status post PCI. Lymph nodes: Unremarkable. No enlarged lymph nodes. Bones/joints: Unremarkable. No acute fracture. Soft tissues: Unremarkable. IMPRESSION: 1. No evidence of pulmonary embolus or other acute process. 2. Extensive coronary calcium, status post PCI. 3. Left basilar atelectasis.
[2024-08-05 02:55] VITALS: PULSE 65; PULSE 72
[2024-08-05 03:00] VITALS: BP 138/103; PULSE 63; O2SAT 98
[2024-08-05] MEDS: SODIUM CHLORIDE 0.9% 10ML SYR (RAD ONLY) 10 ML IV (03:51)
[2024-08-05] MEDS: 0.9 % SODIUM CHLORIDE 50 ML VIAL IV (03:51)
[2024-08-05] MEDS: IOPAMIDOL-370 (76%);100ML BOTTLE 70 ML IV (03:51)
[2024-08-05] MEDS: RINGERS SOLUTION,LACTATED 500 ML 999 ML IV (03:53)
[2024-08-05 04:56] LABS: Troponin I < 0.01 ng/ml (0.00-0.034)
[2024-08-05 04:59] VITALS: BP 133/52; PULSE 65; RESP 17; TEMP 36.7; O2SAT 96
== END 2024-08-05 05:03 | disposition home or self-care (01) ==
PROVIDERS: Emergency Provider Emergency Medicine
DX: R07.89 Other chest pain (principal); R06.2 Wheezing; N28.9 Disorder of kidney and ureter, unspecified
CPT/HCPCS: 71046; 71275; 80053; 82803; 83880; 84484; 85025; 85378; 85610; 93005; 96361; 96374; 96375; 99285; J7120; Q9967

== ENCOUNTER 2024-08-22 08:07 | Day surgery (SDC) | payer MEDICARE, OTHER, SELFPAY ==
[2024-08-22] VITALS (14 sets, daily range): BP systolic 143–199; BP diastolic 55–82; PULSE 52–95; RESP 16–20; TEMP 36.8; O2SAT 89–96; BMI 22.9
--- NOTE | 2024-08-22 07:02 | IR_ITS ---
APPROVED REPORT Patient Location: Outpatient PROCEDURES Right heart catheterization Left heart catheterization Left ventriculogram Selective coronary angiogram INDICATION Abnormal Myoview, Angina pectoris, Known coronary artery disease, Pulmonary hypertension Informed consent was obtained prior to the procedure. COMPLICATIONS none Estimated Blood Loss: less than 10ml TECHNIQUE One percent lidocaine was used to anesthetize the right anterior aspect of the right wrist. The right radial artery was accessed via the Seldinger technique and a 6 Colombian hydrophilic sheath was placed in the right radial artery. Following this one percent lidocaine was used to anesthetize the right neck and the right internal jugularl vein was accessed via the Seldinger technique. Respectfully. A 7 Colombian sheath was introduced and a Hewett-Ayden catheter was floated using hemodynamic waveforms in the pulmonary artery, right ventricle , and right atrium. Saturations were obtained in the pulmonary artery and the right atrium. An arterial cocktail using verapamil nitroglycerin and heparin was administered intra-arterially. A trap catheter was used to perform left heart catheterization left ventriculogram and selective coronary angiogram. ANGIOGRAPHIC RESULTS The left main artery Normal The left anterior descending artery Has stents in the proximal segment which are widely patent free of in-stent restenosis with excellent proximal distal transitioning. The remaining LAD is widely patent The circumflex artery Nondominant with proximal mid vessel 10 to 20% stenosis The right coronary artery Is a dominant vessel and has proximal 20% stenoses with mid vessel and distal 30% stenoses The SWANSON ventriculogram reveals Slightly hyperdynamic at 70% The left ventricular end-diastolic pressure 20 mmHg Right atrial pressure 16 mmHg Pulmonary artery pressure 38/22 mmHg Pulmonary artery occlusion pressure 17 mmHg Right atrial saturation 67% Pulmonary artery saturation 70% Aortic saturation 97% Hemoglobin 12.1 Cardiac output 4.9 L/min IMPRESSION Widely patent coronary arteries as described above Hyperdynamic ventricle consistent with hypertensive heart disease Mild pulmonary hypertension with mildly elevated left-sided filling pressures PLAN 1. Medical management for coronary artery disease 2. Will add Lasix 20 mg daily combined with spironolactone 50 mg daily 3. Risk factor modification 4. Avoidance of tobacco products 5. Cardiac rehabilitation Electronically signed by : Blaise Mclaughlin MD 08/22/2024 13:00:57
[2024-08-22 08:28] LABS: Basophils # 0.1 K/mm3 (0-0.2); Eosinophils # 0.4 Kmm3 (0.0-0.4); Eosinophils % 4.4 % (0.1-12.0); Hematocrit 36.5 % (37.0-47.0); Hemoglobin 12.1 g/dL (12.2-16.2); Lymphocytes # 2.3 K/mm3 (0.7-4.5); Lymphocytes % 24.9 % (10-50); Mean Corpuscular HGB Conc 33.2 g/dL (31.8-35.4); Mean Corpuscular Hemoglobin 31.2 pg (27.0-31.2); Mean Corpuscular Volume 94.1 fl (81-99); Mean Platelet Volume 9.9 fl (7.4-10.4); Monocytes # 0.8 K/mm3 (0.1-1.0); Monocytes % 8.5 % (1.7-9.3); Neutrophils # 5.6 K/mm3 (1.8-7.8); Neutrophils % 60.9 % (37.0-80.0); Nucleated Red Blood Cells # 0 10^3/uL; Nucleated Red Blood Cells % 0 %; Platelet Count 254 K/mm3 (142-424); Red Blood Count 3.88 M/mm3 (4.20-5.40); Red Cell Distribution Width 12.4 % (11.5-17.5); White Blood Count 9.3 K/mm3 (4.8-10.8)
[2024-08-22 08:41] LABS: Blood Urea Nitrogen 27 mg/dl (7-17); Calcium 9.5 mg/dl (8.4-10.2); Carbon Dioxide 29 mmol/L (22.0-30.0); Chloride 109 mmol/L (98-107); Creatinine Clearance Estimated 27 mL/min (50-200); Estimated Glomerular Filt Rate 31 ml/min (>60); GFR (African American) 37 ML/MIN (>60); Glucose 91 mg/dl (74-100); Sodium 143 mmol/L (136-145)
[2024-08-22] MEDS: LIDOCAINE 1% 10ML MDV 10 ML IJ (11:16)
[2024-08-22] MEDS: HEPARIN 1,000 UNITS/500ML NS (CATH LAB) 3000 UNIT IV (11:16)
[2024-08-22] MEDS: VERAPAMIL 2.5MG/ML 2ML VIAL 2.5 MG IV (11:17)
[2024-08-22] MEDS: HEPARIN 1,000 UNITS/ML 10ML VIAL (CATH LAB) 5000 UNIT IV (11:17)
[2024-08-22] MEDS: diphenhydrAMINE 50MG/ML VIAL 50 MG IV (11:17)
[2024-08-22] MEDS: 0.9 % SODIUM CHLORIDE 500 ML 25 ML IV (11:17)
[2024-08-22] MEDS: NITROGLYCERIN 800MCG/8ML SYR (CATH LAB) 800 MCG IA (11:18)
[2024-08-22] MEDS: FENTANYL 100MCG/2ML VIAL 50 MCG IV (12:08)
[2024-08-22] MEDS: MIDAZOLAM HCL 1MG/ML 5ML VIAL 1 MG IV (12:09)
[2024-08-22] MEDS: IOPAMIDOL-370 (76%);100ML BOTTLE 50 ML IV (15:32)
[2024-08-22 15:39] LABS: CATHL Arterial O2 SAT 70.6 % (90-100); CATHL Venous O2 SAT 67.3 % (75-80)
== END 2024-08-22 14:38 | disposition home or self-care (01) ==
PROVIDERS: PCP Internal Medicine Adolescent Medicine; Visit Provider Internal Medicine
PROC: 4A023N7 Measurement of Cardiac Sampling and Pressure, Left Heart, Percutaneous Approach (ICD-10-PCS; CPT 93452; principal; 2024-08-22 11:15)
DX: R93.1 Abnormal findings on diagnostic imaging of heart and coronary circulation (principal); I27.20 Pulmonary hypertension, unspecified; E78.5 Hyperlipidemia, unspecified; R06.09 Other forms of dyspnea; I25.10 Atherosclerotic heart disease of native coronary artery without angina pectoris; J45.909 Unspecified asthma, uncomplicated; I65.29 Occlusion and stenosis of unspecified carotid artery; G47.33 Obstructive sleep apnea (adult) (pediatric); Z79.899 Other long term (current) drug therapy; Z79.02 Long term (current) use of antithrombotics/antiplatelets; Z86.73 Personal history of transient ischemic attack (TIA), and cerebral infarction without residual deficits; Z91.81 History of falling; Z95.5 Presence of coronary angioplasty implant and graft; Z83.3 Family history of diabetes mellitus
CPT/HCPCS: 80048; 82810; 85025; 93460; 99152; C1725; C1769; C1894; J1200; J1644; J3010; Q9967

== ENCOUNTER 2024-08-25 14:20 | Outpatient (POV) | payer MEDICARE, OTHER, SELFPAY ==
[2024-08-25 14:36] VITALS: BP 140/63; PULSE 76; RESP 14; O2SAT 98; BMI 22.8
--- NOTE | 2024-08-25 15:07 | EXP.PAIN.SOA ---
[facility] Disclaimer: The information contained in this section may have been updated after the patient was seen, as this information can be updated by other users. Medical History History of CVA (cerebrovascular accident) TIA (transient ischemic attack) Frequent headaches Falls frequently Hallucinations Asthma Dyspnea on exertion TED (obstructive sleep apnea) Claudication Abnormal chest xray Abnormal result of cardiovascular function study Edema of both lower extremities Chest pain Major depressive disorder History of CVA (cerebrovascular accident) HLD (hyperlipidemia) HHD (hypertensive heart disease) CAD (coronary artery disease) A-fib Surgical History H/O heart artery stent Hx of cardiac cath History of hysterectomy Family History Other Family history of diabetes mellitus type II Social History Smoking Status: Never smoker second hand exposure: No alcohol intake: never substance use type: denies use current occupational status: other Travel in the last 8 weeks?: None household members: none housing: house lives independently: Yes marital status: education level: college current occupational exposures/hazards: No caffeine: No special lonnie needs: No agree to transfusion: No do you feel safe at home: Yes victim of physical abuse: No victim of emotional abuse: No victim of sexual abuse: No would you like helpful sources: No PM Subjective & Objective Subjective Subjective:: Patient is a pleasant 83-year-old female who presents today for worsening low back pain. She rates it an 8 out of 10. She denies any new falls or injuries. Patient states that she feels like she just has had a flareup of her overall back pain. Patient states it is constant and is affecting her ability perform ADLs. Patient states that she ended up going on a trip to [place] and feels like getting up and down out of the truck really flared her back up. Patient is currently managed with pregabalin 50 mg twice daily from our office. Patient denies any side effects. Patient is asking if we can try additional medications as she has done the injections in the past and have only gotten generally more temporary relief. Her Mekhi has been reviewed and is appropriate. Review of Systems: General: No recent weight changes, no fever, no sleep disturbances Respiratory: No cough, no shortness of air, no recurring pulmonary infections Cardiovascular/peripheral vascular: No chest pain, no palpitations, no edema, no shortness of breath Gastrointestinal: No new onset incontinence, normal bowel movements reported Genitourinary: No new onset incontinence Musculoskeletal: Low back pain Psychiatric: [Normal mood/affect] Neurological: [Denies weakness in extremities], [denies balance issues] Pain at rest (0-10 scale): 8 Objective Objective:: Physical Exam: General: Alert and oriented x3, no acute distress, pleasant and cooperative Lungs: Respirations even and unlabored, symmetrical chest expansion Eyes: PERRL Musculoskeletal: Flexion and extension of lumbar [spine] somewhat guarded secondary to pain, [antalgic gait noted] point tenderness along bilateral SIs with positive bilateral Michaela's exam Neurological: Speech clear, no gross sensory deficit Has patient had previous pain injection?: No Conservative treatment options previously tried: Home exercise plan Length of treatment: Longer than 12-week Meds Home Medications and Allergies Home Medications ?Medication ?Instructions ?Recorded ?Confirmed ?Type atorvastatin 40 mg tablet 40 mg PO DAILY 10/02/23 08/25/24 History clopidogrel 75 mg tablet (Plavix) 75 mg PO DAILY #30 tabs 12/18/23 08/25/24 Rx pantoprazole 40 mg tablet,delayed 40 mg PO DAILY #30 tabs 03/27/24 08/25/24 Rx release propranolol 80 mg capsule,24 80 mg PO DAILY #90 caps 05/19/24 08/25/24 Rx hr,extended release diphenhydramine 25 1 tab PO HS PRN Sleep 05/28/24 08/25/24 History mg-acetaminophen 500 mg tablet (Tylenol PM Extra Strength) pregabalin 25 mg capsule 25 mg PO HS #14 caps 07/10/24 08/25/24 Rx pregabalin 50 mg capsule 50 mg PO BID #60 caps 07/25/24 08/25/24 Rx bupropion HCl 150 mg 24 hr tablet, 150 mg PO ONCE 08/19/24 08/25/24 History extended release trazodone 100 mg tablet 100 mg PO HS 08/19/24 08/25/24 History furosemide 20 mg tablet (Lasix) 20 mg PO DAILY #30 tabs 08/22/24 08/25/24 Rx spironolactone 50 mg tablet 50 mg PO DAILY #30 tabs 08/22/24 08/25/24 Rx (Aldactone) New Prescriptions to Start Prescriptions: Allergies Allergy/AdvReac Type Severity Reaction Status Date / Time mirtazapine (From Remeron) AdvReac Mild hallucinati Verified 08/19/24 14:59 ons Assessment and Plan *Assessment and plan (1) Bilateral sacroiliitis: Status: Acute Category: Medical Code(s): M46.1 - Sacroiliitis, not elsewhere classified Plan I did discuss with the patient that she does have point tenderness across her bilateral SI's and may benefit from additional SI injections however due to the fact that she is only gotten more temporary relief with these in the past I will send in refills of her pregabalin with a 1 month supply as well as a 5-day dose of prednisone 20 mg twice daily. Patient denies any recent oral steroids in the last 3 months. I will also see about sending in baclofen 5 mg twice daily as needed. Patient was counseled to discontinue all other muscle relaxers while trying this medication and that if it does cause significant drowsiness she can cut it in half. Patient will return to clinic in 2 weeks for reevaluation of symptoms and plan of care. Patient has been instructed to contact the clinic with any concerns before the next appointment. Dr. Merchant has reviewed this note and agrees with this plan of care. This note was dictated using voice recognition software and make contain errors or omissions. All injections are used with Lidocaine, Bupivacaine and dexamethasone. Occasionally urine drug screen is needed to verify patient's compliance with our office pain contract. This is ordered based off specific treatments related to chronic pain with the potential to abuse certain medications.
== END 2024-08-25 23:59 | disposition home or self-care (01) ==
PROVIDERS: PCP Internal Medicine Adolescent Medicine; Visit Provider Nurse Practitioner Family
DX: M46.1 Sacroiliitis, not elsewhere classified (principal); Z73.89 Other problems related to life management difficulty; Z79.02 Long term (current) use of antithrombotics/antiplatelets
CPT/HCPCS: 99212; G0463

== ENCOUNTER 2024-11-11 15:27 | Outpatient (CLI) | payer MEDICARE, OTHER, SELFPAY ==
--- OUTSIDE RECORDS SUMMARY | 2024-11-11 15:29 | XMS_ITS | Clinical Summary ---
Author Organization [facility] [place] [address] Care Team Providers Care Shower Maid Name Role Phone Unavailable Primary Care Provider Unavailabl e Social History Tobacco Use Types Packs/Day Years Used Date Smoking Tobacco: Never Assessed Comments Unknown Sex and Gender Information Value Date Recorded Sex Assigned at Not on file Legal Sex Female 6:16 AM EDT Gender Identity Not on file Sexual Orientation Not on file Plan of Treatment Health Maintenance Due Date Last Done Comments Annual Wellness Exam 1943 DTaP/TDaP/Td (1 - Tdap) 1960 Pneumococcal Vaccine 50+ (1 of 1 - PCV) 10/21/1991 Zoster (1 of 2) 10/21/1991 Bone Density Screening 2006 RSV or 60+ (1 - 1-d ose 75+ series) 2016 COVID-19 Vaccine (2023-2 5 season) 2023 Influenza Vaccine (#1) 2024 Hepatitis B Vaccine Aged Out No longe r eligible based on patient's age to complete this topic Meningococcal B Vaccine Aged Out No l onger eligible based on patient's age to complete this topic
--- NOTE | 2024-11-11 15:31 | XR_ITS ---
FINAL REPORT CLINICAL HISTORY: RIGHT FOOT PAIN FINDINGS: RIGHT FOOT 4 views of the right foot were obtained. There is no acute fracture or dislocation. Bones are osteopenic. There is mild hallux valgus deformity. Mild calcaneal spurring is noted. Visualized joint spaces are normally aligned. Soft tissues are unremarkable. IMPRESSION: No acute bony abnormality. Reviewed, Interpreted and Dictated by Meagan Hinkle MD Transcribed by Adeola Bell Authenticated and [facility]
== END 2024-11-11 23:59 | disposition home or self-care (01) ==
LOC: RAD 15:28
PROVIDERS: PCP Internal Medicine Adolescent Medicine; Visit Provider Nurse Practitioner Family
DX: M77.31 Calcaneal spur, right foot (principal)
CPT/HCPCS: 73630

== ENCOUNTER 2024-12-19 10:53 | Emergency (ER) | payer MEDICARE, OTHER, SELFPAY ==
[2024-12-19 11:02] VITALS: BP 174/68; PULSE 71; RESP 18; TEMP 36.6; O2SAT 95; BMI 22.9
--- OUTSIDE RECORDS SUMMARY | 2024-12-19 11:24 | XMS_ITS | Clinical Summary ---
Author Organization [facility] [place] [address] Care Team Providers Care Etl Tester Name Role Phone Unavailable Primary Care Provider [...]
--- NOTE | 2024-12-19 11:46 | HMH.EDGENADL ---
Discharge Plan Disposition Patient Disposition: Home, Self-Care Condition: Good Prescriptions Prescriptions: No Action diphenhydramine-acetaminophen [Tylenol PM Extra Strength] 25-500 mg tablet 1 tab PO HS PRN (Reason: Sleep) cetirizine 10 mg tablet 10 mg PO DAILY Patient Comments: TAKE 1 TABLET BY MOUTH ONCE DAILY levothyroxine 25 mcg tablet 25 mcg PO DAILY Patient Comments: TAKE 1 TABLET BY MOUTH ONCE DAILY trazodone 100 mg tablet 100 mg PO HS Patient Comments: TAKE 1 TABLET BY MOUTH ONCE DAILY AT BEDTIME bupropion HCl 150 mg tablet extended release 24 hr 150 mg PO ONCE Patient Comments: TAKE 1 TABLET BY MOUTH ONCE DAILY albuterol sulfate 90 mcg/actuation HFA aerosol inhaler 2 inh inhalation Q6H PRN (Reason: shortness of breath or wheezing) 90 Days Qty: 8.5 2RF Dulera 100-5 mcg/actuation HFA aerosol inhaler 2 puff inhalation BID 90 Days Qty: 13 2RF Rx Instructions: Rinse your mouth and gargle twice after using an inhaler clopidogrel [Plavix] 75 mg tablet 75 mg PO DAILY Qty: 30 11RF propranolol 80 mg capsule,extended release 24 hr 80 mg PO DAILY Qty: 90 1RF pregabalin 50 mg capsule 50 mg PO BID Qty: 60 2RF pantoprazole 40 mg tablet,delayed release (DR/EC) 40 mg PO DAILY Qty: 30 2RF Rx Instructions: Please take 1 p.o. daily furosemide [Lasix] 20 mg Tablet 20 mg PO DAILY Qty: 30 3RF spironolactone [Aldactone] 50 mg Tablet 50 mg PO DAILY Qty: 30 3RF Referrals Follow up/Referrals: Lee Delgado MD [Primary Care Provider, Internal Medicine] - See instructions Activity Restrictions/Add. Instructions Additional Instructions/Restrictions: Please stay well hydrated with water and electrolyte solutions at home (gatorade, powerade, pedialyte) at home. If you develop shortness of breath or any new or worsening symptoms please return. Clinical Impressions Clinical Impression: COVID-19 Print Language Print Language: Micronesian Discharge ED Provider: Ruben Corrales Adult HPI General Chief complaint: Upper Respiratory Infection Stated complaint: Positive Covid ,weak, throat pain, body aching Time Seen by Provider: 12/19/24 11:10 Mode of Arrival: Ambulatory Source of Information: Patient Description of Symptoms (Recalled from ER Triage Doc. by RN): pt presents to the er for a sore throat since yesterday and weakness for 2 days, went to pcp sunday she tested negative for covid then took a home test yesterday and it was positive, family members at home also have covid, also reports chills and body aches History of Present Illness HPI narrative: This is an 84-year-old female patient, with past medical history of hypertension, hyperlipidemia, and prior stroke, who is presenting to the emergency department today for evaluation of upper respiratory symptoms. The patient states that she has been feeling under the weather for the last couple of days and she went to her primary care doctor who tested her for COVID. The test returned positive so her primary care physician administered Paxlovid to her. This was yesterday. Today she woke up still feeling under the weather so she decided to come here for further evaluation to see if there is anything else we can offer her for her symptoms. She is complaining of congestion and rhinorrhea as well as an intermittent cough. She is not producing phlegm. She has no chest pain or shortness of breath. No swelling in the lower extremities. No abdominal pain. No nausea, vomiting, or diarrhea Related Data Home Medications ?Medication ?Instructions ?Recorded ?Confirmed diphenhydramine 25 1 tab PO HS PRN Sleep 05/28/24 09/01/24 mg-acetaminophen 500 mg tablet (Tylenol PM Extra Strength) bupropion HCl 150 mg 24 hr tablet, 150 mg PO ONCE 08/19/24 09/01/24 extended release trazodone 100 mg tablet 100 mg PO HS 08/19/24 09/01/24 cetirizine 10 mg tablet 10 mg PO DAILY 09/01/24 09/01/24 levothyroxine 25 mcg tablet 25 mcg PO DAILY 09/01/24 09/01/24 Previous Rx's ?Medication ?Instructions ?Recorded clopidogrel 75 mg tablet (Plavix) 75 mg PO DAILY #30 tabs 12/18/23 propranolol 80 mg capsule,24 80 mg PO DAILY #90 caps 05/19/24 hr,extended release furosemide 20 mg tablet (Lasix) 20 mg PO DAILY #30 tabs 08/22/24 spironolactone 50 mg tablet 50 mg PO DAILY #30 tabs 08/22/24 (Aldactone) pantoprazole 40 mg tablet,delayed 40 mg PO DAILY #30 tabs 10/30/24 release pregabalin 50 mg capsule 50 mg PO BID #60 caps 10/30/24 albuterol sulfate 90 mcg/actuation 2 inh inhalation Q6H PRN shortness 12/02/24 aerosol inhaler of breath or wheezing 90 days #8.5 grams mometasone-formoterol HFA 100 2 puff inhalation BID 90 days #13 12/02/24 mcg-5 mcg/actuation aerosol grams inhaler (Dulera) Allergies Allergy/AdvReac Type Severity Reaction Status Date / Time mirtazapine (From Remeron) AdvReac Mild hallucinati Verified 12/19/24 11:08 ons [facility] Disclaimer: The information contained in this section may have been updated after the patient was seen, as this information can be updated by other users. Medical History History of CVA (cerebrovascular accident) TIA (transient ischemic attack) Frequent headaches Falls frequently Hallucinations Asthma Dyspnea on exertion TED (obstructive sleep apnea) Claudication Abnormal chest xray Abnormal result of cardiovascular function study Edema of both lower extremities Chest pain Major depressive disorder History of CVA (cerebrovascular accident) HLD (hyperlipidemia) HHD (hypertensive heart disease) CAD (coronary artery disease) A-fib Surgical History H/O heart artery stent Hx of cardiac cath History of hysterectomy Family History Other Family history of diabetes mellitus type II Social History Smoking Status: Never smoker second hand exposure: No alcohol intake: never substance use type: denies use current occupational status: other Travel in the last 8 weeks?: None household members: none housing: house lives independently: Yes marital status: education level: college current occupational exposures/hazards: No caffeine: No special lonnie needs: No agree to transfusion: No do you feel safe at home: Yes victim of physical abuse: No victim of emotional abuse: No victim of sexual abuse: No would you like helpful sources: No Have you lived/traveled outside US in past 30 days?: No Contact w/someone who lives/traveled outside US past 30 days?: No Exposure to someone with infectious disease in past 14 days?: Yes Do you have a fever (greater than 100.4 F or 38 C)?: Yes Have you tested positive for COVID-19?: Yes Exposed to someone with COVID-19 in past 14 days?: Yes Do you have a sore throat?: Yes Do you have a cough?: Yes Do you have any weakness?: Yes Do you have any diarrhea?: No Are you experiencing any unusual bleeding?: No Do you have any muscle aches/pain?: Yes Do you have any abdominal pain?: No Are you experiencing loss of taste or smell?: No Other Medical History Have you received the Flu Vaccine for this season: Yes Have you received the Pneumonia Vaccine: Yes ROS Obtained: Yes Systems reviewed as appropriate & no additional complaints except as documented Physical Exam General General appearance: other (See MDM) Respiratory Respiratory exam: Present other (See MDM) Cardiovascular Cardiovascular exam: Present other (See MDM) Neurological Exam Neurological exam: Present other (See MDM) Medical Decision Making Medical Records Medical records reviewed: Yes I reviewed the patient's medical records. Screening: Per USPSTF and CDC recommendations, given the prevalence of disease in our region, it is our hospital?s policy to screen for HIV and viral Hepatitis for all patients aged 18 and over and those with ongoing risk factors. Mekhi Inquiry Pt receiving controlled substance: No Mekhi was queried for this patient: No Vital Signs: 12/19/24 11:02 12/19/24 11:49 Temperature 97.9 F 98.0 F Temperature Source Oral Oral Pulse Rate 64 Pulse Rate [Right Radial] 71 Respiratory Rate 18 16 Blood Pressure 171/71 H Blood Pressure [Right Arm] 174/68 H Blood Pressure Mean [Right Arm] 103 Blood Pressure Source Automatic Cuff Blood Pressure Source [Right Arm] Automatic Cuff Blood Pressure Position Sitting Blood Pressure Position [Right Arm] Sitting 02 Sat by Pulse Oximetry 95 Oxygen Delivery Method Room Air Room Air Medical Decision Narrative: In summary, this is an 84-year-old female patient who is coming here for evaluation of upper respiratory symptoms in the setting of COVID-19 infection that was diagnosed yesterday and treated with Paxlovid. She states that her symptoms have not worsened since she was seen yesterday by her primary care provider but rather have persisted and she wants to know if there is anything else that we can offer her. Comorbidities to include past medical history of hypertension, hyperlipidemia,CAD, prior stroke, and atrial fibrillation. On initial evaluation of the patient they were resting comfortably in no acute distress and nontoxic in appearance. They are hemodynamically stable, saturating well room air, and are neurologically intact. On physical examination she is appropriately alert and oriented with a GCS of 15. Heart and lungs clear to auscultation bilaterally. She has no stridor, wheezes, rales, rhonchi, or crackles. She is saturating 95% on room air. No retractions or increased work of breathing. No abdominal tenderness to palpation. She does sound congested and has nasal congestion noted on exam bilaterally. She has mild erythema of the posterior pharynx with no obvious exudates or ulcerations within the pharyngeal compartment. She has good capillary refill. Mucous membranes are moist. Differential diagnosis includes COVID-19 infection, malaise, pharyngitis, among others. Given that she is not experiencing active fevers and is not experiencing a cough that is productive of phlegm I have a low concern for bacterial pneumonia. The patient did not necessitate any labs or imaging for her workup. I do not feel that would provide any utility in diagnosing this patient. I have discussed very thoroughly with the patient that her symptoms will last for anywhere from 7 to 14 days and that she may experience a cough lasting for as much as 21 days. Otherwise I have instructed the patient to remain well-hydrated at home and drink plenty of electrolyte solutions. Unfortunately there is not much else that I can offer the patient for her symptoms today other than [id number] cough and cold medication. The patient acknowledges understanding of this. At this time all questions been answered and all parties are agreeable with the decision to discharge home. Critical Care Critical Care Time Critical Care Time: No
[2024-12-19 11:49] VITALS: BP 171/71; PULSE 64; RESP 16; TEMP 36.7; O2SAT 94
== END 2024-12-19 11:50 | disposition home or self-care (01) ==
PROVIDERS: Emergency Provider Student in an Organized Health Care Education/Training Program; PCP Internal Medicine Adolescent Medicine
DX: U07.1 COVID-19 (principal); E78.5 Hyperlipidemia, unspecified; I10 Essential (primary) hypertension; I48.91 Unspecified atrial fibrillation
CPT/HCPCS: 99282

== ENCOUNTER → 2024-12-24 12:43 | Outpatient (CLI) | payer MEDICARE, OTHER, SELFPAY ==
--- OUTSIDE RECORDS SUMMARY | 2024-12-24 12:49 | XMS_ITS | Clinical Summary ---
Author Organization [facility] [place] [address] Care Team Providers Care Motion Picture Set Up Worker Name Role Phone Unavailable Primary Care Provider [...]
== END ==
LOC: SL 12:45
PROVIDERS: PCP Internal Medicine Adolescent Medicine; Visit Provider Internal Medicine Pulmonary Disease
DX: I27.20 Pulmonary hypertension, unspecified (principal)
CPT/HCPCS: 94762

== ENCOUNTER 2025-03-15 16:28 | Observation (INO) | payer MEDICARE, OTHER, SELFPAY ==
[2025-03-15] VITALS (7 sets, daily range): BP systolic 136–181; BP diastolic 62–119; PULSE 81–89; RESP 16–24; TEMP 36.9–37.1; O2SAT 93–100; BMI 22.6
--- OUTSIDE RECORDS SUMMARY | 2025-03-15 16:51 | XMS_ITS | Clinical Summary ---
Author Organization [facility] Address [address] [place] [id number] Phone Care Team Providers Care Forestry Aid Technician Name Role Phone Unavailable Primary Care Provider Unavailabl e Social History Tobacco Use Types Packs/Day Years Used Date Smoking Tobacco: Never Assessed Comments Unknown Sex and Gender Information Value Date Recorded Sex Assigned at Not on file Legal Sex Female 6:16 AM EDT Gender Identity Not on file Sexual Orientation Not on file Plan of Treatment Upcoming Encounters Date Type Department Care Team (Late st Contact Info) Description 04/03/2025 9:00 AM EST Appointment [facility] [address] [facility] [place] [address] Antoni Rush, YOBANY [address] [facility], [address] [place] [id number] Health Maintenance Due Date Last Done Comments Annual Wellness Exam 1943 DTaP/TDaP/Td (1 - Tdap) 1960 Pneumococcal Vaccine 50+ (1 of 1 - PCV) 10/21/1991 Zoster (1 of 2) 10/21/1991 Bone Density Screening 2006 RSV or 60+ (1 - 1-d ose 75+ series) 2016 COVID-19 Vaccine ( - 2024-2 6 season) 2024 Influenza Vaccine (#1) 2024 Hepatitis B Vaccine Aged Out No longe r eligible based on patient's age to complete this topic Meningococcal B Vaccine Aged Out No l onger eligible based on patient's age to complete this topic
--- NOTE | 2025-03-15 17:16 | CT_ITS ---
PROCEDURE INFORMATION: Exam: CT Abdomen And Pelvis With Contrast Exam date and time: 03/15/2025 6:06 PM Age: 84 years old Clinical indication: Abdominal pain; Localized; Right; Additional info: Right sided abdominal pain TECHNIQUE: Imaging protocol: Computed tomography of the abdomen and pelvis with contrast. Total images: 315 Radiation optimization: All CT scans at this facility use at least one of these dose optimization techniques: automated exposure control; mA and/or kV adjustment per patient size (includes targeted exams where dose is matched to clinical indication); or iterative reconstruction. Contrast material: ISOVUE; Contrast volume: 75 ml; Contrast route: IV; COMPARISON: CT ABDOMEN PELVIS WO CON 12/31/2020 1:26 PM FINDINGS: Lungs: Calcified pulmonary granuloma. Mild left lower lobe peribronchial infiltrate. Small peripheral right lower lobe infiltrate/pneumonia. Heart: Normal heart size. Coronary arteries: Coronary artery calcifications. Diaphragm: Small hiatal hernia. Liver: Calcified liver granuloma. Mildly lobulated liver contour. No mass. Normal attenuation. Gallbladder and biliary ducts: Punctate gallstone versus gallbladder wall calcification. No acute cholecystitis. No bile duct dilatation. Pancreas: Normal. No ductal dilation. Spleen: Calcified splenic granuloma. No splenomegaly. Adrenal glands: Normal. No mass. Kidneys and ureters: No hydronephrosis or nephrolithiasis. Bilateral renal cortical thinning. No discrete renal mass. Bilateral renal pelviectasis is presumed physiologic. Left renal peripelvic cysts. No ureteral stones. Left renal vascular calcifications favored over nephrolithiasis. Stomach and bowel: Unremarkable stomach and duodenum. No ileus or bowel obstruction. Unremarkable small bowel and terminal ileum. Moderate colonic stool burden/constipation. Moderate sigmoid diverticulosis without diverticulitis. Unremarkable rectum. Appendix: Normal appendix. Intraperitoneal space: Unremarkable. No free air. No significant fluid collection. Vasculature: Severe atherosclerotic vascular disease. Nonaneurysmal abdominal aorta. Lymph nodes: Unremarkable. No enlarged lymph nodes. Urinary bladder: Unremarkable as visualized. Reproductive: Status post hysterectomy. No adnexal mass. Bones/joints: Multilevel severe degenerative changes of the lumbar spine. Osteopenia. Mild lumbar dextrocurvature. Mild degenerative changes bilateral hips and SI joints. Soft tissues: Rule out left breast subareolar mass versus asymmetric parenchyma. Very tiny fat containing umbilical hernia. IMPRESSION: 1. Small right lower lobe pneumonia. 2. Mild left lower lobe peribronchial infiltrates. 3. Rule out left breast subareolar mass versus asymmetric parenchyma. Follow-up nonemergent diagnostic mammography. 4. No acute intra-abdominal or pelvic process. 5. Multiple chronic and incidental findings.
--- NOTE | 2025-03-15 17:16 | XR_ITS ---
PROCEDURE INFORMATION: Exam: XR Chest Exam date and time: 03/15/2025 6:11 PM Age: 84 years old Clinical indication: Other: Weakness TECHNIQUE: Imaging protocol: Radiologic exam of the chest. Views: 1 view. Total images: 1 COMPARISON: CT ANGIO CHEST PE PROTOCOL 08/05/2024 3:10 AM FINDINGS: Lungs: Bilateral hyperinflation is present. No focal pneumonia. Pleural spaces: No pleural effusion. No pneumothorax. Heart/Mediastinum: No cardiomegaly. Vasculature: Tortuosity of the thoracic aorta. Moderate atherosclerotic disease. Bones/joints: Unremarkable. IMPRESSION: 1. Bilateral hyperinflation is present. 2. No focal pneumonia.
--- NOTE | 2025-03-15 17:23 | ECG_ITS ---
APPROVED REPORT Exam: Resting ECG HR:79 bpm ECG Measurements Heart Rate 79 AXES NJ 166 P 56 QRSd 73 QRS 37 QT 333 T 61 QTc 367 Conclusion Normal sinus rhythm Normal axis Normal intervals No STEMI Electronically signed by : Ruben Corrales, 03/15/2025 23:42:10
[2025-03-15 17:25] LABS: Hematocrit 38.4 % (37.0-47.0); Hemoglobin 12.7 g/dL (12.2-16.2); Immature Granulocytes % 0.4 %; Mean Corpuscular HGB Conc 33.1 g/dL (31.8-35.4); Mean Corpuscular Hemoglobin 30.5 pg (27.0-31.2); Mean Corpuscular Volume 92.1 fl (81-99); Nucleated Red Blood Cells % 0 %; Platelet Count 272 K/mm3 (142-424); Red Blood Count 4.17 M/mm3 (4.20-5.40); Red Cell Distribution Width-SD 43.3 fL; White Blood Count 12.9 K/mm3 (4.8-10.8)
[2025-03-15 17:29] LABS: Coronavirus 19, PCR Not Detected (NotDetected); Influenza A, PCR Not Detected (NotDetected); Influenza B, PCR Not Detected (NotDetected)
[2025-03-15 17:38] LABS: Alanine Aminotransferase 13 U/L (12-78); Albumin Level 4.4 g/dl (3.5-5.0); Albumin/Globulin Ratio 1.2 (1.1-1.8); Alkaline Phosphatase 94 U/L (38-126); Anion Gap 10.8 mEq/L (5-15); Aspartate Amino Transferase 24 U/L (14-36); Bilirubin,Total 0.8 mg/dl (0.2-1.3); Blood Urea Nitrogen 28 mg/dl (7-17); Calcium 9.3 mg/dl (8.4-10.2); Carbon Dioxide 25 mmol/L (22.0-30.0); Chloride 106 mmol/L (98-107); Creatine Kinase 183 U/L (30-135); Creatinine Clearance Estimated 22 mL/min (50-200); Creatinine,Serum 1.90 mg/dl (0.52-1.04); Estimated Glomerular Filt Rate 25 ml/min (>60); GFR (African American) 31 ML/MIN (>60); Globulin 3.6 g/dL (1.3-3.2); Glucose 132 mg/dl (74-100); Lipase 66 U/L (23-300); Potassium 4.8 mmoL/L (3.5-5.1); Sodium 137 mmol/L (136-145); Total Protein,Serum 8.0 g/dl (6.3-8.2)
[2025-03-15] MEDS: LACTATED RINGERS 1000ML 500 ML 999 ML IV (17:44)
[2025-03-15 17:52] LABS: Troponin I < 0.01 ng/ml (0.00-0.034)
[2025-03-15 17:54] LABS: Free T4 (Free Thyroxine) 1.03 ng/dl (0.78-2.19)
--- NOTE | 2025-03-15 18:00 | HMH.ITSTN ---
per ED physician, low GFR is ok, proceed with contrast
[2025-03-15] MEDS: IOPAMIDOL-370 (76%);100ML BOTTLE 75 ML IV (18:06)
[2025-03-15] MEDS: SODIUM CHLORIDE 0.9% 10ML SYR (RAD ONLY) 10 ML IV (18:06)
[2025-03-15 18:09] LABS: Thyroid Stimulating Hormone 1.46 uIU/mL (0.465-4.68)
[2025-03-15 19:22] LABS: Microscopic, Urine URINE MICROSCOPIC (MICROSCOPIC)
[2025-03-15 19:25] LABS: Bilirubin,Urine Negative (Negative); Color,Urine YELLOW (Yellow); Glucose,Urine (UA) Negative (Negative); Ketones,Urine Negative (Negative); Leukocyte Esterase,Urine 1+ (Negative); PH,Urine 6.0 (5.0-8.5); Protein,Urine Negative (Negative); Specific Gravity, Urine 1.015 (1.005-1.030); Urobilinogen,Urine 0.2 EU/dl (0.2)
--- NOTE | 2025-03-15 19:25 | HMH.EDGENADL ---
Discharge Plan Disposition Patient Disposition: Admitted Condition: Fair Clinical Impressions Clinical Impression: Community acquired pneumonia, Urinary tract infection, Unable to ambulate Discharge ED Provider: Ruben Corrales Adult HPI General Chief complaint: Weakness Stated complaint: Weakness Time Seen by Provider: 03/15/25 16:43 Mode of Arrival: Wheelchair Source of Information: Patient Description of Symptoms (Recalled from ER Triage Doc. by RN): pt presents to ED with c/o weakness. daughter states that pt began having trouble ambulating yesterday. pt lives with daughter and daughter states pt has been having more trouble getting around. History of Present Illness HPI narrative: This is an 84-year-old female patient, with past medical history of atrial fibrillation, hypertension, hyperlipidemia, coronary artery disease, and prior strokes, who is presenting to the emergency department today for evaluation of weakness. Patient states that for the last several days she has had rhinorrhea and nasal congestion which is caused her to feel generally unwell. She states this morning she woke up and she was completely unable to stand up out of the bed or walk. She had to call her daughter to come and assist her. Otherwise she has not had any nausea, vomiting, chest pain, or diarrhea. She does state that she has had a minor cough Related Data Home Medications ?Medication ?Instructions ?Recorded ?Confirmed diphenhydramine 25 1 tab PO HS PRN Sleep 05/28/24 02/23/25 mg-acetaminophen 500 mg tablet (Tylenol PM Extra Strength) bupropion HCl 150 mg 24 hr tablet, 150 mg PO ONCE 08/19/24 02/23/25 extended release trazodone 100 mg tablet 100 mg PO HS 08/19/24 02/23/25 cetirizine 10 mg tablet 10 mg PO DAILY 09/01/24 02/23/25 levothyroxine 25 mcg tablet 25 mcg PO DAILY 09/01/24 02/23/25 Previous Rx's ?Medication ?Instructions ?Recorded pregabalin 50 mg capsule 50 mg PO BID #60 caps 10/30/24 albuterol sulfate 90 mcg/actuation 2 inh inhalation Q6H PRN shortness 12/02/24 aerosol inhaler of breath or wheezing 90 days #8.5 grams mometasone-formoterol HFA 100 2 puff inhalation BID 90 days #13 12/02/24 mcg-5 mcg/actuation aerosol grams inhaler (Dulera) pantoprazole 40 mg tablet,delayed 40 mg PO DAILY #90 tabs 01/27/25 release propranolol 80 mg capsule,24 See Rx Instructions .Route 01/27/25 hr,extended release .COMPLEX #90 caps furosemide 20 mg tablet (Lasix) 20 mg PO DAILY #90 tabs 02/04/25 spironolactone 50 mg tablet 50 mg PO DAILY #90 tabs 02/04/25 (Aldactone) clopidogrel 75 mg tablet See Rx Instructions .Route 02/05/25 .COMPLEX #90 tabs mupirocin 2 % topical ointment 1 applic topical BID infection 14 02/17/25 days #22 grams Allergies Allergy/AdvReac Type Severity Reaction Status Date / Time mirtazapine (From Remeron) AdvReac Mild hallucinati Verified 02/23/25 10:34 ons [facility] PFS Disclaimer: The information contained in this section may have been updated after the patient was seen, as this information can be updated by other users. Medical History Pain due to onychomycosis of toenail History of CVA (cerebrovascular accident) TIA (transient ischemic attack) Frequent headaches Falls frequently Hallucinations Asthma Dyspnea on exertion TED (obstructive sleep apnea) Claudication Abnormal chest xray Abnormal result of cardiovascular function study Edema of both lower extremities Chest pain Major depressive disorder History of CVA (cerebrovascular accident) HLD (hyperlipidemia) HHD (hypertensive heart disease) CAD (coronary artery disease) A-fib Surgical History H/O heart artery stent Hx of cardiac cath History of hysterectomy Family History Other Family history of diabetes mellitus type II Social History Smoking Status: Never smoker second hand exposure: No alcohol intake: never substance use type: denies use current occupational status: other Travel in the last 8 weeks?: None household members: none housing: house lives independently: Yes marital status: education level: college current occupational exposures/hazards: No caffeine: No special lonnie needs: No agree to transfusion: No do you feel safe at home: Yes victim of physical abuse: No victim of emotional abuse: No victim of sexual abuse: No would you like helpful sources: No Have you lived/traveled outside [place] in past 30 days?: No Contact w/someone who lives/traveled outside [place] past 30 days?: No Exposure to someone with infectious disease in past 14 days?: No Do you have a fever (greater than 100.4 F or 38 C)?: No Have you tested positive for COVID-19?: No Exposed to someone with COVID-19 in past 14 days?: No Do you have a sore throat?: No Do you have a cough?: No Do you have any weakness?: No Do you have any diarrhea?: No Are you experiencing any unusual bleeding?: No Do you have any muscle aches/pain?: No Do you have any abdominal pain?: No Are you experiencing loss of taste or smell?: No Other Medical History Have you received the Flu Vaccine for this season: Yes Have you received the Pneumonia Vaccine: Yes ROS Obtained: Yes Systems reviewed as appropriate & no additional complaints except as documented Physical Exam General General appearance: other (See MDM) Respiratory Respiratory exam: Present other (See MDM) Cardiovascular Cardiovascular exam: Present other (See MDM) Neurological Exam Neurological exam: Present other (See MDM) Medical Decision Making Medical Records Medical records reviewed: Yes I reviewed the patient's medical records. Screening: Per USPSTF and CDC recommendations, given the prevalence of disease in our region, it is our hospital?s policy to screen for HIV and viral Hepatitis for all patients aged 18 and over and those with ongoing risk factors. M[place] Inquiry Pt receiving controlled substance: No M[place] was queried for this patient: No Vital Signs: 03/15/25 16:50 03/15/25 17:00 03/15/25 17:30 Temperature 98.8 F Temperature Source Oral Pulse Rate 84 81 Pulse Rate [Left Radial] 83 Respiratory Rate 21 23 23 Blood Pressure 181/82 H Blood Pressure [Right Arm] 178/62 H Blood Pressure Mean [Right Arm] 100 02 Sat by Pulse Oximetry 96 96 93 L Oxygen Delivery Method Room Air Room Air 03/15/25 19:13 Temperature Temperature Source Pulse Rate 86 Pulse Rate [Left Radial] Respiratory Rate 16 Blood Pressure 153/67 H Blood Pressure [Right Arm] Blood Pressure Mean [Right Arm] 02 Sat by Pulse Oximetry 100 Oxygen Delivery Method Room Air Lab Data Lab Results 03/15/25 17:19: WBC 12.9 H, RBC 4.17 L, Hgb 12.7, Hct 38.4, MCV 92.1, MCH 30.5, MCHC 33.1, RDW 12.9, Plt Count 272, MPV 9.6, Neut % (Auto) 71.1, Lymph % (Auto) 17.2, [place] % (Auto) 7.8, Eos % (Auto) 3.0, Baso % (Auto) 0.5, Neut # (Auto) 9.2 H, Lymph # (Auto) 2.2, [place] # (Auto) 1.0, Eos # (Auto) 0.4, Baso # (Auto) 0.1, Sodium 137, Potassium 4.8, Chloride 106, Carbon Dioxide 25, Anion Gap 10.8, BUN 28 H, Creatinine 1.90 H, Estimated Creat Clear 22, Estimated GFR 25 L, Est GFR ( Amer) 31 L, Glucose 132 H, Calcium 9.3, Total Bilirubin 0.8, AST 24, ALT 13, Alkaline Phosphatase 94, Total Creatine Kinase 183 H, Troponin I < 0.01, Total Protein 8.0, Albumin 4.4, Globulin 3.6 H, Albumin/Globulin Ratio 1.2, Lipase 66, TSH 1.46, Free T4 1.03, HIV Ag/Ab Combo Qual Negative 03/15/25 17:20: SARS-CoV-2 (PCR) Not detected, Influenza Type A (PCR) Not detected, Influenza Type B (PCR) Not detected, RSV (PCR) Not detected, Rhinovirus (PCR) Not detected 03/15/25 19:20: Urine Color Yellow, Urine Appearance Clear, Urine pH 6.0, Ur Specific [place] 1.015, Urine Protein Negative, Urine Glucose (UA) Negative, Urine Ketones Negative, Urine Blood Trace-i, Urine Nitrate Positive A, Urine Bilirubin Negative, Urine Urobilinogen 0.2, Ur Leukocyte Esterase 1+ A 03/15/25 17:19 03/15/25 17:19 Orders (Tests/Meds): ED MEDICATIONS Generic Name Dose Route Start Last Admin Trade Name Freq PRN Reason Stop Dose Admin Ceftriaxone Sodium 2 gm/ 100 mls @ 200 mls/hr 03/15/25 19:30 Sodium Chloride IV 03/25/25 19:29 Q24H ASHVIN Azithromycin 500 mg/ Sodium 250 mls @ 250 mls/hr 03/15/25 19:30 Chloride IV 03/25/25 19:29 Q24H ASHVIN Sodium Chloride 10 ml 03/15/25 18:02 03/15/25 18:06 Sodium Chloride 0.9% 10ml Syr (Rad Only) IV 04/14/25 18:01 10 ml NEEDED PRN Administration Maintain IV Site Discontinued Medications Generic Name Dose Route Start Last Admin Trade Name Justo PRN Reason Stop Dose Admin Lactated Ringer's 500 mls @ 999 mls/hr 03/15/25 17:16 03/15/25 18:22 Lactated Ringer's 1000 Ml Bag IV 03/15/25 17:46 Infused .Q31M ONE Infusion Iopamidol 75 ml 03/15/25 18:02 03/15/25 18:06 Iopamidol-370 (76%);100ml Bottle IV 03/15/25 18:03 75 ml ONCE ONE Administration ORDERS Category Date Time Status CT abdomen pelvis w con Stat Cat Scan 03/15/25 17:16 Completed CXR --portable [XR chest portable] Stat Exams 03/15/25 17:16 Completed CBC w/Auto Diff [Complete Blood Count Auto Diff] Stat Lab 03/15/25 17:19 Completed CK [Creatine Kinase] Stat Lab 03/15/25 17:19 Completed CMP [Comprehensive Metabolic Panel] Stat Lab 03/15/25 17:19 Completed Free T4 (Free Thyroxine) Stat Lab 03/15/25 17:19 Completed HIV Combo Routine Lab 03/15/25 17:19 Completed Hepatitis C Ab Qual. W/ RFX Routine Lab 03/15/25 17:19 Received Lipase Stat Lab 03/15/25 17:19 Completed Mini Respiratory Panel Stat Lab 03/15/25 17:20 Completed TSH [Thyroid Stimulating Hormone] Stat Lab 03/15/25 17:19 Completed Troponin I Q3H Lab 03/15/25 20:30 Ordered Troponin I Q3H Lab 03/15/25 23:30 Ordered Troponin I Stat Lab 03/15/25 17:19 Completed Urinalysis and Microscopic Stat Lab 03/15/25 19:20 Results Urine Culture Stat Micro 03/15/25 19:20 Received EKG Request [ECG Request] Stat Y 03/15/25 17:16 Ordered Medical Decision Narrative: In summary, this is an 84-year-old female patient who is presenting to the emergency department today for rhinorrhea, congestion, cough, and weakness with inability to ambulate. Patient's comorbidities include hypertension, hyperlipidemia, CAD, and prior strokes. On initial evaluation of the patient she does appear weak and ill. She is hemodynamically stable, saturating well room air, and is neurologically intact On physical examination her heart lungs clear auscultation bilaterally. She does have focal tenderness in the right side of her abdomen. No lower extremity erythema or edema. Differential diagnosis includes colitis, appendicitis, pneumonia, cholecystitis, choledocholithiasis, colitis, COVID, flu, RSV, among others. We will also work the patient up for ACS and VT. Workup is initiated with hematologic labs as well as a chest x-ray, CT scan of the abdomen pelvis, and EKG. EKG was personally interpreted by me and demonstrates normal sinus rhythm at a rate of 79 bpm, normal axis, no LA prolongation, narrow QRS, no QTc prolongation. No ST ovation or depression. No overt signs of ischemia or arrhythmia. Labs were personally turbid by me and demonstrate a leukocytosis of 12.9, no anemia, no significant electrolyte derangements or acute kidney injury. Troponin is less than 0.01. Urine is significant for leukocyte esterase and nitrates consistent with urinary tract infection. CT scan of the abdomen and pelvis was personally turbid by me and demonstrates no large pneumoperitoneum. Official radiology read is in agreement and states there is no acute findings in the abdomen or pelvis, however the patient does have findings consistent with left lower lobar pneumonia Given the fact that the patient is unable to ambulate and she has a urinary tract infection and pneumonia I do not feel that she is stable for discharge home. I had an interactive discussion with the internal medicine service was agreed to evaluate the patient the Emergency Department. After our discussion their evaluation agreed to admit the patient to their service and except primary responsibility patient moving forward. Critical Care Critical Care Time Critical Care Time: No
[2025-03-15 19:41] LABS: Bacteria,Urine 4+ /lpf; Squamous Epithelial Cell,Urine 20-50 #/hpf (0-5); WBC,Urine 50-100 #/hpf (0-3)
--- NOTE | 2025-03-15 19:54 | PC.NURSE ---
Patient arrived to floor via stretcher from ED at 19:52.
--- NOTE | 2025-03-15 21:18 | PC.NURSE ---
Med rec done based on external med list, patient is unsure of meds, and daughter is unsure, daughter states she will bring in home medications tomorrow for pharmacy.
[2025-03-15 21:30] LABS: Troponin I < 0.01 ng/ml (0.00-0.034)
--- NOTE | 2025-03-15 21:44 | P.HP_ITS ---
<Statement entered by Hero Fontanez MD - 03/16/25 11:05> Agree with plan of care as outlined by the SCREW DRIVER OPERATOR. History of Present Illness *Admission Date: 03/15/25 *Reason for visit:: Generalized weakness *History of present illness: Patient is a 84-year-old female with past medical history significant for asthma, GERD, TED, osteoarthritis, congestive heart failure, CKD, history of CVA, HLD, CAD and atrial fibrillation. Patient presents to [facility] to generalized weakness. Patient reports over the past several weeks that she has been unable to ambulate due to weakness. Reports being able to stand up at the side of the bed for short periods of time. Denies use of ambulating aid. Currently resides with her daughter. Patient denies any recent fall or injury but states that she has had frequent falls in the past. During her evaluation/workup in the emergency department right lower lobe pneumonia and a urinary tract infection. Patient states that she has had a minimal cough at night but denies any sputum production. Reports minimal suprapubic pressure but otherwise denies any other urinary symptoms. Denies fever, chills, nausea, vomiting, diarrhea or contact with sick individuals. Initial ED workup included laboratory studies and imaging. WBC 12.9, BUN 28, creatinine 1.90, GFR 25, 132, total creatinine kinase 183, UA nitrate positive, 1+ leukocyte esterase, 4+ bacteria. CT abdomen pelvis obtained while in the emergency department, I personally reviewed right lower lobe pneumonia, mild left lower lobe parabronchial infiltrate, rule out left breast subareolar mass versus asymmetric parenchyma. Upon evaluation patient evaluation at bedside, she is without any acute distress. Resting in bed comfortably without complaint. On room air, adequate saturations, hemodynamically stable. [facility] Disclaimer: The information contained in this section may have been updated after the patient was seen, as this information can be updated by other users. Medical History Pain due to onychomycosis of toenail History of CVA (cerebrovascular accident) TIA (transient ischemic attack) Frequent headaches Falls frequently Hallucinations Asthma Dyspnea on exertion TED (obstructive sleep apnea) Claudication Abnormal chest xray Abnormal result of cardiovascular function study Edema of both lower extremities Chest pain Major depressive disorder History of CVA (cerebrovascular accident) HLD (hyperlipidemia) HHD (hypertensive heart disease) CAD (coronary artery disease) A-fib Surgical History H/O heart artery stent Hx of cardiac cath History of hysterectomy Family History Other Family history of diabetes mellitus type II Social History Smoking Status: Never smoker second hand exposure: No alcohol intake: never substance use type: denies use current occupational status: other Travel in the last 8 weeks?: None household members: none housing: house lives independently: Yes marital status: education level: college current occupational exposures/hazards: No caffeine: No special lonnie needs: No agree to transfusion: No do you feel safe at home: Yes victim of physical abuse: No victim of emotional abuse: No victim of sexual abuse: No would you like helpful sources: No Have you lived/traveled outside [place] in past 30 days?: No Contact w/someone who lives/traveled outside US past 30 days?: No Exposure to someone with infectious disease in past 14 days?: No Do you have a fever (greater than 100.4 F or 38 C)?: No Have you tested positive for COVID-19?: No Exposed to someone with COVID-19 in past 14 days?: No Do you have a sore throat?: No Do you have a cough?: No Do you have any weakness?: No Are you experiencing any nausea/vomitting?: No Do you have any diarrhea?: No Are you experiencing any unusual bleeding?: No Do you have any muscle aches/pain?: No Do you have any abdominal pain?: No Are you experiencing loss of taste or smell?: No Other Medical History Have you received the Flu Vaccine for this season: Yes Have you received the Pneumonia Vaccine: Yes Review of Systems Review of Systems Review of systems:: pertinent systems reviewed and negative unless documented below Constitutional Constitutional: Reports frequent falls and Reports weakness Eyes Eyes: Reports as per HPI ENT Ears, Nose, Mouth, and Throat: Reports as per HPI *Cardiovascular Cardiovascular: Reports as per HPI *Respiratory Respiratory: Reports as per HPI Comments: room air *Gastrointestinal Gastrointestinal: Reports as per HPI *Genitourinary Genitourinary: Reports as per HPI *Musculoskeletal Musculoskeletal: Reports as per HPI, Reports abnormal gait, Reports limited range of motion and Reports muscle weakness Integumentary/Breasts Skin/Breast: Reports as per HPI *Neurologic Neurologic: Reports as per HPI, Reports abnormal gait, Reports frequent falls and Reports weakness Psychiatric Psychiatric: Reports as per HPI Endocrine Endocrine: Reports as per HPI Hematologic/Lymphatic Hematologic/Lymphatic: Reports as per HPI Allergic/Immunologic Allergic/Immunologic: Reports as per HPI Meds Home Medications and Allergies Home Medications ?Medication ?Instructions ?Recorded ?Confirmed ?Type mupirocin 2 % topical ointment 1 applic topical BID in fection 14 02/17/25 03/15/25 Rx days #22 grams bupropion HCl 150 mg 24 hr tablet, 150 mg PO DAILY 03/15/25 History extended release clopidogrel 75 mg tablet 75 mg PO DAILY 03/15/2502/22 History furosemide 20 mg tablet 20 mg PO DAILY 03/15/2502/22 History pantoprazole 40 mg tablet,delayed 40 mg PO DAILY 03/1503/15/25 History release propranolol 80 mg capsule,24 80 mg PO DAILY 03/15/25 1 05/15/24 History hr,extended release spironolactone 50 mg tablet 50 mg PO DAILY 03/15/25 History New Prescriptions to Start Prescriptions: Allergies Allergy/AdvReac Type Severity Reaction Status Date / Time mirtazapine (From Remeron) AdvReac Mild hallucinati Verified 02/23/25 10:34 ons Exam Data for Last 24 hours Vital signs and Labs for Last 24 Hours: Temp Pulse Resp BP Pulse Ox O2 Del Method 98.4 F 89 16 151/70 H 95 Room Air 03/15/25 20:00 03/15/25 20:00 03/15/25 20:00 03/15/25 20:00 03/15/25 20:00 03/15/25 20:00 Laboratory Results - last 24 hr 03/15/25 17:19: WBC 12.9 H, RBC 4.17 L, Hgb 12.7, Hct 38.4, MCV 92.1, MCH 30.5, MCHC 33.1, RDW 12.9, Plt Count 272, MPV 9.6, Neut % (Auto) 71.1, Lymph % (Auto) 17.2, Falls % (Auto) 7.8, Eos % (Auto) 3.0, Baso % (Auto) 0.5, Neut # (Auto) 9.2 H, Lymph # (Auto) 2.2, Falls # (Auto) 1.0, Eos # (Auto) 0.4, Baso # (Auto) 0.1, Sodium 137, Potassium 4.8, Chloride 106, Carbon Dioxide 25, Anion Gap 10.8, BUN 28 H, Creatinine 1.90 H, Estimated Creat Clear 22, Estimated GFR 25 L, Est GFR ( Amer) 31 L, Glucose 132 H, Calcium 9.3, Total Bilirubin 0.8, AST 24, ALT 13, Alkaline Phosphatase 94, Total Creatine Kinase 183 H, Troponin I < 0.01, Total Protein 8.0, Albumin 4.4, Globulin 3.6 H, Albumin/Globulin Ratio 1.2, Lipase 66, TSH 1.46, Free T4 1.03, HIV Ag/Ab Combo Qual Negative 03/15/25 17:20: SARS-CoV-2 (PCR) Not detected, Influenza Type A (PCR) Not detected, Influenza Type B (PCR) Not detected, RSV (PCR) Not detected, Rhinovirus (PCR) Not detected 03/15/25 19:20: Urine Color Yellow, Urine Appearance Clear, Urine pH 6.0, Ur Specific [place] 1.015, Urine Protein Negative, Urine Glucose (UA) Negative, Urine Ketones Negative, Urine Blood Trace-i, Urine Nitrate Positive A, Urine Bilirubin Negative, Urine Urobilinogen 0.2, Ur Leukocyte Esterase 1+ A, Urine RBC 5-10, Urine WBC 50-100, Ur Squamous Epith Cells 20-50, Urine Bacteria 4+ 03/15/25 20:57: Troponin I < 0.01 I & O for Last 24 hours: Intake & Output 03/12/25 03/13/25 03/14/25 03/15/25 23:59 23:59 23:59 23:59 Intake Total 500 / 500 Output Total 300 / 300 Balance 200 / 200 Weight 64.047 kg Constitutional Constitutional: no acute distress *Routine HEENT Exam Head: Present normocephalic and atraumatic Eye: Present EOMI, PERRL and normal accommodation ENT: Present mucous membranes moist *Routine Neck Exam Neck: Present supple and full ROM *Routine Respiratory Exam Respiratory: Present normal respiratory effort Comments: mild nonproductive cough *Routine Cardiovascular Exam Cardiovascular: Present RRR, Normal S1 and Normal S2 *Routine Abdominal Exam Abdominal: Present soft and normoactive bowel sounds *Routine Rectal Exam Rectal:: deferred *Routine Genitalia Exam Genitalia:: deferred *Routine Extremities Exam Extremities: Present pulses intact and normal capillary refill *Routine Skin Exam Skin: Present intact *Routine Neurological Exam Neurological: Present alert, oriented X3 and CN II-XII intact Routine Psychiatric Exam Psychiatric: Present normal affect Assessment and Plan *Assessment and plan (1) Community acquired pneumonia of both lower lobes: Status: Acute Category: Medical Code(s): J18.9 - Pneumonia, unspecified organism (2) Urinary tract infection: Status: Acute Qualifiers: Hematuria presence: without hematuria Urinary tract infection type: acute cystitis Qualified Code(s): N30.00 - Acute cystitis without hematuria Category: Medical Code(s): N39.0 - Urinary tract infection, site not specified (3) Leucocytosis: Status: Acute Qualifiers: Leukocytosis type: unspecified Qualified Code(s): D72.829 - Elevated white blood cell count, unspecified Category: Medical Code(s): D72.829 - Elevated white blood cell count, unspecified (4) Generalized weakness: Status: Acute Category: Medical Code(s): R53.1 - Weakness (5) History of falling: Status: Acute Category: Medical Code(s): Z91.81 - History of falling (6) Unable to ambulate: Status: Acute Category: Medical Code(s): R26.2 - Difficulty in walking, not elsewhere classified (7) CKD (chronic kidney disease): Status: Acute Qualifiers: Chronic kidney disease stage: unspecified stage Qualified Code(s): N18.9 - Chronic kidney disease, unspecified Category: Medical Code(s): N18.9 - Chronic kidney disease, unspecified (8) CHF (congestive heart failure): Status: Acute Qualifiers: Heart failure chronicity: unspecified Heart failure type: unspecified Qualified Code(s): I50.9 - Heart failure, unspecified Category: Medical Code(s): I50.9 - Heart failure, unspecified (9) History of CVA (cerebrovascular accident): Status: Chronic Category: Medical Code(s): Z86.73 - Personal history of transient ischemic attack (TIA), and cerebral infarction without residual deficits (10) HLD (hyperlipidemia): Status: Chronic Qualifiers: Hyperlipidemia type: mixed hyperlipidemia Qualified Code(s): E78.2 - Mixed hyperlipidemia Category: Medical Code(s): E78.5 - Hyperlipidemia, unspecified (11) CAD (coronary artery disease): Status: Chronic Qualifiers: Associated angina: without angina Coronary Disease-Associated Artery/Lesion type: false pass artery [place] vs. transplanted heart: false pass heart Qualified Code(s): I25.10 - Atherosclerotic heart disease of false pass coronary artery without angina pectoris Category: Medical Code(s): I25.10 - Atherosclerotic heart disease of false pass coronary artery without angina pectoris (12) A-fib: Status: Chronic Qualifiers: Atrial fibrillation type: paroxysmal Qualified Code(s): I48.0 - Paroxysmal atrial fibrillation Category: Medical Code(s): I48.91 - Unspecified atrial fibrillation (13) HHD (hypertensive heart disease): Status: Chronic Qualifiers: Heart failure presence: without heart failure Qualified Code(s): I11.9 - Hypertensive heart disease without heart failure Category: Medical Code(s): I11.9 - Hypertensive heart disease without heart failure (14) Asthma: Status: Acute Qualifiers: Asthma complication type: uncomplicated Asthma persistence: intermittent Asthma severity: unspecified severity Qualified Code(s): J45.20 - Mild intermittent asthma, uncomplicated Category: Medical Code(s): J45.909 - Unspecified asthma, uncomplicated (15) GERD (gastroesophageal reflux disease): Status: Acute Qualifiers: Esophagitis presence: without esophagitis Qualified Code(s): K21.9 - Gastro-esophageal reflux disease without esophagitis Category: Medical Code(s): K21.9 - Gastro-esophageal reflux disease without esophagitis Plan 1. Community-acquired pneumonia lower lobes: Imaging study as noted above with evidence of pneumonia. WBC 12, nonproductive cough. Afebrile. Room air with adequate saturations. IV Rocephin and IV azithromycin initiated in the emergency department, sputum culture requested/pending. Nebs Q4 as needed, antitussive and mucolytic. Monitor oxygen saturations, keep sats greater than 92%. IS at bedside, pulmonary hygiene. 2. Urinary tract infection: Nitrate positive, 4+ bacteria-IV Rocephin as noted above initiated for coverage, urine culture obtained and pending follow. 3. Generalized weakness/history of falls/unable to ambulate: Patient reports difficulty ambulating, history of frequent falls. Denies any recent fall or injury. Currently resides with her daughter at home. States that she is able to stand at bedside but only short periods of time due to weakness. PT/OT evaluation. Fall precautions. 4. CKD: Creatinine 1.90, GFR 25, appears to be approximately around baseline. Creatinine per chart review (1.6?2.0), continue to monitor trend with morning la bs. Avoid nephrotoxic medication. 5. CHF/Hx CVA/HTN/CAD/AFIB: Appears euvolemic, home medication-> Lasix and spironolactone per underlying congestive heart failure hx. Resume Plavix, propranolol 80 mg. 6. Asthma: Controlled, as needed inhaler and nebs as needed. 7. GERD: Resume home proton pump inhibitor. 8. DVT prophylaxis: SCD's Full code Healthy heart diet 84-year-old female with past medical significant for CVA, hyperlipidemia, atrial fibrillation, hypertensive urgency, CAD, TED, asthma, arthritis. I discussed this case with the emergency department provider and agree for admission. Presented with generalized weakness to ambulate. Ongoing restless symptoms for only 2 weeks. Denies any recent fall or injury. Emergency department revealing community-acquired pneumonia and urinary tract infection. Patient received broad-spectrum IV antibiotics. Pt. inability to ambulate evaluation for PT and OT. Resume IV antibiotic therapy, follow-up urine and sputum culture, morning labs.
[2025-03-15] MEDS: AZITHROMYCIN 500 MG in 0.9 % SODIUM CHLORIDE 250 ML 250 MG IV (23:30)
[2025-03-15] MEDS: SODIUM CHLORIDE 3% 15ML NEB 3 ML IH (23:43)
[2025-03-16] VITALS: BP 124/63; PULSE 84; RESP 18; TEMP 37; O2SAT 93
--- NOTE | 2025-03-16 03:45 | PC.NURSE ---
Ms Marcela Verdugo was newly admitted this shift on behalf of the documented diagnoses generalized weakness and pneumonia. Admission assessments and home medication reconciliation were completed by the charge nurse (Jacinto Jacinto RN). PT/OT consult orders in place. Is pleasantly alert and oriented x4. She was observed to be resting in bed with eyes closed, respirations even and unlabored on room air, and no apparent distress throughout the majority of the night. She does endorse having a dry, nonproductive cough and weakness in all extremities. Can self-turn in bed with minimal assistance. Patient gets up with x2 assistance during ambulation/transfers. Bedside commode utilized for elimination needs; urine output documented accordingly. Physical assessment was performed (see nursing shift biophysical intervention) as appropriately for this shift. Antibiotics were administered per JUN. At this time, the patient remains resting in bed without any further complaints. No acute changes noted thus far. Bed alarm on. Call light within reach.
[2025-03-16 04:00] VITALS: BP 132/50; PULSE 76; RESP 16; TEMP 36.8; O2SAT 93; BMI 22.7
[2025-03-16 06:29] LABS: Hematocrit 34.3 % (37.0-47.0); Immature Granulocytes % 0.4 %; Mean Corpuscular HGB Conc 32.4 g/dL (31.8-35.4); Mean Corpuscular Hemoglobin 29.6 pg (27.0-31.2); Mean Corpuscular Volume 91.5 fl (81-99); Nucleated Red Blood Cells % 0 %; Platelet Count 216 K/mm3 (142-424); Red Blood Count 3.75 M/mm3 (4.20-5.40); Red Cell Distribution Width-SD 42.7 fL; White Blood Count 10.8 K/mm3 (4.8-10.8)
[2025-03-16 06:49] LABS: Anion Gap 8.0 mEq/L (5-15); Blood Urea Nitrogen 23 mg/dl (7-17); Calcium 8.7 mg/dl (8.4-10.2); Carbon Dioxide 25 mmol/L (22.0-30.0); Chloride 108 mmol/L (98-107); Creatinine Clearance Estimated 24 mL/min (50-200); Creatinine,Serum 1.80 mg/dl (0.52-1.04); Estimated Glomerular Filt Rate 27 ml/min (>60); GFR (African American) 33 ML/MIN (>60); Glucose 93 mg/dl (74-100); Magnesium 1.6 mg/dl (1.6-2.3); Potassium 4.0 mmoL/L (3.5-5.1); Sodium 137 mmol/L (136-145)
[2025-03-16 07:02] LABS: Hemoglobin 11.1 g/dL (12.2-16.2)
--- NOTE | 2025-03-16 07:34 | HMH.PHAINT1 ---
Pharmacy Intervention Comments: home medication list verified using list from outpatient pharmacy and pt interview
[2025-03-16 08:00] VITALS: BP 129/52; PULSE 74; RESP 16; TEMP 36.6; O2SAT 93
--- NOTE | 2025-03-16 08:47 | HMH.PHAAMS2 ---
- Antimicrobial Stewardship Review culture & sensitivity review Stewardship interventions: culture & sensitivity review Comments: URINE CX PENDING, SPUTUM CX UNCOLLECTED. PATIENT ON AZITHROMYCIN/ROCEPHIN EMPIRICALLY FOR PNEUMONIA.
[2025-03-16 09:00] VITALS: O2SAT 93
--- NOTE | 2025-03-16 09:34 | HMH.OTEV ---
OT Evaluation Rehab OT IP Evaluation Start: 03/15/25 19:55 Freq: ONCE Status: Active Protocol: Document 03/16/25 09:25 [facility] (Rec: 03/16/25 09:34 [facility] [id number]) Rehab OT IP Assessment Subjective History Pt oriented x 3 on arrival. Pt agreeable to engage in therapy evaluation. Pt's daughter present and supportive. Pt admitted on 03/15/25 due to PNA and generalized weakness. History and physical: Patient is a 84-year-old female with past medical history significant for asthma, GERD, TED, osteoarthritis, congestive heart failure, CKD, history of CVA, HLD, CAD and atrial fibrillation. Patient presents to [facility] due to generalized weakness. Patient reports over the past several weeks that she has been unable to ambulate due to weakness. Reports being able to stand up at the side of the bed for short periods of time. Denies use of ambulating aid. Currently resides with her daughter. Patient denies any recent fall or injury but states that she has had frequent falls in the past. During her evaluation/workup in the emergency department right lower lobe pneumonia and a urinary tract infection. Patient states that she has had a minimal cough at night but denies any sputum production. Reports minimal suprapubic pressure but otherwise denies any other urinary symptoms. Denies fever, chills, nausea, vomiting, diarrhea or contact with sick individuals. Subjective Prior to being in the hospital, pt lived at home with her daughter. Pt claims normally she is independent with all ADLS and IADLs. Daughter does assist as needed. At this time, pt does not require any type of AE during functional transfers. Daughter reports she is home daily with her. Objective Patient Orientation Person,Place,Birthday Right Upper WFL Extremity Gross ROM Left Upper Extremity WFL Gross ROM Bed Mobility bed mobility-scooting,bed mobility - supine/sit Assist Level Supervision/Stand by Transfer Training Sit/Stand Transfer Assist Level Supervision/Stand by Chair Transfer Supervision/Stand by Ability Chair Transfer Sit to/from Ambulatory Technique Chair Transfer None Assistive Devices Lower Body Dressing Standby Assistance Ability Rehab OT IP prob,goals,plan Problems Date of Evaluation: 03/16/25 Rehab Potential Rehab Potential Innapropriate for Skilled Therapy Discharge Plan OT Discharge Plan Pt appears to be at her baseline with functional transfers and ADL independence. Pt can return home with daughter once she is medically stable per physician. Eval Complexity Eval Charge Codes 90530 - Moderate Complexity PHYSICIAN CERTIFICATION: I certify the specified therapy services for Marcela Verdugo are required, authorized, and reviewed every 30 days.
--- NOTE | 2025-03-16 09:44 | SW/DCPLANNER ---
Per therapy no needs at this time.
--- NOTE | 2025-03-16 09:52 | HMH.PTEV ---
Physical Therapy Evaluation Rehab PT IP Evaluation Start: 03/15/25 19:55 Freq: ONCE Status: Active Protocol: Document 03/16/25 09:50 PRINCE (Rec: 03/16/25 09:52 PRINCE [id number]) Subjective/History History History 84-year-old female with past medical history significant for asthma, GERD, TED, osteoarthritis, congestive heart failure, CKD, history of CVA, HLD, CAD and atrial fibrillation. Patient presents to [facility] due to generalized weakness. Patient reports over the past several weeks that she has been unable to ambulate due to weakness. Reports being able to stand up at the side of the bed for short periods of time. Denies use of ambulating aid. Currently resides with her daughter. Patient denies any recent fall or injury but states that she has had frequent falls in the past. During her evaluation/workup in the emergency department right lower lobe pneumonia and a urinary tract infection. Patient states that she has had a minimal cough at night but denies any sputum production. Reports minimal suprapubic pressure but otherwise denies any other urinary symptoms. Denies fever, chills, nausea, vomiting, diarrhea or contact with sick individuals. Subjective Subjective Pt reports she lives with her daughter, no NANCY the home , and she is generally independent with all mobility and ADLs without an AD. She is adamant that she wants to return home as soon as possible. [facility] How much help from another person do you currently need... Turning from your None back to your side while in a flat bed without using bedrails? Moving from lying on None back to sitting on the side of a flat bed without using bedrails? Moving to and from a None bed to a chair ( including a wheelchair)? Standing up from a None chair using your arms? (e.g., wheelchair, bedside chair) Walking in hospital None room? Climbing 3-5 steps None with a railing? Mobility Score 24 Mobility Level [facility] Mobility 8 Walk 250 feet or more Mobility Calculator Rehab PT IP Eval Objective Appearance Patient Behavior Appropriate Patient Orientation Person,Place,Time Difficulty following none instructions Speech Pattern Clear Ambulation Patient Able to Yes Ambulate Ambulation Observation IP General Gait No Deviations/Normal Pattern Observation Ambulation Distance 100 (feet) Ambulation Assistive None Device Ambulation Ability Independent Balance Ability to Arise Able, uses arms to help Sitting Balance Steady, safe Standing Balance Steady, wide stance Dynamic Sitting Good Balance Ability Dynamic Standing Fair Balance Ability Transfers Bed Transfer Ability Independent Chair Transfer Independent Ability Sit to Stand Bed Independent Transfer Ability Sit to Stand Chair Independent Transfer Ability Rehab PT IP prob,goals,plan Problems Date of Evaluation: 03/16/25 Discharge Plan PT Discharge Plan Pt is currently appropriate to return home once medically stable for d/c. No current skilled acute therapy needs. Eval Complexity Eval Charge Codes 69421 - Moderate Complexity PHYSICIAN CERTIFICATION: I certify the specified therapy services for Marcela Verdugo are required, authorized, and reviewed every 30 days.
[2025-03-16 10:08] LABS: Hepatitis C Ab Qual. W/ RFX NEGATIVE (Negative)
--- NOTE | 2025-03-16 10:50 | P.DS_ITS ---
<Statement entered by Hero Fontanez MD - 03/17/25 12:31> Agree with plan of care as outlined by the EQUIP TECH. General Admission date:: 03/15/25 Discharge date: 03/16/25 HPI HPI HPI: Patient is a 84-year-old female with past medical history significant for asthma, GERD, TED, osteoarthritis, congestive heart failure, CKD, history of CVA, HLD, CAD and atrial fibrillation. Patient presents to [facility] due to generalized weakness. Patient reports over the past several weeks that she has been unable to ambulate due to weakness. Reports being able to stand up at the side of the bed for short periods of time. Denies use of ambulating aid. Currently resides with her daughter. Patient denies any recent fall or injury but states that she has had frequent falls in the past. During her evaluation/workup in the emergency department right lower lobe pneumonia and a urinary tract infection. Patient states that she has had a minimal cough at night but denies any sputum production. Reports minimal suprapubic pressure but otherwise denies any other urinary symptoms. Denies fever, chills, nausea, vomiting, diarrhea or contact with sick individuals. Initial ED workup included laboratory studies and imaging. WBC 12.9, BUN 28, creatinine 1.90, GFR 25, 132, total creatinine kinase 183, UA nitrate positive, 1+ leukocyte esterase, 4+ bacteria. CT abdomen pelvis obtained while in the emergency department, I personally reviewed right lower lobe pneumonia, mild left lower lobe parabronchial infiltrate, rule out left breast subareolar mass versus asymmetric parenchyma. Upon evaluation patient evaluation at bedside, she is without any acute distress. Resting in bed comfortably without complaint. On room air, adequate saturations, hemodynamically stable. Hospital Course Hospital Course Hospital Course: Ms. Verdugo is an 84-year-old female who presented to the emergency department yesterday with generalized weakness and difficulty ambulating. Patient lives at home and is usually independent with ambulation and ADLs, she does live with her daughter who assist her if she needs. Patient and daughter state she has just been getting progressively more weak. Workup in the emergency department was significant for a leukocytosis of 12.9, elevated creatinine of 1.9, CT of abdomen/pelvis consistent with left lower lobe pneumonia, UA positive for nitrates, and leuk esterase. Hospital medicine was consulted for admission for left lower lobe pneumonia, generalized weakness, and UTI. Hospital course as follows: #Community-acquired pneumonia ? Patient assessment reveals lungs CTA, no dyspnea, no chest pain. Patient O2 saturation at rest 95%, with ambulation above 90%. Patient denies shortness of breath, cough, congestion. She does state that she has been intermittently short of breath over the last couple weeks but feels well today. Patient received Rocephin and azithromycin IV during admission, plans to transition to Levaquin 750 every 48 hour for 1 week at discharge. Day of discharge WBC trended down to 10.8. Discharged home with incentive spirometer. #Urinary tract infection #Generalized weakness, resolved ? Patient was found to have UTI on admission, patient denies dysuria, urinary frequency, abdominal pain. PT/OT was consulted for patient's generalized weakness, patient was able to ambulate independently in the room and in the [place] without issues. Daughter at bedside and patient states she feels she is at baseline. Patient will be discharged with Levaquin 750 every 48 hours x 1 week for CAP and UTI. ? Urine culture shows greater than 1000 CFU gram-negative rods. Will continue to follow culture after discharge. #Acute on chronic kidney disease ? Patient creatinine on admission 1.9, GFR 25. Day of discharge creatinine trending downward to 1.8. Patient appears to have CKD with baseline creatinine around 1.6-2.0. Encourage patient to continue with oral hydration after discharge. #Subareolar mass vs asymmetric parenchyma, left breast ?Patient had abdomen/pelvis CT incidental finding of a left breast subareolar mass versus asymmetric parenchyma. Patient's last mammogram was in 2022, patient should have repeat nonemergent diagnostic mammogram. Continue home chronic medications of: Wellbutrin 150 mg daily, Plavix 75 mg daily, pantoprazole 40 mg daily, Lyrica 50 mg twice daily as needed, propranolol 80 mg daily, spironolactone 50 mg daily. Lasix 20 mg daily as needed. Total time spent on discharge 32 minutes in counseling, documentation, chart review, and direct care with patient. Exam Data for Last 24 hours Vital signs and Labs for Last 24 Hours: Temp Pulse Resp BP Pulse Ox O2 Del Method 98 F 74 16 129/52 L 93 L Room Air 03/16/25 08:00 03/16/25 08:00 03/16/25 08:00 03/16/25 08:00 03/16/25 08:00 03/16/25 08:00 Laboratory Results - last 24 hr 03/15/25 17:19: WBC 12.9 H, RBC 4.17 L, Hgb 12.7, Hct 38.4, MCV 92.1, MCH 30.5, MCHC 33.1, RDW 12.9, Plt Count 272, MPV 9.6, Neut % (Auto) 71.1, Lymph % (Auto) 17.2, [place] % (Auto) 7.8, Eos % (Auto) 3.0, Baso % (Auto) 0.5, Neut # (Auto) 9.2 H, Lymph # (Auto) 2.2, [place] # (Auto) 1.0, Eos # (Auto) 0.4, Baso # (Auto) 0.1, Sodium 137, Potassium 4.8, Chloride 106, Carbon Dioxide 25, Anion Gap 10.8, BUN 28 H, Creatinine 1.90 H, Estimated Creat Clear 22, Estimated GFR 25 L, Est GFR ( Amer) 31 L, Glucose 132 H, Calcium 9.3, Total Bilirubin 0.8, AST 24, ALT 13, Alkaline Phosphatase 94, Total Creatine Kinase 183 H, Troponin I < 0.01, Total Protein 8.0, Albumin 4.4, Globulin 3.6 H, Albumin/Globulin Ratio 1.2, Lipase 66, TSH 1.46, Free T4 1.03, HCV Ab NIDA w/Rflx PCR Qn Negative, HIV Ag/Ab Combo Qual Negative 03/15/25 17:20: SARS-CoV-2 (PCR) Not detected, Influenza Type A (PCR) Not detected, Influenza Type B (PCR) Not detected, RSV (PCR) Not detected, Rhinovirus (PCR) Not detected 03/15/25 19:20: Urine Color Yellow, Urine Appearance Clear, Urine pH 6.0, Ur Specific [place] 1.015, Urine Protein Negative, Urine Glucose (UA) Negative, Urine Ketones Negative, Urine Blood Trace-i, Urine Nitrate Positive A, Urine Bilirubin Negative, Urine Urobilinogen 0.2, Ur Leukocyte Esterase 1+ A, Urine RBC 5-10, Urine WBC 50-100, Ur Squamous Epith Cells 20-50, Urine Bacteria 4+ 03/15/25 20:57: Troponin I < 0.01 03/16/25 06:01: WBC 10.8, RBC 3.75 L, Hgb 11.1 L D, Hct 34.3 L, MCV 91.5, MCH 29.6, MCHC 32.4, RDW 12.8, Plt Count 216, MPV 9.6, Neut % (Auto) 63.5, Lymph % (Auto) 23.7, [place] % (Auto) 8.6, Eos % (Auto) 3.2, Baso % (Auto) 0.6, Neut # (Auto) 6.8, Lymph # (Auto) 2.6, [place] # (Auto) 0.9, Eos # (Auto) 0.3, Baso # (Auto) 0.1, Sodium 137, Potassium 4.0, Chloride 108 H, Carbon Dioxide 25, Anion Gap 8.0, BUN 23 H, Creatinine 1.80 H, Estimated Creat Clear 24, Estimated GFR 27 L, Est GFR ( Amer) 33 L, Glucose 93 D, Calcium 8.7, Magnesium 1.6 I & O for Last 24 hours: Intake & Output 03/13/25 03/14/25 03/15/25 03/16/25 23:59 23:59 23:59 23:59 Intake Total 600 / 700 380 / 380 Output Total 400 / 600 550 / 550 Balance 200 / 100 -170 / -170 Weight 64.047 kg 64.183 kg Constitutional Constitutional: no acute distress, average body habitus, chronically ill appearing and cooperative *Routine HEENT Exam Head: Present normocephalic Eye: Present EOMI and PERRL ENT: Present mucous membranes moist *Routine Neck Exam Neck: Present supple; Absent lymphadenopathy *Routine Respiratory Exam Respiratory: Present CTA bilaterally and normal respiratory effort; Absent rhonchi, wheezes or crackles *Routine Cardiovascular Exam Cardiovascular: Present RRR *Routine Abdominal Exam Abdominal: Present soft and normoactive bowel sounds; Absent tenderness *Routine Rectal Exam Patient deferred: visual exam *Routine Exam Patient deferred: external exam *Routine Extremities Exam Extremities: Absent cyanosis, clubbing or edema *Routine Skin Exam Skin: Present intact and warm; Absent rash *Routine Neurological Exam Neurological: Present alert, oriented X3 and moving all extremities; Absent altered mental status Routine Psychiatric Exam Psychiatric: Present depressed Comments: 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 Results Data Completed and Pending Labs on day of discharge: Labs from last 24 hours 03/16/25 03/15/25 03/15/25 06:01 20:57 19:20 WBC 10.8 RBC 3.75 L Hgb 11.1 L D Hct 34.3 L MCV 91.5 MCH 29.6 MCHC 32.4 RDW 12.8 Plt Count 216 MPV 9.6 Neut % (Auto) 63.5 Lymph % (Auto) 23.7 [place] % (Auto) 8.6 Eos % (Auto) 3.2 Baso % (Auto) 0.6 Neut # (Auto) 6.8 Lymph # (Auto) 2.6 [place] # (Auto) 0.9 Eos # (Auto) 0.3 Baso # (Auto) 0.1 Sodium 137 Potassium 4.0 Chloride 108 H Carbon Dioxide 25 Anion Gap 8.0 BUN 23 H Creatinine 1.80 H Estimated Creat Clear 24 Estimated GFR 27 L Est GFR ( Amer) 33 L Glucose 93 D Calcium 8.7 Magnesium 1.6 Total Bilirubin AST ALT Alkaline Phosphatase Total Creatine Kinase Troponin I < 0.01 Total Protein Albumin Globulin Albumin/Globulin Ratio Lipase TSH Free T4 Urine Color Yellow Urine Appearance Clear Urine pH 6.0 Ur Specific [place] 1.015 Urine Protein Negative Urine Glucose (UA) Negative Urine Ketones Negative Urine Blood Trace-i Urine Nitrate Positive A Urine Bilirubin Negative Urine Urobilinogen 0.2 Ur Leukocyte Esterase 1+ A Urine RBC 5-10 Urine WBC 50-100 Ur Squamous Epith Cells 20-50 Urine Bacteria 4+ SARS-CoV-2 (PCR) HCV Ab NIDA w/Rflx PCR Qn HIV Ag/Ab Combo Qual Influenza Type A (PCR) Influenza Type B (PCR) RSV (PCR) Rhinovirus (PCR) 03/15/25 03/15/25 17:20 17:19 WBC 12.9 H RBC 4.17 L Hgb 12.7 Hct 38.4 MCV 92.1 MCH 30.5 MCHC 33.1 RDW 12.9 Plt Count 272 MPV 9.6 Neut % (Auto) 71.1 Lymph % (Auto) 17.2 [place] % (Auto) 7.8 Eos % (Auto) 3.0 Baso % (Auto) 0.5 Neut # (Auto) 9.2 H Lymph # (Auto) 2.2 [place] # (Auto) 1.0 Eos # (Auto) 0.4 Baso # (Auto) 0.1 Sodium 137 Potassium 4.8 Chloride 106 Carbon Dioxide 25 Anion Gap 10.8 BUN 28 H Creatinine 1.90 H Estimated Creat Clear 22 Estimated GFR 25 L Est GFR ( Amer) 31 L Glucose 132 H Calcium 9.3 Magnesium Total Bilirubin 0.8 AST 24 ALT 13 Alkaline Phosphatase 94 Total Creatine Kinase 183 H Troponin I < 0.01 Total Protein 8.0 Albumin 4.4 Globulin 3.6 H Albumin/Globulin Ratio 1.2 Lipase 66 TSH 1.46 Free T4 1.03 Urine Color Urine Appearance Urine pH Ur Specific [place] Urine Protein Urine Glucose (UA) Urine Ketones Urine Blood Urine Nitrate Urine Bilirubin Urine Urobilinogen Ur Leukocyte Esterase Urine RBC Urine WBC Ur Squamous Epith Cells Urine Bacteria SARS-CoV-2 (PCR) Not detected HCV Ab NIDA w/Rflx PCR Qn Negative HIV Ag/Ab Combo Qual Negative Influenza Type A (PCR) Not detected Influenza Type B (PCR) Not detected RSV (PCR) Not detected Rhinovirus (PCR) Not detected DS: Diagnosis Discharge Diagnosis (1) Urinary tract infection: Status: Acute Code(s): N39.0 - Urinary tract infection, site not specified Qualifiers: Hematuria presence: without hematuria Urinary tract infection type: acute cystitis Qualified Code(s): N30.00 - Acute cystitis without hematuria (2) Leucocytosis: Status: Acute Code(s): D72.829 - Elevated white blood cell count, unspecified Qualifiers: Leukocytosis type: unspecified Qualified Code(s): D72.829 - Elevated white blood cell count, unspecified (3) Generalized weakness: Status: Acute Code(s): R53.1 - Weakness (4) History of falling: Status: Acute Code(s): Z91.81 - History of falling (5) Unable to ambulate: Status: Acute Code(s): R26.2 - Difficulty in walking, not elsewhere classified (6) CKD (chronic kidney disease): Status: Acute Code(s): N18.9 - Chronic kidney disease, unspecified Qualifiers: Chronic kidney disease stage: unspecified stage Qualified Code(s): N18.9 - Chronic kidney disease, unspecified (7) CHF (congestive heart failure): Status: Acute Code(s): I50.9 - Heart failure, unspecified Qualifiers: Heart failure chronicity: unspecified Heart failure type: unspecified Qualified Code(s): I50.9 - Heart failure, unspecified (8) History of CVA (cerebrovascular accident): Status: Chronic Code(s): Z86.73 - Personal history of transient ischemic attack (TIA), and cerebral infarction without residual deficits (9) HLD (hyperlipidemia): Status: Chronic Code(s): E78.5 - Hyperlipidemia, unspecified Qualifiers: Hyperlipidemia type: mixed hyperlipidemia Qualified Code(s): E78.2 - Mixed hyperlipidemia (10) CAD (coronary artery disease): Status: Chronic Code(s): I25.10 - Atherosclerotic heart disease of [place] coronary artery without angina pectoris Qualifiers: Associated angina: without angina Coronary Disease-Associated Artery/Lesion type: [place] artery [place] vs. transplanted heart: [place] heart Qualified Code(s): I25.10 - Atherosclerotic heart disease of [place] coronary a rtery without angina pectoris (11) A-fib: Status: Chronic Code(s): I48.91 - Unspecified atrial fibrillation Qualifiers: Atrial fibrillation type: paroxysmal Qualified Code(s): I48.0 - Paroxysmal atrial fibrillation (12) HHD (hypertensive heart disease): Status: Chronic Code(s): I11.9 - Hypertensive heart disease without heart failure Qualifiers: Heart failure presence: without heart failure Qualified Code(s): I11.9 - Hypertensive heart disease without heart failure (13) Asthma: Status: Acute Code(s): J45.909 - Unspecified asthma, uncomplicated Qualifiers: Asthma complication type: uncomplicated Asthma persistence: intermittent Asthma severity: unspecified severity Qualified Code(s): J45.20 - Mild intermittent asthma, uncomplicated (14) GERD (gastroesophageal reflux disease): Status: Acute Code(s): K21.9 - Gastro-esophageal reflux disease without esophagitis Qualifiers: Esophagitis presence: without esophagitis Qualified Code(s): K21.9 - Gastro-esophageal reflux disease without esophagitis (15) Community acquired pneumonia of right lower lobe of lung: Status: Acute Code(s): J18.9 - Pneumonia, unspecified organism (16) Subareolar mass of left breast: Status: Acute Code(s): N63.42 - Unspecified lump in left breast, subareolar Meds Home Medications and Allergies Home Medications ?Medication ?Instructions ?Recorded ?Confirmed ?Type mupirocin 2 % topical ointment 1 applic topical BID in fection 14 02/17/25 03/15/25 Rx days #22 grams bupropion HCl 150 mg 24 hr tablet, 150 mg PO DAILY 03/15/25 History extended release clopidogrel 75 mg tablet 75 mg PO DAILY 03/15/2502/22 History furosemide 20 mg tablet 20 mg PO DAILY 03/15/2502/22 History pantoprazole 40 mg tablet,delayed 40 mg PO DAILY 03/1503/15/25 History release propranolol 80 mg capsule,24 80 mg PO DAILY 03/15/25 1 05/15/24 History hr,extended release spironolactone 50 mg tablet 50 mg PO DAILY 03/15/25 History levofloxacin 750 mg tablet 750 mg PO DAILY #3 tabs Rx pregabalin 50 mg capsule 50 mg PO BID PRN nerve pain 03/16/25 03/16/25 History New Prescriptions to Start Prescriptions: levoAnnalisa Rosenthal Allergies Allergy/AdvReac Type Severity Reaction Status Date / Time mirtazapine (From Remeron) AdvReac Mild hallucinati Verified 02/23/25 10:34 ons Discharge Plan Disposition Patient Disposition: Home, Self-Care Condition: Fair Follow up Plan Follow up with: Lee Delgado MD [Primary Care Provider, Internal Medicine] - 03/23/25 11:15 am Prescriptions/Medication Reconciliation: New levofloxacin 750 mg tablet 750 mg PO DAILY Qty: 3 0RF Rx Instructions: take 1 tab Sunday, , Sunday Continued mupirocin 2 % ointment 1 applic topical BID 14 Days Qty: 22 1RF clopidogrel 75 mg tablet 75 mg PO DAILY pantoprazole 40 mg tablet,delayed release (DR/EC) 40 mg PO DAILY propranolol 80 mg capsule,extended release 24 hr 80 mg PO DAILY furosemide 20 mg tablet 20 mg PO DAILY spironolactone 50 mg tablet 50 mg PO DAILY bupropion HCl 150 mg tablet extended release 24 hr 150 mg PO DAILY pregabalin 50 mg capsule 50 mg PO BID PRN (Reason: nerve pain) Problem Reconciliation Problems Reviewed?: Yes Patient Discharge Instructions ACTIVITY: Continue current activity DIET: continue same diet Additional Instructions: Please schedule diagnostic mammogram at your PCP follow-up! Patient Instructions: DI for Pneumonia in Adults, DI for Urinary Tract Infection (UTI), DI for Muscle Weakness, Stop Light Pneumonia Print Language: Stateless Providers Primary Care Provider: Lee Delgado Admit Provider: Hero Fontanez Attending Provider: Hero Fontanez
--- NOTE | 2025-03-16 11:15 | PC.NURSE ---
pt refused to take her morning meds. she usually takes them at night and would like to keep it on that schedule. rose is aware and is okay with it.
--- NOTE | 2025-03-16 11:40 | PC.NURSE ---
pt had a walk test. while standing her O2 was 92% and walking her O2 was 93%. this was done on room air.
--- NOTE | 2025-03-17 14:40 | SW/DCPLANNER ---
Spoke with patient's daughter on the phone. Patient's daughter stated that patient seems to be doing very good and is tired but that is to be expected. Patient's daughter stated that patient is aware of her upcoming appointment. Patient's daughter stated that she was able to get her mom's medicine picked up at [facility]. Patient's daughter stated that she has no concerns or questions at this time. Darrian Wilder
== END 2025-03-16 11:46 | disposition home or self-care (01) ==
LOC: ER 16:50 → 2ND 19:34
PROVIDERS: Nurse Practitioner Acute Care; Admitting Provider Student in an Organized Health Care Education/Training Program; Emergency Provider Student in an Organized Health Care Education/Training Program; PCP Internal Medicine Adolescent Medicine; Visit Provider Student in an Organized Health Care Education/Training Program
DX: J18.9 Pneumonia, unspecified organism (principal); N30.00 Acute cystitis without hematuria; D72.829 Elevated white blood cell count, unspecified; Z91.81 History of falling; R26.2 Difficulty in walking, not elsewhere classified; I11.9 Hypertensive heart disease without heart failure; N18.9 Chronic kidney disease, unspecified; I50.9 Heart failure, unspecified; Z86.73 Personal history of transient ischemic attack (TIA), and cerebral infarction without residual deficits; E78.2 Mixed hyperlipidemia; I48.0 Paroxysmal atrial fibrillation; J45.20 Mild intermittent asthma, uncomplicated; K21.9 Gastro-esophageal reflux disease without esophagitis; N63.42 Unspecified lump in left breast, subareolar; E78.5 Hyperlipidemia, unspecified; F32.9 Major depressive disorder, single episode, unspecified; G47.33 Obstructive sleep apnea (adult) (pediatric); Z90.710 Acquired absence of both cervix and uterus; Z88.8 Allergy status to other drugs, medicaments and biological substances; Z79.899 Other long term (current) drug therapy; M19.90 Unspecified osteoarthritis, unspecified site; Z79.02 Long term (current) use of antithrombotics/antiplatelets; I25.10 Atherosclerotic heart disease of native coronary artery without angina pectoris
CPT/HCPCS: 36415; 71045; 74177; 80048; 80053; 81001; 82550; 83690; 83735; 84439; 84443; 84484; 85025; 86803; 87086; 87088; 87186; 87389; 87631; 89220; 93005; 97162; 97166; 99285; G0378; J0456; J0696; J7050; J7120; Q9967

== ENCOUNTER 2025-04-02 08:47 | Outpatient (CLI) | payer MEDICARE, OTHER, SELFPAY ==
--- NOTE | 2025-04-02 09:05 | XR_ITS ---
FINAL REPORT CLINICAL HISTORY: right shoulder pain COMPARISON: None FINDINGS: RIGHT SHOULDER Three views demonstrate no acute fracture or dislocation. The visualized joint spaces are normally aligned. The soft tissues are unremarkable. IMPRESSION: No acute process. Reviewed, Interpreted and Dictated by Jefry Collado MD Transcribed by Maci Mendoza Authenticated and [facility]
--- NOTE | 2025-04-02 09:05 | XR_ITS ---
FINAL REPORT CLINICAL HISTORY: left shoulder pain COMPARISON: None FINDINGS: LEFT SHOULDER Two views of the left shoulder were obtained. There is no acute fracture or dislocation. There are mild hypertrophic changes at the acromioclavicular joint. Soft tissues are unremarkable. IMPRESSION: Mild osteoarthritis without acute bony abnormality. Reviewed, Interpreted and Dictated by Jefry Collado MD Transcribed by Maci Mendoza Authenticated and [facility]
== END 2025-04-02 23:59 | disposition home or self-care (01) ==
LOC: RAD 08:48
PROVIDERS: PCP Internal Medicine Adolescent Medicine; Visit Provider Orthopaedic Surgery
DX: M19.012 Primary osteoarthritis, left shoulder (principal); M25.511 Pain in right shoulder
CPT/HCPCS: 73030

== ENCOUNTER 2025-04-08 12:20 | Emergency (ER) | payer MEDICARE, OTHER, SELFPAY ==
[2025-04-08 12:27] VITALS: BP 179/70; PULSE 60; RESP 18; TEMP 36.7; O2SAT 96; BMI 23.3
[2025-04-08 12:30] VITALS: BP 181/68; PULSE 57; O2SAT 95
--- NOTE | 2025-04-08 12:32 | ED_ITS ---
<Statement entered by Alfredo Harrell MD - 04/08/25 14:19> Alfredo Harrell MD: I was consulted by the HIREN, and we discussed the complexity of the problems being addressed. I approve the treatment and management plan for this patient's care in the emergency department, thus performing a substantive portion of the medical decision making. Discharge Plan Disposition Patient Disposition: Home, Self-Care Condition: Good Prescriptions Prescriptions: No Action hydralazine 25 mg tablet 25 mg PO TID PRN (Reason: HTN) Qty: 90 2RF mupirocin 2 % ointment 1 applic topical BID 14 Days Qty: 22 1RF clopidogrel 75 mg tablet 75 mg PO DAILY pantoprazole 40 mg tablet,delayed release (DR/EC) 40 mg PO DAILY propranolol 80 mg capsule,extended release 24 hr 80 mg PO DAILY furosemide 20 mg tablet 20 mg PO DAILY spironolactone 50 mg tablet 50 mg PO DAILY bupropion HCl 150 mg tablet extended release 24 hr 150 mg PO DAILY pregabalin 50 mg capsule 50 mg PO BID PRN (Reason: nerve pain) levofloxacin 750 mg tablet 750 mg PO DAILY Qty: 3 0RF Rx Instructions: take 1 tab Sunday, , Sunday Referrals Follow up/Referrals: Lee Delgado MD [Primary Care Provider, Internal Medicine] - See instructions Activity Restrictions/Add. Instructions Additional Instructions/Restrictions: You were evaluated on an emergency basis. It is very important that you follow- up with your primary care provider and any specialist who we discussed within the next 2 days in order to better assess your health more comprehensively. For example, incidental findings on imaging or laboratory results that were performed today may be discovered, which do not require immediate medical care, but may impact your health in the future. If your symptoms worsen or persist, please return to the emergency department immediately for reassessment. Take all medications as prescribed. In queue for allowing me to participate in your health care, and I hope you feel better soon. Clinical Impressions Clinical Impression: Constipation Instructions Patient Instructions: DI for Constipation Print Language Print Language: Macedonian Discharge ED Provider: Alfredo Harrell General Adult HPI General Chief complaint: Abdominal Pain Stated complaint: no bowel movement, pain Time Seen by Provider: 04/08/25 12:32 Mode of Arrival: Ambulatory Source of Information: Patient Description of Symptoms (Recalled from ER Triage Doc. by RN): Patient states she has not had a bowel movement in one day. States that a family member that is a n bismark gave her Mag Citrate and bisacodyl today around 03-04 and that she has not had any results. History of Present Illness HPI narrative: 84-year-old female presents emergency department with concerns for constipation. She reports that she last had a bowel movement yesterday. She reports that she took a stool softener as well as mag citrate approximately 1 hour prior to arrival without relief. She denies abdominal pain, nausea, fevers. Related Data Home Medications ?Medication ?Instructions ?Recorded ?Confirmed bupropion HCl 150 mg 24 hr tablet, 150 mg PO DAILY 04/07/25 extended release clopidogrel 75 mg tablet 75 mg PO DAILY 03/15/2503/23 furosemide 20 mg tablet 20 mg PO DAILY 03/15/2503/23 pantoprazole 40 mg tablet,delayed 40 mg PO DAILY 03/1504/07/25 release propranolol 80 mg capsule,24 80 mg PO DAILY 03/15/25 1 06/08/24 hr,extended release spironolactone 50 mg tablet 50 mg PO DAILY 03/15/25 pregabalin 50 mg capsule 50 mg PO BID PRN nerve pain 03/16/25 04/07/25 Previous Rx's ?Medication ?Instructions ?Recorded mupirocin 2 % topical ointment 1 applic topical BID in fection 14 02/17/25 days #22 grams levofloxacin 750 mg tablet 750 mg PO DAILY #3 tabs hydralazine 25 mg tablet 25 mg PO TID PRN HTN #90 tab s 04/07/25 Allergies Allergy/AdvReac Type Severity Reaction Status Date / Time mirtazapine (From Remeron) AdvReac Mild hallucinati Verified 04/07/25 14:48 ons PFSH [facility] Disclaimer: The information contained in this section may have been updated after the patient was seen, as this information can be updated by other users. 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 Impingement of right shoulder Right atrial enlargement Impingement syndrome, shoulder, left Asymptomatic hypertension Restless sleeper Uncontrolled daytime somnolence Tachycardia Palpitations SOB (shortness of breath) Facet arthropathy Sinus tachycardia Fatigue Headache Renal insufficiency Sinus bradycardia Dyspnea Pain due to onychomycosis of toenail History of CVA (cerebrovascular accident) TIA (transient ischemic attack) Frequent headaches Falls frequently Hallucinations Asthma Dyspnea on exertion TED (obstructive sleep apnea) Claudication Abnormal chest xray Abnormal result of cardiovascular function study Edema of both lower extremities Chest pain Major depressive disorder History of CVA (cerebrovascular accident) HLD (hyperlipidemia) HHD (hypertensive heart disease) CAD (coronary artery disease) A-fib Surgical History H/O heart artery stent Hx of cardiac cath History of hysterectomy Family History Other Family history of diabetes mellitus type II Social History Smoking Status: Never smoker second hand exposure: No alcohol intake: never substance use type: denies use current occupational status: other Travel in the last 8 weeks?: None household members: none housing: house lives independently: Yes marital status: education level: college current occupational exposures/hazards: No caffeine: No special lonnie needs: No agree to transfusion: No do you feel safe at home: Yes victim of physical abuse: No victim of emotional abuse: No victim of sexual abuse: No would you like helpful sources: No Have you lived/traveled outside US in past 30 days?: No Contact w/someone who lives/traveled outside US past 30 days?: No Exposure to someone with infectious disease in past 14 days?: No Do you have a fever (greater than 100.4 F or 38 C)?: No Have you tested positive for COVID-19?: No Exposed to someone with COVID-19 in past 14 days?: No Do you have a sore throat?: No Do you have a cough?: No Do you have any weakness?: No Do you have any diarrhea?: No Are you experiencing any unusual bleeding?: No Do you have any muscle aches/pain?: No Do you have any abdominal pain?: No Are you experiencing loss of taste or smell?: No Other Medical History Have you received the Flu Vaccine for this season: No Have you received the Pneumonia Vaccine: No ROS Obtained: Yes other Gastrointestinal Gastrointestingal: Reports constipation Physical Exam Narrative Physical exam: General: Awake, aware, in no acute distress HEENT: Normocephalic, no evidence of trauma CV: RRR, no murmurs, rubs, or gallops Pulm: CTA bilaterally with no rhonchi, rales, wheezes ABD: Nontender, no swelling, guarding, or rebound tenderness Psych, appropriate mood and affect General General appearance: alert Respiratory Respiratory exam: Present normal lung sounds bilaterally Cardiovascular Cardiovascular exam: Present regular rate Neurological Exam Neurological exam: Present alert Medical Decision Making Medical Records Screening: Per USPSTF and CDC recommendations, given the prevalence of disease in our region, it is our hospital?s policy to screen for HIV and viral Hepatitis for all patients aged 18 and over and those with ongoing risk factors. Mekhi Inquiry Pt receiving controlled substance: No Vital Signs: 04/08/25 12:27 04/08/25 12:30 04/08/25 13:01 Temperature 98.0 F Temperature Source Oral Pulse Rate 57 L 59 L Pulse Rate [Radial] 60 Respiratory Rate 18 Blood Pressure 181/68 H 176/102 H Blood Pressure [Right Arm] 179/70 H Blood Pressure Mean [Right Arm] 106 Blood Pressure Source [Right Arm] Automatic Cuff Blood Pressure Position [Right Arm] Sitting 02 Sat by Pulse Oximetry 96 95 95 Oxygen Delivery Method Room Air Orders (Tests/Meds): ED MEDICATIONS Discontinued Medications Generic Name Dose Route Start Last Admin Trade Name Freq PRN Reason Stop Dose Admin Sodium Phosphate 133 ml 04/08/25 14:03 Sodium Phos/Biphosphate Fleet 133ml Enema RC 04/08/25 14:04 ONCE ONE ORDERS Category Date Time Status KUB (single view) [XR KUB] Stat Exams 04/08/25 12:46 Completed Medical Decision Narrative: Initial impression of presenting illness: 84-year-old female presents to the emergency department complaints of constipation. She states she last had a bowel movement yesterday. She denies nausea, vomiting, abdominal pain. She states that she took mag citrate and stool softener approximate 1 hour prior to arrival without relief of symptoms. Differential diagnosis includes but is not limited to: Constipation, ileus, bowel obstruction, fecal impaction, worried well Patient arrives hemodynamically stable, afebrile, without respiratory distress with vital signs interpreted by myself. Initial physical exam unremarkable Initial diagnostic plan: KUB Results from initial plan were reviewed and interpreted by myself, pertinent positives include: KUB shows a mild fecal impaction. Interventions in the ED: I had offered patient a fleets enema that we could do here in the emergency department prior to discharge however she states that she would just like to pick 1 up at the drugstore and do it at home. Patient was made aware of the results and the findings, upon reevaluation patient has remained stable throughout stay, symptoms remained stable. Upon reevaluation patient is resting comfortably in her room with no signs of acute distress. Disposition: Reviewed findings today's workup with patient informed that she does have mild constipation. Advised her to use the fleets enema for symptom relief. Encouraged her to speak with her primary care provider for any ongoing constipation issues. I also informed her that she may try MiraLAX for symptom relief. I advised her to be careful when using multiple stool softeners and laxatives as it can give her diarrhea. Instructed her to return to the emergency department any new or worsening symptoms including worsening of constipation, abdominal pain, nausea. Patient is agreeable to plan of care. Patient made aware of findings and had a detailed discussion with symptomatic care and return precautions, patient voiced understanding. Critical Care Critical Care Time Critical Care Time: No
--- NOTE | 2025-04-08 12:46 | XR_ITS ---
FINAL REPORT CLINICAL HISTORY: constipation COMPARISON: None FINDINGS: A single view of the abdomen was obtained. There is mild fecal impaction. No evidence of bowel obstruction. Calcifications projected over the left kidney could be vascular or renal stone disease. The largest in the central left kidney measures 5 x 3 mm. IMPRESSION: Mild fecal impaction. Calcifications could be vascular or renal stone disease. Reviewed, Interpreted and Dictated by Meagan Hinkle MD Transcribed by Maci Mendoza Authenticated and . [facility]
[2025-04-08 13:01] VITALS: BP 176/102; PULSE 59; O2SAT 95
--- NOTE | 2025-04-08 13:31 | PC.NURSE ---
Assisted pt to the bathroom
--- NOTE | 2025-04-08 13:40 | PC.NURSE ---
Patient pulled the alarm in the bathroom. When i got to her she asked why the doctor wouldnt just give her an enema. i relayed this information to the doctor.
--- NOTE | 2025-04-08 13:54 | PC.NURSE ---
Patient just walked up to the desk asking why she hasnt heard anything at bout her images, i informed her that they still hadnt called back yet, but as soon as they were back someone would come talk to her. Patient was provided a warm blanket.
[2025-04-08 14:20] VITALS: BP 148/70; PULSE 80; RESP 20; TEMP 36.7; O2SAT 98
== END 2025-04-08 14:24 | disposition home or self-care (01) ==
PROVIDERS: Emergency Provider Student in an Organized Health Care Education/Training Program; PCP Internal Medicine Adolescent Medicine
DX: K59.00 Constipation, unspecified (principal)
CPT/HCPCS: 74018; 99283; 99284

== ENCOUNTER 2025-04-21 10:44 | Outpatient (CLI) | payer MEDICARE, OTHER, SELFPAY ==
--- NOTE | 2025-04-21 10:48 | XR_ITS ---
FINAL REPORT CLINICAL HISTORY: left knee pain FINDINGS: LEFT KNEE 3 views of the left knee were obtained. There is no acute fracture or dislocation. There is degenerative joint disease, most pronounced at the patellofemoral compartment. 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 Visualized joint spaces are normally aligned. Soft tissues are unremarkable. IMPRESSION: No acute bony abnormality. Reviewed, Interpreted and Dictated by Shaniqua Valentino MD Transcribed by Adeola Bell Authenticated and . [facility]
[2025-04-21 11:05] LABS: Microscopic, Urine URINE MICROSCOPIC (MICROSCOPIC)
--- OUTSIDE RECORDS SUMMARY | 2025-04-21 11:06 | XMS_ITS | Encounter Summary ---
Author Organization Healthcare Address [address] [place] [address] Care Team Providers Care Bi Developer Name Role Phone Carmelo Montgomery MD Primary Care Provider [phone] Encounter Details Date Type Department Care Team (Late Contact Info) Description 10/26/2020 [facility] [address] [place] [address] Vane Escobar MD [address] [facility] [address] [place] [address] Social History Tobacco Use Types Packs/Day Years Used Date Smoking Tobacco: Never Comments Unknown Sex and Gender Information Value Date Recorded Sex Assigned at Not on file Legal Sex Female 6:11 PM EDT Gender Identity Not on file Sexual Orientation Not on file documented as of this encounter Plan of Treatment Upcoming Encounters Date Type Department Care Team (Late Contact Info) Description 04/24/2025 1:20 PM EST Office Visit [facility] [address] [place] [address] Rip Mcmilaln MD [address] [place] [address] documented as of this encounter Visit Diagnoses Not on filedocumented in this encounter Care Teams Bi Developer Relationship Specialty Start Date End Date Carmelo Montgomery MD [facility] [address] PCP - General 09/03/20 documented as of this encounter
--- OUTSIDE RECORDS SUMMARY | 2025-04-21 11:06 | XMS_ITS | Encounter Summary ---
Author Organization Healthcare Address [address] [place] [address] Care Team Providers Care Director Of State Name Role Phone Carmelo Montgomery MD Primary Care Provider [phone] Encounter Details Date Type Department Care Team ([facility] Contact Info) Description 04/13/2025 Orders Only [place] [id number] [place] [address] Alexa Aguilar SAUNDRA (acute kidney injury) (Primary Dx); Vitamin D insufficiency Social History Tobacco Use Types Packs/Day Years Used Date Smoking Tobacco: Never Passive Smoke Exposure: Never Smokeless Tobacco: Never Comments Unknown Sex and Gender Information Value Date Recorded Sex Assigned at Not on file Legal Sex Female 6:11 PM EDT Gender Identity Not on file Sexual Orientation Not on file documented as of this encounter Plan of Treatment Upcoming Encounters Date Type Department Care Team ([facility] Contact Info) Description 04/24/2025 1:20 PM EST Office Visit [facility] [address] [place] [address] Rip Mcmillan MD [address] [place] [phone] Scheduled Orders Name Type Priority Associated Diagnoses Orde r Schedule Renal Function Panel, Plasma Lab Routine SAUNDRA (acute kidney injury) (CMS/HCC) Expected: 04/13/2025 (Approximate), Expires: 10/12/2026 CBC and Differential Lab Routine SAUNDRA (acute kidney injury) (CMS/HCC) Expected: 04/13/2025 (Approximate), Expires: 10/12/2026 Creatinine, Random, Urine Lab Routine SAUNDRA (acute kidney injury) Expected: 04/13/2025 (Approximate), Expires: 10/12/2026 Protein, Random, Urine with Creatinine Lab Routine SAUNDRA (acute kidney injury) Expected: 04/13/2025 (Approximate), Expires: 10/12/2026 Urinalysis with reflex microscopic (Culture NOT Included) Lab Routine SAUNDRA (acute kidney injury) Expected: 04/13/2025 (Approximate), Expires: 10/12/2026 PTH Intact Total Lab Routine SAUNDRA (acute kidney injury) Vitamin D insufficiency Expected: 04/13/2025 (Approximate), Expires: 10/12/2026 Vitamin D 25 Hydroxy Lab Routine SAUNDRA (acute kidney injury) Vitamin D insufficiency Expected: 04/13/2025 (Approximate), Expires: 10/12/2026 documented as of this encounter Visit Diagnoses Diagnosis SAUNDRA (acute kidney injury)- Primary Vitamin D insufficiency documented in this encounter Care Teams Director Of State Relationship Specialty Start Date End Date Carmelo Montgomery MD [facility] [address] PCP - General 09/03/20 documented as of this encounter
--- OUTSIDE RECORDS SUMMARY | 2025-04-21 11:06 | XMS_ITS | Encounter Summary ---
Author Organization Healthcare Address [address] [place] [address] Care Team Providers Care Receiving Room Clerk Name Role Phone Carmelo Montgomery MD Primary Care Provider Reason for Referral * Consultation (Routine) - Authorized Specialty Diagnoses / Procedures Referred By El epperson Referred To Contact Nephrology Diagnoses Chronic kidney disease, stage IV (severe) (CMS/HCC) Seema Miranda APRN [id number] fax: [place] [address] [address] [facility] [address] [place] [address] Phone: tel: fax: Referral ID Status Reason Start Date Expiration Date Visits Requested Visits Authorized [id number] Authorized Specialty Services Required 03/30/2025 09/29/2026 1 1 Encounter Details Date Type Department Care Team (Late st Contact Info) Description 03/30/2025 Community [facility] [address] [place] [address] Seema Miranda APRN [id number] Chronic kidney disease, stage IV (severe) (CMS/HCC) (Primary Dx) Social History Tobacco Use Types Packs/Day Years [...] Care Team (Late st Contact Info) Description 04/24/2025 1:20 PM EST Office Visit [facility] [address] [place] [address] Rip Mcmillan MD [address] [place] [phone] Scheduled Referrals Name Type Priority Associated Diagnoses Order Schedule Ambulatory referral to Nephrology Outpatient Referral Routine Chronic kidney disease, stage IV (severe) (CMS/HCC) Expected: 03/30/2025 (Approximate), Expires: 10/01/2026 documented as of this encounter Visit Diagnoses Diagnosis Chronic kidney disease, stage IV (severe) (CMS/HCC)- Primary Chronic kidney disease, Stage IV (severe) documented in this encounter Care Teams Receiving Room Clerk Relationship Specialty Start Date End Date Carmelo Montgomery MD [facility] [address] PCP - General 09/03/20 documented as of this encounter
--- OUTSIDE RECORDS SUMMARY | 2025-04-21 11:06 | XMS_ITS | Clinical Summary ---
Author Organization [facility] Address [address] [place] [phone] Phone Care Team Providers Care Aggregate Conveyor Operator Name Role Phone Unavailable Primary Care Provider [...] Care Team (Late st Contact Info) Description 04/29/2025 2:15 PM EST Appointment [facility] [address] [place] [address] Antoni Rush, YOBANY [address] [facility], [address] [place] [id number] Health Maintenance Due Date Last Done Comments [...]
--- OUTSIDE RECORDS SUMMARY | 2025-04-21 11:06 | XMS_ITS | Clinical Summary ---
Author Organization Healthcare Address [address] [place] [address] Care Team Providers Care Hr Receptionist Name Role Phone Carmelo Montgomery MD Primary Care Provider [phone] Allergies No known active allergies Medications Aspirin Buf,CaCarb-MgCar b-MgO, 81 MG tablet Take by mouth. 01/02/2020 Active atorvastatin (Lipitor) 40 MG tablet Take by mouth. 06/01/2016 Active lisinopril 20 MG tablet Take by mouth. 06/01/2016 Active metoprolol tartrate (Lopressor) 25 MG tablet Take by mouth. 01/02/2020 Active Encounters Date Type Department Care Team Description 04/13/2025 Orders Only [place] [address] [place] [address] Alexa Aguilar SAUNDRA (acute kidney injury) (Primary Dx); Vitamin D insufficiency 03/30/2025 Community Orders [facility] [address] [place] [address] Seema Miranda APRN Chronic kidney disease, stage IV (severe) (CMS/HCC) (Primary Dx) from Last 3 Months Immunizations Immunization Administration Dates Next Due Hep A, Adult 04/04/2018 Influenza, high-dose, quadrivalent 12/21,01/04/2021,01/16/2020,01/24,12/28/2017,01/08/2017 Pfizer-[employer] COVID-19 Vac cine (Purple Cap) 12+ 12/15/2020,06/15/2020,05/25/2020 Pneumococcal Polysaccharide PPV23 12/28/2017 Zoster, live 03/12/2015 Family History Medical History Relation Name Comments Stroke Other 1 Diabetes Other 2 Relation Name Status Comments Other 1 Other 2 Social History Tobacco Use Types Packs/Day Years Used Date Smoking Tobacco: Never Passive Smoke Exposure: Never Smokeless Tobacco: Never Comments Unknown Sex and Gender Information Value Date Recorded Sex Assigned at Not on file Legal Sex Female 6:11 PM EDT Gender Identity Not on file Sexual Orientation Not on file Last Filed Vital Signs Vital Sign Reading Time Taken Comments Blood Pressure 178/50 09/13/2022 1:26 PM EDT Pulse 62 09/13/2022 1:26 PM EDT Temperature 35 C (95 F) 01/03/2021 2:49 PM EDT Respiratory Rate 16 02/07/2019 7:40 AM EDT Oxygen Saturation 95% 01/03/2021 2:49 PM EDT Inhaled Oxygen Concentration - - Weight 58.5 kg (129 lb) 09/13/2022 1:26 PM EDT Height 165.1 cm (5' 5 ) 09/13/2022 1:26 PM EDT Body Mass Index 21.47 09/13/2022 1:26 PM EDT Plan of Treatment Upcoming Encounters Date Type Department Care Team (Late st Contact Info) Description 04/24/2025 1:20 PM EST Office Visit [facility] [address] [place] [address] Rip Mcmillan MD [address] [place] [phone] Health Maintenance Due Date Last Done Comments [facility]-Bone Density Scan 1941 [facility]-Depression Screening 1941 [facility]-Medicare Annual Wellness (AWV) 1940 [facility]-Infant/Child/Adol SDOH Screenings 1940 [facility]- SDOH Screenings 10/21/1959 [facility]-Adult SDOH Screenings 10/21/1959 [facility]-DTaP,Tdap,and Td Vaccines (1 - Tdap) 1960 [facility]-Zoster Vaccines (3 of 3) 02/23/2023 12/29/2022, 03/12/2015 [id number] Vaccine ( season) 2024 02/26/2023, 12/15/2020, 06/15/2020, Additional history exists [facility]-Influenza Vaccine (#1) 12/22/202412/14, 12/29/2022, 12/21/2021, Additional history exists [facility]-Hepatitis A Vaccines Aged Out 04/04/2018 No longer eligible based on patient's age to complete this topic [facility]-Pneumococcal Vaccine: 50+ Years Completed 02/27/2023, 12/28/2017 [facility]-RSV Vaccine: 60+ Years or Completed 06/24/2024 HPV Vaccines (No Doses Required) Completed [facility]-HIB Vaccines Aged Out No longer e ligible based on patient's age to complete this topic [facility]-IPV Vaccines Aged Out No longer e ligible based on patient's age to complete this topic [facility]-Rotavirus Vaccines Aged Out No lo nger eligible based on patient's age to complete this topic Insurance MEDICARE [facility] [place] [id number] Care Teams Hr Receptionist Relationship Specialty Start Date End Date Valentina, Carmelo, MD [facility] [address] PCP - General 09/03/20
[2025-04-21 11:22] LABS: Hematocrit 43.0 % (37.0-47.0); Hemoglobin 13.6 g/dL (12.2-16.2); Immature Granulocytes % 0.6 %; Mean Corpuscular HGB Conc 31.6 g/dL (31.8-35.4); Mean Corpuscular Hemoglobin 30.0 pg (27.0-31.2); Mean Corpuscular Volume 94.7 fl (81-99); Nucleated Red Blood Cells % 0 %; Platelet Count 267 K/mm3 (142-424); Red Blood Count 4.54 M/mm3 (4.20-5.40); Red Cell Distribution Width-SD 46.0 fL; White Blood Count 9.6 K/mm3 (4.8-10.8)
[2025-04-21 11:38] LABS: Bilirubin,Urine Negative (Negative); Color,Urine YELLOW (Yellow); Glucose,Urine (UA) Negative (Negative); Ketones,Urine Negative (Negative); Leukocyte Esterase,Urine Negative (Negative); PH,Urine 5.5 (5.0-8.5); Protein,Urine Negative (Negative); Specific Gravity, Urine >= 1.030 (1.005-1.030); Urobilinogen,Urine 0.2 EU/dl (0.2)
[2025-04-21 11:56] LABS: Albumin Level 4.2 g/dl (3.5-5.0); Anion Gap 11.2 mEq/L (5-15); Blood Urea Nitrogen 42 mg/dl (7-17); Calcium 9.4 mg/dl (8.4-10.2); Carbon Dioxide 25 mmol/L (22.0-30.0); Chloride 111 mmol/L (98-107); Creatinine,Serum 2.60 mg/dl (0.52-1.04); Estimated Glomerular Filt Rate 18 ml/min (>60); GFR (African American) 21 ML/MIN (>60); Glucose 85 mg/dl (74-100); Phosphorous 4.0 mg/dl (2.5-4.5); Potassium 5.2 mmoL/L (3.5-5.1); Sodium 142 mmol/L (136-145)
[2025-04-21 12:07] LABS: Bacteria,Urine Trace /lpf; Hyaline Casts,Urine OCC #/lpf (0); Squamous Epithelial Cell,Urine Occasional #/hpf (0-5); WBC,Urine Occasional #/hpf (0-3)
[2025-04-21 12:13] LABS: 25-OH Vitamin D, Total 38.3 ng/mL (30-100)
== END 2025-04-21 23:59 | disposition home or self-care (01) ==
LOC: RAD 10:46
PROVIDERS: PCP Internal Medicine Adolescent Medicine; Visit Provider Student in an Organized Health Care Education/Training Program
DX: M17.12 Unilateral primary osteoarthritis, left knee (principal); N17.9 Acute kidney failure, unspecified; E55.9 Vitamin D deficiency, unspecified
CPT/HCPCS: 36415; 73562; 80069; 81001; 82306; 82570; 83970; 84156; 85025